=== PATIENT | female | born 1975 | race Caucasian/White ===

== ENCOUNTER → 2017-08-01 09:02 | Outpatient (POV) | payer MEDICAID, SELFPAY ==
[2017-08-01 10:08] VITALS: BP 106/65; PULSE 73; RESP 18; BMI 23.3
--- NOTE | 2017-08-01 10:34 | HMH.PAINSOAP ---
[facility] Pain Management SOAP Note Subjective:: This patient is a pleasant 41-year-old white female who we previously treated for low back pain with degenerative disc disease of lumbar spine multiple levels as well as lumbar facet arthropathy multiple levels. She previously had lumbar medial branch blocks/facet joint injections of L3-L4, L4-5 and L5-S1 bilaterally. She got good pain relief for several months. She was having insurance issues where they would not approve further injections last year. She returns today with increasing low back pain. I do believe she would benefit from repeat medial branch blocks/facet joint injections at L3-L4, L4-5 and L5-S1 bilaterally. We will seek approval for these injections. Objective:: Alert and oriented ?3 no acute distress. Patient does have a normal gait. Increased pain with extension. Tenderness over the facet joints at L3-L4, L4-5 and L5-S1 bilaterally. Motor strength of the lower extremities is 5/5. There is no gross sensory deficit. Assessment:: Degenerative disc disease of lumbar spine with lumbar spondylosis and facet arthropathy and lumbar radiculopathy symptoms. Plan:: We will seek approval for repeat bilateral facet joint injection/medial branch blocks of L3-L4, L4-5 and L5-S1. This patient received these blocks in the past and did very well for several months. She is also on [place] 10 mg 3 times a day from Dr. Vernon. This patient failed a pill count with us so we will no longer write her any oral narcotics. She can be continued on her medication by Dr. Vernon at his discretion.
== END ==
PROVIDERS: Family Provider Emergency Medicine; PCP Emergency Medicine; Visit Provider Anesthesiology
DX: M51.16 Intervertebral disc disorders with radiculopathy, lumbar region (principal); M47.26 Other spondylosis with radiculopathy, lumbar region
CPT/HCPCS: 99212

== ENCOUNTER → 2017-08-08 16:02 | Outpatient (REF) | payer MEDICAID, SELFPAY ==
[2017-08-08 19:44] LABS: Amphetamine/Metha Screen,Urine Negative ng/mL (<1000); Barbiturates Screen,Urine Negative ng/mL (<200); Benzodiazepines Screen,Urine Negative ng/mL (200); Cannabinoid Screen,Urine Negative ng/mL (<50); Cocaine Screen,Urine Negative ng/g (<300); Methadone Screen,Urine Negative ng/mL (<300); Opiate Screen,Urine Negative ng/mL (<300); Phencyclidine Screen,Urine Negative ng/mL (<25)
== END ==
LOC: LAB 16:02
PROVIDERS: Visit Provider Emergency Medicine
DX: Z79.891 Long term (current) use of opiate analgesic (principal)
CPT/HCPCS: 80305

== ENCOUNTER → 2017-09-06 15:01 | Outpatient (REF) | payer MEDICAID, SELFPAY ==
[2017-09-06 20:03] LABS: Amphetamine/Metha Screen,Urine Negative ng/mL (<1000); Barbiturates Screen,Urine Negative ng/mL (<200); Benzodiazepines Screen,Urine Negative ng/mL (200); Cannabinoid Screen,Urine Negative ng/mL (<50); Cocaine Screen,Urine Negative ng/g (<300); Methadone Screen,Urine Negative ng/mL (<300); Opiate Screen,Urine Positive ng/mL (<300); Phencyclidine Screen,Urine Negative ng/mL (<25)
== END ==
LOC: LAB 15:01
PROVIDERS: Visit Provider Emergency Medicine
DX: Z79.899 Other long term (current) drug therapy (principal)
CPT/HCPCS: 80305

== ENCOUNTER → 2017-09-28 08:52 | Outpatient (CLI) | payer MEDICAID, SELFPAY ==
[2017-09-28 09:23] LABS: Basophils % 0.4 % (0.1-2.0); Eosinophils # 0.3 K/mm3 (0.0-0.4); Eosinophils % 3.5 % (0.1-12.0); Hematocrit 39.5 % (37.0-47.0); Hemoglobin 13.3 g/dL (12.2-16.2); Lymphocytes # 2.7 K/mm3 (0.7-4.5); Lymphocytes % 35.1 K/mm3 (10-50); Mean Corpuscular HGB Conc 33.7 g/dL (31.8-35.4); Mean Corpuscular Hemoglobin 30.5 pg (27.0-31.2); Mean Corpuscular Volume 90.4 fl (81-99); Mean Platelet Volume 7.3 fl (7.4-10.4); Monocytes # 0.3 K/mm3 (0.1-1.0); Monocytes % 4.4 % (1.7-9.3); Neutrophils # 4.3 K/mm3 (1.8-7.8); Neutrophils % 56.5 % (37.0-80.0); Platelet Count 303 K/mm3 (142-424); Red Blood Count 4.37 M/mm3 (4.20-5.40); Red Cell Distribution Width 12.2 % (11.5-17.5); White Blood Count 7.7 K/mm3 (4.8-10.8)
[2017-09-28 09:50] LABS: Alanine Aminotransferase 25 U/L (12-78); Albumin Level 3.6 gm/dL (3.4-5.0); Albumin/Globulin Ratio 1.1 (1.1-1.8); Alkaline Phosphatase 66 U/L (46-116); Anion Gap 9.7 mEq/L (5-15); Aspartate Amino Transferase 15 U/L (15-37); Bilirubin,Total 0.5 mg/dL (0.2-1.0); Blood Urea Nitrogen 11 mg/dL (7-18); Calcium 8.6 mg/dL (8.5-10.1); Carbon Dioxide 29 mmol/L (21.0-32.0); Chloride 107 mmol/L (98-107); Chol/HDL Ratio 5.1 (1-3.5); Cholesterol 239 mg/dL (140-200); Creatinine,Serum 0.66 mg/dL (0.55-1.02); Estimated Glomerular Filt Rate 98 ml/min (>60); GFR (African American) 119 ML/MIN (>60); Globulin 3.3 gm/dl (1.3-3.2); Glucose 95 mg/dL (74-106); HDL Cholesterol 47 mg/dL (29-89); LDL Cholesterol 153 mg/dL (0-130); Potassium 3.7 mmoL/L (3.5-5.1); Sodium 142 mmol/L (136-145); Thyroid Stimulating Hormone 1.35 uIU/ml (0.358-3.740); Total Protein,Serum 6.9 gm/dL (6.4-8.2); Triglycerides 196 mg/dL (30-200); VLDL Cholesterol 39 mg/dL (0-40)
[2017-09-29 11:40] LABS: Vitamin D 25 Hydroxy 10.1 ng/mL (30.0-100.0)
== END ==
PROVIDERS: Visit Provider Emergency Medicine
DX: R53.83 Other fatigue (principal); Z79.899 Other long term (current) drug therapy
CPT/HCPCS: 36415; 80053; 80061; 82652; 84439; 84443; 85025

== ENCOUNTER → 2017-10-04 16:04 | Outpatient (REF) | payer MEDICAID, SELFPAY ==
[2017-10-04 20:16] LABS: Amphetamine/Metha Screen,Urine Negative ng/mL (<1000); Barbiturates Screen,Urine Negative ng/mL (<200); Benzodiazepines Screen,Urine Negative ng/mL (200); Cannabinoid Screen,Urine Negative ng/mL (<50); Cocaine Screen,Urine Negative ng/g (<300); Methadone Screen,Urine Negative ng/mL (<300); Opiate Screen,Urine Positive ng/mL (<300); Phencyclidine Screen,Urine Negative ng/mL (<25)
== END ==
LOC: LAB 16:04
PROVIDERS: Visit Provider Emergency Medicine
DX: Z79.899 Other long term (current) drug therapy (principal)
CPT/HCPCS: 80305

== ENCOUNTER → 2017-11-03 14:38 | Outpatient (REF) | payer MEDICAID, SELFPAY ==
[2017-11-03 19:27] LABS: Amphetamine/Metha Screen,Urine Negative ng/mL (<1000); Barbiturates Screen,Urine Negative ng/mL (<200); Benzodiazepines Screen,Urine Negative ng/mL (200); Cannabinoid Screen,Urine Negative ng/mL (<50); Cocaine Screen,Urine Negative ng/g (<300); Methadone Screen,Urine Negative ng/mL (<300); Opiate Screen,Urine Positive ng/mL (<300); Phencyclidine Screen,Urine Negative ng/mL (<25)
== END ==
LOC: LAB 14:38
PROVIDERS: Visit Provider Emergency Medicine
DX: Z79.899 Other long term (current) drug therapy (principal)
CPT/HCPCS: 80305

== ENCOUNTER → 2017-11-24 13:56 | Outpatient (CLI) | payer MEDICAID, SELFPAY ==
[2017-11-24 14:38] LABS: Amphetamine/Metha Screen,Urine Negative ng/mL (<1000); Barbiturates Screen,Urine Negative ng/mL (<200); Benzodiazepines Screen,Urine Negative ng/mL (200); Cannabinoid Screen,Urine Negative ng/mL (<50); Cocaine Screen,Urine Negative ng/g (<300); Methadone Screen,Urine Negative ng/mL (<300); Opiate Screen,Urine Negative ng/mL (<300); Phencyclidine Screen,Urine Negative ng/mL (<25)
== END ==
PROVIDERS: Visit Provider Emergency Medicine
DX: Z79.899 Other long term (current) drug therapy (principal)
CPT/HCPCS: 80305

== ENCOUNTER → 2017-12-01 15:04 | Outpatient (REF) | payer MEDICAID, SELFPAY ==
[2017-12-01 19:31] LABS: Amphetamine/Metha Screen,Urine Negative ng/mL (<1000); Barbiturates Screen,Urine Negative ng/mL (<200); Benzodiazepines Screen,Urine Negative ng/mL (200); Cannabinoid Screen,Urine Negative ng/mL (<50); Cocaine Screen,Urine Negative ng/g (<300); Methadone Screen,Urine Negative ng/mL (<300); Opiate Screen,Urine Positive ng/mL (<300); Phencyclidine Screen,Urine Negative ng/mL (<25)
== END ==
LOC: LAB 15:04
PROVIDERS: Visit Provider Emergency Medicine
DX: Z79.899 Other long term (current) drug therapy (principal)
CPT/HCPCS: 80305

== ENCOUNTER → 2017-12-29 15:53 | Outpatient (CLI) | payer MEDICAID, SELFPAY ==
[2017-12-29 17:43] LABS: Amphetamine/Metha Screen,Urine Negative ng/mL (<1000); Barbiturates Screen,Urine Negative ng/mL (<200); Benzodiazepines Screen,Urine Negative ng/mL (200); Cannabinoid Screen,Urine Negative ng/mL (<50); Cocaine Screen,Urine Negative ng/g (<300); Methadone Screen,Urine Negative ng/mL (<300); Opiate Screen,Urine Positive ng/mL (<300); Phencyclidine Screen,Urine Negative ng/mL (<25)
== END ==
PROVIDERS: Visit Provider Emergency Medicine
DX: Z79.899 Other long term (current) drug therapy (principal)
CPT/HCPCS: 80305

== ENCOUNTER → 2018-01-29 14:21 | Outpatient (REF) | payer MEDICAID, SELFPAY ==
[2018-01-29 19:25] LABS: Amphetamine/Metha Screen,Urine Negative ng/mL (<1000); Barbiturates Screen,Urine Negative ng/mL (<200); Benzodiazepines Screen,Urine Negative ng/mL (<200); Cannabinoid Screen,Urine Negative ng/mL (<50); Cocaine Screen,Urine Negative ng/mL (<300); Methadone Screen,Urine Negative ng/mL (<300); Opiate Screen,Urine Positive ng/mL (<300); Phencyclidine Screen,Urine Negative ng/mL (<25)
== END ==
LOC: LAB 14:21
PROVIDERS: Visit Provider Emergency Medicine
DX: Z79.899 Other long term (current) drug therapy (principal)
CPT/HCPCS: 80305

== ENCOUNTER → 2018-02-23 13:47 | Outpatient (REF) | payer MEDICAID, SELFPAY ==
[2018-02-23 19:01] LABS: Amphetamine/Metha Screen,Urine Negative ng/mL (<1000); Barbiturates Screen,Urine Negative ng/mL (<200); Benzodiazepines Screen,Urine Negative ng/mL (<200); Cannabinoid Screen,Urine Negative ng/mL (<50); Cocaine Screen,Urine Negative ng/mL (<300); Methadone Screen,Urine Negative ng/mL (<300); Opiate Screen,Urine Positive ng/mL (<300); Phencyclidine Screen,Urine Negative ng/mL (<25)
== END ==
LOC: LAB 13:47
PROVIDERS: Visit Provider Emergency Medicine
DX: Z79.899 Other long term (current) drug therapy (principal)
CPT/HCPCS: 80305

== ENCOUNTER → 2018-03-30 14:47 | Outpatient (CLI) | payer MEDICAID, SELFPAY ==
[2018-03-30 18:04] LABS: Amphetamine/Metha Screen,Urine Negative ng/mL (<1000); Barbiturates Screen,Urine Negative ng/mL (<200); Benzodiazepines Screen,Urine Negative ng/mL (<200); Cannabinoid Screen,Urine Negative ng/mL (<50); Cocaine Screen,Urine Negative ng/mL (<300); Methadone Screen,Urine Negative ng/mL (<300); Opiate Screen,Urine Positive ng/mL (<300); Phencyclidine Screen,Urine Negative ng/mL (<25)
== END ==
PROVIDERS: Visit Provider Nurse Practitioner Family
DX: Z79.899 Other long term (current) drug therapy (principal)
CPT/HCPCS: 80305

== ENCOUNTER → 2018-04-23 15:11 | Outpatient (REF) | payer MEDICAID, SELFPAY ==
[2018-04-23 19:22] LABS: Amphetamine/Metha Screen,Urine Negative ng/mL (<1000); Barbiturates Screen,Urine Negative ng/mL (<200); Benzodiazepines Screen,Urine Negative ng/mL (<200); Cannabinoid Screen,Urine Negative ng/mL (<50); Cocaine Screen,Urine Negative ng/mL (<300); Methadone Screen,Urine Negative ng/mL (<300); Opiate Screen,Urine Positive ng/mL (<300); Phencyclidine Screen,Urine Negative ng/mL (<25)
== END ==
LOC: LAB 15:11
PROVIDERS: Visit Provider Emergency Medicine
DX: Z79.899 Other long term (current) drug therapy (principal)
CPT/HCPCS: 80305

== ENCOUNTER → 2018-05-29 15:41 | Outpatient (CLI) | payer MEDICAID, SELFPAY ==
[2018-05-30 17:03] LABS: Amphetamine/Metha Screen,Urine Negative ng/mL (<1000); Barbiturates Screen,Urine Negative ng/mL (<200); Benzodiazepines Screen,Urine Negative ng/mL (<200); Cannabinoid Screen,Urine Negative ng/mL (<50); Cocaine Screen,Urine Negative ng/mL (<300); Methadone Screen,Urine Negative ng/mL (<300); Opiate Screen,Urine Positive ng/mL (<300); Phencyclidine Screen,Urine Negative ng/mL (<25)
== END ==
PROVIDERS: PCP Emergency Medicine; Visit Provider Emergency Medicine
DX: Z79.899 Other long term (current) drug therapy (principal)
CPT/HCPCS: 80305

== ENCOUNTER → 2018-06-27 19:30 | Outpatient (CLI) | payer MEDICAID, SELFPAY ==
[2018-06-27 21:55] LABS: Amphetamine/Metha Screen,Urine Negative ng/mL (<1000); Barbiturates Screen,Urine Negative ng/mL (<200); Benzodiazepines Screen,Urine Negative ng/mL (<200); Cannabinoid Screen,Urine Negative ng/mL (<50); Cocaine Screen,Urine Negative ng/mL (<300); Methadone Screen,Urine Negative ng/mL (<300); Opiate Screen,Urine Positive ng/mL (<300); Phencyclidine Screen,Urine Negative ng/mL (<25)
== END ==
PROVIDERS: Visit Provider Physician Assistant
DX: Z79.899 Other long term (current) drug therapy (principal)
CPT/HCPCS: 80305

== ENCOUNTER → 2018-07-10 09:11 | Outpatient (POV) | payer MEDICAID, SELFPAY ==
[2018-07-10 09:52] VITALS: BP 100/62; PULSE 79; RESP 18; O2SAT 99; BMI 24.3
--- NOTE | 2018-07-10 10:52 | HMH.PAINSOAP ---
[facility] Pain Management SOAP Note Subjective:: Is a pleasant 42-year-old who presents today for follow-up. Patient is having low back pain which is axial in nature. Patient has had several sets of medial branch blocks with good relief. She is also had an RFA that lasted her quite some time she rates her pain today an 8 out of 10. Patient is interested in repeating the RFA which she got 80% relief from for 6 months. She is tried and failed physical therapy. Patient is on anti-inflammatories. ROS General: no recent weight change, no fever, no sleep disturbances Respiratory: no cough, no shortness of air, no recurring pulmonary infections Cardiovascular/Peripheral Vascular: No chest pain, No palpitations, no edema, no shortness of breath. Gastrointestinal: no incontinence, normal bowel movements reported Genitourinary: no incontinence Musculoskeletal: back pain Psychiatric: normal mood/ affect Neurological: [denies weakness in extremities], [denies balance issues] Objective:: Physical Exam General: Alert and oriented x3, no acute distress, pleasant and cooperative, [on room air] Lungs: Resps E/U, Symmetrical chest expansion, Eyes: PERRL Musculoskeletal: Flexion and extension of lumbar spine somewhat guarded secondary to pain, deep tendon reflexes normal, strength in upper and lower extremities [5/5], slightly antalgic gait noted, positive kemps test bilaterally lumbar spine Neurological: speech clear, 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 Plan:: we will schedule a repeat rfa for the patient given the efficacy of it in the past. patient is not on any anticoagulation therapy. Patient is continuing a home stretching program. This note was dictated using voice recognition software and may contain errors or omissions
--- NOTE | 2018-07-10 10:56 | P.CONS_ITS ---
[facility] Pain Management SOAP Note Subjective:: Is a pleasant 42-year-old who presents today for follow-up. Patient is having low back pain which is axial in nature. Patient has had several sets of medial branch blocks with good relief. She is also had an RFA that lasted her quite some time she rates her pain today an 8 out of 10. Patient is interested in repeating the RFA which she got 80% relief from for 6 months. She is tried and failed physical therapy. Patient is on anti-inflammatories. ROS General: no recent weight change, no fever, no sleep disturbances Respiratory: no cough, no shortness of air, no recurring pulmonary infections Cardiovascular/Peripheral Vascular: No chest pain, No palpitations, no edema, no shortness of breath. Gastrointestinal: no incontinence, normal bowel movements reported Genitourinary: no incontinence Musculoskeletal: back pain Psychiatric: normal mood/ affect Neurological: [denies weakness in extremities], [denies balance issues] Objective:: Physical Exam General: Alert and oriented x3, no acute distress, pleasant and cooperative, [on room air] Lungs: Resps E/U, Symmetrical chest expansion, Eyes: PERRL Musculoskeletal: Flexion and extension of lumbar spine somewhat guarded secondary to pain, deep tendon reflexes normal, strength in upper and lower extremities [5/5], slightly antalgic gait noted, positive kemps test bilaterally lumbar spine Neurological: speech clear, 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 Plan:: we will schedule a repeat rfa for the patient given the efficacy of it in the past. patient is not on any anticoagulation therapy. Patient is continuing a home stretching program. This note was dictated using voice recognition software and may contain errors or omissions
== END ==
PROVIDERS: PCP Emergency Medicine; Visit Provider Clinical Nurse Specialist Family Health
DX: M47.896 Other spondylosis, lumbar region (principal); M54.06 Panniculitis affecting regions of neck and back, lumbar region; M51.36 Other intervertebral disc degeneration, lumbar region
CPT/HCPCS: 99213

== ENCOUNTER → 2018-07-17 15:28 | Outpatient (CLI) | payer MEDICAID, SELFPAY ==
--- NOTE | 2018-07-17 15:29 | MR_ITS ---
MR lumbar spine wo con, MR 3-d myelogram/MRCP Ordering Physician: TAMIR Esparza Patient Age: 42 years: Female. HISTORY: ITS.REASON: lumbar disc disease with radiculopathy weakness Low back pain which radiates down left leg and groin. Left also leg pain on right. For many years. Left leg symptoms 3 months. No trauma. TECHNIQUE: Sagittal STIR, T1, T2, axial T1 and T2. On 1.5T Siemens wide bore MRI. 3-D MR myelogram image set obtained & performed on MRI workstation. Additional sagittal thin section T2 weighted dataset obtained from this latter acquisition as well (---76 CPT) COMPARISON :Previous MRI lumbar 05/04/2017 & FINDINGS . The patient has a mild scoliosis. Mild dextrocurvature at the thoracolumbar junction with slight levocurvature at the lowermost lumbar spine. This is actually seen better on a previous studies than today. . Lumbar vertebral bodies are intact on. This spaces are fairly well-maintained throughout. L5/S1. Disc intact. Mild/moderate facet hypertrophy, arthropathy. Neural foramen widely patent L 4/5. Disc intact. Moderate facet hypertrophy with mildly flavum hypertrophy.. Neural foramen on Monday patent. Only perhaps scant disc bulge towards left foramen. Stable L3/4. Mild asymmetric disc bulge to the right.-Slightly indents, and effaces the anterior aspect of thecal sac right paracentral seen on axial image 14.. Also minor encroachment upon entry of the right foramen. Mild right foraminal encroachment Mild facet hypertrophy and arthropathy bilaterally. L2/3 disc intact as question scant bulge to the right on the axial view but this is not evident on sagittal image set. L1/2. Disc intact neural foramen widely patent. T12/L1 disc intact... 12 disc intact. Conus ends appropriately at L1. Generous volume thecal sac no stenosis. 3-D MRI myelogram image set shows generous caliber thecal sac with no prominent findings. Only very subtle slight indentation upon the L3/4 level of thecal sac to the right due to the noted mild asymmetric disc bulge at this level. This is a only changes are seen from 2017 IMPRESSION: Only minimal observations as summarized below.. No prominent findings L3/4. Asymmetric disc bulge the right which does mildly efface the right aspect of the thecal sac, and yield mild encroachment upon entry right foramen. This is only evident change since MRI L-spine L4/5. Scant disc bulge at inferior left foramen.Very minimal.Unchanged since 2016. Mild/moderate facet hypertrophy L4/5 L5/S1 also noted
== END ==
PROVIDERS: PCP Emergency Medicine; Visit Provider Physician Assistant
DX: M51.16 Intervertebral disc disorders with radiculopathy, lumbar region (principal)
CPT/HCPCS: 72148; 76376

== ENCOUNTER → 2018-07-25 18:05 | Outpatient (CLI) | payer MEDICAID, SELFPAY ==
[2018-07-25 21:51] LABS: Amphetamine/Metha Screen,Urine Negative ng/mL (<1000); Barbiturates Screen,Urine Negative ng/mL (<200); Benzodiazepines Screen,Urine Negative ng/mL (<200); Cannabinoid Screen,Urine Negative ng/mL (<50); Cocaine Screen,Urine Negative ng/mL (<300); Methadone Screen,Urine Negative ng/mL (<300); Opiate Screen,Urine Positive ng/mL (<300); Phencyclidine Screen,Urine Negative ng/mL (<25)
== END ==
PROVIDERS: Visit Provider Emergency Medicine
DX: Z79.899 Other long term (current) drug therapy (principal)
CPT/HCPCS: 80305

== ENCOUNTER → 2018-09-24 14:14 | Outpatient (CLI) | payer MEDICAID, SELFPAY ==
[2018-09-24 15:18] LABS: Amphetamine/Metha Screen,Urine Negative ng/mL (<1000); Barbiturates Screen,Urine Negative ng/mL (<200); Benzodiazepines Screen,Urine Negative ng/mL (<200); Cannabinoid Screen,Urine Negative ng/mL (<50); Cocaine Screen,Urine Negative ng/mL (<300); Methadone Screen,Urine Negative ng/mL (<300); Opiate Screen,Urine Positive ng/mL (<300); Phencyclidine Screen,Urine Negative ng/mL (<25)
== END ==
PROVIDERS: Visit Provider Emergency Medicine
DX: Z79.899 Other long term (current) drug therapy (principal)
CPT/HCPCS: 80305

== ENCOUNTER → 2018-11-26 14:07 | Outpatient (CLI) | payer MEDICAID, SELFPAY ==
[2018-11-26 16:05] LABS: Amphetamine/Metha Screen,Urine Negative ng/mL (<1000); Barbiturates Screen,Urine Negative ng/mL (<200); Benzodiazepines Screen,Urine Negative ng/mL (<200); Cannabinoid Screen,Urine Negative ng/mL (<50); Cocaine Screen,Urine Negative ng/mL (<300); Methadone Screen,Urine Negative ng/mL (<300); Opiate Screen,Urine Positive ng/mL (<300); Phencyclidine Screen,Urine Negative ng/mL (<25)
== END ==
PROVIDERS: Visit Provider Emergency Medicine
DX: Z79.899 Other long term (current) drug therapy (principal)
CPT/HCPCS: 80305

== ENCOUNTER → 2019-01-25 14:30 | Outpatient (CLI) | payer MEDICAID, SELFPAY ==
[2019-01-25 16:37] LABS: Amphetamine/Metha Screen,Urine Negative ng/mL (<1000); Barbiturates Screen,Urine Negative ng/mL (<200); Benzodiazepines Screen,Urine Negative ng/mL (<200); Cannabinoid Screen,Urine Negative ng/mL (<50); Cocaine Screen,Urine Negative ng/mL (<300); Methadone Screen,Urine Negative ng/mL (<300); Opiate Screen,Urine Positive ng/mL (<300); Phencyclidine Screen,Urine Negative ng/mL (<25)
== END ==
PROVIDERS: Visit Provider Emergency Medicine
DX: Z79.899 Other long term (current) drug therapy (principal)
CPT/HCPCS: 80305

== ENCOUNTER → 2019-03-25 14:03 | Outpatient (CLI) | payer MEDICAID, SELFPAY ==
[2019-03-25 15:07] LABS: Amphetamine/Metha Screen,Urine Negative ng/mL (<1000); Barbiturates Screen,Urine Negative ng/mL (<200); Benzodiazepines Screen,Urine Negative ng/mL (<200); Cannabinoid Screen,Urine Negative ng/mL (<50); Cocaine Screen,Urine Negative ng/mL (<300); Methadone Screen,Urine Negative ng/mL (<300); Opiate Screen,Urine Positive ng/mL (<300); Phencyclidine Screen,Urine Negative ng/mL (<25)
== END ==
PROVIDERS: Visit Provider Emergency Medicine
DX: Z79.891 Long term (current) use of opiate analgesic (principal)
CPT/HCPCS: 80305

== ENCOUNTER → 2019-05-17 17:17 | Outpatient (CLI) | payer MEDICAID, SELFPAY ==
[2019-05-17 18:12] LABS: Amphetamine/Metha Screen,Urine Negative ng/mL (<1000); Barbiturates Screen,Urine Negative ng/mL (<200); Benzodiazepines Screen,Urine Negative ng/mL (<200); Cannabinoid Screen,Urine Negative ng/mL (<50); Cocaine Screen,Urine Negative ng/mL (<300); Methadone Screen,Urine Negative ng/mL (<300); Opiate Screen,Urine Positive ng/mL (<300); Phencyclidine Screen,Urine Negative ng/mL (<25)
== END ==
PROVIDERS: Visit Provider Emergency Medicine
DX: Z79.899 Other long term (current) drug therapy (principal)
CPT/HCPCS: 80305

== ENCOUNTER → 2019-06-25 09:43 | Outpatient (CLI) | payer MEDICAID, SELFPAY ==
--- NOTE | 2019-06-25 09:47 | XR_ITS ---
PROCEDURE: XR CHEST 2V CLINICAL HISTORY: productive cough Current smoker, shortness of air COMPARISON: CXR CHEST(2 VIEWS-NOT PORTABLE) from 10/07/2012 CXR CHEST(2 VIEWS-NOT PORTABLE) from 06/29/2015 CXR CHEST(2 VIEWS-NOT PORTABLE) from 08/18/2016 FINDINGS: The cardiomediastinal silhouette and pulmonary vascularity are within normal limits. No lobar consolidation or collapse. On the lateral view there is a 4.7 mm nodular opacity overlying the anterior and inferior aspect of the heart linear density is present in the right apex may be due to an area of fibrosis or atelectasis which has developed in the interval Nonspecific. IMPRESSION: Right upper lobe atelectatic or fibrotic change Nonspecific 5 mm nodular opacity overlying the anterior inferior aspect of the heart. Consider follow-up to confirm stability. Dictated by: Scott Conti MD 06/25/2019 16:09 Electronically signed by Scott Conti MD in [place] 06/25/2019 16:09
== END ==
PROVIDERS: PCP Nurse Practitioner Family; Visit Provider Nurse Practitioner Family
DX: R05 Cough (principal)
CPT/HCPCS: 71046

== ENCOUNTER → 2019-07-19 13:19 | Outpatient (CLI) | payer MEDICAID, SELFPAY ==
[2019-07-19 16:09] LABS: Amphetamine/Metha Screen,Urine Negative ng/mL (<1000); Barbiturates Screen,Urine Negative ng/mL (<200); Benzodiazepines Screen,Urine Negative ng/mL (<200); Cannabinoid Screen,Urine Negative ng/mL (<50); Cocaine Screen,Urine Negative ng/mL (<300); Methadone Screen,Urine Negative ng/mL (<300); Opiate Screen,Urine Positive ng/mL (<300); Phencyclidine Screen,Urine Negative ng/mL (<25)
[2019-07-28 17:13] LABS: Codeine Negative (Cutoff=100); Hydrocodone Positive (.); Hydromorphone Positive (.)
[2019-07-28 18:48] LABS: Hydrocodone Confirm 2848 ng/mL (Cutoff=100); Hydromorphone Confirm 194 ng/mL (Cutoff=100); Morphine Comment: (.); Opiates Comment: ng/mL (.)
== END ==
PROVIDERS: Visit Provider Nurse Practitioner Family
DX: Z79.899 Other long term (current) drug therapy (principal)
CPT/HCPCS: 80305; 80361; G0480

== ENCOUNTER → 2019-07-25 10:32 | Outpatient (POV) | payer MEDICAID, SELFPAY ==
--- NOTE | 2019-07-25 10:38 | XR_ITS ---
PROCEDURE: XR CHEST 2V CLINICAL HISTORY: abnormal cxr, nodule COMPARISON: CXR CHEST(2 VIEWS-NOT PORTABLE) from 06/29/2015 CXR CHEST(2 VIEWS-NOT PORTABLE) from 08/18/2016 XR CHEST 2V from 06/25/2019 FINDINGS: The cardiomediastinal silhouette and pulmonary vascularity are within normal limits. The lungs are clear without infiltrates, suspicious nodules, or pleural effusions. No acute bony abnormalities. IMPRESSION: No acute findings. Dictated by: Sriram Cornell 07/25/2019 10:51 Electronically signed by Sriram Cornell in [place] 07/25/2019 10:51
[2019-07-25 11:17] VITALS: BP 140/86; PULSE 90; RESP 18; O2SAT 98; BMI 24.0
--- NOTE | 2019-07-25 11:32 | HMH.PAINSOAP ---
[facility] Pain Management SOAP Note Subjective:: Patient is a pleasant 43-year-old white female who presents today for follow-up. Patient underwent a radiofrequency ablation to the facet joint/medial branches of L3-L4 L4-L5 L5-S1 on the right side. Patient says that she underwent the procedure in September 2018. She says that she was afraid to return due to the pain that she felt from the previous injection. She is here today with complaints of low back pain that is worse with turning and twisting and with bending forward. She does say she got 90% relief following the procedures in the past. Patient states her pain has returned on bilateral sides, but is worse on the right side. Like to discuss possible RFA to the right side him. She is continuing with anti-inflammatories and a home stretching program. She rates her pain a 6 out of 10 today. Review of Systems General: No recent weight changes, no fever, no sleep disturbances Respiratory: No cough, no shortness of air, no recurring pulmonary infections Cardiovascular/peripheral vascular: No chest pain, no palpitations, no edema, no shortness of breath Gastrointestinal: No new onset incontinence, normal bowel movements reported Genitourinary: No new onset incontinence Musculoskeletal: Low back pain Psychiatric: Normal mood/affect Neurological: [Denies weakness in extremities], [denies balance issues] Objective:: Physical exam General: Alert and oriented x3, no acute distress, pleasant and cooperative, [on room air] Lungs: Respirations even and unlabored, symmetrical chest expansion Eyes: PERRL Musculoskeletal: Flexion and extension of lumbar spine somewhat guarded secondary to pain, deep tendon reflexes normal, strength in upper and lower extremities [5/5], [abnormal gait noted] Neurological: Speech clear, 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 Her pain has progressively returned. Her pain is worse on the right side. We will schedule her for an RFA on the right side to L3-L4 L4-L5 L5-S1. She is not on any anticoagulation therapy. She will continue with anti-inflammatories and a home stretching program. We will see her back in the clinic following her F8 to reassess her symptoms. She has been instructed to contact the clinic if she has any concerns before her next appointment. Dr. Eddy has reviewed this note and agrees with this plan of care. This note was dictated using voice recognition software and make contain errors or omissions. [facility] History I have reviewed the patient's past medical history: Yes Medical History: Reports:: Anxiety, Depression, Hyperlipidemia, Migraine, Osteoporosis, Urinary Tract Infection Denies:: Cancer, Diabetes Mellitus Type 1, Diabetes Mellitus Type 2, Seizures *Have you ever received a pneumonia vaccine?: Yes *Have you received a flu vaccine this season?: Yes Other Medical History: Reports: Arthritis, Hormone Therapy, Osteoporosis Laterality Cases: Right: Arthroscopy Shoulder Other Surgeries: Yes: Hysterectomy-Total, Tubal Ligation Amputation: No Fractures: No - *Social History Smoking Status: Current every day smoker Tobacco Type: cigarettes # Packs/Day (cigarettes): 1 Alcohol Intake: never Substance Use Type: denies use *Occupational Status:: other Housing: house Household Members: family *Travel in the last 8 weeks: None - Psychiatric History Pschychiatric History:: Reports:: Anxiety, Depression Family Hx:: Heart Attack, Hypertension, Coronary Artery Disease
== END ==
PROVIDERS: PCP Emergency Medicine; Referring Provider Nurse Practitioner Family; Visit Provider Clinical Nurse Specialist Family Health
DX: R93.89 Abnormal findings on diagnostic imaging of other specified body structures (principal); R05 Cough
CPT/HCPCS: 71046; 99212

== ENCOUNTER → 2019-08-05 08:01 | Outpatient (CLI) | payer MEDICAID, SELFPAY ==
--- NOTE | 2019-08-05 | CA_ITS ---
APPROVED REPORT Exam: Exercise Treadmill Technologist: Magalie Dahl Ht: 5 ft 3 in Wt: 132 lbs BSA: 1.62 m2 HR: 80 bpm BP: 108/74 mmHg Indications: Chest pain Medical History Medications: Omeprazole,,,,, ZYRTEC,,,,, OxYCODONE,,,,, Estradol,,,,, Stress Test Details Test: Pan HR Resting HR: 92 bpm Max Heart Rate (APMHR): 176 bpm Max HR Achieved: 170 bpm Target HR (85% APMHR): 149 bpm % of APMHR: 96 Recovery HR: 94 bpm BP Resting BP: 108.0/74.0 mmHg Max BP: 150.0/78.0 mmHg Recovery BP: 126.0/64.0 mmHg ECG Clinical Reason for Termination: Chest pain, Dyspnea Exercise duration: 06:53 min Highest Stage Achieved: Exercise capacity: 10.1 METs Stress ECG Conclusion Abnormal stress test. Patient exercised on a Pan Protocol for 6 minutes and 53 seconds to a peak heart rate of 170 beats per minute(target heart rate 150 beats per minute) without ST segment changes or arrhythmias. She stopped due to shortness of air and relayed substernal chest burning sensation at peak stress/early recovery. Peak blood pressure 164/78 mmHg and total METS of 10.1 acheived. Test Summary REST . . . . . . . Sitting REST . . . . . . . Standing REST 13:29 0.0 0.0 92 . 108/ 74 . . Stage 1 01:00 10.0 1.7 124 . . . . Stage 1 02:00 10.0 1.7 130 . . . . Stage 1 03:00 10.0 1.7 133 . 115/ 70 . . Stage 2 01:00 12.0 2.5 144 . . . . Stage 2 02:00 12.0 2.5 152 . . . . Stage 2 03:00 12.0 2.5 158 . 130/ 86 . . Stage 3 00:53 14.0 3.4 169 . . . Stop exercise at 06:53 RECOVERY 01:00 0.0 0.0 145 . . . . RECOVERY 02:00 0.0 0.0 117 . 150/ 78 . . RECOVERY 03:00 0.0 0.0 117 . 150/ 78 . . RECOVERY 04:00 0.0 0.0 109 . 150/ 78 . . RECOVERY 05:00 0.0 0.0 107 . 150/ 78 . . RECOVERY 05:29 0.0 0.0 104 . 150/ 78 . . Electronically signed by : Mono Elkins, 08/05/2019 19:41:32
--- NOTE | 2019-08-05 08:01 | CT_ITS ---
PROCEDURE: CT CHEST WO CON CLINICAL INDICATION: chest pain, tobacco use Follow-up lung nodule, solitary pulmonary nodule COMPARISON: ABDPELW/O CT ABD PELVIS W/O CONTRAST from 05/22/2017 XR CHEST 2V from 06/25/2019 XR CHEST 2V from 07/25/2019 TECHNIQUE: Axial images obtained with sagittal and coronal reformats. All CT scans at the facility use one or more dose reduction, viz: automated exposure control, ma/kV adjustment per patient size (including targeted exams where dose is matched to indication, i.e. head), or iterative reconstruction technique. FINDINGS: No mediastinal or hilar mass. There are few scattered small mediastinal lymph nodes. There is slight increased density within the anterior mediastinum and may be related to residual thymic tissue. Heart size is normal.. There is a noncalcified 3 mm nodule within the lingula which may account for the radiographic abnormality noted on 06/25/2019. This is unchanged compared to 05/22/[address] No suspicious pulmonary nodules are evident. No acute bony anomalies. No central obstructing lesions. There is a small sclerotic focus involving the T9 vertebral body and may be due to small bone island. IMPRESSION: No acute finding. Stable 3 mm nodule within the lingula. No suspicious pulmonary nodules apparent Dictated by: Scott Conti MD 08/06/2019 10:21 Electronically signed by Scott Conti MD in [place] 08/06/2019 10:21
== END ==
PROVIDERS: PCP Emergency Medicine; Visit Provider Urology
DX: E78.5 Hyperlipidemia, unspecified; R07.89 Other chest pain; R00.2 Palpitations; R53.83 Other fatigue; R93.89 Abnormal findings on diagnostic imaging of other specified body structures; Z72.0 Tobacco use
CPT/HCPCS: 71250; 93017; G0399

== ENCOUNTER → 2019-09-04 18:10 | Outpatient (CLI) | payer MEDICAID, SELFPAY ==
[2019-09-04 20:40] LABS: Amphetamine/Metha Screen,Urine Negative ng/mL (<1000); Barbiturates Screen,Urine Negative ng/mL (<200); Benzodiazepines Screen,Urine Negative ng/mL (<200); Cannabinoid Screen,Urine Negative ng/mL (<50); Cocaine Screen,Urine Negative ng/mL (<300); Methadone Screen,Urine Negative ng/mL (<300); Opiate Screen,Urine Positive ng/mL (<300); Phencyclidine Screen,Urine Negative ng/mL (<25)
== END ==
PROVIDERS: Visit Provider Emergency Medicine
DX: Z79.899 Other long term (current) drug therapy (principal)
CPT/HCPCS: 80305

== ENCOUNTER → 2020-01-23 15:26 | Outpatient (CLI) | payer MEDICAID, SELFPAY ==
--- NOTE | 2020-01-23 15:28 | MR_ITS ---
PROCEDURE: MR LUMBAR SPINE WO CON CLINICAL INDICATION: back pain COMPARISON: TOOL CLERK/O MRI-L-SPINE W/O from 05/04/2017 SPLUMBWO MR lumbar spine wo con from 07/17/2018 TECHNIQUE: Standard multiplanar multiecho sequences are performed without contrast. 3-D MIP and myelographic images are also rendered and reviewed FINDINGS: There is uniform fat marrow signal hyperintensity. There is mid lumbar scoliosis concave to the left. There is good alignment of the bony structures. Spinal cord and conus medullaris is unremarkable. At the T11-T12 disc space there is no significant spinal stenosis. At the T12-L1 disc space there is no significant spinal stenosis. At the L1-2 disc space there is no significant spinal stenosis. At the L2-3 disc space there is no significant spinal stenosis At the L3-4 disc space there is a broad-based disc protrusion producing minimal central canal stenosis.. At the L4-5 disc space there is mild facet arthropathy without significant spinal stenosis. At the L5-S1 disc space there is mild facet arthropathy without significant spinal stenosis The paralumbar structures are unremarkable. IMPRESSION: Minimal L3-4 spinal stenosis Dictated by: Solo Navarro 01/23/2020 16:43 Electronically signed by Solo Navarro in [facility] 01/23/2020 16:43
--- NOTE | 2020-01-23 15:28 | MM_ITS ---
PROCEDURE: MM DIG SCREENING MAMM BI W/CAD Digital Breast Tomosynthesis Included CLINICAL INDICATION: screening There is a history of breast cancer patient's 2 maternal aunts. The patient is currently on estrogen. COMPARISON: This is a baseline screening exam. TECHNIQUE: Standard CC and MLO images and 3D Tomosynthesis was obtained. R2 CAD reviewed. FINDINGS: Scattered fibroglandular densities are seen in the central portions of both breast on a background of fatty breast parenchyma. There is a mole marker left breast. There is no suspicious lesion in either breast and no suspicious microcalcifications. There are multiple benign-appearing nodes in both axilla. IMPRESSION: Fibrofatty parenchyma with no suspicious lesions seen BI-RAD Category: 2 Benign Finding(s) FOLLOW-UP: 1YR 1 Year Follow-up (A letter has been sent to the patient regarding results of the study.) Dictated by: Dr. Martín Gasca MD 01/25/2020 10:[address] Martín Gasca MD in [place] 01/25/2020 10:22
== END ==
PROVIDERS: PCP Emergency Medicine; Visit Provider Emergency Medicine
DX: Z12.31 Encounter for screening mammogram for malignant neoplasm of breast (principal); M54.9 Dorsalgia, unspecified
CPT/HCPCS: 72148; 76376; 77063; 77067

== ENCOUNTER 2020-04-05 11:12 | Emergency (ER) | payer MEDICAID, SELFPAY ==
[2020-04-05 11:14] VITALS: BP 114/80; PULSE 99; RESP 99; TEMP 36.9; O2SAT 97; BMI 26.5
[2020-04-05 11:23] VITALS: BMI 26.5
--- NOTE | 2020-04-05 11:23 | HMH.EDGENADL ---
ED Disposition Clinical Impression: Sinusitis Acute sinusitis Qualifiers: Sinusitis location: unspecified location Recurrence: not specified as recurrent Qualified Code(s): J01.90 - Acute sinusitis, unspecified Disposition: Home, Self-Care Condition on Discharge: Good Instructions: Sinusitis Additional Instructions: You were seen on an emergency basis. It is very important that you follow up with your primary care provider and/or specialist as we discussed within 2 days. All labs and imaging were obtained and interpreted here to rule out life threatening emergencies, but your final results should be reviewed by your primary doctor at your follow up appointment. Please return to the emergency department if any of your symptoms worsen, or if they do not improve as we discussed. Prescriptions: Amoxicillin/Potassium Clav [Augmentin 875-125 Tablet] 1 tab PO Q12H 10 Days #20 tab Transmission Status: Pending to [facility] Referrals: Missael Vernon MD [Primary Care Provider] - - Critical Care Critical Care Time: No Attestation: On , the high probability of a clinically significant, sudden or life threatening deterioration of the following system(s) required my full and direct attention, intervention and personal management. The time I documented below is in addition to time spent performing reported procedures but includes the following listed in this critical care notation. Medical Decision Making - Medical Records Medical records reviewed: Yes: I reviewed the patient's medical records. - Jarred Inquiry Pt receiving controlled substance: No Vital Signs: 04/05/20 11:14 Temperature 98.5 F Temperature Source Oral Pulse Rate [Left Radial] 99 H Respiratory Rate 99 H Blood Pressure [Right Arm] 114/80 Blood Pressure Mean [Right Arm] 91 Blood Pressure Source [Right Arm] Automatic Cuff Blood Pressure Position [Right Arm] Sitting 02 Sat by Pulse Oximetry 97 Oxygen Delivery Method Room Air Medical Decision Narrative: 4-year-old presenting with sinus congestion. Nontoxic, afebrile, hemodynamically stable. No meningismus. She was tachycardic when I walked in the room without any explanation for this so I got an EKG which is normal sinus rhythm at a rate of 89. She seems to have a normal heart rate until I walk in the room and then she becomes tachycardic but I was whitecoat syndrome because I can see that her monitoring engineer from my desk reading at a normal rate. Her EKG is otherwise nonactionable. She appears well. She has no cardiac symptoms. I do not feel that further intervention for this is required. Clinically she has a sinusitis that requires antibiotic treatment and I will prescribe her Augmentin for 2 weeks. She will also get 10 mg of oral Decadron here. Follow-up with PCP. General Adult HPI - General Stated complaint: johnston sore throat ear pain Time Seen by Provider: 04/05/20 11:23 - History of Present Illness HPI narrative: This is a 44-year-old female with a history of multiple sinus infections presenting with a two-week history of sinus pressure and pressure behind the eyes that feels similar to prior infections. She has been taking Claritin and Flonase without relief. She also took Tylenol and Motrin this morning. No fever, chills, nausea, vomiting, cough, shortness of breath, headache, double vision, blurry vision, chest pain, palpitations. - Related Data Home Medications Medication Instructions Recorded Confirmed estradiol 2 mg tablet 2 mg PO DAILY 03/31/20 03/31/20 Previous Rx's Medication Instructions Recorded aspirin 81 mg chewable tablet 81 mg PO DAILY #90 tab 08/25/18 cetirizine 10 mg capsule 10 mg PO DAILY #90 cap 11/12/19 fluticasone propionate 50 See Rx Instructions .ROUTE 11/12/19 mcg/actuation nasal .COMPLEX #16 unspecified spray,suspension omeprazole 20 mg capsule,delayed See Rx Instructions .ROUTE 03/23/20 release .COMPLEX #90 unspecified gabape
--- NOTE | 2020-04-05 11:25 | ECG_ITS ---
APPROVED REPORT Exam: Resting ECG HR:89 bpm ECG Measurements Heart Rate 89 AXES SC 178 P 64 QRSd 66 QRS 36 QT 348 T 53 QTc 423 <Conclusion> Normal sinus rhythm Possible Left atrial enlargement Low voltage QRS Borderline ECG Electronically signed by : Rhys Cheung, 04/07/2020 12:35:34
[2020-04-05 11:59] VITALS: BP 128/89; PULSE 97; RESP 16; TEMP 36.9; O2SAT 97
== END 2020-04-05 12:00 | disposition home or self-care (01) ==
PROVIDERS: Emergency Provider Physician Assistant; PCP Emergency Medicine
DX: J01.90 Acute sinusitis, unspecified (principal); I10 Essential (primary) hypertension; G43.709 Chronic migraine without aura, not intractable, without status migrainosus; F41.8 Other specified anxiety disorders; K21.9 Gastro-esophageal reflux disease without esophagitis; E78.5 Hyperlipidemia, unspecified; F17.210 Nicotine dependence, cigarettes, uncomplicated; Z90.710 Acquired absence of both cervix and uterus; Z91.040 Latex allergy status; Z88.1 Allergy status to other antibiotic agents; Z88.5 Allergy status to narcotic agent
CPT/HCPCS: 93005; 99282

== ENCOUNTER 2020-04-22 09:41 | Emergency (ER) | payer MEDICAID, SELFPAY ==
[2020-04-22 09:42] VITALS: BP 128/91; PULSE 76; RESP 16; TEMP 36.8; O2SAT 98; BMI 26.9
--- NOTE | 2020-04-22 10:19 | HMH.EDUTC ---
[facility] [facility] [place] Clinical Impression: Sinusitis Qualifiers: Sinusitis location: unspecified location Chronicity: unspecified Qualified Code(s): J32.9 - Chronic sinusitis, unspecified Disposition: Home, Self-Care Condition on Discharge: Good Instructions: Sinusitis, Sinus Headache, DI for Sinusitis, Azithromycin, Methylprednisolone Additional Instructions: *Monitor Temp, Over the counter Motrin or Tylenol as directed/as needed Tylenol every 4 hours and Motrin every 6 hours (as long as your family doctor has told you that you can take it) for fever or pain. and straight to ER if unable to lower temp less than 101.0 after medication given *Warm salt water gargles may help to soothe the throat *Throat Lozenges *Warm fluids like tea with honey may help to soothe the throat *Sleep elevated *Humidifier/Vaporizer *Flonase 2 sprays in each nostril daily but be aware that it may take 2-3 days before you notice improvement Follow up IMMEDIATELY for new or worsening symptoms or no Noticeable improvement over the next 48-72 hours. 911 for difficulty breathing or swallowing Prescriptions: Fluticasone Propionate [Flonase 50mcg nasal spray 16gm] 1 - 2 spr NS DAILY #1 bottle Transmission Status: Pending to [facility] methylPREDNISolone [Medrol 4mg tab] 4 mg PO DIRECTED #21 tab Transmission Status: Pending to [facility] Azithromycin [Z-Sharath 250mg Tab*] 250 mg PO UD DOSE PK #6 tab Transmission Status: Pending to [facility] Referrals: Missael Vernon MD [Primary Care Provider] - As needed Time of Disposition: 10:31 Medical Decision Making - Jarred Inquiry Pt receiving controlled substance: No Jarred was queried for this patient: No Vital Signs: 04/22/20 09:42 Temperature 98.2 F Temperature Source Oral Pulse Rate [Right] 76 Respiratory Rate 16 Blood Pressure [Right Arm] 128/91 H Blood Pressure Mean [Right Arm] 103 Blood Pressure Source [Right Arm] Automatic Cuff Blood Pressure Position [Right Arm] Sitting 02 Sat by Pulse Oximetry 98 Oxygen Delivery Method Room Air Medical Decision Narrative: Patient states that she has taken azithromycin and medrol dose pack before without reaction or complication [facility] [place] [facility] [place] - General Stated complaint: sore throat Time Seen by Provider: 04/22/20 10:19 Mode of Arrival: Ambulatory Source of Information: Patient Limitations: No Limitations Description of Symptoms (Recalled from Triage Doc. by RN): Pt c/o sore throat for the past month. Advises she has been seen a couple of times for the problem and just finished augmentin HEENT Symptoms (Recalled from RN notes): Yes (sore throat) Resp Symptoms (Recalled from RN notes): No Skin Symptoms (Recalled from RN notes): No MS Symptoms (Recalled from RN notes): No Functional Status (Recalled from RN notes): na - History of Present Illness Provider Complaint: Patient states that she has been having sinus pain and pressure along with sore throat on and off for over a month States that she was recently seen and treated with Augmentin and finished it over a week ago and not got any better States that she is still blowing yellowish colored mucous from her nose and drainage is worse when she lays down - Related Data Home Medications Medication Instructions Recorded Confirmed estradiol 2 mg tablet 2 mg PO DAILY 03/31/20 03/31/20 Previous Rx's Medication Instructions Recorded aspirin 81 mg chewable tablet 81 mg PO DAILY #90 tab 08/25/18 cetirizine 10 mg capsule 10 mg PO DAILY #90 cap 11/12/19 fluticasone propionate 50 See Rx Instructions .ROUTE 11/12/19 mcg/actuation nasal .COMPLEX #16 unspecified spray,suspension omeprazole 20 mg capsule,delayed See Rx Instructions .ROUTE 03/23/20 release .COMPLEX #90 unspecified gabapentin 300 mg capsule 300 mg PO BID #30 cap 03/31/20 hydrocodone 10 mg-acetaminophen 1 tab PO QID #120 tab 03/31/20 325 mg tablet Amoxicillin/Potassium Clav 1 tab PO Q12H 10 Days #20 t
[2020-04-22 10:25] LABS: UTC Strep Screen (Rapid) Negative (Negative)
[2020-04-22 10:48] VITALS: BP 130/87; PULSE 70; RESP 16; TEMP 36.6; O2SAT 98
== END 2020-04-22 10:49 | disposition home or self-care (01) ==
PROVIDERS: Emergency Provider Nurse Practitioner; PCP Emergency Medicine
DX: J32.9 Chronic sinusitis, unspecified (principal); F41.8 Other specified anxiety disorders; K21.9 Gastro-esophageal reflux disease without esophagitis; E78.5 Hyperlipidemia, unspecified; I10 Essential (primary) hypertension; G43.709 Chronic migraine without aura, not intractable, without status migrainosus; M81.0 Age-related osteoporosis without current pathological fracture; F17.210 Nicotine dependence, cigarettes, uncomplicated; Z90.710 Acquired absence of both cervix and uterus; Z79.899 Other long term (current) drug therapy; Z88.5 Allergy status to narcotic agent; Z88.8 Allergy status to other drugs, medicaments and biological substances
CPT/HCPCS: 87880; 99201

== ENCOUNTER → 2020-07-21 17:47 | Outpatient (CLI) | payer MEDICAID, SELFPAY ==
[2020-07-21 18:18] LABS: Basophils # 0.1 K/mm3 (0-0.2); Basophils % 0.8 % (0.1-2.0); Eosinophils # 0.2 K/mm3 (0.0-0.4); Eosinophils % 2.7 % (0.1-12.0); Hematocrit 37.9 % (37.0-47.0); Hemoglobin 12.4 g/dL (12.2-16.2); Lymphocytes # 2.9 K/mm3 (0.7-4.5); Lymphocytes % 40.1 % (10-50); Mean Corpuscular HGB Conc 32.8 g/dL (31.8-35.4); Mean Corpuscular Hemoglobin 30.7 pg (27.0-31.2); Mean Corpuscular Volume 93.9 fl (81-99); Mean Platelet Volume 8.4 fl (7.4-10.4); Monocytes # 0.3 K/mm3 (0.1-1.0); Monocytes % 4.5 % (1.7-9.3); Neutrophils # 3.7 K/mm3 (1.8-7.8); Neutrophils % 51.9 % (37.0-80.0); Platelet Count 411 K/mm3 (142-424); Red Blood Count 4.04 M/mm3 (4.20-5.40); Red Cell Distribution Width 13.2 % (11.5-17.5); White Blood Count 7.1 K/mm3 (4.8-10.8)
[2020-07-21 18:38] LABS: Alanine Aminotransferase 21 U/L (12-78); Albumin Level 4.1 g/dl (3.5-5.0); Albumin/Globulin Ratio 1.5 (1.1-1.8); Alkaline Phosphatase 99 U/L (38-126); Anion Gap 9.6 mEq/L (5-15); Aspartate Amino Transferase 37 U/L (14-36); Bilirubin,Total 0.3 mg/dl (0.2-1.3); Blood Urea Nitrogen 9 mg/dl (7-17); Calcium 9.3 mg/dl (8.4-10.2); Carbon Dioxide 28 mmol/L (22.0-30.0); Chloride 102 mmol/L (98-107); Chol/HDL Ratio 6.6 (1-3.5); Cholesterol 262 mg/dl (140-200); Estimated Glomerular Filt Rate 108 ml/min (>60); GFR (African American) 131 ML/MIN (>60); Globulin 2.8 g/dL (1.3-3.2); Glucose 114 mg/dl (74-100); HDL Cholesterol 40 mg/dl (40-60); Potassium 3.6 mmoL/L (3.5-5.1); Sodium 136 mmol/L (136-145); Total Protein,Serum 6.9 g/dl (6.3-8.2)
[2020-07-21 18:49] LABS: Direct LDL Cholesterol 141.89 mg/dL (100-129)
[2020-07-21 18:55] LABS: T4 (Thyroxine) 7.9 ug/dl (5.53-11.0)
[2020-07-21 19:00] LABS: 25-OH Vitamin D, Total < 12.8 ng/mL (30-100)
[2020-07-21 19:01] LABS: Triglycerides 660 mg/dl (30-150)
== END ==
PROVIDERS: Visit Provider Emergency Medicine
DX: E78.5 Hyperlipidemia, unspecified (principal); E55.9 Vitamin D deficiency, unspecified; E66.3 Overweight; R53.83 Other fatigue
CPT/HCPCS: 80053; 80061; 82306; 84436; 84443; 85025

== ENCOUNTER → 2020-08-05 14:35 | Outpatient (CLI) | payer MEDICAID, SELFPAY ==
--- NOTE | 2020-08-05 14:35 | CT_ITS ---
PROCEDURE: CT SOFT TISSUE NECK W CON CLINICAL HISTORY: pain, smoker smoker, sore throat x 5 months soft palette pain 75ml iso 370 no prior COMPARISON: No exams were available for comparison TECHNIQUE: Oral Contrast: None IV Contrast: 75 mL Isovue 370 Axial images obtained with sagittal and coronal reformats. All CT scans at the facility use one or more dose reduction, viz: automated exposure control, ma/kV adjustment per patient size (including targeted exams where dose is matched to indication, i.e. head), or iterative reconstruction technique. FINDINGS: The nasopharynx, oropharynx and hypopharynx have an unremarkable appearance. The epiglottis is unremarkable. There laryngeal region has an unremarkable appearance. The thyroid gland and salivary glands are unremarkable. There are small air-fluid levels within the maxillary sinuses. Scattered small nodes are present in the neck. No dominant adenopathy. Lung apices are clear. There are degenerative changes in the cervical spine at C4-C5 C5-C6 and C6-C7. IMPRESSION: Small air-fluid levels within the maxillary sinuses suggesting underlying inflammatory changes otherwise negative CT of the neck. Dictated by: Scott Conti MD 08/06/2020 11:37 Scott Conti MD in [place] 08/06/2020 11:37
== END ==
PROVIDERS: PCP Emergency Medicine; Visit Provider Emergency Medicine
DX: R07.0 Pain in throat (principal); F17.200 Nicotine dependence, unspecified, uncomplicated
CPT/HCPCS: 70491; Q9967

== ENCOUNTER → 2020-09-28 17:49 | Outpatient (CLI) | payer MEDICAID, SELFPAY ==
[2020-09-28 20:16] LABS: Phencyclidine Screen,Urine Negative ng/ml (<25)
[2020-09-28 20:22] LABS: Amphetamine/Metha Screen,Urine Negative ng/ml (<1000)
[2020-09-28 20:23] LABS: Barbiturates Screen,Urine Negative ng/ml (<200); Benzodiazepines Screen,Urine Negative ng/ml (<200)
[2020-09-28 20:24] LABS: Cannabinoid Screen,Urine Negative ng/ml (<50)
[2020-09-28 20:26] LABS: Cocaine Screen,Urine Negative ng/ml (<300)
[2020-09-28 20:27] LABS: Methadone Screen,Urine Negative ng/ml (<300)
[2020-09-28 20:28] LABS: Opiate Screen,Urine Positive ng/ml (<300)
== END ==
PROVIDERS: Visit Provider Emergency Medicine
DX: M47.816 Spondylosis without myelopathy or radiculopathy, lumbar region (principal)
CPT/HCPCS: 80305

== ENCOUNTER 2020-10-01 11:53 | Emergency (ER) | payer MEDICAID, SELFPAY ==
[2020-10-01 12:12] VITALS: BP 116/75; PULSE 86; RESP 16; TEMP 36.4; O2SAT 99; BMI 25.7
[2020-10-01 12:32] VITALS: BP 118/71; PULSE 87; RESP 16; TEMP 36.6
--- NOTE | 2020-10-01 12:40 | HMH.EDUTC ---
[facility] [place] Clinical Impression: Viral syndrome, Exposure to COVID-19 virus Disposition: Home, Self-Care Condition on Discharge: Good Instructions: DI for COVID-19 (Suspected or Confirmed ), Preventing the Spread of Coronavirus Discharge Instructions Additional Instructions: Drink plenty of fluids. Take tylenol for pain or fever. Return if you begin to have difficulty breathing. Follow up with your regular doctor. GO TO THE ER FOR ANY WORSENING SYMPTOMS Prescriptions: Ondansetron [Zofran 4mg ODT] 4 mg PO Q8HP PRN #12 tab.rapdis PRN Reason: Nausea Transmission Status: Received by [facility] Benzonatate [Tessalon Perle 100mg Cap] 100 mg PO TIDP PRN #30 cap PRN Reason: Cough Transmission Status: Received by [facility] Azithromycin [Z-Sharath 250mg Tab*] 250 mg PO UD DOSE PK #6 tab Transmission Status: Received by [facility] Referrals: Missael Vernon MD [Primary Care Provider] - Forms: Work/School Release Time of Disposition: 12:43 Medical Decision Making - Medical Records Medical records reviewed: No: I reviewed the patient's medical records. - Jarred Inquiry Pt receiving controlled substance: No Vital Signs: 10/01/20 12:12 10/01/20 12:32 Temperature 97.6 F 98 F Temperature Source Oral Pulse Rate 87 Pulse Rate [Right] 86 Respiratory Rate 16 16 Blood Pressure 118/71 Blood Pressure [Right Arm] 116/75 Blood Pressure Mean [Right Arm] 88 Blood Pressure Source [Right Arm] Automatic Cuff Blood Pressure Position [Right Arm] Sitting 02 Sat by Pulse Oximetry 99 Orders (Tests/Meds): ORDERS Category Date Time Status Covid-19 Nasal PCR ([facility]) Routine Lab 10/01/20 12:19 Received [facility] [place] - General Stated complaint: sore throat, neck hurts, headache, coughin Time Seen by Provider: 10/01/20 12:20 Mode of Arrival: Ambulatory Source of Information: Patient Limitations: No Limitations Description of Symptoms (Recalled from Triage Doc. by RN): DIRECT EXPOSURE TO COVID POSITIVE DAUGHTER. PT PRESENTS WITH WEAKNESS, L EAR PAIN, DIARHEA, SORE THROAT, NECK PAIN, LIVE, PRODUCTIVE COUGH WITH WEEKS SPUTUM. HEENT Symptoms (Recalled from RN notes): Yes (LIVE, SORE THROAT, L EAR PAIN) Resp Symptoms (Recalled from RN notes): Yes (WEEKS PRODUCTIVE COUGH) Skin Symptoms (Recalled from RN notes): No MS Symptoms (Recalled from RN notes): Yes (BODY ACHES) Functional Status (Recalled from RN notes): NA - History of Present Illness Provider Complaint: She states that she has had sore throat, sinus congestion, body aches and cough since yesterday. Her daughter was diagnosed with covid-19 yesterday. - Related Data Previous Rx's Medication Instructions Recorded Fluticasone Propionate [Flonase 1 - 2 spr NS DAILY #1 bottle 04/22/20 50mcg nasal spray 16gm] aspirin 81 mg tablet,delayed See Rx Instructions .ROUTE 05/11/20 release .COMPLEX #90 tab atorvastatin 10 mg tablet 10 mg PO QHS #90 tab 07/22/20 cholecalciferol (vitamin D3) 25 1,000 unit PO DAILY #90 cap 07/22/20 mcg (1,000 unit) capsule ergocalciferol (vitamin D2) 1,250 50,000 unit PO QWEEK 90 Days #12 07/22/20 mcg (50,000 unit) capsule cap estradiol 2 mg tablet See Rx Instructions .ROUTE 08/12/20 .COMPLEX #90 tab cetirizine 10 mg tablet See Rx Instructions .ROUTE 08/19/20 .COMPLEX #30 tab omeprazole 20 mg capsule,delayed See Rx Instructions .ROUTE 08/19/20 release .COMPLEX #30 cap malathion 0.5 % lotion 1 applic TOPICAL WEEKLY 0 Days #59 08/24/20 ml fluticasone propionate 50 See Rx Instructions .ROUTE 09/16/20 mcg/actuation nasal .COMPLEX #16 unspecified spray,suspension gabapentin 300 mg capsule 300 mg PO TID #90 cap 09/28/20 methylprednisolone 4 mg tablets in See Rx Instructions PO PER PKG DIR 09/28/20 a dose pack #21 tab oxycodone-acetaminophen 10 mg-325 1 tab PO QID PRN #120 tab 09/28/20 mg tablet Azithromycin [Z-Sharath 250mg Tab*] 250 mg PO UD DOSE PK #6 tab 10/01/20 Benzonatate [Tessalon Perle
== END 2020-10-01 12:47 | disposition home or self-care (01) ==
PROVIDERS: Emergency Provider Nurse Practitioner Family; PCP Emergency Medicine
DX: Z20.822 Contact with and (suspected) exposure to COVID-19 (principal); B34.9 Viral infection, unspecified; I10 Essential (primary) hypertension; K21.9 Gastro-esophageal reflux disease without esophagitis; E78.5 Hyperlipidemia, unspecified; F41.8 Other specified anxiety disorders; F17.210 Nicotine dependence, cigarettes, uncomplicated; Z91.040 Latex allergy status; Z88.5 Allergy status to narcotic agent; Z79.899 Other long term (current) drug therapy
CPT/HCPCS: 99202; G0463; U0003

== ENCOUNTER → 2020-11-27 16:44 | Outpatient (CLI) | payer MEDICAID, SELFPAY ==
[2020-11-27 17:40] LABS: Barbiturates Screen,Urine Negative ng/ml (<200); Benzodiazepines Screen,Urine Negative ng/ml (<200)
[2020-11-27 17:41] LABS: Amphetamine/Metha Screen,Urine Negative ng/ml (<1000)
[2020-11-27 17:42] LABS: Cannabinoid Screen,Urine Negative ng/ml (<50); Cocaine Screen,Urine Negative ng/ml (<300)
[2020-11-27 17:43] LABS: Methadone Screen,Urine Negative ng/ml (<300)
[2020-11-27 17:46] LABS: Phencyclidine Screen,Urine Negative ng/ml (<25)
[2020-11-27 17:47] LABS: Opiate Screen,Urine Positive ng/ml (<300)
== END ==
PROVIDERS: Visit Provider Emergency Medicine
DX: Z79.899 Other long term (current) drug therapy (principal)
CPT/HCPCS: 80305

== ENCOUNTER → 2021-01-25 17:23 | Outpatient (CLI) | payer MEDICAID, SELFPAY ==
[2021-01-25 19:28] LABS: Amphetamine/Metha Screen,Urine Negative ng/ml (<1000)
[2021-01-25 19:29] LABS: Barbiturates Screen,Urine Negative ng/ml (<200)
[2021-01-25 19:30] LABS: Benzodiazepines Screen,Urine Negative ng/ml (<200); Cannabinoid Screen,Urine Negative ng/ml (<50)
[2021-01-25 19:31] LABS: Cocaine Screen,Urine Negative ng/ml (<300)
[2021-01-25 19:32] LABS: Methadone Screen,Urine Negative ng/ml (<300)
[2021-01-25 19:33] LABS: Opiate Screen,Urine Positive ng/ml (<300); Phencyclidine Screen,Urine Negative ng/ml (<25)
== END ==
PROVIDERS: Visit Provider Emergency Medicine
DX: Z79.899 Other long term (current) drug therapy (principal)
CPT/HCPCS: 80305

== ENCOUNTER → 2021-03-29 18:23 | Outpatient (CLI) | payer MEDICAID, SELFPAY ==
[2021-03-29 19:26] LABS: Amphetamine/Metha Screen,Urine Negative ng/ml (<1000)
[2021-03-29 19:27] LABS: Barbiturates Screen,Urine Negative ng/ml (<200)
[2021-03-29 19:29] LABS: Benzodiazepines Screen,Urine Negative ng/ml (<200)
[2021-03-29 19:30] LABS: Cannabinoid Screen,Urine Negative ng/ml (<50); Cocaine Screen,Urine Negative ng/ml (<300)
[2021-03-29 19:31] LABS: Methadone Screen,Urine Negative ng/ml (<300); Opiate Screen,Urine Positive ng/ml (<300)
[2021-03-29 19:32] LABS: Phencyclidine Screen,Urine Negative ng/ml (<25)
== END ==
PROVIDERS: Visit Provider Emergency Medicine
DX: M47.816 Spondylosis without myelopathy or radiculopathy, lumbar region (principal)
CPT/HCPCS: 80305

== ENCOUNTER → 2021-05-28 11:01 | Outpatient (CLI) | payer MEDICAID, SELFPAY ==
--- NOTE | 2021-05-28 11:10 | XR_ITS ---
PROCEDURE: XR ELBOW RT MIN 3V CLINICAL INDICATION: right elbow pain COMPARISON: No exams were available for comparison FINDINGS: No fracture or dislocation. No lytic or blastic change. There is normal mineralization. The joint spaces are well-preserved. No significant degenerative/arthritic changes. No erosive changes evident. Other findings:None. IMPRESSION: No acute findings. Dictated by: Dr. Martín Gasca MD 05/28/2021 11:44 Dr. Martín Gasca MD in [place] 05/28/2021 11:44
== END ==
PROVIDERS: PCP Emergency Medicine; Visit Provider Orthopaedic Surgery
DX: M25.521 Pain in right elbow (principal)
CPT/HCPCS: 73080

== ENCOUNTER → 2021-05-28 19:27 | Outpatient (CLI) | payer MEDICAID, SELFPAY ==
[2021-05-28 19:55] LABS: Amphetamine/Metha Screen,Urine Negative ng/ml (<1000)
[2021-05-28 19:56] LABS: Barbiturates Screen,Urine Negative ng/ml (<200)
[2021-05-28 19:57] LABS: Benzodiazepines Screen,Urine Negative ng/ml (<200); Cannabinoid Screen,Urine Negative ng/ml (<50)
[2021-05-28 19:58] LABS: Cocaine Screen,Urine Negative ng/ml (<300)
[2021-05-28 19:59] LABS: Methadone Screen,Urine Negative ng/ml (<300); Opiate Screen,Urine Positive ng/ml (<300)
[2021-05-28 20:00] LABS: Phencyclidine Screen,Urine Negative ng/ml (<25)
== END ==
PROVIDERS: Visit Provider Emergency Medicine
DX: Z79.899 Other long term (current) drug therapy (principal)
CPT/HCPCS: 80305

== ENCOUNTER 2021-06-11 14:44 | Outpatient (RCR) | payer MEDICAID, SELFPAY ==
--- NOTE | 2021-06-11 16:09 | HMH.OTOPEV ---
OT Inpatient Evaluation Rehab OT Outpatient Eval Start: 06/11/21 15:34 Freq: Status: Active Protocol: Document 06/11/21 15:34 MEGHANMAYURI (Rec: 06/11/21 16:09 ANDREA [id number]) Electronically Signed By Kasie Cade OT 06/11/21 15:34 Outpatient Therapy Subjective History Subjective History 45 year old female referred to skilled OP OT services for right elbow pain for >6 months . 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 Patient is scheduled to have a Nerve Conduction Test on Aug 02. AROM of R UE elbow is WFL . 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 Strength Symptom Type Ache,Burning Symptoms Relieved By Ice Symptoms Aggravated By Physical Activity Prior Functional Limitations None Current Functional Limitations Reaching,Lifting,Recreation Activity Symptom Description Constant and Continuous Level of pain today (0-10) 0 Pain scale - at its best (0-10) 0 Pain scale - at its worst (0-10) 7 Shoulder/Elbow Eval Shoulder Objective Measurements Elbow Objective Measurements Elbow Special Tests Resistive Tennis Elbow (Cozen's) Test Positive Right OT Outpatient Assessment Impairments Problems/Impairments Impaired Strength,Subjective C /O Pain Prognosis Rehab Potential Good Clinical Impression Consistent with Diagnosis Yes Short Term Goals Number of Weeks 2 Increase Strength Yes: Improve RUE technical trainer strength to 40# Decrease Subjective C/O Pain Yes: 5/10 pain at worst Patient to be Ind w/ HEP Yes: Strengthening Snf Goals Number of Weeks 4 Increase Strength Yes: Improve RUE technical trainer strength to 45# Decrease Subjective C/O Pain Yes: 4/10 pain at worst Patient to be Ind w/ HEP Yes: Advance strengthening Outpatient Therapy Plan of Care Treatment Plan May Include Therapeutic Exercise Including Home Yes Exercise Program Manual Therapy Techniques Yes Therapeutic Activities to Return to Yes Previous Functional/Work Level Thermal Modalities Yes Electrical Stimulation Yes Ultrasound/Phonophoresis Yes Iontophoresis Yes Eval/Re-Eval Yes Aquatic Therapy Yes Frequency Times per week 2x/wk Duration Number of Weeks
== END 2021-06-11 14:50 | disposition home or self-care (01) ==
LOC: OT 14:44
PROVIDERS: PCP Emergency Medicine; Visit Provider Orthopaedic Surgery
DX: M77.11 Lateral epicondylitis, right elbow (principal)
CPT/HCPCS: 97165

== ENCOUNTER → 2021-09-21 13:05 | Outpatient (CLI) | payer MEDICAID, SELFPAY ==
--- NOTE | 2021-09-21 13:06 | MR_ITS ---
FINAL REPORT CLINICAL HISTORY: right shoulder pain. no injury or trauma. hx shoulder surgery for bone spur in 2015. limited rom. FINDINGS: Multi planar MR imaging of the right shoulder was performed. There is magnetic susceptibility artifact adjacent to the greater tuberosity. There is marked thinning of the distal supraspinatus tendon. There is partial retraction measuring 7 mm consistent with a partial full-thickness tear. There is no abnormal fluid in the subacromial/subdeltoid bursa. The anterior and posterior glenoid ben appear intact. The biceps tendon appears intact. The acromioclavicular joint appears intact. IMPRESSION: Postoperative changes of prior supraspinatus tendon tear with residual/recurrent partial full-thickness tear. Reviewed, Interpreted and Dictated by Hakeem Garrett MD Transcribed by Ruth Whitfield Authenticated by Hakeem Garrett MD on 09/21/2021 03:26:28 PM [facility]
[2021-09-21 17:35] LABS: Amphetamine/Metha Screen,Urine Negative ng/ml (<1000)
[2021-09-21 17:36] LABS: Barbiturates Screen,Urine Negative ng/ml (<200)
[2021-09-21 17:37] LABS: Benzodiazepines Screen,Urine Negative ng/ml (<200); Cannabinoid Screen,Urine Negative ng/ml (<50)
[2021-09-21 17:38] LABS: Cocaine Screen,Urine Negative ng/ml (<300); Methadone Screen,Urine Negative ng/ml (<300)
[2021-09-21 17:39] LABS: Opiate Screen,Urine Positive ng/ml (<300)
[2021-09-21 17:40] LABS: Phencyclidine Screen,Urine Negative ng/ml (<25)
== END ==
PROVIDERS: PCP Emergency Medicine; Visit Provider Nurse Practitioner Family
DX: M25.511 Pain in right shoulder (principal); Z79.899 Other long term (current) drug therapy
CPT/HCPCS: 73221; 80305

== ENCOUNTER → 2021-09-21 16:00 | Outpatient (CLI) | payer MEDICAID, SELFPAY | PROVIDERS: Visit Provider Emergency Medicine | DX: Z79.899 Other long term (current) drug therapy (principal) ==

== ENCOUNTER → 2021-10-09 10:51 | Outpatient (CLI) | payer MEDICAID, SELFPAY ==
--- NOTE | 2021-10-09 11:11 | XR_ITS ---
PROCEDURE INFORMATION: Exam: XR Chest Exam date and time: 10/09/2021 11:11 AM Age: 45 years old Clinical indication: Shortness of breath; Additional info: Sob- surgery screening TECHNIQUE: Imaging protocol: XR of the chest. Views: 2 views. COMPARISON: CT CHEST WO CON 08/05/2019 8:16 AM FINDINGS: Lungs: Unremarkable. No consolidation. Pleural spaces: No evidence of pneumothorax. No evidence of pleural effusion. Heart/Mediastinum: Heart normal size. Bones/joints: Unremarkable. IMPRESSION: No evidence of acute cardiopulmonary disease.
[2021-10-09 11:34] LABS: Basophils # 0.3 K/mm3 (0-0.2); Basophils % 2.5 % (0.1-2.0); Eosinophils # 0.1 K/mm3 (0.0-0.4); Eosinophils % 0.9 % (0.1-12.0); Hematocrit 44.1 % (37.0-47.0); Hemoglobin 14.4 g/dL (12.2-16.2); Lymphocytes # 3.3 K/mm3 (0.7-4.5); Lymphocytes % 26.6 % (10-50); Mean Corpuscular HGB Conc 32.6 g/dL (31.8-35.4); Mean Corpuscular Hemoglobin 30.1 pg (27.0-31.2); Mean Corpuscular Volume 92.4 fl (81-99); Mean Platelet Volume 7.6 fl (7.4-10.4); Monocytes # 0.5 K/mm3 (0.1-1.0); Monocytes % 3.8 % (1.7-9.3); Neutrophils # 8.3 K/mm3 (1.8-7.8); Neutrophils % 66.3 % (37.0-80.0); Platelet Count 318 K/mm3 (142-424); Red Blood Count 4.77 M/mm3 (4.20-5.40); Red Cell Distribution Width 13.4 % (11.5-17.5); White Blood Count 12.5 K/mm3 (4.8-10.8)
[2021-10-09 12:43] LABS: Chloride 103 mmol/L (98-107)
[2021-10-09 12:44] LABS: Potassium 3.6 mmoL/L (3.5-5.1); Sodium 137 mmol/L (136-145)
[2021-10-09 12:47] LABS: Anion Gap 10.6 mEq/L (5-15); Blood Urea Nitrogen 11 mg/dl (7-17); Carbon Dioxide 27 mmol/L (22.0-30.0); Estimated Glomerular Filt Rate 90 ml/min (>60); GFR (African American) 109 ML/MIN (>60); Glucose 85 mg/dl (74-100)
== END ==
PROVIDERS: PCP Emergency Medicine; Visit Provider Orthopaedic Surgery
DX: Z01.812 Encounter for preprocedural laboratory examination (principal); Z11.52 Encounter for screening for COVID-19
CPT/HCPCS: 36415; 71046; 80048; 85025; C9803; U0003; U0005

== ENCOUNTER 2021-10-12 08:08 | Day surgery (SDC) | payer MEDICAID, SELFPAY ==
[2021-10-07 13:07] VITALS: BMI 24.1
[2021-10-12] VITALS (10 sets, daily range): BP systolic 93–157; BP diastolic 53–96; PULSE 73–107; RESP 14–20; TEMP 36.4–36.9; O2SAT 95–99
--- NOTE | 2021-10-12 09:04 | HMH.ANESCL ---
[facility] Anesthesia Checklist - Patient Identification Patient Identification: Arm Band, Guardian, Verbal (Name & ) - Structural Data Admitted From: Home Planned Operative Procedure/s: BMT Consent for Planned Operative Procedure(s) Verified: Yes Verified Documents: Surgical Consent - NPO Status Verified Time NPO: 17:00 - Chart Verification Results Verified: CBC, BMP - Additional verifications Anesthesia Reactions: No Hx Blood Transfusions: No - Airway Assessment C-Spine Mobility Assessed: Yes TMJ Mobility Assessed: Yes Dentition: Good Dentition - Neurological Assessment Level of Consciousness: Awake, Alert, Appropriate - Anesthesia Plan Anesthesia Risk discussed: Yes ASA Class: III Anesthesia Type: General [facility] History I have reviewed the patient's past medical history: Yes Medical History: Reports:: Anxiety, Depression, Gastroesophageal Reflux Disease(GERD), Hyperlipidemia, Hypertension, Migraine, Osteoporosis, Urinary Tract Infection Denies:: Cancer, Diabetes Mellitus Type 1, Diabetes Mellitus Type 2, Internal Pacemaker, MRSA, Seizures *Have you ever received a pneumonia vaccine?: No *Have you received a flu vaccine this season?: Yes Other Medical History: Reports: Arthritis, Hormone Therapy, Osteoporosis, Other Anesthesia experience/problems:: none Laterality Cases: Right: Arthroscopy Shoulder Other Surgeries: Yes: Hysterectomy-Total, Tubal Ligation. No: Pacemaker Amputation: No Fractures: No - *Social History Last grade of school completed: GED Smoking Status: Current every day smoker Tobacco Type: cigarettes # Packs/Day (cigarettes): 1 Alcohol Intake: never Alcohol Intake Frequency:: other Substance Use Type: denies use *Occupational Status:: employed Housing: house Household Members: spouse *Travel in the last 8 weeks: None - Psychiatric History Pschychiatric History:: Reports:: Anxiety, Depression Family Hx:: Cancer, Heart Attack
--- NOTE | 2021-10-12 12:11 | HMH.OPNOTE ---
Date of procedure: 10/12/21 Pre-op Diagnosis:: Right shoulder rotator cuff tear Post-op Diagnosis:: Right shoulder rotator cuff tear Procedure performed:: Right shoulder arthroscopy with rotator cuff repair Surgeon:: Andrés Dickson MD STUDIO OPERATIONS MANAGER:: Isaac Ta Anesthesia: GETA Estimated blood loss (mL): 5 Clinical Note:: Akilah is a very pleasant 45-year-old female who has been dealing with right shoulder pain over the past few months. MRI revealed a thinned out supraspinatus tendon with possible small full-thickness tear, she failed conservative treatment measures. We discussed all the risks, benefits and alternatives to right shoulder arthroscopy for rotator cuff repair and she agreed to proceed. Operative findings:: Right shoulder small full-thickness tear supraspinatus tendon Operative note:: The patient was seen in the preoperative holding area. She was seen by anesthesia. The right shoulder was marked to confirm the correct operative site. Anesthesia performed a right interscalene block for perioperative pain control. She received Ancef 2 g prophylactic antibiotics within 1 hour of incision time. She was brought back to the operating room. General anesthesia was induced without difficulty. She was placed in the beachchair position. All of her bony prominences were well-padded. Timeout was performed to confirm right shoulder arthroscopy on patient Akilah Alston. I made a posterior lateral viewing portal with an 11 blade scalpel and arthroscope was introduced into the shoulder joint. I made an anterior superior portal localizing this with a spinal needle. This incision was made with an 11 blade and dilated with a trocar. I placed a 5.5 mm orange cannula over a switching stick. Diagnostic arthroscopy commenced. There was no significant chondromalacia of the glenohumeral joint. Biceps tendon was intact with no significant fraying or inflammation. She was seen to have a small full-thickness tear anterior leading edge of the supraspinatus. This was debrided with a 4.0 mm shaver on the articular side. Subscapularis tendon was intact. Superior labrum had some mild degenerative changes otherwise no significant labral tear. The arthroscope was redirected to the subacromial space. A lateral portal was established. 7.0 mm purple cannula was placed in the lateral portal. Bursectomy was performed with a combination of the shaver and electrocautery wand. Edges of the acromion were well-defined. No significant subacromial spur was present. The bursal side of the rotator cuff tear was debrided with a shaver. The greater tuberosity was debrided for rotator cuff repair. Through an accessory lateral portal a 4.5 mm Mitek suture anchor triple loaded was placed on the greater tuberosity in the central aspect of the crescent-shaped tear. We then used a express sew suture passer to pass all 6 suture limbs through the rotator cuff tear going anterior to posterior. As these were passed they were brought out the anterior portal for suture management. Once all 6 suture limbs had been passed we then tied 3 horizontal mattress locking knots backed up with 3 half hitches going posterior to anterior. This brought down the rotator cuff tear to the greater tuberosity well. Suture limbs were then cut. Final pictures were taken of the rotator cuff repair from the posterior, lateral and intra-articular aspects which revealed an intact repair. At this time arthroscopy instruments were removed from the joint. Portals were closed with 4 Monocryl subcu stitches. We applied a sterile dressing with Steri-Strips, 4 x 4's, ABD and micropore tape. Anesthesia was reversed without difficulty and she was transferred to the recovery room in stable condition. All sponge and needle counts were correct x2. Postoperative plan: -She will be placed into an abduction pillow sling and a Polar Care unit. -Pain medicine was not prescribed as she already has oxycodone
--- NOTE | 2021-10-12 12:17 | P.PN_ITS ---
[facility] Anesthesia Record Part I Intake, IV Amount: 1,000 Estimated blood loss (mL): 5 Urine output (mL): 0 Blood Pressure: 132/73 SaO2: 96 Pulse Rate: 107 Respiratory Rate: 20 Temperature: 97.5 F Patient is:: Awake Stable to PACU at:: 12:14
--- NOTE | 2021-10-12 12:47 | SUR.PHASEI ---
1143- detailed report called to raulito fofana in post op at this time. 1145- pt left in postop in stable condition with raulito fofana
[2021-10-13 08:28] VITALS: BP 136/81; PULSE 78; TEMP 36.9
--- NOTE | 2021-10-13 08:28 | HMH.ANESII ---
[facility] Anesthesia Record Part II Discharge Time: 12:44 Destination: Surgical Day Care (OP Surgery) PACU nurse assessment reviewed?: Yes Patient Condition:: Good Anesthesia Complications:: None Swallowing reflex intact?: Yes Cyanosis?: No Blood Pressure: 136/81 Pulse Rate: 78 Temperature: 98.4 F Mental Status: Alert & Oriented Pain level:: 0 Nausea and/or vomitting:: None Intake, IV Amount: 0
== END 2021-10-12 13:25 | disposition home or self-care (01) ==
LOC: OR 08:09
PROVIDERS: PCP Emergency Medicine; Visit Provider Orthopaedic Surgery
PROC: (CPT 29827; principal; 2021-10-12 10:30)
DX: M75.121 Complete rotator cuff tear or rupture of right shoulder, not specified as traumatic (principal); I10 Essential (primary) hypertension; E78.5 Hyperlipidemia, unspecified; G43.909 Migraine, unspecified, not intractable, without status migrainosus; F17.210 Nicotine dependence, cigarettes, uncomplicated
CPT/HCPCS: 29827; 96374; C1713; J2405

== ENCOUNTER → 2021-10-15 09:10 | Outpatient (CLI) | payer MEDICAID, SELFPAY ==
--- NOTE | 2021-10-15 09:18 | XR_ITS ---
FINAL REPORT CLINICAL HISTORY: post-op sx 10/12/21 FINDINGS: RIGHT SHOULDER Three views demonstrate no acute fracture or dislocation. The joint spaces appear normal. The visualized bony structures are well aligned. No soft tissue abnormality is seen. IMPRESSION: No acute process. Reviewed, Interpreted and Dictated by Mat Rojas III, MD Transcribed by Ruth Whitfield Authenticated by Mat Rojas III, MD on 10/15/2021 10:21:18 AM [facility]
== END ==
PROVIDERS: PCP Emergency Medicine; Visit Provider Orthopaedic Surgery
DX: G89.29 Other chronic pain (principal); M25.511 Pain in right shoulder; M75.101 Unspecified rotator cuff tear or rupture of right shoulder, not specified as traumatic
CPT/HCPCS: 73030

== ENCOUNTER → 2021-10-25 16:00 | Outpatient (CLI) | payer MEDICAID, SELFPAY ==
[2021-10-25 14:55] LABS: Basophils # 0.1 K/mm3 (0-0.2); Basophils % 2.1 % (0.1-2.0); Eosinophils # 0.2 K/mm3 (0.0-0.4); Hematocrit 41.5 % (37.0-47.0); Hemoglobin 13.6 g/dL (12.2-16.2); Lymphocytes # 2.2 K/mm3 (0.7-4.5); Lymphocytes % 38.7 % (10-50); Mean Corpuscular HGB Conc 32.9 g/dL (31.8-35.4); Mean Corpuscular Hemoglobin 30.4 pg (27.0-31.2); Mean Corpuscular Volume 92.6 fl (81-99); Mean Platelet Volume 9.2 fl (7.4-10.4); Monocytes # 0.3 K/mm3 (0.1-1.0); Monocytes % 5.6 % (1.7-9.3); Neutrophils # 2.8 K/mm3 (1.8-7.8); Neutrophils % 49.6 % (37.0-80.0); Platelet Count 289 K/mm3 (142-424); Red Blood Count 4.48 M/mm3 (4.20-5.40); Red Cell Distribution Width 13.3 % (11.5-17.5); White Blood Count 5.7 K/mm3 (4.8-10.8)
[2021-10-25 16:06] LABS: Alanine Aminotransferase 20 U/L (12-78); Albumin/Globulin Ratio 1.6 (1.1-1.8); Alkaline Phosphatase 112 U/L (38-126); Anion Gap 8.9 mEq/L (5-15); Aspartate Amino Transferase 28 U/L (14-36); Bilirubin,Total 0.4 mg/dl (0.2-1.3); Blood Urea Nitrogen 13 mg/dl (7-17); Calcium 9.1 mg/dl (8.4-10.2); Carbon Dioxide 28 mmol/L (22.0-30.0); Chloride 107 mmol/L (98-107); Chol/HDL Ratio 7.3 (1-3.5); Cholesterol 284 mg/dl (140-200); Estimated Glomerular Filt Rate 90 ml/min (>60); GFR (African American) 109 ML/MIN (>60); Globulin 2.5 g/dL (1.3-3.2); Glucose 90 mg/dl (74-100); HDL Cholesterol 39 mg/dl (40-60); Potassium 3.9 mmoL/L (3.5-5.1); Sodium 140 mmol/L (136-145); Total Protein,Serum 6.5 g/dl (6.3-8.2)
[2021-10-25 16:07] LABS: Triglycerides 410 mg/dl (30-150)
[2021-10-25 16:18] LABS: Direct LDL Cholesterol 163.34 mg/dL (100-129)
[2021-10-25 16:22] LABS: Free T4 (Free Thyroxine) 1.11 ng/dl (0.78-2.19)
[2021-10-25 16:35] LABS: 25-OH Vitamin D, Total < 12.8 ng/mL (30-100)
== END ==
PROVIDERS: Visit Provider Emergency Medicine
DX: E03.9 Hypothyroidism, unspecified (principal); R53.83 Other fatigue; K59.00 Constipation, unspecified; E55.9 Vitamin D deficiency, unspecified
CPT/HCPCS: 80053; 80061; 82306; 84439; 84443; 85025

== ENCOUNTER 2021-11-02 14:00 | Outpatient (RCR) | payer MEDICAID, SELFPAY ==
--- NOTE | 2021-10-22 14:00 | HMH.OTOPEV ---
OT Inpatient Evaluation Rehab OT Outpatient Eval Start: 10/22/21 13:43 Freq: Status: Active Protocol: Document 10/22/21 13:43 ANDREA (Rec: 10/22/21 14:00 ANDREA [id number]) Electronically Signed By Kasie Cade OT 10/22/21 13:43 Outpatient Therapy Subjective History Subjective History 45 year old female referred to skilled OP OT services for s/ p R UE RCR on 10/12/21. Patient had complete tear of R rotator cuff with exhibiting limitations of AROM of shoulder flex/ext/ir/er/abd, strengthening/hand lens polisher strengthening in order to complete everyday tasks. Chief Complaint Pain,Weakness,Decreased Bonsai Tender Strength Symptom Type Sharp Symptoms Relieved By OTC Meds Symptoms Aggravated By Physical Activity Prior Functional Limitations None Current Functional Limitations Reaching,Lifting,Recreation Activity Symptom Description Intermittent Level of pain today (0-10) 0 Pain scale - at its best (0-10) 0 Pain scale - at its worst (0-10) 5 Shoulder/Elbow Eval Shoulder Objective Measurements Shoulder ROM Right Shoulder Abduction Active Range of 70 Motion (degrees) Shoulder Flexion Active Range of Motion 90 (degrees) Query Text: Shoulder External Rotation Active Range 22 of Motion (degrees) Shoulder Internal Rotation Active Range 35 of Motion (degrees) pain with active ROM shoulder exam right standard Shoulder MMT Shoulder Abduction Strength Grade 2+ Poor+ Shoulder Extension Strength Grade 2+ Poor+ Shoulder Flexion Strength Grade 2+ Poor+ Shoulder Horizontal Adduction Strength 2+ Poor+ Grade Infraspinatus/Teres Minor Strength Grade 2+ Poor+ Shoulder External Rotation Strength 2+ Poor+ Grade Shoulder Internal Rotation Strength 2+ Poor+ Grade Elbow Objective Measurements Wrist/Hand Eval Bonsai Tender/Pinch Strength Right Bonsai Tender Strength Measurement (lbs) 55 Left Bonsai Tender Strength Measurement (lbs) 55 OT Outpatient Assessment Impairments Problems/Impairments Impaired Range of Motion, Impaired Strength,Impaired Endurance,Subjective C/O Pain Prognosis Rehab Potential Good Clinical Impression Consistent with Diagnosis Yes Short Term Goals Number of Weeks 2 Increase Range of Motion
== END 2021-11-02 15:00 | disposition home or self-care (01) ==
LOC: OT 14:00
PROVIDERS: PCP Emergency Medicine; Visit Provider Orthopaedic Surgery
DX: M25.511 Pain in right shoulder (principal); M75.121 Complete rotator cuff tear or rupture of right shoulder, not specified as traumatic
CPT/HCPCS: 97010; 97014; 97110; 97140; 97165; G0283

== ENCOUNTER → 2021-11-15 09:25 | Outpatient (CLI) | payer MEDICAID, SELFPAY ==
[2021-11-15 20:37] LABS: Amphetamine/Metha Screen,Urine Negative ng/ml (<1000); Barbiturates Screen,Urine Negative ng/ml (<200)
[2021-11-15 20:38] LABS: Benzodiazepines Screen,Urine Negative ng/ml (<200); Cannabinoid Screen,Urine Negative ng/ml (<50)
[2021-11-15 20:39] LABS: Cocaine Screen,Urine Negative ng/ml (<300)
[2021-11-15 20:40] LABS: Methadone Screen,Urine Negative ng/ml (<300); Opiate Screen,Urine Positive ng/ml (<300)
[2021-11-15 20:41] LABS: Phencyclidine Screen,Urine Negative ng/ml (<25)
== END ==
PROVIDERS: Visit Provider Emergency Medicine
DX: M47.816 Spondylosis without myelopathy or radiculopathy, lumbar region (principal)
CPT/HCPCS: 80305

== ENCOUNTER → 2022-01-13 06:59 | Outpatient (CLI) | payer MEDICAID, SELFPAY ==
[2022-01-12 17:36] LABS: Benzodiazepines Screen,Urine Negative ng/ml (<200)
[2022-01-12 17:37] LABS: Amphetamine/Metha Screen,Urine Positive ng/ml (<1000); Barbiturates Screen,Urine Negative ng/ml (<200)
[2022-01-12 17:40] LABS: Cannabinoid Screen,Urine Negative ng/ml (<50); Methadone Screen,Urine Negative ng/ml (<300)
[2022-01-12 17:41] LABS: Cocaine Screen,Urine Negative ng/ml (<300)
[2022-01-12 17:42] LABS: Opiate Screen,Urine Positive ng/ml (<300); Phencyclidine Screen,Urine Negative ng/ml (<25)
== END ==
PROVIDERS: PCP Emergency Medicine; Visit Provider Emergency Medicine
DX: Z79.899 Other long term (current) drug therapy (principal)
CPT/HCPCS: 80305

== ENCOUNTER → 2022-03-15 13:07 | Outpatient (POV) | payer MEDICAID, SELFPAY ==
[2022-03-15 13:13] VITALS: BP 124/70; PULSE 88; RESP 20; O2SAT 96; BMI 25.9
--- NOTE | 2022-03-15 15:27 | HMH.PMCON ---
Assessment and Plan (1) Lumbar stenosis Status: Acute Category: Medical Code(s): M48.061 - Spinal stenosis, lumbar region without neurogenic claudication (2) Low back pain Status: Acute Category: Medical Code(s): M54.50 - Low back pain, unspecified (3) Facet arthropathy, lumbar Status: Acute Category: Medical Code(s): M47.816 - Spondylosis without myelopathy or radiculopathy, lumbar region (4) Bilateral sacroiliitis Status: Acute Category: Medical Code(s): M46.1 - Sacroiliitis, not elsewhere classified - Assessment and plan all Dx Assessment and Plan for all problems:: Patient has had significant pain along her low back that radiates into bilateral legs and into her groin but stops before her knees. Patient previously had medial branch block's and lumbar RFA's with minimal improvement of her symptoms. Patient had extreme point tenderness at bilateral SI's and a positive bilateral Orlando's, Neyda's, Gaenslen's, compression and distraction test during today's exam. I did discuss with the patient regarding SI injections. Risk and benefits were discussed with the patient. She would like to proceed forward with this injection. We will schedule the patient for bilateral diagnostic SI injections at today's visit. Patient has been instructed to contact the clinic with any concerns before the next appointment. Dr. Eddy has reviewed this note and agrees with this plan of care. This note was dictated using voice recognition software and make contain errors or omissions. HPI - Data of Consult Patient: new to practice Consult date: 03/15/22 Requesting Physician: Kathrin Aguilar APRN Primary Care Provider: Missael Vernon MD - Consult Narrative Reason for consult: Low back pain, bilateral leg pain, groin pain History of present illness: Ms. Alston is a 46 year old female who presents today as a new patient. She is a referral from Dr. Missael Vernon. Patient rates her pain today a 7 out of 10. She states this pain is all in her low back that radiates to bilateral legs including her groin but stops before her knee. Patient describes this as a aching, throbbing sensation that is worse with increased activity. She states she is unable to do activities of daily living such as mowing her yard. She also states that since having this pain she has not been able to ride her motorcycle. She has tried [id number] medications with minimal relief of symptoms. Patient states she has not tried any topical creams. She is a previous patient of ours about 3 years ago. Patient states she has had injective therapy in the past however after her first injection it seemed like they helped less and less. At that time she started having a substance abuse problem with Percocets. Patient states she is currently clean and stopped taking Percocet since December. She is currently on Suboxone therapy by Dr. Mary Lazaro. She is also prescribed Lyrica 75 mg twice daily by Dr. Vernon. Patient denies any side effects from these medications. She states these medications do help manage her pain. Her Jarred is [id number]. Its been reviewed and appropriate. Injection history: Lumbar RFA 07/2018 Lumbar RFA 09/2018 Lumbar RFA 07/2019 CC: Kathrin Aguilar APRN [facility] History I have reviewed the patient's past medical history: Yes Medical History: Reports:: Anxiety, Depression, Gastroesophageal Reflux Disease(GERD), Hyperlipidemia, Hypertension, Migraine, Osteoporosis, Urinary Tract Infection Denies:: Cancer, Diabetes Mellitus Type 1, Diabetes Mellitus Type 2, Internal Pacemaker, MRSA, Seizures *Have you ever received a pneumonia vaccine?: No *Have you received a flu vaccine this season?: No Other Medical History: Reports: Arthritis, Hormone Therapy, Osteoporosis, Other Laterality Cases: Right: Arthroscopy Shoulder Other Surgeries: Yes: Hysterectomy-Total, Tubal Ligation. No: Pacemaker Amputation: No Fractures: No - *Social History Smok
== END ==
PROVIDERS: PCP Emergency Medicine; Visit Provider Nurse Practitioner Family
DX: M47.816 Spondylosis without myelopathy or radiculopathy, lumbar region (principal); M48.061 Spinal stenosis, lumbar region without neurogenic claudication; M46.1 Sacroiliitis, not elsewhere classified
CPT/HCPCS: 99202; G0463

== ENCOUNTER → 2022-03-15 14:12 | Outpatient (CLI) | payer MEDICAID, SELFPAY ==
--- NOTE | 2022-03-15 14:20 | XR_ITS ---
FINAL REPORT CLINICAL HISTORY: ALKALINE PHOSPHATASE RAISED COMPARISON: October 09, 2021 FINDINGS: Two views of the chest were obtained. The heart size and pulmonary vascularity are within normal limits. The mediastinum is normal. No acute pulmonary abnormality is identified. There is no pneumothorax. The bony thorax is intact. IMPRESSION: No active cardiopulmonary disease. Reviewed, Interpreted and Dictated by Mat Rojas III, MD Transcribed by Cecilia Darby Authenticated and [facility]
== END ==
PROVIDERS: PCP Emergency Medicine; Visit Provider Nurse Practitioner Family
DX: R74.8 Abnormal levels of other serum enzymes (principal)
CPT/HCPCS: 71046

== ENCOUNTER 2022-03-25 19:15 | Inpatient (IN) | payer MEDICAID, SELFPAY ==
[2022-03-25] VITALS (7 sets, daily range): BP systolic 92–121; BP diastolic 51–87; PULSE 61–110; RESP 22; TEMP 36.7–37.2; O2SAT 92–96; BMI 25.6; BMI 26.2
--- NOTE | 2022-03-25 19:10 | XR_ITS ---
PROCEDURE INFORMATION: Exam: XR Chest Exam date and time: 03/25/2022 7:20 PM Age: 46 years old Clinical indication: Cough and shortness of breath; Additional info: SOA TECHNIQUE: Imaging protocol: Radiologic exam of the chest. Views: 2 views. COMPARISON: CR XR CHEST 2V 03/15/2022 2:23 PM FINDINGS: Lungs: Low lung volumes. Mild central vascular congestion, probably accentuated by low lung volumes. Moderate bilateral perihilar and basilar interstitial and alveolar opacities suggesting pulmonary edema or pneumonia. Pleural spaces: No pleural effusion. No pneumothorax. Heart/Mediastinum: Heart size normal. No tracheal/mediastinal shift. Bones/joints: No acute osseous abnormalities are identified. IMPRESSION: 1. Moderate bilateral perihilar and basilar predominantly alveolar opacities concerning for pneumonia or edema. 2. Low lung volumes.
--- NOTE | 2022-03-25 19:23 | ECG_ITS ---
APPROVED REPORT Exam: Resting ECG HR:109 bpm ECG Measurements Heart Rate 109 AXES OK 148 P 71 QRSd 95 QRS 68 QT 317 T 78 QTc 381 Conclusion SINUS TACHYCARDIA ABNORMAL RHYTHM ECG UNCONFIRMED REPORT Electronically signed by : Jose Castrejon MD 03/26/2022 07:58:33
[2022-03-25 19:27] LABS: ABG Base Excess -1.4 mmol/L (-2.4-2.3); ABG HCO3 23.1 mmhg (22.0-26.0); ABG Oxygen Saturation 95 % (90-100); ABG PCO2 36.7 mmhg (35.0-45.0); ABG PH 7.42 mmol/L (7.35-7.45); ABG PO2 69.6 mmhg (80-100); ABG TCO2 24.2 mmhg (23-27)
[2022-03-25 19:28] LABS: Allen's Test Acceptable; Oxygen 2LPM %; Source Right Radial
[2022-03-25 19:33] LABS: Basophils # 0.1 K/mm3 (0-0.2); Basophils % 0.7 % (0.1-2.0); Eosinophils # 0.2 K/mm3 (0.0-0.4); Eosinophils % 1.5 % (0.1-12.0); Hematocrit 42.1 % (37.0-47.0); Hemoglobin 13.2 g/dL (12.2-16.2); Lymphocytes # 1.4 K/mm3 (0.7-4.5); Mean Corpuscular HGB Conc 31.3 g/dL (31.8-35.4); Mean Corpuscular Volume 89.4 fl (81-99); Mean Platelet Volume 9.1 fl (7.4-10.4); Monocytes # 0.2 K/mm3 (0.1-1.0); Monocytes % 2.5 % (1.7-9.3); Neutrophils # 7.9 K/mm3 (1.8-7.8); Neutrophils % 81.3 % (37.0-80.0); Platelet Count 301 K/mm3 (142-424); Red Blood Count 4.71 M/mm3 (4.20-5.40); Red Cell Distribution Width 14.2 % (11.5-17.5); White Blood Count 9.7 K/mm3 (4.8-10.8)
[2022-03-25 19:39] LABS: Alanine Aminotransferase 35 U/L (12-78); Albumin Level 3.8 g/dl (3.5-5.0); Albumin/Globulin Ratio 1.2 (1.1-1.8); Alkaline Phosphatase 175 U/L (38-126); Anion Gap 8.6 mEq/L (5-15); Aspartate Amino Transferase 54 U/L (14-36); Bilirubin,Total 0.7 mg/dl (0.2-1.3); Blood Urea Nitrogen 8 mg/dl (7-17); Calcium 8.6 mg/dl (8.4-10.2); Carbon Dioxide 29 mmol/L (22.0-30.0); Chloride 102 mmol/L (98-107); Creatinine Clearance Estimated 100 mL/min (50-200); Estimated Glomerular Filt Rate 90 ml/min (>60); GFR (African American) 109 ML/MIN (>60); Globulin 3.1 g/dL (1.3-3.2); Glucose 97 mg/dl (74-100); Potassium 3.6 mmoL/L (3.5-5.1); Sodium 136 mmol/L (136-145); Total Protein,Serum 6.9 g/dl (6.3-8.2)
[2022-03-25 19:44] LABS: C-Reactive Protein 239.5 mg/L (0-4)
[2022-03-25 20:06] LABS: Erythrocyte Sedimentation Rate 40 mm/hr (0-20); Troponin I < 0.01 ng/ml (0.00-0.034)
--- NOTE | 2022-03-25 20:16 | PC.NURSE ---
Pt ambulatory to bathroom and back to bed. Warm blanket and mouth swabs provided.
[2022-03-25 20:19] LABS: Microscopic, Urine URINE MICROSCOPIC (MICROSCOPIC)
[2022-03-25 20:21] LABS: Coronavirus 19, PCR Not Detected (NotDetected); Influenza A, PCR Not Detected (NotDetected); Influenza B, PCR Not Detected (NotDetected)
--- NOTE | 2022-03-25 20:32 | PC.NURSE ---
at speaking with pt and family
[2022-03-25 20:40] LABS: Appearance,Urine CLEAR (Clear); Bilirubin,Urine Negative (Negative); Blood, Urine Negative (Negative); Color,Urine YELLOW (Yellow); Glucose,Urine (UA) Negative (Negative); Ketones,Urine Negative (Negative); Leukocyte Esterase,Urine Negative (Negative); Nitrate,Urine Negative (Negative); Protein,Urine TRACE (Negative); Specific Gravity, Urine 1.015 (1.005-1.030)
--- NOTE | 2022-03-25 20:45 | HMH.EDSOB ---
Discharge Plan Disposition Chief Complaint: Shortness of Breath/Dyspnea Prescriptions Prescriptions: No Action pregabalin 75 mg capsule 75 mg PO BID Qty: 60 2RF docusate sodium 100 mg capsule 200 mg PO HS PRN (Reason: Constipation) escitalopram oxalate [Lexapro] 10 mg tablet 10 mg PO HS buprenorphine-naloxone 8-2 mg tablet, sublingual 2 tab SL DAILY phentermine [Adipex-P] 37.5 mg tablet 37.5 mg PO DAILY Qty: 30 0RF Rx Instructions: must administer 30 minutes before or 1-2 hours after breakfast atorvastatin 10 MG tablet 10 mg PO QHS lidocaine 0.05 MG/MG adhesive patch,medicated 1 patch TP DAILY Rx Instructions: leave on most painful area for up to 12 hrs omeprazole 20 MG capsule,delayed release(DR/EC) See Rx Instructions .Route .COMPLEX Rx Instructions: TAKE 1 CAPSULE BY MOUTH ONCE DAILY FOR ACID REFLUX ergocalciferol (vitamin D2) 1,250 MCG capsule 50,000 unit PO QWEEK cholecalciferol (vitamin D3) 1,000 UNIT capsule 1,000 unit PO DAILY quetiapine 50 MG tablet 50 mg PO HS diclofenac sodium 1 % gel 2 gm TP QID Rx Instructions: apply to single elbow, wrist or hand; for hand includes palm/fingers/back of hand cetirizine 10 MG tablet See Rx Instructions .Route .COMPLEX Rx Instructions: TAKE 1 TABLET BY MOUTH ONCE DAILY FOR ALLERGIES Referrals Referrals: Provider,Referral, MD [Primary Care Provider] - Enter time for follow up Discharge ED Provider: Missael Vernon Resp/SOB HPI General Chief Complaint: Shortness of Breath/Dyspnea Stated Complaint: SOA Time Seen by Provider: 03/25/22 20:46 Mode of Arrival: EMS Source of Information: Patient, Spouse and Medical Record Limitations: No Limitations Description of Symptoms (Recalled from ER Triage Doc. by RN): pt states SOA, cough, and blisters in mouth that started today. pt was seen yesterday and started on abx History of Present Illness sob and cough over the last few days with dysphonia Complaint: shortness of breath Onset (ago): day(s) Severity: moderate Associated symptoms: denies other symptoms Treatment prior to arrival: none Related Data Home oxygen amount: none Home Medications Medication Instructions Recorded Confirmed cetirizine 10 mg tablet See Rx Instructions .Route 10/07/21 03/18/22 .COMPLEX ALLERGIES buprenorphine 8 mg-naloxone 2 mg 2 tab sublingual DAILY ADDICTION 02/16/22 03/18/22 sublingual tablet RECOVERY docusate sodium 100 mg capsule 200 mg PO HS PRN Constipation 02/16/22 03/18/22 escitalopram oxalate 10 mg tablet 10 mg PO HS MOOD 02/16/22 03/18/22 (Lexapro) atorvastatin 10 mg tablet 10 mg PO QHS Cholesterol 03/15/22 03/18/22 cholecalciferol (vitamin D3) 25 1,000 unit PO DAILY SUPPPLEMENT 03/15/22 03/18/22 mcg (1,000 unit) capsule diclofenac sodium 1 % topical gel 2 gm topical QID Pain 03/15/22 03/18/22 ergocalciferol (vitamin D2) 1,250 50,000 unit PO QWEEK Supplement 03/15/22 03/18/22 mcg (50,000 unit) capsule lidocaine 5 % topical patch 1 patch topical DAILY Pain 03/15/22 03/18/22 omeprazole 20 mg capsule,delayed See Rx Instructions .Route 03/15/22 03/18/22 release .COMPLEX GERD quetiapine 50 mg tablet 50 mg PO HS . 03/15/22 03/18/22 Previous Rx's Medication Instructions Recorded pregabalin 75 mg capsule 75 mg PO BID . #60 caps 01/12/22 phentermine 37.5 mg tablet 37.5 mg PO DAILY #30 tabs 03/18/22 (Adipex-P) Allergies Allergy/AdvReac Type Severity Reaction Status Date / Time amoxicillin Allergy Mild Yeast Verified 03/18/22 13:42 Infection codeine [CODEINE] Allergy Unknown I-HIVES Verified 03/18/22 13:42 latex [LATEX] Allergy Unknown ITCHING Verified 03/18/22 13:42 ranitidine [RANITIDINE] Allergy Unknown ANXIETY Verified 03/18/22 13:42 tramadol [TRAMADOL] Allergy Unknown NA-NAUSEA/V Verified 03/18/22 13:42 OMITING [facility] Medical History (Updated 03/15/22 @ 15:44 by Barrington Grayson
--- NOTE | 2022-03-25 21:17 | PC.NURSE ---
hide house supervisor notified of pt admission and need for bed assignment
--- NOTE | 2022-03-25 21:18 | HMH.EDSOB ---
Discharge Plan Disposition Chief Complaint: Shortness of Breath/Dyspnea Prescriptions Prescriptions: No Action pregabalin 75 mg capsule 75 mg PO BID Qty: 60 2RF docusate sodium 100 mg capsule 200 mg PO HS PRN (Reason: Constipation) escitalopram oxalate [Lexapro] 10 mg tablet 10 mg PO HS buprenorphine-naloxone 8-2 mg tablet, sublingual 2 tab SL DAILY phentermine [Adipex-P] 37.5 mg tablet 37.5 mg PO DAILY Qty: 30 0RF Rx Instructions: must administer 30 minutes before or 1-2 hours after breakfast atorvastatin 10 MG tablet 10 mg PO QHS lidocaine 0.05 MG/MG adhesive patch,medicated 1 patch TP DAILY Rx Instructions: leave on most painful area for up to 12 hrs omeprazole 20 MG capsule,delayed release(DR/EC) See Rx Instructions .Route .COMPLEX Rx Instructions: TAKE 1 CAPSULE BY MOUTH ONCE DAILY FOR ACID REFLUX ergocalciferol (vitamin D2) 1,250 MCG capsule 50,000 unit PO QWEEK cholecalciferol (vitamin D3) 1,000 UNIT capsule 1,000 unit PO DAILY quetiapine 50 MG tablet 50 mg PO HS diclofenac sodium 1 % gel 2 gm TP QID Rx Instructions: apply to single elbow, wrist or hand; for hand includes palm/fingers/back of hand cetirizine 10 MG tablet See Rx Instructions .Route .COMPLEX Rx Instructions: TAKE 1 TABLET BY MOUTH ONCE DAILY FOR ALLERGIES Discharge ED Provider: Missael Vernon Resp/SOB HPI General Chief Complaint: Shortness of Breath/Dyspnea Stated Complaint: SOA Time Seen by Provider: 03/25/22 20:46 Mode of Arrival: EMS Limitations: No Limitations Description of Symptoms (Recalled from ER Triage Doc. by RN): pt states SOA, cough, and blisters in mouth that started today. pt was seen yesterday and started on abx History of Present Illness progressive cough and sob with fever and dysphonia over the last few days - positive tob use - has failed outpt meds Complaint: shortness of breath, cough and pain with inspiration Onset (ago): day(s) Severity: moderate Associated symptoms: fever, cough and wheezing Related Data Home oxygen amount: none Home Medications Medication Instructions Recorded Confirmed cetirizine 10 mg tablet See Rx Instructions .Route 10/07/21 03/18/22 .COMPLEX ALLERGIES buprenorphine 8 mg-naloxone 2 mg 2 tab sublingual DAILY ADDICTION 02/16/22 03/18/22 sublingual tablet RECOVERY docusate sodium 100 mg capsule 200 mg PO HS PRN Constipation 02/16/22 03/18/22 escitalopram oxalate 10 mg tablet 10 mg PO HS MOOD 02/16/22 03/18/22 (Lexapro) atorvastatin 10 mg tablet 10 mg PO QHS Cholesterol 03/15/22 03/18/22 cholecalciferol (vitamin D3) 25 1,000 unit PO DAILY SUPPPLEMENT 03/15/22 03/18/22 mcg (1,000 unit) capsule diclofenac sodium 1 % topical gel 2 gm topical QID Pain 03/15/22 03/18/22 ergocalciferol (vitamin D2) 1,250 50,000 unit PO QWEEK Supplement 03/15/22 03/18/22 mcg (50,000 unit) capsule lidocaine 5 % topical patch 1 patch topical DAILY Pain 03/15/22 03/18/22 omeprazole 20 mg capsule,delayed See Rx Instructions .Route 03/15/22 03/18/22 release .COMPLEX GERD quetiapine 50 mg tablet 50 mg PO HS . 03/15/22 03/18/22 Previous Rx's Medication Instructions Recorded pregabalin 75 mg capsule 75 mg PO BID . #60 caps 01/12/22 phentermine 37.5 mg tablet 37.5 mg PO DAILY #30 tabs 03/18/22 (Adipex-P) Allergies Allergy/AdvReac Type Severity Reaction Status Date / Time amoxicillin Allergy Mild Yeast Verified 03/18/22 13:42 Infection codeine [CODEINE] Allergy Unknown I-HIVES Verified 03/18/22 13:42 latex [LATEX] Allergy Unknown ITCHING Verified 03/18/22 13:42 ranitidine [RANITIDINE] Allergy Unknown ANXIETY Verified 03/18/22 13:42 tramadol [TRAMADOL] Allergy Unknown NA-NAUSEA/V Verified 03/18/22 13:42 OMITING PFSH PFSH Medical History (Updated 03/15/22 @ 15:44 by Kathrin Aguilar APRN) Chest pain Daytime somnolence Fatigue Hyperlipidemia Lumbar disc herniation wi
[2022-03-25 21:45] LABS: Adenovirus,PCR Not Detected (NotDetected); Bordetella Pertussis Not Detected (NotDetected); Chlamydophila Pneumoniae, PCR Not Detected (NotDetected); Coronavirus 19, PCR Not Detected (NotDetected); Coronavirus 229E Not Detected (NotDetected); Coronavirus NL63 Not Detected (NotDetected); Coronavirus OC43 Not Detected (NotDetected); Coronovirus HKU1,PCR Not Detected (NotDetected); Human Metapneumovirus Not Detected (NotDetected); Influenza A, PCR Not Detected (NotDetected); Influenza AH1, 2009 Not Detected (NotDetected); Influenza AH1, PCR Not Detected (NotDetected); Influenza AH3,PCR Not Detected (NotDetected); Influenza B, PCR Not Detected (NotDetected); Mycoplasma Pneumoniae, PCR Not Detected (NotDetected); Parainfluenza 1, PCR Not Detected (NotDetected); Parainfluenza 2, PCR Not Detected (NotDetected); Parainfluenza 3, PCR Not Detected (NotDetected); Parainfluenza 4, PCR Not Detected (NotDetected); Respiratory Syncytial Virus Not Detected (NotDetected)
--- NOTE | 2022-03-25 21:58 | PC.NURSE ---
Pt given drink per request. No other needs at this time.
[2022-03-25 23:23] LABS: Troponin I < 0.01 ng/ml (0.00-0.034)
--- NOTE | 2022-03-25 23:24 | PC.NURSE ---
Pt complains of nausea. RN notified.
--- NOTE | 2022-03-25 23:43 | PC.NURSE ---
PT ARRIVED VIA WHEELCHAIR RO FLOOR AT THIS TIME
[2022-03-26] VITALS (10 sets, daily range): BP systolic 89–117; BP diastolic 55–74; PULSE 73–103; RESP 16–18; TEMP 36.4–36.8; O2SAT 85–99
[2022-03-26 04:13] LABS: Rhinovirus/Enterovirus Detected (NotDetected)
--- NOTE | 2022-03-26 05:13 | PC.NURSE ---
pt admitted this shift, no changes from previous assessment, lung sounds diminished, 02 sats are 82-85% on room air, 90-91% on 2L of 02 pnc, pt with productive 'barking cough, no edema, skin pwd, no other issues noted at this time, pt rested well after dose of seroquel as prescribed.
[2022-03-26 07:23] LABS: Basophils % 0.4 % (0.1-2.0); Eosinophils % 0.5 % (0.1-12.0); Hematocrit 40.9 % (37.0-47.0); Hemoglobin 12.5 g/dL (12.2-16.2); Lymphocytes % 11.7 % (10-50); Mean Corpuscular HGB Conc 30.7 g/dL (31.8-35.4); Mean Corpuscular Hemoglobin 27.5 pg (27.0-31.2); Mean Corpuscular Volume 89.6 fl (81-99); Mean Platelet Volume 8.9 fl (7.4-10.4); Monocytes # 0.1 K/mm3 (0.1-1.0); Monocytes % 1.4 % (1.7-9.3); Neutrophils # 7.1 K/mm3 (1.8-7.8); Platelet Count 281 K/mm3 (142-424); Red Blood Count 4.56 M/mm3 (4.20-5.40); Red Cell Distribution Width 14.3 % (11.5-17.5); White Blood Count 8.3 K/mm3 (4.8-10.8)
[2022-03-26 07:26] LABS: MANUAL DIFFERENTIAL MANUAL DIFFERENTIAL (MANUAL DIFF)
[2022-03-26 07:29] LABS: Anion Gap 7.1 mEq/L (5-15); Blood Urea Nitrogen 6 mg/dl (7-17); Calcium 8.5 mg/dl (8.4-10.2); Carbon Dioxide 27 mmol/L (22.0-30.0); Chloride 112 mmol/L (98-107); Creatinine Clearance Estimated 142 mL/min (50-200); Estimated Glomerular Filt Rate 132 ml/min (>60); GFR (African American) 160 ML/MIN (>60); Glucose 145 mg/dl (74-100); Potassium 4.1 mmoL/L (3.5-5.1); Sodium 142 mmol/L (136-145)
--- NOTE | 2022-03-26 09:32 | EXP.HP ---
History of Present Illness *Admission Date: 03/25/22 *Reason for visit:: sob *History of present illness: this patient presented to the ed with progressive sob over the last few days -pt states SOA, cough, and blisters in mouth that started today. pt was seen yesterday and started on abx but decame more sob progressive cough and sob with fever and dysphonia over the last few days - positive tob use - has failed outpt meds Complaint: shortness of breath, cough and pain with inspiration Onset (ago): day(s) Severity: moderate Associated symptoms: fever, cough and wheezing - pt was found to have low 02 sat and extensive bilat caap and was admitted for eval and treatment - 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 caffeine: No Review of Systems Review of Systems Review of systems:: pertinent systems reviewed and negative unless documented below Constitutional Constitutional: Denies headache(s) ENT Ears, Nose, Mouth, and Throat: Denies headache(s) *Neurologic Neurologic: Denies headache(s) Meds Home Medications and Allergies Home Medications Medication Instructions Recorded Confirmed Type cetirizine 10 mg tablet 10 mg PO DAILY ALLERGIES 10/07/21 03/25/22 History buprenorphine 8 mg-naloxone 2 mg 1.5 tab sublingual DAILY ADDICTION 02/16/22 03/26/22 History sublingual tablet RECOVERY docusate sodium 100 mg capsule 200 mg PO HSP PRN Constipation 02/16/22 03/26/22 History atorvastatin 10 mg tablet 10 mg PO HS Cholesterol 03/15/22 03/26/22 History cholecalciferol (vitamin D3) 25 1,000 unit PO DAILY SUPPPLEMENT 03/15/22 03/25/22 History mcg (1,000 unit) capsule diclofenac sodium 1 % topical gel 2 gm topical QID Pain 03/15/22 03/25/22 History ergocalciferol (vitamin D2) 1,250 50,000 unit PO QWEEK Supplement 03/15/22 03/25/22 History mcg (50,000 unit) capsule lidocaine 5 % topical patch 1 patch topical DAILY Pain 03/15/22 03/25/22 History omeprazole 20 mg capsule,delayed 20 mg PO DAILY GERD 03/15/22 03/26/22 History release quetiapine 50 mg tablet 50 mg PO HS SLEEP 03/15/22 03/25/22 History phentermine 37.5 mg tablet 37.5 mg PO DAILY Weight loss 03/25/22 03/25/22 History (Adipex-P) albuterol sulfate 90 mcg/actuation 2 puff inhalation Q4HP PRN 03/26/22 03/26/22 History aerosol inhaler (ProAir HFA) Shortness Of Breath escitalopram oxalate 20 mg tablet 20 mg PO DAILY MOOD 03/26/22 03/26/22 History pregabalin 75 mg capsule 75 mg PO BID NEUROPATHY 03/26/22 03/26/22 History New Prescriptions to Start Prescriptions: Allergies Allergy/AdvReac Type Severity Reaction Status Date / Time amoxicillin Allergy Mild Yeast Verified 03/18/22 13:42 Infection codeine [CODEINE] Allergy Unknown I-HIVES Verified 03/18/22 13:42 latex [LATEX] Allergy Unknown ITCHING Verified 03/18/22 13:42 ranitidine [RANITIDINE] Allergy Unknown ANXIETY Verified 03/18/22 13:42 tramadol [TRAMADOL] Allergy Unknown NA-NAUSEA/V Verified 03/18/22 13:42 OMITING Exam Data for Last 24 hours Vital signs and Labs for Last 24 Hours: Temp Pulse Resp BP Pulse Ox 97.8 F 85 17 91/55 L 91 L 03/26/22 04:00 03/26/22 04:00 03/26/22 04:00 03/26/22 04:00 03/26/22 04:00 Laboratory Results - last 24 hr 03/25/22 19:05: SARS-CoV-2 (PCR) Not detected, Influenza A Untype (PCR) Not detected, Influenza Type B (PCR) Not detected 03/25/22 19:05: Chlamy pneumoniae
[2022-03-26 09:44] LABS: Lymphocytes % 15 % (10-50); Monocytes % 2 % (2-9); Neutrophils % 82 % (42-76); Platelet Estimate Normal; Total Cells Counted 100
[2022-03-26 09:45] LABS: RBC Morphology Normal
--- NOTE | 2022-03-26 12:58 | P.CONPHA_ITS ---
Pharmacy Intervention Comments: MEDICATION RECONCILIATION COMPLETE USING EXTERNAL PHARMACY FILL HISTORY, LIST FROM MOST RECENT MD OFFICE VISIT AND CALL TO [facility] TO VERIFY SUBOXONE DOSE.
--- NOTE | 2022-03-26 12:58 | HMH.PHAINT1 ---
Pharmacy Intervention Comments: MEDICATION RECONCILIATION COMPLETE USING EXTERNAL PHARMACY FILL HISTORY, LIST FROM MOST RECENT MD OFFICE VISIT AND CALL TO [facility] TO VERIFY SUBOXONE DOSE.
--- NOTE | 2022-03-26 12:59 | EXP.PHA.VTE ---
[facility] Pharmacy VTE Monitoring Patient Demographics Admission date: 03/25/22 Report Date: 03/26/22 Time: 13:00 Patient Allergies amoxicillin Allergy (Mild, Verified 03/18/22 13:42) Yeast Infection codeine [CODEINE] Allergy (Unknown, Verified 03/18/22 13:42) I-HIVES latex [LATEX] Allergy (Unknown, Verified 03/18/22 13:42) ITCHING ranitidine [RANITIDINE] Allergy (Unknown, Verified 03/18/22 13:42) ANXIETY tramadol [TRAMADOL] Allergy (Unknown, Verified 03/18/22 13:42) NA-NAUSEA/VOMITING Height: 1.57 m Weight: 64.58 kg Current Active Problems (Updated 03/25/22 @ 23:49 by Estephanie Weber RN) SIRS due to infectious process without acute organ dysfunction (Acute) Community acquired pneumonia (Acute) VTE Risk Labs: VTE Related Lab Results Hgb 12.5 g/dL (12.2-16.2) 03/26/22 06:48 Hct 40.9 % (37.0-47.0) 03/26/22 06:48 Plt Count 281 K/mm3 (142-424) 03/26/22 06:48 BUN 6 mg/dl (7-17) L 03/26/22 06:48 Creatinine 0.50 mg/dl (0.52-1.04) L D 03/26/22 06:48 Estimated Creat Clear 142 mL/min (50-200) 03/26/22 06:48 Was VTE Risk Assessment Performed: Yes VTE Score: 3 VTE Risk Level: Low Risk Clinical Trial Participant: No Prophylaxis VTE Prophylaxis Ordered?: Yes Types of VTE Prophylaxis: TEDS Knee High Location of Applied Device: Bilateral Lower Extremeties
--- NOTE | 2022-03-26 17:58 | PC.NURSE ---
Pt refused suboxone this am after getting ordered because she states she normally takes .5 tab in the am and 1 tab @ hs. Noted. Pt has had to wear 2 L NC of 02 r/t sats of 85% on RA. CB in reach. No additional changes since prior assessment. Sputum cx sent to lab. Have encouraged use of incentive spirometer and educated as well.
--- NOTE | 2022-03-26 18:42 | PC.NURSE ---
notified nurse of low oxygen level and she instructed me to put pt back on 2 liters nasal canula. oxygen level began to rise back into the 90's after doing so. damian jarvis
[2022-03-27] VITALS (11 sets, daily range): BP systolic 93–147; BP diastolic 50–84; PULSE 69–89; RESP 16–19; TEMP 36.6–36.9; O2SAT 88–100; BMI 26.2
--- NOTE | 2022-03-27 04:00 | PC.NURSE ---
no changes from previous assessment, lung sounds diminished with noted crackles in LLL, 02 sats 97% on 02 at 2L; productive cough; skin pwd, no edema, VSS, pt is alert and oriented x4; skin pwd, no other issues noted at this time, pt rested well through the night after suboxone given.
[2022-03-27 09:15] LABS: Alanine Aminotransferase 25 U/L (12-78); Albumin Level 2.8 g/dl (3.5-5.0); Alkaline Phosphatase 115 U/L (38-126); Anion Gap 6.3 mEq/L (5-15); Aspartate Amino Transferase 34 U/L (14-36); Blood Urea Nitrogen 8 mg/dl (7-17); Calcium 8.3 mg/dl (8.4-10.2); Carbon Dioxide 26 mmol/L (22.0-30.0); Chloride 113 mmol/L (98-107); Creatinine Clearance Estimated 101 mL/min (50-200); Estimated Glomerular Filt Rate 90 ml/min (>60); GFR (African American) 109 ML/MIN (>60); Globulin 2.7 g/dL (1.3-3.2); Glucose 135 mg/dl (74-100); Potassium 3.3 mmoL/L (3.5-5.1); Sodium 142 mmol/L (136-145); Total Protein,Serum 5.5 g/dl (6.3-8.2)
--- NOTE | 2022-03-27 09:15 | XR_ITS ---
PROCEDURE INFORMATION: Exam: XR Chest Exam date and time: 03/27/2022 9:23 AM Age: 46 years old Clinical indication: Shortness of breath; Additional info: Cap TECHNIQUE: Imaging protocol: Radiologic exam of the chest. Views: 1 view. COMPARISON: CR XR CHEST 2V 03/25/2022 7:20 PM FINDINGS: Lungs: Improving bilateral airspace opacities. Pleural spaces: Unremarkable. No pleural effusion. No pneumothorax. Heart/Mediastinum: Unremarkable. No cardiomegaly. Bones/joints: Unremarkable. IMPRESSION: Improving bilateral airspace opacities.
[2022-03-27 09:18] LABS: Bilirubin,Total < 0.1 mg/dl (0.2-1.3)
--- NOTE | 2022-03-27 09:19 | PC.NURSE ---
Pt voiced no requests at this time
[2022-03-27 09:23] LABS: Basophils % 0.4 % (0.1-2.0); Eosinophils # 0.1 K/mm3 (0.0-0.4); Eosinophils % 1.2 % (0.1-12.0); Hematocrit 36.2 % (37.0-47.0); Hemoglobin 11.1 g/dL (12.2-16.2); Lymphocytes # 2.3 K/mm3 (0.7-4.5); Lymphocytes % 33.5 % (10-50); Mean Corpuscular HGB Conc 30.6 g/dL (31.8-35.4); Mean Corpuscular Hemoglobin 27.8 pg (27.0-31.2); Mean Corpuscular Volume 90.7 fl (81-99); Mean Platelet Volume 8.7 fl (7.4-10.4); Monocytes # 0.2 K/mm3 (0.1-1.0); Monocytes % 3.2 % (1.7-9.3); Neutrophils # 4.2 K/mm3 (1.8-7.8); Neutrophils % 61.6 % (37.0-80.0); Platelet Count 319 K/mm3 (142-424); Red Blood Count 3.98 M/mm3 (4.20-5.40); Red Cell Distribution Width 14.5 % (11.5-17.5); White Blood Count 6.8 K/mm3 (4.8-10.8)
--- NOTE | 2022-03-27 11:10 | EXP.ACUTE.PN ---
Subjective *Date: 03/28/22 *Time: 12:34 Interval history: doing better as far as feels better but still sob Medical Exam Vital signs and Labs for Last 24 Hours: Temp Pulse Resp BP Pulse Ox 97.8 F 86 16 100/50 L 97 03/27/22 07:56 03/27/22 07:56 03/27/22 07:56 03/27/22 07:56 03/27/22 07:56 Laboratory Results - last 24 hr 03/27/22 08:25: WBC 6.8, RBC 3.98 L, Hgb 11.1 L, Hct 36.2 L, MCV 90.7, MCH 27.8, MCHC 30.6 L, RDW 14.5, Plt Count 319, MPV 8.7, Neut % (Auto) 61.6, Lymph % (Auto) 33.5, Wilbarger % (Auto) 3.2, Eos % (Auto) 1.2, Baso % (Auto) 0.4, Neut # (Auto) 4.2, Lymph # (Auto) 2.3, Wilbarger # (Auto) 0.2, Eos # (Auto) 0.1, Baso # (Auto) 0.0 03/27/22 08:25: Sodium 142, Potassium 3.3 L, Chloride 113 H, Carbon Dioxide 26, Anion Gap 6.3, BUN 8 D, Creatinine 0.70 D, Estimated Creat Clear 101, Estimated GFR 90, Est GFR ( Amer) 109 D, Glucose 135 H, Calcium 8.3 L, Total Bilirubin < 0.1 L, AST 34 D, ALT 25 D, Alkaline Phosphatase 115, Total Protein 5.5 L, Albumin 2.8 L, Globulin 2.7, Albumin/Globulin Ratio 1.0 L I & O for Labs for Last 24 Hours: Intake & Output 03/24/22 03/25/22 03/26/22 03/27/22 11:59 11:59 11:59 11:59 Intake Total 2951 / 2951 2348 / 2348 Output Total 0 / 0 300 / 300 Balance 2951 / 2951 2047 / 2047 Weight 142 lb 6 oz 142 lb 6 oz Microbiology Reports for the Last 24 Hours: Microbiology 03/26/22 11:45 Sputum - Expectorated Sputum Gram Stain - Final Head: atraumatic Eyes: as per HPI ENT: normal oropharynx Neck: full ROM Respiratory: decreased breath sounds Cardiac: Reg Rate and Rhythm GI: soft Extremities: joint swelling Skin: cyanosis Neuro: Cranial Nerve 2-12 Intact Assessment and Plan Assessment and plan all Dx Plan of Treatment: #Viral pneumonia: #Community-acquired pneumonia: 46-year-old female, presenting with worsening respiratory distress cough and productive phlegm and subjective fevers, failed outpatient management eventually admitted for further care. Patient recently seen in the clinic for exertional dyspnea, she had a family's alpha-1 antitrypsin deficiency. Levels within normal limits in this patient. Awaiting PFT and further testing Flu panel positive for enterorhinovirus. Afebrile since admission. Labs personally reviewed No evidence of leukocytosis. CRP on admission significantly elevated to 239. Chest x-ray from admission from 03/27/2022 personally reviewed, bilateral lower lobe infiltrates left greater than right, improving. Vascular congestion and diffuse interstetial opacities also noted. Patient has been receiving ceftriaxone along with azithromycin since admission. Sputum culture few gram-positive and gram-negative diplococci. On examination of the patient does not appear to be in any respiratory distress. Mild expiratory wheezing noted. On room air saturating 94% and above. Patient has been receiving DuoNebs every 6 hours on a scheduled basis on this hospital admission. Plan: Wean antibiotics to antibiotics levofloxacin to complete a total of 5-day course. Initiate albuterol every 6 hours as needed upon discharge Follow the patient in the clinic as previously scheduled #Thank you for involving pulmonary in this patient care. We will continue to follow The patient's infection will respond to the chosen ABx?: Yes Is the patient receiving the right drug, dose, and route?: Yes Could a more targeted ABx be ordered?: No
--- NOTE | 2022-03-27 18:52 | PC.NURSE ---
Pt on RA at this time. Meds given per sep. and no acute changes since previous assessment. Pt has voided at least 600 cc u/o since lasix was given. Pt has ambulated in farmer this shift and did refused lucy hose. Pt does have a pulmonary consult for tomorrow.
[2022-03-28] VITALS: BP 103/62; PULSE 77; RESP 18; TEMP 36.8; O2SAT 93
[2022-03-28 04:00] VITALS: BP 126/78; PULSE 89; RESP 18; TEMP 36.8; O2SAT 93
[2022-03-28 04:39] VITALS: BMI 26.1
--- NOTE | 2022-03-28 05:27 | PC.NURSE ---
no change from previous assessment, pt rested well through the night, pt did not have oxygen in use all night with sats 93%, no complaints of pain, lung sounds diminished with course crackles heart on LLL and CARRIE, VSS, no other issues noted at this time. no s/s of respiratory distress this shift.
[2022-03-28 06:26] VITALS: PULSE 75; PULSE 78; O2SAT 92
[2022-03-28 08:00] VITALS: BP 120/70; PULSE 88; RESP 20; TEMP 36.9; O2SAT 92
--- NOTE | 2022-03-28 09:25 | EXP.PULM.CON ---
History of Present Illness History of present illness: Mr. Alston is a 46-year-old female current smoker greater than [id number] smoking history presented to the hospital with worsening respiratory's along with cough subjective fevers and productive phlegm. No sick contacts. Cough and shortness both with exertion. Relieved with taking rest. 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 caffeine: No Review of Systems Constitutional Constitutional: Reports fatigue, Reports fever(s) and Denies headache(s) Eyes Eyes: Denies eye discharge, Denies dry eyes, Denies irritation and Denies itchy eyes ENT Ears, Nose, Mouth, and Throat: Denies headache(s), Denies lip swelling and Denies throat swelling *Cardiovascular Cardiovascular: Reports dyspnea and Reports dyspnea on exertion *Respiratory Respiratory: Reports chest congestion, Reports cough, Reports dyspnea, Reports dyspnea on exertion, Reports excessive phlegm production and Reports wheezing *Gastrointestinal Gastrointestinal: Denies abdominal pain, Denies belching and Denies cramping *Musculoskeletal Musculoskeletal: Reports back pain, Reports myalgias and Reports other (No small joint swelling or Pain) *Neurologic Neurologic: Denies headache(s) Psychiatric Psychiatric: Denies homicidal ideation and Denies suicidal ideation Endocrine Endocrine: Reports fatigue and Denies heat intolerance Hematologic/Lymphatic Hematologic/Lymphatic: Denies easy bleeding and Denies lymphadenopathy Allergic/Immunologic Allergic/Immunologic: Denies itchy eyes, Denies lip swelling, Denies throat swelling and Reports wheezing Pulmonology Exam Inpatient Head: normocephalic and atraumatic ENT: normal exam, normal oropharynx and mucous membranes moist Neck: normal inspection and full ROM Respiratory: accessory muscle use, respiratory distress, wheezes, diminished air movement and able to speak in complete sentences Cardiac: S1/S2, Tachycardia and radial pulses present GI: soft, distention, tenderness, guarding or rebound Rectal (female): deferred (female): deferred Skin: intact, cyanosis or jaundice Neuro: alert, awake and oriented x 3 Extremities: normal inspection, clubbing or cyanosis Psychiatric: normal affect and cooperative Meds Home Medications and Allergies Home Medications Medication Instructions Recorded Confirmed Type cetirizine 10 mg tablet 10 mg PO DAILY ALLERGIES 10/07/21 03/25/22 History buprenorphine 8 mg-naloxone 2 mg 1.5 tab sublingual DAILY ADDICTION 02/16/22 03/26/22 History sublingual tablet RECOVERY docusate sodium 100 mg capsule 200 mg PO HSP PRN Constipation 02/16/22 03/26/22 History atorvastatin 10 mg tablet 10 mg PO HS Cholesterol 03/15/22 03/26/22 History cholecalciferol (vitamin D3) 25 1,000 unit PO DAILY SUPPPLEMENT 03/15/22 03/25/22 History mcg (1,000 unit) capsule diclofenac sodium 1 % topical gel 2 gm topical QID Pain 03/15/22 03/25/22 History ergocalciferol (vitamin D2) 1,250 50,000 unit PO QWEEK Supplement 03/15/22 03/25/22 History mcg (50,000 unit) capsule lidocaine 5 % topical patch 1 patch topical DAILY Pain 03/15/22 03/25/22 History omeprazole 20 mg capsule,delayed 20 mg PO DAILY GERD 03/15/22 03/26/22 History release quetiapine 50 mg tablet 50 mg PO HS SLEEP 03/15/22 03/25/22 History phentermine 37.5 mg tablet 37.5 mg PO DAILY Weight loss 03/25/22 03/25/22 History (Adip
[2022-03-28 12:00] VITALS: BP 114/68; PULSE 75; RESP 18; TEMP 36.8; O2SAT 95
--- NOTE | 2022-03-28 14:40 | EXP.DC.SUM ---
General Admission date:: 03/25/22 Discharge date: 03/28/22 HPI HPI HPI: this patient presented to the ed with progressive sob over the last few days -pt states SOA, cough, and blisters in mouth that started today. pt was seen yesterday and started on abx but decame more sob progressive cough and sob with fever and dysphonia over the last few days - positive tob use - has failed outpt meds Complaint: shortness of breath, cough and pain with inspiration Onset (ago): day(s) Severity: moderate Associated symptoms: fever, cough and wheezing - pt was found to have low 02 sat and extensive bilat caap and was admitted for eval and treatment - Hospital Course Hospital Course Hospital Course: pt has slowly improved with ivf/abx and resp treatment - pt mayur act and diet and stable vital signs - pt was seen by pul -46-year-old female, presenting with worsening respiratory distress cough and productive phlegm and subjective fevers, failed outpatient management eventually admitted for further care. Patient recently seen in the clinic for exertional dyspnea, she had a family's alpha-1 antitrypsin deficiency.? Levels within normal limits in this patient.? Awaiting PFT and further testing Flu panel positive for enterorhinovirus. Afebrile since admission.? Labs personally reviewed No evidence of leukocytosis.? CRP on admission significantly elevated to 239. Chest x-ray from admission from 03/27/2022 personally reviewed, bilateral lower lobe infiltrates left greater than right, improving.? Vascular congestion and diffuse interstetial opacities also noted. Patient has been receiving ceftriaxone along with azithromycin since admission. Sputum culture few gram-positive and gram-negative diplococci. On? examination of the patient does not appear to be in any respiratory distress.? Mild expiratory wheezing noted.? On room air saturating 94% and above.? Patient has been receiving DuoNebs every 6 hours on a scheduled basis on this hospital admission. Plan: Wean antibiotics to antibiotics levofloxacin to complete a total of 5-day course. Initiate albuterol every 6 hours as needed upon discharge Follow the patient in the clinic as previously scheduled Exam Data for Last 24 hours Vital signs and Labs for Last 24 Hours: Temp Pulse Resp BP Pulse Ox FiO2 98.2 F 75 18 114/68 95 28 03/28/22 12:00 03/28/22 12:00 03/28/22 12:00 03/28/22 12:00 03/28/22 12:00 03/27/22 18:45 I & O for Last 24 hours: Intake & Output 03/26/22 03/27/22 03/28/22 03/29/22 11:59 11:59 11:59 11:59 Intake Total 2951 / 2951 2348 / 2348 770 / 770 Output Total 0 / 0 300 / 300 1000 / 1000 Balance 2951 / 2951 2048 / 2048 -230 / -230 Weight 142 lb 6 oz 142 lb 6 oz 142 lb 1.407 oz Microbiology Reports for the Last 24 Hours: Microbiology 03/26/22 11:45 Sputum - Expectorated Sputum Gram Stain - Final 03/26/22 11:45 Sputum - Expectorated Sputum Sputum Culture - Preliminary 03/25/22 19:15 Blood Blood Culture - Preliminary NO GROWTH AFTER 48 HOURS 03/25/22 19:15 Blood Blood Culture - Preliminary NO GROWTH AFTER 48 HOURS Constitutional Constitutional: no acute distress Comments: [id number] *Routine HEENT Exam Head: Present normocephalic Eye: Present EOMI and PERRL ENT: Present mucous membranes dry *Routine Neck Exam Neck: Absent JVD *Routine Respiratory Exam Respiratory: Present rhonchi *Routine Cardiovascular Exam Cardiovascular: Present RRR; Absent murmur *Routine Abdominal Exam Abdominal: Present soft *Routine Rectal Exam Patient deferred: visual exam and digital exam *Routine Exam Patient deferred: external exam, groin exam and perineal exam *Routine Extremities Exam Extremities: Absent calf tenderness *Routine Skin Exam Skin: Present intact *Routine Neurological Exam Neurological: Present alert and CN II-XII intact Routine Psychiatric Exam Psychiatric: Present cooperative
[2022-03-28 15:24] VITALS: BMI 10.5
--- NOTE | 2022-03-28 16:04 | P.CONPHA_ITS ---
Pharmacy Intervention Comments: DISCHARGE MEDICATION COUNSELING PROVIDED. DISCUSSED NEW RX SENT TO PHARMACY FOR SEROQUEL, NEW DUONEBS (FOR BREATHING/SHORTNESS OF BREATH, USE ONE NEB EVERY 6 HOURS NEEDED, MAY CAUSE TREMOR/RESTLESSNESS), LEVAQUIN (ANTIBIOTIC, TAKE DAILY, WITH FOOD, SEPARATE FROM VITAMINS BY AT LEAST 2 HOURS, NAUSEA/VO MITING/DIARRHEA POSSIBLE, RARE RISK OF TENDON RUPTURE) AND PREDNISONE (STEROID, TAKE TWICE DAILY, WITH FOOD, EARLIER IN THE DAY I.E. BREAKFAST/DINNER, MAY CAUSE UPSET STOMACH, INSOMNIA) PATIENT VERBALIZED NO QUESTIONS AT THIS TIME.
--- NOTE | 2022-03-29 14:44 | CARE MANAGER ---
Contacted patient related to hospital discharge. She received all her new prescriptions along with Nebs. She is aware of follow up appt and denies any questions or concerns. HAILE Maurer
== END 2022-03-28 16:10 | disposition home or self-care (01) | DRG 195 ==
LOC: ER 20:51 → 2ND 23:45
PROVIDERS: Emergency Medicine; Admitting Provider Emergency Medicine; Emergency Provider Emergency Medicine; Visit Provider Emergency Medicine
DX: J12.9 Viral pneumonia, unspecified (principal); E78.5 Hyperlipidemia, unspecified; F17.210 Nicotine dependence, cigarettes, uncomplicated
CPT/HCPCS: 36415; 71045; 71046; 80048; 80053; 81001; 82803; 83605; 84484; 85007; 85025; 85651; 86140; 87040; 87070; 87205; 87581; 87632; 87798; 93005; 94640; C9803; J0456; J0574; J0696; J2405; U0003; U0005

== ENCOUNTER → 2022-10-17 11:50 | Outpatient (POV) | payer MEDICAID, SELFPAY ==
[2022-10-17 12:02] VITALS: BP 112/76; PULSE 96; RESP 18; O2SAT 96; BMI 25.1
--- NOTE | 2022-10-17 12:02 | EXP.PAIN.SOA ---
[facility] Pain Management SOAP Note Subjective:: Patient is a pleasant 46-year-old female who presents today for follow-up. We are currently treating the patient for low back pain, degenerative disc disease of lumbar spine with lumbar radiculopathy symptoms, lumbar facet arthropathy, sacroiliitis. Today she rates her pain a 7 out of 10. Patient denies any new trauma or injury. Patient denies any change location or type of pain she experiences. Patient states she has pain on both sides of her low back with radiating symptoms into her hips and groins that do run down into her upper thighs. Patient describes this as an aching, throbbing sensation that is worse with increased activity. Patient cannot tolerate prolonged sitting, standing, walking due to the pain. Patient does state this interferes with her ability to perform activities of daily living such as cooking and cleaning. Patient has had this going on for more than 3 months. At our last visit we did schedule her for bilateral SI injections however she states that she had to reschedule this visit due to being admitted in the hospital for 1 week for pneumonia. Patient's states that following this she has had her [id number] in August and then a nephew shortly thereafter from a car accident. Patient is interested in rescheduling her previous injections. Patient is currently managed with Suboxone therapy from an outside provider. Patient denies any side effects from this medication. Patient is also prescribed Lyrica 75 mg twice a day from Dr. Vernon's office. Her Jarred is [id number]. Its been reviewed and appropriate. Review of Systems: General: No recent weight changes, no fever, no sleep disturbances Respiratory: No cough, no shortness of air, no recurring pulmonary infections Cardiovascular/peripheral vascular: No chest pain, no palpitations, no edema, no shortness of breath Gastrointestinal: No new onset incontinence, normal bowel movements reported Genitourinary: No new onset incontinence Musculoskeletal: Low back pain, bilateral hip pain, groin pain, leg pain Psychiatric: [Normal mood/affect] Neurological: [Denies weakness in extremities], [denies balance issues] Objective:: Physical Exam: General: Alert and oriented x3, no acute distress, pleasant and cooperative Lungs: Respirations even and unlabored, symmetrical chest expansion Eyes: PERRL Musculoskeletal: Flexion and extension of lumbar [spine] somewhat guarded secondary to pain, [antalgic gait noted] extreme point tenderness along bilateral SIs and positive bilateral Orlando's, Neyda's, Gaenslen's, compression and distraction exam Neurological: Speech clear, no gross sensory deficit Assessment:: Degenerative disc disease of lumbar spine with lumbar radiculopathy symptoms, lumbar facet arthropathy, sacroiliitis Plan:: Patient is experiencing significant pain in her low back with radiating symptoms into her bilateral hips and groins and upper thighs. Patient did have limited range of motion of her lumbar spine along with extreme point tenderness at her bilateral SI's and positive bilateral Orlando's, Neyda's, Gaenslen's, compression and distraction exam. This has been going on for longer than 3 months with no improvement with conservative therapy such as [id number] medications, heat and ice, topicals, at home exercising and stretching for longer than 6 weeks. I have recommended that she may benefit from bilateral SI injections. Risk and benefits were discussed with the patient and she would like to proceed forward with this plan of care. We will schedule her for bilateral SI injections. Patient has been instructed to contact the clinic with any concerns before the next appointment. Dr. Eddy has reviewed this note and agrees with this plan of care. This note was dictated using voice recognition software and make contain errors or omissions. [facility] Disclaimer: The information contained in this section may have been updat
== END ==
PROVIDERS: PCP Emergency Medicine; Visit Provider Nurse Practitioner Family
DX: M51.16 Intervertebral disc disorders with radiculopathy, lumbar region (principal); M47.26 Other spondylosis with radiculopathy, lumbar region; M46.1 Sacroiliitis, not elsewhere classified
CPT/HCPCS: 99212; G0463

== ENCOUNTER 2022-10-25 13:19 | Day surgery (SDC) | payer MEDICAID, SELFPAY ==
[2022-10-25 13:38] VITALS: BP 105/71; PULSE 90; RESP 18; TEMP 36.6; O2SAT 98; BMI 25.9
[2022-10-25 14:04] VITALS: BP 129/77; PULSE 80; RESP 18
[2022-10-25 14:08] VITALS: BP 108/67; PULSE 94; RESP 18; O2SAT 98
[2022-10-25 14:09] VITALS: BP 129/77; PULSE 80; RESP 18; O2SAT 98
--- NOTE | 2022-10-25 14:28 | P.PCN_ITS ---
Procedure Date: 10/25/22 Time: 14:00 Anesthesiologist:: Nguyễn Wooten CRNA Complications:: None Pre-procedure Diagnosis:: Bilateral sacroiliitis. Post-procedure Diagnosis:: Same. Indications for Procedure:: Patient is a very pleasant 46-year-old female that comes our clinic today for bilateral sacroiliac joint injections. She has extreme point tenderness over the area of the bilateral sacroiliac joint. Patient states she has difficulty ambulating for moderate distance. She has difficulty transitioning from sitting to standing. She rates her pain 7/10. Procedure Details:: Procedure: Bilateral sacroiliac joint injections under fluoroscopy Informed consent was obtained and the risks and benefits of the procedure were explained to the patient.~ The patient was taken to the procedure room and noninvasive monitors were placed including a noninvasive blood pressure cuff and pulse oximeter.~ The patient was placed prone on the procedure table. Both hips were cleansed using Betadine as a cleansing solution. C-arm fluoroscopy was used to view the right sacroiliac joint.~ The skin and subcutaneous tissues were anesthetized using lidocaine 1.5% and a 25-gauge needle.~ After this, a 22-gauge spinal needle was inserted under fluoroscopic guidance into the inferior aspect of the right sacroiliac joint.~ Omnipaque dye was injected and good spread was seen throughout the joint.~ After this, approximately 5 mL of bupivacaine, 0.25% and Depo-Medrol, 40 mg was incrementally injected into the right sacroiliac joint. We then moved to the left sacroiliac joint.~ The skin and subcutaneous tissues were anesthetized using lidocaine 1.5% and a 25-gauge needle.~ After this, a 22- gauge spinal needle was inserted under fluoroscopic guidance into the inferior aspect of the left sacroiliac joint.~ Omnipaque dye was injected and good spread was seen throughout the joint. After this, approximately 5 mL of bupivacaine, 0.25% and Depo-Medrol, 40 mg was incrementally injected into the left sacroiliac joint.~ The patient tolerated the procedure well with no complications. The patient was observed in the Pain Clinic and then was discharged home neurologically intact. Plan and Disposition:: Patient was discharged without incident.
== END 2022-10-25 14:08 | disposition home or self-care (01) ==
LOC: SC.PAINP 13:19
PROVIDERS: PCP Emergency Medicine; Visit Provider Nurse Anesthetist, Certified Registered
DX: M46.1 Sacroiliitis, not elsewhere classified (principal)
CPT/HCPCS: 27096; G0260; J1040

== ENCOUNTER 2022-10-27 12:54 | Day surgery (SDC) | payer MEDICAID, SELFPAY ==
[2022-10-24 10:00] VITALS: BMI 26.5
[2022-10-27 13:07] VITALS: BP 98/69; PULSE 89; RESP 18; TEMP 36.2; O2SAT 97
[2022-10-27 14:31] VITALS: O2SAT 97
--- NOTE | 2022-10-27 14:45 | HMH.SCOPE ---
Procedure: Date: 10/27/22 Patient Date of :: 1975 Procedure Performed:: EGd & biopsies Indications:: Chronic GERD Performing Provider:: Sonya Saucedo MD Referring Provider:: Missael Vernon MD Sedation:: Propofol Procedure:: The gastroscope was gently passed through the incisoral orifice into the oral cavity and under direct visualization the esophagus was intubated. The endoscope was passed down the esophagus, through the stomach, and into the duodenum. Color, texture, mucosa, and anatomy of the esophagus, stomach, and duodenum were carefully examined with the scope. Findings:: Oropharynx: normal Esophagus: normal EG Junction: intact at 40 cm Cardia: normal Fundus: normal Body: normal, moderate amount of residual food noted, random biopsies obtained for evaluation of h.pylori infection Antrum: normal Duodenal bulb: normal Duodenum (second and third portion): normal Impression: Overall normal EGD Mild gastroparesis which will worsen GERD symptoms Specimens:: Gastric Recommendations:: Life style modifications with smaller meal portions and not eating late at night. Complications:: None Estimated blood obtained (mL): 0
[2022-10-27 14:48] VITALS: BP 102/61; PULSE 76; RESP 18; TEMP 36.4; O2SAT 95
[2022-10-27 14:58] VITALS: BP 111/67; PULSE 80; RESP 18; O2SAT 93
--- NOTE | 2022-10-27 15:06 | EXP.ANES.CKL ---
[facility] Disclaimer: The information contained in this section may have been updated after the patient was seen, as this information can be updated by other users. 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 Snoring Stress incontinence Tobacco use Vitamin D deficiency Surgical History History of hysterectomy History of tubal ligation Hx of cardiac cath Hx of shoulder surgery Family History Other Hx of [id number] deficiency Social History Smoking Status: Current every day smoker smoking status stop date: 03/31/22 second hand exposure: Yes alcohol intake: former substance use type: former substance user and opiates current occupational status: unemployed Travel in the last 8 weeks: None household members: other housing: house marital status: 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 caffeine: Yes special ina needs: No agree to transfusion: No do you feel safe at home: Yes victim of physical abuse: No victim of emotional abuse: No victim of sexual abuse: No would you like helpful sources: No [facility] Anesthesia Checklist Patient Identification Patient Identification: Arm Band and Family Structural Data Admitted From: Home Planned Operative Procedure/s: EGD Consent for Planned Operative Procedure(s) Verified: Yes Verified Documents: Surgical Consent and History and Physical NPO Status Verified Time NPO: 00:00 Additional verifications Patient : No Anesthesia Reactions: No Hx Blood Transfusions: No Blood Transfusion Reaction: No Cephalosporin Allergy: No Previous Colonoscopy: No Airway Assessment C-Spine Mobility Assessed: Yes TMJ Mobility Assessed: Yes Dentition: Partials Neurological Assessment Level of Consciousness: Awake, Alert, Appropriate and Follows Commands Hx Seizures: No Numbness or tingling in extremities: No Anesthesia Plan Anesthesia Risk discussed: Yes ASA Class: II Anesthesia Type: MAC
[2022-10-27 15:08] VITALS: BP 104/72; PULSE 86; RESP 18; O2SAT 97
[2022-10-27 15:17] VITALS: BP 93/69; PULSE 73; RESP 18; O2SAT 98
== END 2022-10-27 15:20 | disposition home or self-care (01) ==
PROVIDERS: PCP Emergency Medicine; Visit Provider Internal Medicine Gastroenterology
PROC: 0DJ08ZZ Inspection of Upper Intestinal Tract, Via Natural or Artificial Opening Endoscopic (ICD-10-PCS; CPT 43235; principal; 2022-10-27 14:00)
DX: K21.9 Gastro-esophageal reflux disease without esophagitis (principal); K31.84 Gastroparesis; Z72.0 Tobacco use; Z79.899 Other long term (current) drug therapy
CPT/HCPCS: 43239

== ENCOUNTER → 2022-11-09 09:26 | Outpatient (POV) | payer MEDICAID, SELFPAY ==
--- NOTE | 2022-11-09 09:35 | EXP.PAIN.SOA ---
[facility] Pain Management SOAP Note Subjective:: Patient is a pleasant 47-year-old female who presents today for follow-up from bilateral SI injections on 10/25/2022.? We are currently treating the patient for low back pain, degenerative disc disease of lumbar spine with lumbar radiculopathy symptoms, lumbar facet arthropathy, chronic sacroiliitis.? Today she rates her pain a 4 out of 10.? She states she has had at least 75% improvement following these injections. She states her pain is more tolerable and the right is much better however she still has continued pain along the left side. She does state this is an aching, throbbing sensation that is worse with prolonged standing, sitting, walking. It does interfere with her ability to perform activities of daily living such as cooking and cleaning. Patient denies any new trauma or injury.? Patient denies any change location or type of pain she experiences.? Patient does have a history of chronic sacroiliitis and has had multiple injections that did provide significant relief of 75% or more. She does also states she is interested in what options we can provide for her back pain and related degenerative disc disease. Patient is currently managed with diazepam 5 mg twice a day from Dr. Vernon's office and Suboxone therapy from an outside provider.? Patient denies any side effects from this medication.? Her Jarred is [id number].? Its been reviewed and appropriate. Review of Systems: General: No recent weight changes, no fever, no sleep disturbances Respiratory: No cough, no shortness of air, no recurring pulmonary infections Cardiovascular/peripheral vascular: No chest pain, no palpitations, no edema, no shortness of breath Gastrointestinal: No new onset incontinence, normal bowel movements reported Genitourinary: No new onset incontinence Musculoskeletal: Low back pain Psychiatric: [Normal mood/affect] Neurological: [Denies weakness in extremities], [denies balance issues] Objective:: Physical Exam: General: Alert and oriented x3, no acute distress, pleasant and cooperative Lungs: Respirations even and unlabored, symmetrical chest expansion Eyes: PERRL Musculoskeletal: Flexion and extension of lumbar [spine] somewhat guarded secondary to pain, [antalgic gait noted] Neurological: Speech clear, no gross sensory deficit Assessment:: Low back pain, degenerative disc disease of lumbar spine with lumbar radiculopathy symptoms, lumbar facet arthropathy, chronic sacroiliitis Plan:: Patient is experiencing continued pain along her low back at the left side with pain into her left hip and groin. Patient did have limited range of motion of her lumbar spine during today's visit along with extreme point tenderness at her left SI and positive left Orlando's, Neyda's, Gaenslen's, compression and distraction exam. She did have at least 75% improvement from her last SI injections with more prominent relief along the right side. I have discussed with the patient that she may benefit from a repeat left SI injection. She has been experiencing this pain for longer than 3 months with no improvement. Patient does have a longstanding history of chronic sacroiliitis. She has tried and failed conservative therapy such as [id number] medications, heat and ice, topicals, at home exercise and stretching for longer than 6 weeks. I have also discussed with the patient that she may benefit from a intrathecal pain pump trial in the future for her back pain. Risk and benefits were discussed regarding this and she would like to proceed forward. I will order a psychiatric evaluation at today's visit and if she is deemed an appropriate candidate in the future we will plan on doing the pain pump trial at a later date. Patient will be scheduled for a left SI injection. Patient has been instructed to contact the clinic with any concerns before the next appointment. Dr. Eddy has reviewed this note and agrees with this plan of care. This note was dictated us
[2022-11-09 09:37] VITALS: BP 129/70; PULSE 94; RESP 18; O2SAT 97; BMI 25.9
== END ==
PROVIDERS: PCP Emergency Medicine; Visit Provider Nurse Practitioner Family
DX: M51.16 Intervertebral disc disorders with radiculopathy, lumbar region (principal); M47.26 Other spondylosis with radiculopathy, lumbar region; M46.1 Sacroiliitis, not elsewhere classified
CPT/HCPCS: 99212; G0463

== ENCOUNTER → 2022-11-30 07:52 | Outpatient (CLI) | payer MEDICAID, SELFPAY ==
[2022-11-30 08:35] VITALS: PULSE 83; PULSE 87
[2022-12-01 11:13] LABS: Alpha-1-Antitrypsin 162 mg/dL (101-187)
== END ==
PROVIDERS: PCP Emergency Medicine; Visit Provider Internal Medicine Pulmonary Disease
DX: R06.09 Other forms of dyspnea (principal); J44.9 Chronic obstructive pulmonary disease, unspecified
CPT/HCPCS: 36415; 82103; 94060; 94618; 94640; 94727; 94729

== ENCOUNTER → 2022-12-14 11:26 | Outpatient (POV) | payer MEDICAID, SELFPAY ==
[2022-12-14 11:33] VITALS: BP 98/61; PULSE 74; RESP 20; O2SAT 94; BMI 24.7
--- NOTE | 2022-12-14 11:45 | EXP.PAIN.SOA ---
[facility] Pain Management SOAP Note Subjective:: Patient is a pleasant 47-year-old female who presents today for SI injection denial and follow-up. We are currently treating the patient for degenerative disc disease of lumbar spine with lumbar radiculopathy symptoms, lumbar facet arthropathy, chronic sacroiliitis. Today she rates her pain a 6 out of 10. Patient denies any new trauma or injury. Patient denies any change location or type of pain she experiences. She still states her pain is all in her low back with radiating symptoms into her hips. She does describe this as an aching sensation that is worse in the morning when she is waking up. She does state it interferes with her ability to perform activities of daily living such as cooking and cleaning. Patient has had previous injections that did provide significant relief of upwards of 75% improvement lasting with 1 injection over 6 months of relief. Patient has had chronic SI issues for years and has had multiple SI injections and even the RFA with significant relief. Patient is currently managed with diazepam 5 mg twice a day from Dr. Vernon's office and is on Suboxone therapy from an outside provider. Patient denies any side effects from these medications. Her Jarred is [id number]. Its been reviewed and appropriate. Review of Systems: General: No recent weight changes, no fever, no sleep disturbances Respiratory: No cough, no shortness of air, no recurring pulmonary infections Cardiovascular/peripheral vascular: No chest pain, no palpitations, no edema, no shortness of breath Gastrointestinal: No new onset incontinence, normal bowel movements reported Genitourinary: No new onset incontinence Musculoskeletal: Low back pain Psychiatric: [Normal mood/affect] Neurological: [Denies weakness in extremities], [denies balance issues] Objective:: Physical Exam: General: Alert and oriented x3, no acute distress, pleasant and cooperative Lungs: Respirations even and unlabored, symmetrical chest expansion Eyes: PERRL Musculoskeletal: Flexion and extension of lumbar [spine] somewhat guarded secondary to pain, [antalgic gait noted] extreme point tenderness noted at bilateral SIs with bilateral positive Orlando's, Neyda's, Gaenslen's, compression and distraction exam Neurological: Speech clear, no gross sensory deficit Assessment:: Degenerative disc disease of lumbar spine with lumbar radiculopathy symptoms, lumbar facet arthropathy, chronic sacroiliitis Plan:: Patient continues to experience significant pain in her low back with limited range of motion. I will order the patient physical therapy at today's visit for evaluation and treatment of her low back pain. I will also prescribe her tizanidine 4 mg at night and provide a 2-week supply of this medication. We will plan on resubmitting for bilateral SI injections in the future once she has completed physical therapy. Patient will return to clinic in 1 month for reevaluation of symptoms possible medication refill if indicated and follow-up. Patient has been instructed to contact the clinic with any concerns before the next appointment. Dr. Eddy has reviewed this note and agrees with this plan of care. This note was dictated using voice recognition software and make contain errors or omissions. [facility] Disclaimer: The information contained in this section may have been updated after the patient was seen, as this information can be updated by other users. 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 Snoring Stress incontinence Tobacco use Vitamin D deficiency Surgical History History of hysterectomy History of tubal ligation Hx of cardiac cath Hx of shoulder surgery Family History (Reviewed 10/27/22 @ 13:15 b
== END | disposition home or self-care (01) ==
PROVIDERS: PCP Emergency Medicine; Visit Provider Nurse Practitioner Family
DX: M51.16 Intervertebral disc disorders with radiculopathy, lumbar region (principal); M47.26 Other spondylosis with radiculopathy, lumbar region; M46.1 Sacroiliitis, not elsewhere classified; J34.89 Other specified disorders of nose and nasal sinuses
CPT/HCPCS: 87070; 87077; 87186; 99212; G0463

== ENCOUNTER → 2023-01-09 23:10 | Outpatient (CLI) | payer MEDICAID, SELFPAY ==
[2023-01-09 19:41] LABS: Basophils # 0.1 K/mm3 (0-0.2); Basophils % 0.7 % (0.1-2.0); Eosinophils # 0.3 K/mm3 (0.0-0.4); Eosinophils % 3.6 % (0.1-12.0); Hematocrit 43.7 % (37.0-47.0); Hemoglobin 13.8 g/dL (12.2-16.2); Lymphocytes # 2.8 K/mm3 (0.7-4.5); Lymphocytes % 38.2 % (10-50); Mean Corpuscular HGB Conc 31.6 g/dL (31.8-35.4); Mean Corpuscular Hemoglobin 28.3 pg (27.0-31.2); Mean Corpuscular Volume 89.5 fl (81-99); Monocytes # 0.4 K/mm3 (0.1-1.0); Monocytes % 5.5 % (1.7-9.3); Neutrophils # 3.8 K/mm3 (1.8-7.8); Neutrophils % 52.1 % (37.0-80.0); Platelet Count 302 K/mm3 (142-424); Red Blood Count 4.88 M/mm3 (4.20-5.40); Red Cell Distribution Width 14.2 % (11.5-17.5); White Blood Count 7.2 K/mm3 (4.8-10.8)
[2023-01-09 19:53] LABS: Alanine Aminotransferase 32 U/L (12-78); Albumin Level 3.7 g/dl (3.5-5.0); Albumin/Globulin Ratio 1.5 (1.1-1.8); Alkaline Phosphatase 96 U/L (38-126); Anion Gap 11.9 mEq/L (5-15); Aspartate Amino Transferase 39 U/L (14-36); Bilirubin,Total 0.3 mg/dl (0.2-1.3); Blood Urea Nitrogen 6 mg/dl (7-17); Calcium 8.8 mg/dl (8.4-10.2); Carbon Dioxide 30 mmol/L (22.0-30.0); Chloride 104 mmol/L (98-107); Chol/HDL Ratio 5.4 (1-3.5); Cholesterol 152 mg/dl (140-200); Estimated Glomerular Filt Rate 107 ml/min (>60); GFR (African American) 129 ML/MIN (>60); Globulin 2.4 g/dL (1.3-3.2); Glucose 91 mg/dl (74-100); HDL Cholesterol 28 mg/dl (40-60); Potassium 3.9 mmoL/L (3.5-5.1); Sodium 142 mmol/L (136-145); Total Protein,Serum 6.1 g/dl (6.3-8.2); Triglycerides 179 mg/dl (30-150); VLDL Cholesterol 36 mg/dL (0-40)
[2023-01-09 20:04] LABS: Direct LDL Cholesterol 95.56 mg/dL (100-129)
[2023-01-09 20:13] LABS: Free T4 (Free Thyroxine) 1.06 ng/dl (0.78-2.19)
[2023-01-09 20:27] LABS: Thyroid Stimulating Hormone 1.93 uIU/mL (0.465-4.68)
== END ==
PROVIDERS: PCP Emergency Medicine; Visit Provider Emergency Medicine
DX: E55.9 Vitamin D deficiency, unspecified (principal); E66.3 Overweight; Z79.899 Other long term (current) drug therapy
CPT/HCPCS: 80053; 80061; 82306; 84439; 84443; 85025

== ENCOUNTER → 2023-06-15 12:56 | Outpatient (CLI) | payer MEDICAID, SELFPAY ==
--- NOTE | 2023-06-15 12:56 | CT_ITS ---
FINAL REPORT TECHNIQUE: Axial images were obtained through the chest without contrast. CLINICAL HISTORY: SOB/Nodule F/U COMPARISON: No prior available for comparison FINDINGS: There is no significant mediastinal mass or adenopathy. The heart size is normal. There is no pericardial or pleural effusion. There is a 3 mm nodule in the lingula best seen on image 134 of series 3 which by report is stable. Limited images of the upper abdomen are unremarkable. IMPRESSION: Stable 3 mm nodule in the lingula. Reviewed, Interpreted and Dictated by Hakeem Garrett MD Transcribed by Sarah Nuñez Authenticated and [facility]
== END ==
PROVIDERS: PCP Emergency Medicine; Visit Provider Internal Medicine Pulmonary Disease
DX: R91.8 Other nonspecific abnormal finding of lung field (principal)
CPT/HCPCS: 71250

== ENCOUNTER → 2023-07-03 23:37 | Outpatient (CLI) | payer MEDICAID, SELFPAY ==
[2023-07-03 19:35] LABS: Amphetamine/Metha Screen,Urine Negative ng/ml (<1000); Barbiturates Screen,Urine Negative ng/ml (<200)
[2023-07-03 19:37] LABS: Cannabinoid Screen,Urine Negative ng/ml (<50)
[2023-07-03 19:38] LABS: Methadone Screen,Urine Negative ng/ml (<300)
[2023-07-03 19:39] LABS: Opiate Screen,Urine Negative ng/ml (<300)
[2023-07-03 19:41] LABS: Phencyclidine Screen,Urine Negative ng/ml (<25)
[2023-07-03 20:35] LABS: Benzodiazepines Screen,Urine Positive ng/ml (<200)
[2023-07-03 20:36] LABS: Cocaine Screen,Urine Negative ng/ml (<300)
== END ==
PROVIDERS: PCP Physician Assistant; Visit Provider Physician Assistant
DX: Z79.899 Other long term (current) drug therapy (principal)
CPT/HCPCS: 80305

== ENCOUNTER → 2023-07-12 11:33 | Outpatient (POV) | payer MEDICAID, SELFPAY ==
[2023-07-12 11:40] VITALS: BP 112/56; PULSE 96; RESP 18; O2SAT 97; BMI 24.5
--- NOTE | 2023-07-12 11:53 | EXP.PAIN.SOA ---
[facility] Pain Management SOAP Note Subjective:: Patient is a pleasant 47-year-old female who presents today for follow-up. We are currently treating the patient for degenerative disc disease of lumbar spine with lumbar radiculopathy symptoms, lumbar facet arthropathy, sacroiliitis. Today she rates her pain a 6 out of 10. Patient denies any new trauma or injury. She states she continues to experience significant pain in her low back that does radiate down her bilateral lower extremities. She does state the right side is worse than the left. She states this is an aching, throbbing sensation with numbness and tingling. Patient states it does affect her ability to perform activities of daily living such as cooking or cleaning or even simple ambulation. Patient states that the pain is debilitating and that she struggles to even get up out of bed due to the worsening symptoms. Patient has tried and failed conservative treatment such as oral medication, heat and ice, topicals, physical therapy in the past and at home exercise and stretching for longer than 6 weeks. Patient was sent for a psychological evaluation back in December and was deemed an appropriate patient for a spinal cord stimulator trial. Patient states she is still interested in proceeding forward with this option. Patient is currently managed with diazepam 5 mg 3 times a day from her PCP and Suboxone therapy. She denies any side effects from these medications. Her Jarred has been reviewed and is appropriate. Review of Systems: General: No recent weight changes, no fever, no sleep disturbances Respiratory: No cough, no shortness of air, no recurring pulmonary infections Cardiovascular/peripheral vascular: No chest pain, no palpitations, no edema, no shortness of breath Gastrointestinal: No new onset incontinence, normal bowel movements reported Genitourinary: No new onset incontinence Musculoskeletal: Low back pain, bilateral leg pain Psychiatric: [Normal mood/affect] Neurological: [Denies weakness in extremities], [denies balance issues] Objective:: Physical Exam: General: Alert and oriented x3, no acute distress, pleasant and cooperative Lungs: Respirations even and unlabored, symmetrical chest expansion Eyes: PERRL Musculoskeletal: Flexion and extension of lumbar [spine] somewhat guarded secondary to pain, [antalgic gait noted] Neurological: Speech clear, no gross sensory deficit Assessment:: Degenerative disc disease of lumbar spine with lumbar radiculopathy symptoms, lumbar facet arthropathy, sacroiliitis Plan:: Patient continues to experience significant pain in her low back and legs with limited range of motion. I have discussed with the patient that she may benefit from a lumbar epidural steroid injection. Risk and benefits were discussed with the patient and she would like to proceed forward with this plan of care. Patient does have lumbar spinal stenosis at the L3-L4 level. I will also send the patient for referral to [facility] for evaluation of her chronic low back pain for possible surgical intervention. Patient will be scheduled for an LESI L3-L4. All epidurals are done under fluoroscopic guidance to confirm placement. Patient has been counseled to contact our office with any questions or concerns before their next appointment date. This note has been dictated using voice recognition software and may contain errors or omissions. Dr. Eddy has read this note and agrees with this plan of care. [facility] Disclaimer: The information contained in this section may have been updated after the patient was seen, as this information can be updated by other users. Medical History (Updated 07/03/23 @ 16:35 by TAMIR Mcdowell) Asthma Chest pain Daytime somnolence Exposure to COVID-19 virus Fatigue Hyperlipidemia Lumbar disc herniation with radiculopathy Lumbar strain Multiple lung nodules on CT Palpitations Perforated nasal septum Restless sleeper Sinusitis Smoking great
== END ==
PROVIDERS: PCP Physician Assistant; Visit Provider Nurse Practitioner Family
DX: M51.16 Intervertebral disc disorders with radiculopathy, lumbar region (principal); M47.26 Other spondylosis with radiculopathy, lumbar region; M46.1 Sacroiliitis, not elsewhere classified
CPT/HCPCS: 99212; G0463

== ENCOUNTER → 2023-07-25 23:12 | Outpatient (CLI) | payer MEDICAID, SELFPAY ==
[2023-07-25 22:40] LABS: Amphetamine/Metha Screen,Urine Positive ng/ml (<1000); Barbiturates Screen,Urine Negative ng/ml (<200); Benzodiazepines Screen,Urine Positive ng/ml (<200); Cannabinoid Screen,Urine Negative ng/ml (<50); Cocaine Screen,Urine Negative ng/ml (<300); Methadone Screen,Urine Negative ng/ml (<300); Opiate Screen,Urine Negative ng/ml (<300); Phencyclidine Screen,Urine Negative ng/ml (<25)
== END ==
PROVIDERS: PCP Physician Assistant; Visit Provider Nurse Practitioner Acute Care
DX: Z79.899 Other long term (current) drug therapy (principal)
CPT/HCPCS: 80305

== ENCOUNTER → 2023-08-09 13:51 | Outpatient (POV) | payer MEDICAID, SELFPAY ==
--- NOTE | 2023-08-09 14:15 | A.OFFVIS_ITS ---
[facility] Pain Management SOAP Note Subjective:: Patient is a pleasant 47-year-old female who presents today for insurance denial of a LESI L3-L4. We are currently treating the patient for degenerative disc disease of lumbar spine with lumbar radiculopathy symptoms, lumbar facet arthropathy, sacroiliitis. Today she rates her pain an 8 out of 10. Patient denies any new trauma or injury. She does state that she continues to have worsening pain in her low back and legs as well as some in her neck. Patient has not had any updated imaging within the last couple of years. Patient does state from our last visit she did hear from [facility] office however has not been seen yet. She states that they were wanting updated imaging. Patient has previously tried oral medication, heat and ice, topicals, physical therapy and at home exercise and stretching for longer than 6 weeks. Patient has had a psychological evaluation back in December and was deemed an appropriate candidate for the spinal cord stimulator trial. Patient states she is still interested in this option. Patient is currently managed with diazepam 5 mg 3 times a day and Suboxone therapy from outside providers. Her Jarred has been reviewed and is appropriate. Review of Systems: General: No recent weight changes, no fever, no sleep disturbances Respiratory: No cough, no shortness of air, no recurring pulmonary infections Cardiovascular/peripheral vascular: No chest pain, no palpitations, no edema, no shortness of breath Gastrointestinal: No new onset incontinence, normal bowel movements reported Genitourinary: No new onset incontinence Musculoskeletal: Low back pain, leg pain, neck pain Psychiatric: [Normal mood/affect] Neurological: [Denies weakness in extremities], [denies balance issues] Objective:: Physical Exam: General: Alert and oriented x3, no acute distress, pleasant and cooperative Lungs: Respirations even and unlabored, symmetrical chest expansion Eyes: PERRL Musculoskeletal: Flexion and extension of lumbar [spine] somewhat guarded secondary to pain, [antalgic gait noted] Neurological: Speech clear, no gross sensory deficit Assessment:: Degenerative disc disease of lumbar spine with lumbar radiculopathy symptoms, lumbar facet arthropathy, sacroiliitis, chronic pain syndrome, neck pain Plan:: Patient continues to experience significant pain at multiple areas. I will order x-ray imaging of her cervical and lumbar spine with advanced imaging of an MRI without contrast of her lumbar spine to follow. I will also order the patient physical therapy for her low back and leg pain. Patient will return to clinic in 1 month for reevaluation of symptoms and plan of care. Patient has been instructed to contact the clinic with any concerns before the next appointment. Dr. Eddy has reviewed this note and agrees with this plan of care. This note was dictated using voice recognition software and make contain errors or omissions. [facility] Disclaimer: The information contained in this section may have been updated after the patient was seen, as this information can be updated by other users. Medical History Anxiety Asthma Chest pain Daytime somnolence Exposure to COVID-19 virus Fatigue Hyperlipidemia Lumbar disc herniation with radiculopathy Lumbar strain Multiple lung nodules on CT Palpitations Perforated nasal septum Restless sleeper Sinusitis Smoking greater than 30 pack years Snoring Stress incontinence Tobacco use Vitamin D deficiency Surgical History History of hysterectomy History of tubal ligation Hx of cardiac cath Hx of shoulder surgery right X2 Family History Other Hx of [id number] deficiency Social History Smoking Status: Current every day smoker smoking status stop date: 03/31/22 second hand exposure: Yes alcohol intake: former substance use type: former substance user and opiates current occupational status: unemployed Travel in the last 8 weeks: None household members: other housing: house marital status: 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
[2023-08-09 14:16] VITALS: BP 115/63; PULSE 85; RESP 18; O2SAT 95; BMI 23.9
== END ==
LOC: SC.PAIN 13:51
PROVIDERS: PCP Physician Assistant; Visit Provider Nurse Practitioner Family
DX: M51.16 Intervertebral disc disorders with radiculopathy, lumbar region (principal); M47.26 Other spondylosis with radiculopathy, lumbar region; M46.1 Sacroiliitis, not elsewhere classified; G89.4 Chronic pain syndrome; M54.2 Cervicalgia
CPT/HCPCS: 99212; G0463

== ENCOUNTER 2023-08-31 13:02 | Outpatient (CLI) | payer MEDICAID, SELFPAY ==
--- NOTE | 2023-08-31 13:08 | XR_ITS ---
FINAL REPORT CLINICAL HISTORY: . pain in neck and lower back FINDINGS: Cervical SPINE 6 views of the cervical spine were obtained. There is moderate spondylosis and degenerative disc disease from C4-C7. There is mild bony neuroforaminal narrowing bilaterally at C4-5 and C5-6. There is no fracture present. There is no malalignment. IMPRESSION: Degenerative changes without acute bony abnormality. LUMBAR SPINE 5 views of the lumbar spine were obtained. There is mild S-shaped scoliosis. Mild diffuse degenerative change and facet arthropathy is seen. There is no fracture or malalignment. IMPRESSION: Degenerative change without acute bony abnormality. Reviewed, Interpreted and Dictated by Andrea Evangelista MD Transcribed by Lizzie Holcomb Authenticated and [facility]
== END 2023-08-31 23:59 ==
LOC: RAD 13:02
PROVIDERS: PCP Physician Assistant; Visit Provider Nurse Practitioner Family
DX: M54.50 Low back pain, unspecified (principal); M54.2 Cervicalgia; M54.6 Pain in thoracic spine
CPT/HCPCS: 72083

== ENCOUNTER 2023-09-01 12:52 | Outpatient (CLI) | payer MEDICAID, SELFPAY ==
--- NOTE | 2023-09-01 12:55 | MR_ITS ---
FINAL REPORT TECHNIQUE: Multiplanar MR without contrast CLINICAL HISTORY: LBP COMPARISON: 01/23/2020 FINDINGS: Sagittal images show normal vertebral height. Alignment is normal. Marrow signal pattern is unremarkable. L1-2: Mild annular disc bulge. L2-3: Unremarkable L3-4: Mild annular disc bulge. L4-5: Minimal annular disc bulge and facet arthropathy. L5-S1: Minimal annular disc bulge and mild facet arthropathy. IMPRESSION: Mild multilevel degenerative disc disease. Reviewed, Interpreted and Dictated by Andrea Evangelista MD Transcribed by Ruth Whitfield Authenticated and [facility]
== END 2023-09-01 23:59 ==
LOC: RAD 12:53
PROVIDERS: PCP Physician Assistant; Visit Provider Nurse Practitioner Family
DX: M54.50 Low back pain, unspecified (principal)
CPT/HCPCS: 72148; 76376

== ENCOUNTER → 2023-09-13 10:50 | Outpatient (POV) | payer MEDICAID, SELFPAY ==
--- NOTE | 2023-09-13 11:17 | A.OFFVIS_ITS ---
[facility] Pain Management SOAP Note Subjective:: Patient is a pleasant 47-year-old female who presents today for imaging follow- up. We are currently treating the patient for degenerative disc disease of lumbar spine with lumbar radiculopathy symptoms, lumbar facet arthropathy, sacroiliitis. Today she rates her pain a 6 out of 10. Patient denies any new trauma or injury. She does states she continues to have low back pain that does radiate into her bilateral lower extremities. She states she has been going to physical therapy and has gone to 3 sessions that has made no difference in her symptoms. Patient denies any worsening pain. Patient in the past was deemed an appropriate candidate for spinal cord stimulator trial and she states she still is interested in this option. Patient is on Suboxone therapy from outside providers. Her Jarred has been reviewed and is appropriate. Injections: Bilateral SI injections 10/25/2022 Lumbar RFA 08/02/2019 Lumbar medial branch block right-sided L3-L4, L4-L5 and L5-S1 on 10/26/2018 Lumbar medial branch block right-sided L3-L4, L4-L5 and L5-S1 on 08/03/2018 Review of Systems: General: No recent weight changes, no fever, no sleep disturbances Respiratory: No cough, no shortness of air, no recurring pulmonary infections Cardiovascular/peripheral vascular: No chest pain, no palpitations, no edema, no shortness of breath Gastrointestinal: No new onset incontinence, normal bowel movements reported Genitourinary: No new onset incontinence Musculoskeletal: Low back pain, leg pain Psychiatric: [Normal mood/affect] Neurological: [Denies weakness in extremities], [denies balance issues] Objective:: Physical Exam: General: Alert and oriented x3, no acute distress, pleasant and cooperative Lungs: Respirations even and unlabored, symmetrical chest expansion Eyes: PERRL Musculoskeletal: Flexion and extension of lumbar [spine] somewhat guarded secondary to pain, [antalgic gait noted] Neurological: Speech clear, no gross sensory deficit FINDINGS: Sagittal images show normal vertebral height. Alignment is normal. Marrow signal pattern is unremarkable. L1-2: Mild annular disc bulge. L2-3: Unremarkable L3-4: Mild annular disc bulge. L4-5: Minimal annular disc bulge and facet arthropathy. L5-S1: Minimal annular disc bulge and mild facet arthropathy. IMPRESSION: Mild multilevel degenerative disc disease. Reviewed, Interpreted and Dictated by Andrea Evangelista MD Transcribed by Ruth Whitfield Authenticated and [facility] Assessment:: Degenerative disc disease of lumbar spine with lumbar radiculopathy symptoms, lumbar facet arthropathy, sacroiliitis Plan:: I have discussed the x-ray imaging and MRI findings of her lumbar spine with the patient today. I have discussed for the patient continue her physical therapy for the next month to see if she continues to have no change in her symptoms. I have discussed that I do believe she would still benefit from a lumbar epidural steroid injection however the last 1 was denied by insurance not having recent physical therapy. We will follow-up with this at the next visit. Patient will return to clinic in 1 month for reevaluation of symptoms and plan of care. Patient has been instructed to contact the clinic with any concerns before the next appointment. Dr. Eddy has reviewed this note and agrees with this plan of care. This note was dictated using voice recognition software and make contain errors or omissions. [facility] Disclaimer: The information contained in this section may have been updated after the patient was seen, as this information can be updated by other users. Medical History Anxiety Asthma Chest pain Daytime somnolence Exposure to COVID-19 virus Fatigue Hyperlipidemia Lumbar disc herniation with radiculopathy Lumbar strain Multiple lung nodules on CT Palpitations Perforated nasal septum Restless sleeper Sinusitis Smoking greater than 30 pack years Snoring Stress incontinence Tobacco use Vitamin D deficiency Surgical History History of hysterectomy History of tubal ligation Hx of cardiac cath Hx of shoulder surgery right X2 Family History Other Hx of [id number] deficiency Social History Smoking Status: Current every day smoker smoking status stop date: 03/31/22 second hand exposure: Yes alcohol intake: former substance use type: former substance user and opiates current occupational status: unemployed Travel in the last 8 weeks: None household members: other housing: house marital status: 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
[2023-09-13 12:11] VITALS: BP 105/71; PULSE 72; RESP 18; O2SAT 95; BMI 24.7
== END ==
LOC: SC.PAIN 10:50
PROVIDERS: PCP Physician Assistant; Visit Provider Nurse Practitioner Family
DX: M51.16 Intervertebral disc disorders with radiculopathy, lumbar region (principal); M47.26 Other spondylosis with radiculopathy, lumbar region; M46.1 Sacroiliitis, not elsewhere classified
CPT/HCPCS: 99212; G0463

== ENCOUNTER 2023-10-04 20:58 | Outpatient (CLI) | payer MEDICAID, SELFPAY ==
[2023-10-04 19:20] LABS: Barbiturates Screen,Urine Negative ng/ml (<200)
[2023-10-04 19:27] LABS: Benzodiazepines Screen,Urine Positive ng/ml (<200)
[2023-10-04 19:28] LABS: Cannabinoid Screen,Urine Negative ng/ml (<50)
[2023-10-04 19:29] LABS: Cocaine Screen,Urine Negative ng/ml (<300); Methadone Screen,Urine Negative ng/ml (<300)
[2023-10-04 19:30] LABS: Opiate Screen,Urine Negative ng/ml (<300)
[2023-10-04 19:31] LABS: Phencyclidine Screen,Urine Negative ng/ml (<25)
[2023-10-04 19:33] LABS: Amphetamine/Metha Screen,Urine Negative ng/ml (<1000)
== END 2023-10-04 23:59 ==
LOC: LAB.DROPOF 20:58
PROVIDERS: PCP Nurse Practitioner Acute Care; Visit Provider Nurse Practitioner Acute Care
DX: Z79.899 Other long term (current) drug therapy (principal)
CPT/HCPCS: 80307

== ENCOUNTER 2023-10-12 12:55 | Outpatient (POV) | payer MEDICAID, SELFPAY ==
[2023-10-12 14:04] VITALS: BP 125/75; PULSE 84; RESP 18; O2SAT 97; BMI 23.7
--- NOTE | 2023-10-12 15:08 | EXP.PAIN.SOA ---
[facility] Pain Management SOAP Note Subjective:: Sacroiliitis. Today she rates her pain a 5 out of 10. Patient denies any new trauma or injury. She does state that she is still experiencing pain in and around her low back and hips that does go towards her buttocks. Patient has been going to physical therapy and states this has helped build up strength in her legs however has not done anything for her overall low back and hip pain. Patient has had at least 9 visits with physical therapy. Patient has tried oral medication, heat and ice and topicals with minimal relief. Patient has previously had bilateral SI injections back in September that did provide 75 to 80% relief lasting several months. Patient is interested in repeating this injection. She states her pain today is an aching, throbbing sensation that is worse with increased activity or ambulation. She states frequently she cannot tolerate prolonged sitting or standing due to the pain. Patient does state the pain interferes with her ability perform activities of daily living such as cooking and cleaning. Patient was previously deemed an appropriate candidate for a spinal cord stimulator trial by psychological evaluation and states that she is still interested in this option in the future. Patient is on Suboxone therapy from outside providers. Her Jarred has been reviewed and is appropriate. Review of Systems: General: No recent weight changes, no fever, no sleep disturbances Respiratory: No cough, no shortness of air, no recurring pulmonary infections Cardiovascular/peripheral vascular: No chest pain, no palpitations, no edema, no shortness of breath Gastrointestinal: No new onset incontinence, normal bowel movements reported Genitourinary: No new onset incontinence Musculoskeletal: Low back pain, bilateral hip pain Psychiatric: [Normal mood/affect] Neurological: [Denies weakness in extremities], [denies balance issues] Objective:: physical Exam: General: Alert and oriented x3, no acute distress, pleasant and cooperative Lungs: Respirations even and unlabored, symmetrical chest expansion Eyes: PERRL Musculoskeletal: Flexion and extension of lumbar [spine] somewhat guarded secondary to pain, [antalgic gait noted] point tenderness along bilateral SIs with positive bilateral Orlando's, Neyda's, Gaenslen's, compression and distraction exam Neurological: Speech clear, no gross sensory deficit Assessment:: Degenerative disc disease of lumbar spine with lumbar radiculopathy symptoms, lumbar facet arthropathy, sacroiliitis Plan:: Patient is experiencing worsening pain in her low back and bilateral hips with limited range of motion and point tenderness along her bilateral SIs. Patient did also have a positive bilateral Orlando's, Neyda's, Gaenslen's, compression and distraction exam. I discussed with patient that she may benefit from bilateral SI injections. Risk and benefits were discussed with patient and she would like to proceed forward with this plan of care. I have also gone over the risk and benefits of the spinal cord stimulator as well as the SI stabilization procedures. We will follow-up with these at future visits. Patient has had significant improvement from previous bilateral SI injections that were done on October 25, 2022 that provided upwards of 75 to 80% relief lasting several months. We will schedule the patient for bilateral SI injections under fluoroscopy. Patient has tried and failed conservative therapy including oral medications, heat and ice, topicals, current physical therapy for longer than 9 visits with minimal relief. Patient has been instructed to contact the clinic with any concerns before the next appointment. Dr. Eddy has reviewed this note and agrees with this plan of care. This note was dictated using voice recognition software and make contain errors or omissions. [facility] Disclaimer: The information contained in this section may have been updated after the patient was seen, as this information can be updated by other users. Medical History Smoking greater than 30 pack years Multiple lung nodules on CT Asthma Perforated nasal septum Sinusitis Anxiety Exposure to COVID-19 virus Stress incontinence Snoring Restless sleeper Daytime somnolence Palpitations Fatigue Chest pain Tobacco use Lumbar disc herniation with radiculopathy Lumbar strain Vitamin D deficiency Hyperlipidemia Surgical History Hx of cardiac cath History of tubal ligation Hx of shoulder surgery right X2 History of hysterectomy Family History Other Hx of [id number] deficiency Social History Smoking Status: Current every day smoker smoking status stop date: 03/31/22 second hand exposure: Yes alcohol intake: former substance use type: former substance user and opiates current occupational status: unemployed Travel in the last 8 weeks: None household members: other housing: house marital status: 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
== END 2023-10-12 23:59 ==
LOC: SC.PAIN 12:55
PROVIDERS: PCP Family Medicine; Visit Provider Nurse Practitioner Family
DX: M51.16 Intervertebral disc disorders with radiculopathy, lumbar region (principal); M47.26 Other spondylosis with radiculopathy, lumbar region; M46.1 Sacroiliitis, not elsewhere classified
CPT/HCPCS: 99212; G0463

== ENCOUNTER 2023-10-12 14:00 | Outpatient (RCR) | payer MEDICAID, SELFPAY ==
--- NOTE | 2023-09-27 17:59 | HMH.RHREAS ---
Rehab Reassessment Rehab OP Re-assessment Start: 08/31/23 14:17 Freq: Status: Active Protocol: Document 09/27/23 17:47 JAMIE (Rec: 09/27/23 17:57 JAMIE [id number]) E-signed By Kaushal Larose, PT Oswestry Index Section 1 Pain Intensity The pain comes and goes and is severe Section 2 Personal Care ([place]ashing,[place]) increase the pain and I find it necessary to change my way of doing it Section 3 Lifting Pain prevents me from lifting weights off the floor Section 4 Walking I cannot walk more than 1/4 mile without increasing pain Section 5 Sitting Pain prevents me from sitting for more than 1/2 hour Section 6 Standing I cannot stand more than 10 minutes without increasing pain Section 7 Sleeping Because of my pain, my normal night's sleep is less than 4 hours Section 8 Social Life Pain has restricted my social life and I do not go out often Section 9 Traveling Pain restricts me to short necessary journeys under 30 minutes Section 10 Changing Degreee of Pain My pain is neither getting better or worse Score and Risk Level Oswestry Sc 33 Oswestry Risk Level Severe Disability Rehab Re-assessment Subjective Subjective Patient report no significant improvement since start of care. I don't have any pain today, just stiffness. Objective Objective Notes AROM: flx 72; ext 16; SBr 15; SBl 14 MMT: WNL except for L hip flexion 4/5 Pain: currently 4/10; at worst over past week 10/10; at best 0/10 Neuro: Patient reports radicular symptoms to B anterior thighs not past the knee SI special tests: negative for any malalignment Assessment Progress Assessment Slower Than Expected Assessment Notes Patient has been seen for 5 treatment visits to date. Progress is slower that expected secondary to lack of participation in PT visits. Suspect malingering and non- compliance with HEP. Patient would benefit from continuing with skilled PT interventions in order to address functional limitations with all bending, lifting and prolonged ambulatory activities. Patient goals met None Goals Not Met ALL Revised Goals NA Plan Plan Continue with current POC. Introduce mechanical traction. Frequency of Therapy 2x/week Duration of therapy 4 weeks Time and Billing Re-Eval Time 16 Re-Eval Billing Units 1 PHYSICIAN CERTIFICATION: I certify the specified therapy services for Akilah Echevarria Earlywine are required, authorized, and reviewed every 30 days.
== END 2023-10-12 15:15 | disposition home or self-care (01) ==
LOC: PT 14:00
PROVIDERS: PCP Physician Assistant; Visit Provider Nurse Practitioner Family
DX: M54.50 Low back pain, unspecified (principal)
CPT/HCPCS: 20561; 97010; 97012; 97014; 97110; 97163; 97164; 97530; G0283

== ENCOUNTER 2023-11-07 13:21 | Day surgery (SDC) | payer MEDICAID, SELFPAY ==
[2023-11-07 13:36] VITALS: BP 100/59; PULSE 50; RESP 16; TEMP 36.7; O2SAT 95; BMI 24.6
[2023-11-07 13:46] VITALS: BP 115/66; PULSE 65; RESP 18; O2SAT 97
[2023-11-07 13:47] VITALS: BP 115/66; PULSE 65; RESP 18; O2SAT 97
--- NOTE | 2023-11-07 13:51 | P.PCN_ITS ---
Procedure Date: 11/07/23 Time: 13:50 Anesthesiologist:: Nguyễn Wooten CRNA Complications:: None Pre-procedure Diagnosis:: Bilateral sacroiliitis Post-procedure Diagnosis:: Same. Indications for Procedure:: Patient is a very pleasant 47-year-old female comes our clinic today for bilateral sacroiliac joint injection. Patient reports low lumbar back pain off the midline bilaterally. Also, bilateral posterior hip pain. Upon examination she has extreme point tenderness over the bilateral sacroiliac joints. Patient reports having difficulty transitioning from sitting to standing. She rates her pain 7/10. Procedure Details:: Procedure: Bilateral sacroiliac joint injections under fluoroscopy Informed consent was obtained and the risks and benefits of the procedure were explained to the patient.~ The patient was taken to the procedure room and noninvasive monitors were placed including a noninvasive blood pressure cuff and pulse oximeter.~ The patient was placed prone on the procedure table. Both hips were cleansed using Betadine as a cleansing solution. C-arm fluoroscopy was used to view the right sacroiliac joint.~ The skin and subcutaneous tissues were anesthetized using lidocaine 1.5% and a 25-gauge needle.~ After this, a 22-gauge spinal needle was inserted under fluoroscopic guidance into the inferior aspect of the right sacroiliac joint.~ Omnipaque dye was injected and good spread was seen throughout the joint.~ After this, approximately 5 mL of bupivacaine, 0.25% and Depo-Medrol, 40 mg was incrementally injected into the right sacroiliac joint. We then moved to the left sacroiliac joint.~ The skin and subcutaneous tissues were anesthetized using lidocaine 1.5% and a 25-gauge needle.~ After this, a 22- gauge spinal needle was inserted under fluoroscopic guidance into the inferior aspect of the left sacroiliac joint.~ Omnipaque dye was injected and good spread was seen throughout the joint. After this, approximately 5 mL of bupivacaine, 0.25% and Depo-Medrol, 40 mg was incrementally injected into the left sacroiliac joint.~ The patient tolerated the procedure well with no complications. The patient was observed in the Pain Clinic and then was discharged home neurologically intact. Plan and Disposition:: Patient was discharged without incident.
[2023-11-07 13:52] VITALS: BP 106/59; PULSE 70; RESP 18; O2SAT 95
== END 2023-11-07 13:52 | disposition home or self-care (01) ==
PROVIDERS: PCP Family Medicine; Visit Provider Nurse Anesthetist, Certified Registered
DX: M46.1 Sacroiliitis, not elsewhere classified (principal)
CPT/HCPCS: 27096; G0260

== ENCOUNTER 2023-11-20 18:00 | Outpatient (CLI) | payer MEDICAID, SELFPAY ==
[2023-11-20 19:18] LABS: Erythrocyte Sedimentation Rate 16 mm/hr (0-20)
[2023-11-20 20:04] LABS: C-Reactive Protein 2.6 mg/L (0-4)
== END 2023-11-20 23:59 | disposition home or self-care (01) ==
LOC: LAB.DROPOF 11-21 10:09
PROVIDERS: PCP Family Medicine; Visit Provider Family Medicine
DX: E78.5 Hyperlipidemia, unspecified (principal)
CPT/HCPCS: 85651; 86140

== ENCOUNTER 2023-11-23 14:45 | Outpatient (POV) | payer MEDICAID, SELFPAY ==
[2023-11-23 14:45] VITALS: BP 115/73; PULSE 85; RESP 18; O2SAT 95; BMI 26.2
--- NOTE | 2023-11-23 15:38 | A.OFFVIS_ITS ---
[facility] Pain Management SOAP Note Subjective:: Patient is a pleasant 48-year-old female who presents today for follow-up of bilateral SI injections on 11/07/2023. Today she rates her pain a 6 out of 10. Patient states that she may have had more around 40% relief following these injections however it was very short-lived and only lasted a couple days. Patient does states she still continues to have chronic pain throughout her low back and legs. Patient has tried scib-nhh-[id number] medications such as Tylenol and ibuprofen along with heat and ice and topicals as well as did complete all of her physical therapy visits and finished this therapy and the beginning of October. Patient states that she does not get any additional improvement in her overall pain symptoms from this therapy however it may have helped some on the strength in her legs. Patient was previously sent for psychological evaluation for possible spinal cord stimulator trial. Patient states that she would like to proceed forward with this option. Patient was deemed an appropriate candidate. Patient is on Suboxone therapy from an outside provider. Her Jarred has been reviewed and is appropriate. Review of Systems: General: No recent weight changes, no fever, no sleep disturbances Respiratory: No cough, no shortness of air, no recurring pulmonary infections Cardiovascular/peripheral vascular: No chest pain, no palpitations, no edema, no shortness of breath Gastrointestinal: No new onset incontinence, normal bowel movements reported Genitourinary: No new onset incontinence Musculoskeletal: Low back pain, lateral leg pain Psychiatric: [Normal mood/affect] Neurological: [Denies weakness in extremities], [denies balance issues] Objective:: Physical Exam: General: Alert and oriented x3, no acute distress, pleasant and cooperative Lungs: Respirations even and unlabored, symmetrical chest expansion Eyes: PERRL Musculoskeletal: Flexion and extension of lumbar [spine] somewhat guarded secondary to pain, [antalgic gait noted] Neurological: Speech clear, no gross sensory deficit Assessment:: Degenerative disc disease of lumbar spine with lumbar radiculopathy symptoms, lumbar facet arthropathy, sacroiliitis Plan:: Patient is experiencing significant pain throughout her low back and her bilateral lower extremities. Patient did have limited range lumbar spine. I have reviewed however the risk and benefits of the spinal cord stimulator trial and she would like to proceed forward with this option. Patient has already had her psychological evaluation and was deemed an appropriate candidate. I have counseled the patient that we will submit to insurance for this trial and contact the patient once we have official approval. Patient has tried and failed conservative therapies including oral medication, heat and ice, topicals, recent physical therapy that just finished at the beginning of October and continued at home stretching exercise. Patient has been instructed to contact the clinic with any concerns before the next appointment. Dr. Eddy has reviewed this note and agrees with this plan of care. This note was dictated using voice recognition software and make contain errors or omissions. [facility] Disclaimer: The information contained in this section may have been updated after the patient was seen, as this information can be updated by other users. Medical History Smoking greater than 30 pack years Multiple lung nodules on CT Asthma Perforated nasal septum Sinusitis Anxiety Exposure to COVID-19 virus Stress incontinence Snoring Restless sleeper Daytime somnolence Palpitations Fatigue Chest pain Tobacco use Lumbar disc herniation with radiculopathy Lumbar strain Vitamin D deficiency Hyperlipidemia Surgical History Hx of cardiac cath History of tubal ligation Hx of shoulder surgery right X2 History of hysterectomy Family History Other Hx of [id number]-ikvsikhtpau deficiency Social History Smoking Status: Current every day smoker smoking status stop date: 03/31/22 second hand exposure: Yes alcohol intake: former substance use type: former substance user and opiates current occupational status: other Travel in the last 8 weeks: None household members: other housing: house marital status: 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
== END 2023-11-23 23:59 | disposition home or self-care (01) ==
LOC: SC.PAIN 14:45
PROVIDERS: PCP Family Medicine; Visit Provider Nurse Practitioner Family
DX: M51.16 Intervertebral disc disorders with radiculopathy, lumbar region (principal); M47.26 Other spondylosis with radiculopathy, lumbar region; M46.1 Sacroiliitis, not elsewhere classified
CPT/HCPCS: 99212; G0463

== ENCOUNTER 2024-01-26 09:42 | Day surgery (SDC) | payer MEDICAID, SELFPAY ==
[2024-01-26 10:02] VITALS: BMI 22.4
[2024-01-26 10:07] LABS: Basophils # 0.1 K/mm3 (0-0.2); Basophils % 1.7 % (0.1-2.0); Eosinophils # 0.3 K/mm3 (0.0-0.4); Eosinophils % 3.5 % (0.1-12.0); Hematocrit 45.6 % (37.0-47.0); Hemoglobin 15.1 g/dL (12.2-16.2); Lymphocytes # 2.7 K/mm3 (0.7-4.5); Lymphocytes % 36.6 % (10-50); Mean Corpuscular Hemoglobin 29.6 pg (27.0-31.2); Mean Corpuscular Volume 89.8 fl (81-99); Mean Platelet Volume 7.4 fl (7.4-10.4); Monocytes # 0.3 K/mm3 (0.1-1.0); Monocytes % 4.6 % (1.7-9.3); Neutrophils % 53.7 % (37.0-80.0); Platelet Count 243 K/mm3 (142-424); Red Blood Count 5.08 M/mm3 (4.20-5.40); Red Cell Distribution Width 13.4 % (11.5-17.5); White Blood Count 7.5 K/mm3 (4.8-10.8)
[2024-01-26] MEDS: LACTATED RINGERS 1000ML 1,000 ML 25 ML IV (10:11)
[2024-01-26 10:19] VITALS: BP 99/53; PULSE 72; RESP 18; TEMP 36.6; O2SAT 97
[2024-01-26 10:19] LABS: Chloride 102 mmol/L (98-107); Sodium 137 mmol/L (136-145)
[2024-01-26 10:20] LABS: Potassium 4.3 mmoL/L (3.5-5.1)
[2024-01-26 10:23] LABS: Anion Gap 8.3 mEq/L (5-15); Blood Urea Nitrogen 11 mg/dl (7-17); Calcium 9.2 mg/dl (8.4-10.2); Carbon Dioxide 31 mmol/L (22.0-30.0); Creatinine Clearance Estimated 100 mL/min (50-200); Estimated Glomerular Filt Rate 89 ml/min (>60); GFR (African American) 108 ML/MIN (>60); Glucose 104 mg/dl (74-100)
[2024-01-26] MEDS: VANCOMYCIN/WATER FOR INJ (PEG) 1.25 GM/250 ML PIGGYBACK IV (11:33)
[2024-01-26] MEDS: LIDOCAINE 1% W/EPI 1:100,000 20ML VIAL 20 ML ×2 (12:02→12:20)
[2024-01-26 12:30] VITALS: BP 140/71; PULSE 63; RESP 18; TEMP 36.6; O2SAT 99
[2024-01-26 12:40] VITALS: BP 143/73; PULSE 78; RESP 18; O2SAT 96
[2024-01-26 12:50] VITALS: BP 157/85; PULSE 78; RESP 18; O2SAT 96
[2024-01-26 13:19] VITALS: BP 102/63; PULSE 85; RESP 18; O2SAT 96
--- NOTE | 2024-01-26 13:34 | P.OP_ITS ---
Date of procedure: 01/26/24 Pre-op Diagnosis:: Degenerative disc disease of lumbar spine with lumbar radiculopathy symptoms Post-op Diagnosis:: Same Procedure performed:: Spinal cord similar trial with epidural lead placement x 2 Surgeon:: Adriano Eddy MD AGRICULTURAL TECHNICAL OFFICER:: Isaac Ta and Other Anesthesia: local Estimated blood loss (mL): 1 Clinical Note:: This patient is a pleasant 48-year-old white female who we are treating for low back pain with lumbar radicular symptoms. Most of her pain is in the low back and down her legs above the knee. She has failed all previous conservative treatments including injections, oral medications, physical therapy and she is not a candidate for surgery. She has had a successful psychological evaluation. She presents for spinal cord stimulator trial today. Operative findings:: None Operative note:: Informed consent was obtained risk and benefits of the procedure were explained to the patient. Patient was taken operating room placed prone on the procedure table. She was prepped and draped in sterile fashion. C-arm fluoroscopy was used to view the lumbar spine. The skin is supersize tissues were anesthetized using lidocaine. A 17-gauge epidural needle was inserted and advanced into the T12 1 interspace. After confirmation of needle placement in the epidural space a stimulating lead was inserted and advanced very easily to the T7-T8-T9 vertebral body. A second needle was inserted and advanced again into the T12-L1 interspace. Again after confirmation of needle placement in the epidural space a second stimulating lead was inserted and advanced very easily to the T7-T8-T9 vertebral body. Leads were checked in AP and lateral view. They are found to be in good position left and right of midline and they were posterior. We did test on the table with good stimulation in all areas of pain. The leads were secured in place. The patient was taken to the recovery room in stable condition. The patient was programmed by the [employer] representative with good stimulation in all areas of pain. The patient was put on a fast program. She did have what seemed to be a corneal abrasion on her left eye. We did put erythromycin ointment and patch her eye. She also did have some questionable allergic reaction to her antibiotics. We did give her Benadryl while in recovery. Patient was discharged home neurologic intact with good relief of pain symptoms. Plan and disposition: Will follow-up with this patient throughout the weekend and next week to assess efficacy of the trial. Will plan on lead pull next week. Condition: stable Disposition: PACU Complications:: None
--- NOTE | 2024-01-26 13:51 | SUR.OPER ---
Vitals during procedure 1150-112/74 98% 65 HR RR18 1200- 103/68 97% 67 HR RR 18 1210-135/85 99% 80 HR RR 18 1220- 124/76 99% 81 HR RR 18
== END 2024-01-26 13:19 | disposition home or self-care (01) ==
PROVIDERS: PCP Family Medicine; Visit Provider Anesthesiology
PROC: (CPT 62350; principal; 2024-01-26 11:30)
DX: M51.16 Intervertebral disc disorders with radiculopathy, lumbar region (principal)
CPT/HCPCS: 62350; 36415; 62323; 80048; 85025; 96374; J7120

== ENCOUNTER 2024-02-05 11:17 | Outpatient (POV) | payer MEDICAID, SELFPAY ==
[2024-02-05 12:04] VITALS: BP 118/65; PULSE 77; RESP 18; O2SAT 95; BMI 26.2
--- NOTE | 2024-02-05 12:23 | A.OFFVIS_ITS ---
[facility] Disclaimer: The information contained in this section may have been updated after the patient was seen, as this information can be updated by other users. Medical History (Updated 02/05/24 @ 12:26 by Kathrin Aguilar APRN) Dyspareunia in female Postmenopause atrophic vaginitis Urge incontinence of urine Menopausal vasomotor syndrome Smoking greater than 30 pack years Multiple lung nodules on CT Asthma Perforated nasal septum Sinusitis Anxiety Exposure to COVID-19 virus Stress incontinence Snoring Restless sleeper Daytime somnolence Palpitations Fatigue Chest pain Tobacco use Lumbar disc herniation with radiculopathy Lumbar strain Vitamin D deficiency Hyperlipidemia Surgical History Hx of cardiac cath History of tubal ligation Hx of shoulder surgery History of hysterectomy Family History Other Family history of cancer Family history of heart disease Hx of [id number] deficiency Social History Smoking Status: Current every day smoker smoking status stop date: 03/31/22 second hand exposure: Yes alcohol intake: never substance use type: former substance user and opiates current occupational status: unemployed Travel in the last 8 weeks: None household members: other housing: house marital status: 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 Today she rates her pain a 6 out of 10. Patient denies any new trauma or injuries. Patient does state that she did feel like she had at least 50% improvement while she was seated or laying down on the right side. She does however state that she feels like when she would be up moving that she still have the chronic pain. Patient states that she is unsure to what extent improvement she had during that timeframe. Patient does have chronic pain throughout her low back and legs. Patient has tried [id number] medications such as Tylenol and ibuprofen along with heat and ice and topicals and injection therapy with minimal to temporary relief. Patient is on Suboxone therapy from an outside provider. Her [facility] been reviewed and [facility] Review of Systems: General: No recent weight changes, no fever, no sleep disturbances Respiratory: No cough, no shortness of air, no recurring pulmonary infections Cardiovascular/peripheral vascular: No chest pain, no palpitations, no edema, no shortness of breath Gastrointestinal: No new onset incontinence, normal bowel movements reported Genitourinary: No new onset incontinence Musculoskeletal: Low back pain, lateral leg pain Psychiatric: [Normal mood/affect] Neurological: [Denies weakness in extremities], [denies balance issues] Pain at rest (0-10 scale): 6 Objective Objective:: Physical Exam: General: Alert and oriented x3, no acute distress, pleasant and cooperative Lungs: Respirations even and unlabored, symmetrical chest expansion Eyes: PERRL Musculoskeletal: Flexion and extension of lumbar [spine] somewhat guarded secondary to pain, [antalgic gait noted] Neurological: Speech clear, no gross sensory deficit Has patient had previous pain injection?: No Conservative treatment options previously tried: Home exercise plan Length of treatment: Longer than 6 weeks and Physical Therapy Length of treatment: Longer than 6 weeks Meds Home Medications and Allergies Home Medications Medication Instructions Recorded Confirmed Type buprenorphine 8 mg-naloxone 2 mg 1.5 tab sublingual DAILY ADDICTION 02/16/22 01/26/24 History sublingual tablet RECOVERY fluticasone propionate 50 See Rx Instructions .Route 04/12/23 01/26/24 Rx mcg/actuation nasal .COMPLEX #16 caps spray,suspension diclofenac sodium 1 % topical gel See Rx Instructions .Route 04/20/23 01/26/24 Rx .COMPLEX #100 grams lidocaine 5 % topical patch See Rx Instructions .Route 12/11/23 01/26/24 Rx (Lidoderm) .COMPLEX #30 ea atorvastatin 10 mg tablet See Rx Instructions .Route 01/08/24 01/26/24 Rx .COMPLEX #90 ea budesonide-formoterol HFA 160 1 puff inhalation QID PRN 01/08/24 01/26/24 Rx mcg-4.5 mcg/actuation aerosol shortness of breath or wheezing 90 inhaler (Symbicort) days #10.2 grams bupropion HCl 150 mg 24 hr tablet, 150 mg PO DAILY #90 tabs 01/08/24 01/26/24 Rx extended release (Wellbutrin XL) cetirizine 10 mg tablet See Rx Instructions .Route 01/08/24 01/26/24 Rx .COMPLEX #90 tabs omeprazole 40 mg capsule,delayed See Rx Instructions .Route 01/08/24 01/26/24 Rx release .COMPLEX #90 caps diazepam 5 mg tablet 5 mg PO TID PRN anxiety #90 tabs 01/10/24 01/26/24 Rx estradiol 0.01% (0.1 mg/gram) 1 appful vaginal .twice weekly 01/24/24 01/26/24 Rx vaginal cream (Estrace) #42.5 grams estradiol 2 mg tablet 2 mg PO DAILY HORMONE #30 tabs 01/24/24 01/26/24 Rx oxybutynin chloride 5 mg 5 mg PO DAILY #30 tabs 01/24/24 01/26/24 Rx tablet,extended release 24 hr escitalopram oxalate 20 mg tablet 20 mg PO DAILY MOOD 01/26/24 01/26/24 History ([employer]) New Prescriptions to Start Prescriptions: Allergies Allergy/AdvReac Type Severity Reaction Status Date / Time latex [LATEX] Allergy Unknown ITCHING Verified 01/26/24 10:15 ranitidine [RANITIDINE] Allergy Unknown ANXIETY Verified 01/26/24 10:15 Assessment and Plan *Assessment and plan (1) Lumbar stenosis: Status: Acute Qualifiers: Neurogenic claudication status: with neurogenic claudication Qualified Code(s): M48.062 - Spinal stenosis, lumbar region with neurogenic claudication Category: Medical Code(s): M48.061 - Spinal stenosis, lumbar region without neurogenic claudication (2) Low back pain: Status: Acute Qualifiers: Chronicity: chronic Back pain laterality: bilateral Sciatica presence: with sciatica Sciatica laterality: bilateral sciatica Qualified Code(s): M54.42 - Lumbago with sciatica, left side; M54.41 - Lumbago with sciatica, right side; G89.29 - Other chronic pain Category: Medical Code(s): M54.50 - Low back pain, unspecified (3) Facet arthropathy, lumbar: Status: Acute Category: Medical Code(s): M47.816 - Spondylosis without myelopathy or radiculopathy, lumbar region (4) Lumbar facet joint syndrome: Status: Acute Category: Medical Code(s): M47.816 - Spondylosis without myelopathy or radiculopathy, lumbar region (5) Lumbar disc herniation with radiculopathy: Status: Chronic Category: Medical Code(s): M51.16 - Intervertebral disc disorders with radiculopathy, lumbar region Plan Patient continues to experience significant pain throughout her low back and legs with limited range of motion. Patient did have 50% in her movement following her stimulator trial however states that when she would be up moving she did not feel that the improvement was as significant. I did business and financial counsel the patient that I would like to see her back in 2 weeks after she has had a period of washout from the stimulator trial. Patient is agreeable to this. I have also counseled the patient if at that timeframe she still feels like it was not significant enough that we can proceed forward with the intrathecal pain pump trial using bupivacaine. Patient is agreeable to this. Patient will return to clinic in 2 weeks for reevaluation of symptoms and plan of care. Patient has been instructed to contact the clinic with any concerns before the next appointment. Dr. Eddy has reviewed this note and agrees with this plan of care. This note was dictated using voice recognition software and make contain errors or omissions.
== END 2024-02-05 23:59 | disposition home or self-care (01) ==
LOC: SC.PAIN 11:18
PROVIDERS: PCP Family Medicine; Visit Provider Nurse Practitioner Family
DX: G89.29 Other chronic pain (principal); M48.062 Spinal stenosis, lumbar region with neurogenic claudication; M47.816 Spondylosis without myelopathy or radiculopathy, lumbar region
CPT/HCPCS: 99213; G0463

== ENCOUNTER 2024-05-23 14:05 | Outpatient (POV) | payer MEDICAID, SELFPAY ==
--- NOTE | 2024-05-23 14:35 | A.OFFVIS_ITS ---
[facility] Disclaimer: The information contained in this section may have been updated after the patient was seen, as this information can be updated by other users. Medical History Dyspareunia in female Postmenopause atrophic vaginitis Urge incontinence of urine Menopausal vasomotor syndrome Smoking greater than 30 pack years Multiple lung nodules on CT Asthma Perforated nasal septum Sinusitis Anxiety Exposure to COVID-19 virus Stress incontinence Snoring Restless sleeper Daytime somnolence Palpitations Fatigue Chest pain Tobacco use Lumbar disc herniation with radiculopathy Lumbar strain Vitamin D deficiency Hyperlipidemia Surgical History Hx of cardiac cath History of tubal ligation Hx of shoulder surgery right X2 History of hysterectomy Family History Other Family history of cancer Family history of heart disease Hx of [id number] deficiency Social History Smoking Status: Current every day smoker smoking status stop date: 03/31/22 second hand exposure: Yes alcohol intake: never substance use type: former substance user and opiates current occupational status: unemployed Travel in the last 8 weeks: None household members: other housing: house marital status: 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 She rates her pain a 7 out of 10. She denies any new trauma or injury. She does state that she is experiencing more pain in and around her low back and hips as well as upper legs. Patient does have numbness that is new or along the right side. Patient states she has still tried her lidocaine patches along with the Voltaren gel and nothing seems to be really helping anymore. Patient states the pain is constant and does interfere with her ability perform activities of daily living. Patient does state that from her last visit she did see her battery inspector and they did diagnose her with some urinary incontinence and she is now on oxybutynin however has not noticed significant relief just yet. Patient states that she does follow-up with them next year. Her Jarred has been reviewed and is appropriate. Review of Systems: General: No recent weight changes, no fever, no sleep disturbances Respiratory: No cough, no shortness of air, no recurring pulmonary infections Cardiovascular/peripheral vascular: No chest pain, no palpitations, no edema, no shortness of breath Gastrointestinal: No new onset incontinence, normal bowel movements reported Genitourinary: No new onset incontinence Musculoskeletal: Low back pain, bilateral hip pain, upper thigh pain Psychiatric: [Normal mood/affect] Neurological: [Denies weakness in extremities], [denies balance issues] Pain at rest (0-10 scale): 7 Objective Objective:: Physical Exam: General: Alert and oriented x3, no acute distress, pleasant and cooperative Lungs: Respirations even and unlabored, symmetrical chest expansion Eyes: PERRL Musculoskeletal: Flexion and extension of lumbar [spine] somewhat guarded se condary to pain, [antalgic gait noted] point tenderness along bilateral SIs with positive bilateral Orlando's, Neyda's, Gaenslen's, compression and distraction exam Neurological: Speech clear, no gross sensory deficit Has patient had previous pain injection?: No Conservative treatment options previously tried: Home exercise plan Length of treatment: Longer than 12 weeks Meds Home Medications and Allergies Home Medications ?Medication ?Instructions ?Recorded ?Confirmed ?Type fluticasone propionate 50 See Rx Instructions .Route 04/12/23 05/22/24 Rx mcg/actuation nasal .COMPLEX #16 caps spray,suspension diclofenac sodium 1 % topical gel See Rx Instructions .Route 04/20/23 05/22/24 Rx .COMPLEX #100 grams lidocaine 5 % topical patch See Rx Instructions .Route 12/11/23 05/22/24 Rx (Lidoderm) .COMPLEX #30 ea atorvastatin 10 mg tablet See Rx Instructions .Route 01/08/24 05/22/24 Rx .COMPLEX #90 ea budesonide-formoterol HFA 160 1 puff inhalation QID PRN 01/08/24 05/22/24 Rx mcg-4.5 mcg/actuation aerosol shortness of breath or wheezing 90 inhaler (Symbicort) days #10.2 grams cetirizine 10 mg tablet See Rx Instructions .Route 01/08/24 05/22/24 Rx .COMPLEX #90 tabs omeprazole 40 mg capsule,delayed See Rx Instructions .Route 01/08/24 05/22/24 Rx release .COMPLEX #90 caps estradiol 0.01% (0.1 mg/gram) 1 appful vaginal .twice weekly 01/24/24 05/22/24 Rx vaginal cream (Estrace) #42.5 grams estradiol 2 mg tablet 2 mg PO DAILY HORMONE #30 tabs 01/24/24 05/22/24 Rx oxybutynin chloride 5 mg 5 mg PO DAILY #30 tabs 01/24/24 05/22/24 Rx tablet,extended release 24 hr escitalopram oxalate 20 mg tablet 20 mg PO DAILY MOOD 01/26/24 05/22/24 History (Lexapro) buprenorphine 8 mg-naloxone 2 mg 2 tab sublingual DAILY ADDICTION 02/20/24 05/22/24 History sublingual tablet RECOVERY ketorolac 10 mg tablet 10 mg PO Q4-6H PRN 02/20/24 05/22/24 History bupropion HCl 150 mg 24 hr tablet, 300 mg (2 x 150 mg) PO DAILY #90 05/22/24 05/22/24 Rx extended release (Wellbutrin XL) tabs diazepam 5 mg tablet 5 mg PO TID PRN anxiety #90 tabs 05/22/24 05/22/24 Rx New Prescriptions to Start Prescriptions: Allergies Allergy/AdvReac Type Severity Reaction Status Date / Time latex [LATEX] Allergy Unknown ITCHING Verified 05/22/24 13:12 ranitidine [RANITIDINE] Allergy Unknown ANXIETY Verified 05/22/24 13:12 Assessment and Plan *Assessment and plan (1) Bilateral sacroiliitis: Status: Acute Category: Medical Code(s): M46.1 - Sacroiliitis, not elsewhere classified Plan Patient is experiencing worsening pain along her low back and bilateral hips with limited range of motion. Patient did have point tenderness along her bilateral SIs with positive bilateral Orlando's, Neyda's, Gaenslen's, compression and distraction exam. I did discuss with the patient that I do believe she would benefit from bilateral SI injections. Risk and benefits were discussed with the patient and she would like to proceed forward with this plan of care. I will also send in a 5-day dose of prednisone 20 mg twice daily. Patient denies any steroid use over the last 3 months or more. Patient has continued at home stretching exercise for longer than 12 weeks with no additional change. This pain has been going on for longer than 3 months however the right upper thigh symptoms have been the last several weeks. Patient will be scheduled for bilateral SI injections under fluoroscopy. Patient has been instructed to contact the clinic with any concerns before the next appointment. Dr. Eddy has reviewed this note and agrees with this plan of care. This note was dictated using voice recognition software and make contain errors or omissions. All injections are used with Lidocaine or Bupivacaine and Depo Medrol.
[2024-05-23 14:47] VITALS: BP 105/61; PULSE 66; RESP 16; O2SAT 100; BMI 26.5
== END 2024-05-23 23:59 | disposition home or self-care (01) ==
PROVIDERS: PCP Family Medicine; Visit Provider Nurse Practitioner Family
DX: M46.1 Sacroiliitis, not elsewhere classified (principal); F17.210 Nicotine dependence, cigarettes, uncomplicated; Z73.89 Other problems related to life management difficulty; Z79.899 Other long term (current) drug therapy
CPT/HCPCS: 99212; G0463

== ENCOUNTER 2024-07-04 15:26 | Emergency (ER) | payer MEDICAID, SELFPAY ==
[2024-07-04 15:28] VITALS: BP 122/80; PULSE 67; RESP 20; TEMP 36.7; O2SAT 99; BMI 26.2
--- NOTE | 2024-07-04 15:31 | ED_ITS ---
<Statement entered by Magy Kaur MD - 07/04/24 23:14> I was consulted by the [facility], and we discussed the complexity of the problems being addressed. I approved the treatment and management plan for this patient's care in the emergency department, thus performing a substantive portion of the medical decision making. Magy Kaur MD, BRENDA, FACEP Discharge Plan Disposition Patient Disposition: Home, Self-Care Condition: Good Prescriptions Prescriptions: New sulfamethoxazole-trimethoprim [Bactrim DS] 800-160 mg tablet 1 tab PO BID 5 Days Qty: 10 0RF phenazopyridine [Pyridium] 200 mg tablet 200 mg PO Q8H PRN (Reason: pain) Qty: 10 0RF ondansetron 4 mg tablet,disintegrating 4 mg PO QID PRN (Reason: nausea and vomiting) Qty: 10 0RF No Action buprenorphine-naloxone 8-2 mg tablet, sublingual 2 tab SL DAILY estradiol 2 mg tablet 2 mg PO DAILY Qty: 30 11RF oxybutynin chloride 5 mg tablet extended release 24hr 5 mg PO DAILY Qty: 30 11RF atorvastatin 10 mg tablet See Rx Instructions .ROUTE .COMPLEX Qty: 90 2RF Dose Instruction: TAKE 1 TABLET BY MOUTH AT BEDTIME NIGHTLY FOR CHOLESTEROL Rx Instructions: TAKE 1 TABLET BY MOUTH AT BEDTIME NIGHTLY FOR CHOLESTEROL cetirizine 10 mg tablet See Rx Instructions .ROUTE .COMPLEX Qty: 90 3RF Dose Instruction: TAKE 1 TABLET BY MOUTH ONCE DAILY FOR ALLERGIES Rx Instructions: TAKE 1 TABLET BY MOUTH ONCE DAILY FOR ALLERGIES omeprazole 40 mg capsule,delayed release(DR/EC) See Rx Instructions .ROUTE .COMPLEX Qty: 90 3RF Dose Instruction: TAKE 1 CAPSULE BY MOUTH ONCE DAILY Rx Instructions: TAKE 1 CAPSULE BY MOUTH ONCE DAILY ketorolac 10 mg tablet 10 mg PO Q4-6H PRN (Reason: Pain) bupropion HCl [Wellbutrin XL] 150 mg tablet extended release 24 hr 300 mg PO DAILY Qty: 90 3RF fluticasone propionate 50 mcg/actuation spray,suspension See Rx Instructions .ROUTE .COMPLEX Qty: 16 5RF Dose Instruction: --SHAKE WELL-- AND INHALE 1 SPRAY IN EACH NOSTRIL EVERY DAY NEEDED FOR ALLERGY SYMPTOMS Rx Instructions: --SHAKE WELL-- AND INHALE 1 SPRAY IN EACH NOSTRIL EVERY DAY NEEDED FOR ALLERGY SYMPTOMS diclofenac sodium 1 % gel See Rx Instructions .ROUTE .COMPLEX Qty: 100 1RF Dose Instruction: APPLY 2 GRAMS FOUR TIMES DAILY DIRECTED Rx Instructions: APPLY 2 GRAMS FOUR TIMES DAILY DIRECTED lidocaine [Lidoderm] 5 % adhesive patch,medicated See Rx Instructions .ROUTE .COMPLEX Qty: 30 2RF Dose Instruction: APPLY 1 PATCH TO PAINFUL AREA DAILY. LEAVE ON MOST PAINFUL AREA FOR UP TO 12 HOURS Rx Instructions: APPLY 1 PATCH TO PAINFUL AREA DAILY. LEAVE ON MOST PAINFUL AREA FOR UP TO 12 HOURS estradiol 0.01 % (0.1 mg/gram) cream See Rx Instructions .ROUTE .COMPLEX Qty: 42.5 1RF Dose Instruction: APPLY A BLUEBERRY SIZED AMOUNT VAGINALLY TWICE WEEKLY Rx Instructions: APPLY A BLUEBERRY SIZED AMOUNT VAGINALLY TWICE WEEKLY budesonide-formoterol [Symbicort] 160-4.5 mcg/actuation HFA aerosol inhaler 1 puff inhalation QID PRN (Reason: shortness of breath or wheezing) 90 Days Qty: 10.2 12RF diazepam 5 mg tablet 5 mg PO TID PRN (Reason: anxiety) Qty: 90 0RF escitalopram oxalate [Lexapro] 20 mg tablet 20 mg PO DAILY prednisone 20 mg tablet 20 mg PO BID Qty: 10 0RF Referrals Follow up/Referrals: Robin Garcia MD [Primary Care Provider] - See instructions Activity Restrictions/Add. Instructions Additional Instructions/Restrictions: Please get your antibiotic from the pharmacy and take it till is complete. If you have no improvement follow-up with your PCP or return to the ER for any worsening signs or symptoms as needed Clinical Impressions Clinical Impression: Urinary tract infectious disease Qualifiers: Urinary tract infection type: acute cystitis Hematuria presence: with hematuria Qualified Code(s): N30.01 - Acute cystitis with hematuria Instructions Patient Instructions: DI for Urinary Tract Infection (UTI), DI for Urinary Tract Infection in Children Print Language Print Language: Libyan Discharge ED Provider: Magy Kaur General Adult HPI General Chief complaint: Urogenital-Female Stated complaint: fever,vomiting,Poss UTI Time Seen by Provider: 07/04/24 15:29 History of Present Illness HPI narrative: Patient presents for dysuria. Patient gives a history of 5 days of difficulty with urination and postvoiding discomfort. She denies any fever chills hemoptysis hematochezia melena nausea vomit diarrhea. Related Data Home Medications ?Medication ?Instructions ?Recorded ?Confirmed escitalopram oxalate 20 mg tablet 20 mg PO DAILY MOOD 01/26/24 06/24/24 (Lexapro) buprenorphine 8 mg-naloxone 2 mg 2 tab sublingual DAILY ADDICTION 02/20/24 06/24/24 sublingual tablet RECOVERY ketorolac 10 mg tablet 10 mg PO Q4-6H PRN Pain 02/20/24 06/24/24 Previous Rx's ?Medication ?Instructions ?Recorded fluticasone propionate 50 See Rx Instructions .Route 04/12/23 mcg/actuation nasal .COMPLEX #16 caps spray,suspension diclofenac sodium 1 % topical gel See Rx Instructions .Route 04/20/23 .COMPLEX #100 grams lidocaine 5 % topical patch See Rx Instructions .Route 12/11/23 (Lidoderm) .COMPLEX #30 ea atorvastatin 10 mg tablet See Rx Instructions .Route 01/08/24 .COMPLEX #90 ea cetirizine 10 mg tablet See Rx Instructions .Route 01/08/24 .COMPLEX #90 tabs omeprazole 40 mg capsule,delayed See Rx Instructions .Route 01/08/24 release .COMPLEX #90 caps estradiol 2 mg tablet 2 mg PO DAILY HORMONE #30 tabs 01/24/24 oxybutynin chloride 5 mg 5 mg PO DAILY #30 tabs 01/24/24 tablet,extended release 24 hr bupropion HCl 150 mg 24 hr tablet, 300 mg (2 x 150 mg) PO DAILY #90 05/22/24 extended release (Wellbutrin XL) tabs prednisone 20 mg tablet 20 mg PO BID #10 tabs 05/23/24 estradiol 0.01% (0.1 mg/gram) See Rx Instructions .Route 05/24/24 vaginal cream .COMPLEX #42.5 grams budesonide-formoterol HFA 160 1 puff inhalation QID PRN 06/19/24 mcg-4.5 mcg/actuation aerosol shortness of breath or wheezing 90 inhaler (Symbicort) days #10.2 grams diazepam 5 mg tablet 5 mg PO TID PRN anxiety #90 tabs 06/20/24 ondansetron 4 mg disintegrating 4 mg PO QID PRN nausea and 07/04/24 tablet vomiting #10 tabs phenazopyridine 200 mg tablet 200 mg PO Q8H PRN pain 6 doses #10 07/04/24 (Pyridium) tabs sulfamethoxazole 800 1 tab PO BID 5 days #10 tabs 07/04/24 mg-trimethoprim 160 mg tablet (Bactrim DS) Allergies Allergy/AdvReac Type Severity Reaction Status Date / Time latex (LATEX) Allergy Unknown ITCHING Verified 05/22/24 13:12 ranitidine (RANITIDINE) Allergy Unknown ANXIETY Verified 05/22/24 13:12 [facility] Disclaimer: The information contained in this section may have been updated after the patient was seen, as this information can be updated by other users. Medical History Dyspareunia in female Postmenopause atrophic vaginitis Urge incontinence of urine Menopausal vasomotor syndrome Smoking greater than 30 pack years Multiple lung nodules on CT Asthma Perforated nasal septum Sinusitis Anxiety Exposure to COVID-19 virus Stress incontinence Snoring Restless sleeper Daytime somnolence Palpitations Fatigue Chest pain Tobacco use Lumbar disc herniation with radiculopathy Lumbar strain Vitamin D deficiency Hyperlipidemia Surgical History Hx of cardiac cath History of tubal ligation Hx of shoulder surgery right X2 History of hysterectomy Family History Other Family history of cancer Family history of heart disease Hx of [id number] deficiency Social History (Updated 06/24/24 @ 15:27 by Megan Bennett APRN) Smoking Status: Current every day smoker smoking status stop date: 03/31/22 second hand exposure: Yes alcohol intake: never substance use type: former substance user and opiates current occupational status: other Travel in the last 8 weeks: None household members: other housing: house marital status: current occupation: [employer] caffeine: Yes special ina needs: No agree to transfusion: No do you feel safe at home: Yes victim of physical abuse: No victim of emotional abuse: No victim of sexual abuse: No would you like helpful sources: No Other Medical History Have you received the Flu Vaccine for this season: No Have you received the Pneumonia Vaccine: No ROS Obtained: Yes Systems reviewed as appropriate & no additional complaints except as documented Physical Exam General General appearance: alert and in no apparent distress Respiratory Respiratory exam: Present normal lung sounds bilaterally Cardiovascular Cardiovascular exam: Present regular rate Neurological Exam Neurological exam: Present alert and oriented X3 Medical Decision Making Medical Records Medical records reviewed: Yes I reviewed the patient's medical records. Screening: Per USPSTF and CDC recommendations, given the prevalence of disease in our region, it is our hospital?s policy to screen for HIV and viral Hepatitis for all patients aged 18 and over and those with ongoing risk factors. Jarred Inquiry Pt receiving controlled substance: No Vital Signs: 07/04/24 15:28 07/04/24 16:00 07/04/24 16:30 Temperature 98.0 F Temperature Source Oral Pulse Rate 67 64 Pulse Rate [Right] 67 Respiratory Rate 20 Blood Pressure 106/61 L 90/49 L Blood Pressure [Right Arm] 122/80 Blood Pressure Mean [Right Arm] 94 Blood Pressure Source [Right Arm] Automatic Cuff 02 Sat by Pulse Oximetry 99 95 91 L Oxygen Delivery Method Room Air 07/04/24 17:00 07/04/24 17:31 07/04/24 17:41 Temperature 98.0 F Temperature Source Pulse Rate 62 59 L 64 Pulse Rate [Right] Respiratory Rate 20 Blood Pressure 97/50 L 84/53 L 97/50 L Blood Pressure [Right Arm] Blood Pressure Mean [Right Arm] Blood Pressure Source [Right Arm] 02 Sat by Pulse Oximetry 91 L 95 Oxygen Delivery Method Room Air Lab Data Lab results reviewed: Yes I reviewed the patient's lab results. Lab Results 07/04/24 15:32: Urine Color Yellow, Urine Appearance Clear, Urine pH 6.0, Ur Specific [place] >= 1.030, Urine Protein 2+ A, Urine Glucose (UA) Negative, Urine Ketones Negative, Urine Blood 3+ A, Urine Nitrate Positive A, Urine Bilirubin Negative, Urine Urobilinogen 2.0, Ur Leukocyte Esterase 1+ A, Urine RBC Tntc, Urine WBC 5-10, Ur Squamous Epith Cells 5-10, Urine Bacteria 1+ 07/04/24 15:50: WBC 6.7, RBC 5.43 H, Hgb 15.8, Hct 46.5, MCV 85.7, MCH 29.0, MCHC 33.9, RDW 14.0, Plt Count 261, MPV 8.1, Neut % (Auto) 42.3, Lymph % (Auto) 46.5, [place] % (Auto) 4.8, Eos % (Auto) 4.1, Baso % (Auto) 2.3 H, Neut # (Auto) 2.8, Lymph # (Auto) 3.1, [place] # (Auto) 0.3, Eos # (Auto) 0.3, Baso # (Auto) 0.2, Sodium 140, Potassium 3.5, Chloride 106, Carbon Dioxide 31 H, Anion Gap 6.5, BUN 9, Creatinine 0.80, Estimated Creat Clear 90, Estimated GFR 76, Est GFR ( Amer) 92, Glucose 109 H, Calcium 8.5, Total Bilirubin 0.5, AST 41 H, ALT 44, Alkaline Phosphatase 104, Total Protein 6.9, Albumin 3.9, Globulin 3.0, Albumin/Globulin Ratio 1.3 07/04/24 15:50 07/04/24 15:50 Orders (Tests/Meds): ED MEDICATIONS Discontinued Medications Generic Name Dose Route Start Last Admin Trade Name Freq PRN Reason Stop Dose Admin Acetaminophen 1,000 mg 07/04/24 15:41 07/04/24 16:10 Acetaminophen 1,000mg/100ml Vial IV 07/04/24 15:42 1,000 mg ONCE ONE Administration Sodium Chloride 1,000 mls @ 999 mls/hr 07/04/24 15:41 07/04/24 16:10 Sod Chlor 0.9% 1000ml Bag IV 07/04/24 16:41 999 mls/hr .Q1H1M ONE Administration Iopamidol 70 ml 07/04/24 16:37 07/04/24 16:38 Iopamidol-370 (76%);100ml Bottle IV 07/04/24 16:38 70 ml ONCE ONE Administration Ketorolac Tromethamine 15 mg 07/04/24 15:41 07/04/24 16:10 Ketorolac 30mg/Ml Vial IV 07/04/24 15:42 15 mg ONCE ONE Administration Ondansetron HCl 4 mg 07/04/24 15:41 07/04/24 16:10 Ondansetron 4mg/2ml Vial IV 07/04/24 15:42 4 mg ONCE ONE Administration Sodium Chloride 10 ml 07/04/24 16:37 07/04/24 16:38 Sodium Chloride 0.9% 10ml Syr (Rad Only) IV 07/04/24 16:38 10 ml ONCE ONE Administration ORDERS Category Date Time Status CT abdomen pelvis w con Stat Cat Scan 07/04/24 15:42 Completed CBC w/Auto Diff [Complete Blood Count Auto Diff] Stat Lab 07/04/24 15:50 Completed CMP [Comprehensive Metabolic Panel] Stat Lab 07/04/24 15:50 Completed HIV (1&2) Antibody Rapid Stat Lab 07/04/24 15:50 Received Hep C Ab with Reflex to RNA Stat Lab 07/04/24 15:50 Received UA [Urinalysis and Microscopic] Stat Lab 07/04/24 15:32 Completed Urine Culture Stat Micro 07/04/24 15:32 Received Medical Decision Narrative: In summary patient is a 48-year-old female who presents to the emergency department for evaluation of dysuria. Patient is hemodynamically stable upon arrival, febrile. Physical exam is remarkable for some suprapubic tenderness and right lower quadrant tenderness but no rebound or guarding or rigidity. Bowel sounds normal active.. Differential diagnosis includes UTI versus constipation versus kidney stone etc. Initial workup will be conducted with hematologic labs urinalysis CT scan abdomen pelvis. Initial interventions include Tylenol Toradol. Initial workup reviewed by me shows her hematologic labs are nonactionable urinalysis is positive for 2+ protein 3+ blood nitrite positive leukocyte Estrace positive with microscopic exam showing too numerous to count red blood cells 5-10 whites 510 epithelials 1+ bacteria and my informal interpretation of her CT scan abdomen pelvis shows bladder wall thickening consistent with cystitis.. Upon repeat evaluation patient reported significant improvement after initial intervention. Given this patient is appropriate for discharge with prescription for Bactrim Pyridium and Zofran. Patient given strict return precautions. Critical Care Critical Care Time Critical Care Time: No
--- NOTE | 2024-07-04 15:42 | CT_ITS ---
PROCEDURE INFORMATION: Exam: CT Abdomen And Pelvis With Contrast Exam date and time: 07/04/2024 4:37 PM Age: 48 years old Clinical indication: Nausea and vomiting; Abdominal pain; Additional info: Dysuria nausea vomiting flank pain TECHNIQUE: Imaging protocol: Computed tomography of the abdomen and pelvis with contrast. Radiation optimization: All CT scans at this facility use at least one of these dose optimization techniques: automated exposure control; mA and/or kV adjustment per patient size (includes targeted exams where dose is matched to clinical indication); or iterative reconstruction. Contrast material: ISOVUE; Contrast volume: 75 ml; Contrast route: IV; COMPARISON: MR LUMBAR SPINE WO CON 09/01/2023 1:03 PM FINDINGS: Liver: Normal. No mass. Gallbladder and biliary ducts: Normal. No calcified stones. No ductal dilation. Pancreas: Normal. No ductal dilation. Spleen: Normal. No splenomegaly. Adrenal glands: Normal. No mass. Kidneys and ureters: Normal. No hydronephrosis. Stomach and bowel: Unremarkable. No obstruction. No mucosal thickening. Appendix: The appendix is visualized and appears normal. Intraperitoneal space: Unremarkable. No free air. No significant fluid collection. Vasculature: Moderate atherosclerotic calcification in the distal aorta. No evidence of aneurysm or dissection. Lymph nodes: Unremarkable. No enlarged lymph nodes. Urinary bladder: There is significant diffuse bladder wall thickening and mucosal enhancement compatible with acute cystitis. No discrete mass lesion. Reproductive: Uterus is surgically absent. No adnexal abnormality. Bones/joints: Moderate dextroscoliosis of the thoracolumbar spine. Mild multilevel degenerative disc changes. No vertebral body compression. No acute fracture. Soft tissues: Unremarkable. IMPRESSION: Acute cystitis. Other incidental findings as noted.
[2024-07-04 15:47] LABS: Microscopic, Urine URINE MICROSCOPIC (MICROSCOPIC)
[2024-07-04 16:00] VITALS: BP 106/61; PULSE 67; O2SAT 95
[2024-07-04 16:03] LABS: Basophils # 0.2 K/mm3 (0-0.2); Basophils % 2.3 % (0.1-2.0); Eosinophils # 0.3 K/mm3 (0.0-0.4); Eosinophils % 4.1 % (0.1-12.0); Hematocrit 46.5 % (37.0-47.0); Hemoglobin 15.8 g/dL (12.2-16.2); Lymphocytes # 3.1 K/mm3 (0.7-4.5); Lymphocytes % 46.5 % (10-50); Mean Corpuscular HGB Conc 33.9 g/dL (31.8-35.4); Mean Corpuscular Volume 85.7 fl (81-99); Mean Platelet Volume 8.1 fl (7.4-10.4); Monocytes # 0.3 K/mm3 (0.1-1.0); Monocytes % 4.8 % (1.7-9.3); Neutrophils # 2.8 K/mm3 (1.8-7.8); Neutrophils % 42.3 % (37.0-80.0); Platelet Count 261 K/mm3 (142-424); Red Blood Count 5.43 M/mm3 (4.20-5.40); White Blood Count 6.7 K/mm3 (4.8-10.8)
[2024-07-04 16:07] LABS: Appearance,Urine CLEAR (Clear); Bilirubin,Urine Negative (Negative); Blood, Urine 3+ (Negative); Color,Urine YELLOW (Yellow); Glucose,Urine (UA) Negative (Negative); Ketones,Urine Negative (Negative); Leukocyte Esterase,Urine 1+ (Negative); Nitrate,Urine POSITIVE (Negative); Protein,Urine 2+ (Negative); Specific Gravity, Urine >= 1.030 (1.005-1.030)
[2024-07-04] MEDS: KETOROLAC 30MG/ML VIAL 15 MG IV (16:10)
[2024-07-04] MEDS: ACETAMINOPHEN 1,000MG/100ML VIAL 1000 MG IV (16:10)
[2024-07-04] MEDS: 0.9 % SODIUM CHLORIDE 1000ML 1,000 ML 999 ML IV (16:10)
[2024-07-04] MEDS: ONDANSETRON 4MG/2ML VIAL 4 MG IV (16:10)
[2024-07-04 16:16] LABS: Chloride 106 mmol/L (98-107)
[2024-07-04 16:17] LABS: Albumin Level 3.9 g/dl (3.5-5.0); Potassium 3.5 mmoL/L (3.5-5.1); Sodium 140 mmol/L (136-145)
[2024-07-04 16:19] LABS: Blood Urea Nitrogen 9 mg/dl (7-17); Creatinine Clearance Estimated 90 mL/min (50-200); Estimated Glomerular Filt Rate 76 ml/min (>60); GFR (African American) 92 ML/MIN (>60)
[2024-07-04 16:20] LABS: Alanine Aminotransferase 44 U/L (12-78); Albumin/Globulin Ratio 1.3 (1.1-1.8); Alkaline Phosphatase 104 U/L (38-126); Anion Gap 6.5 mEq/L (5-15); Aspartate Amino Transferase 41 U/L (14-36); Bilirubin,Total 0.5 mg/dl (0.2-1.3); Calcium 8.5 mg/dl (8.4-10.2); Carbon Dioxide 31 mmol/L (22.0-30.0); Glucose 109 mg/dl (74-100); Total Protein,Serum 6.9 g/dl (6.3-8.2)
[2024-07-04 16:30] VITALS: BP 90/49; PULSE 64; O2SAT 91
[2024-07-04 16:32] LABS: RBC,Urine TNTC #/hpf (0-3)
[2024-07-04 16:34] LABS: Bacteria,Urine 1+ /lpf
[2024-07-04] MEDS: SODIUM CHLORIDE 0.9% 10ML SYR (RAD ONLY) 10 ML IV (16:38)
[2024-07-04] MEDS: IOPAMIDOL-370 (76%);100ML BOTTLE 70 ML IV (16:38)
[2024-07-04 17:00] VITALS: BP 97/50; PULSE 62; O2SAT 91
[2024-07-04 17:31] VITALS: BP 84/53; PULSE 59; O2SAT 95
[2024-07-04 17:41] VITALS: BP 97/50; PULSE 64; RESP 20; TEMP 36.7; O2SAT 98
[2024-07-04 21:12] LABS: HIV (1&2) Antibody Rapid NONREACTIVE (NONREACTIVE)
[2024-07-05 05:11] LABS: HCV Ab Non Reactive (Non Reactive)
--- NOTE | 2024-07-06 11:21 | PC.NURSE ---
discussed with urine culture, pt dc with bactrim, ntd
== END 2024-07-04 17:42 | disposition home or self-care (01) ==
PROVIDERS: Physician Assistant; Emergency Provider Student in an Organized Health Care Education/Training Program; PCP Family Medicine
DX: N39.0 Urinary tract infection, site not specified (principal); R50.9 Fever, unspecified; R11.10 Vomiting, unspecified; R30.0 Dysuria
CPT/HCPCS: 74177; 80053; 81001; 85025; 86803; 87086; 87088; 87186; 87389; 96361; 96374; 96375; 99285; J0131; J1885; J2405; J7030; Q9967

== ENCOUNTER 2025-03-17 14:43 | Outpatient (POV) | payer MEDICAID, SELFPAY ==
[2025-03-17 15:00] VITALS: BP 106/47; PULSE 55; RESP 18; O2SAT 98
--- NOTE | 2025-03-17 15:27 | A.OFFVIS_ITS ---
[facility] Disclaimer: The information contained in this section may have been updated after the patient was seen, as this information can be updated by other users. Medical History Dyspareunia in female Postmenopause atrophic vaginitis Urge incontinence of urine Menopausal vasomotor syndrome Smoking greater than 30 pack years Multiple lung nodules on CT Asthma Perforated nasal septum Sinusitis Anxiety Exposure to COVID-19 virus Stress incontinence Snoring Restless sleeper Daytime somnolence Palpitations Fatigue Chest pain Tobacco use Lumbar disc herniation with radiculopathy Lumbar strain Vitamin D deficiency Hyperlipidemia Surgical History Hx of cardiac cath History of tubal ligation Hx of shoulder surgery right X2 History of hysterectomy Family History Other Family history of cancer Family history of heart disease Hx of wvbrw-[id number] deficiency Social History Smoking Status: Current every day smoker smoking status stop date: 03/31/22 second hand exposure: Yes alcohol intake: never substance use type: former substance user and opiates current occupational status: other Travel in the last 8 weeks?: None household members: other housing: house marital status: 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 She rates it currently a 2 out of 10 but does state that with increased activity it will go a 20 out of 10. Patient has not been to see our office since fall of last year and states it is still that same pain that she had previously. Patient is still interested in proceeding forward with the pump trial. Patient continues to have the chronic pain that is unrelieved with oral medication, heat and ice, topicals, at home stretching exercise for longer than 12 weeks. Patient is asking whether or not if I could do some oral steroids. Her Jarred has been reviewed and is appropriate. Patient is on Suboxone therapy from an outside provider. Review of Systems: General: No recent weight changes, no fever, no sleep disturbances Respiratory: No cough, no shortness of air, no recurring pulmonary infections Cardiovascular/peripheral vascular: No chest pain, no palpitations, no edema, no shortness of breath Gastrointestinal: No new onset incontinence, normal bowel movements reported Genitourinary: No new onset incontinence Musculoskeletal: Low back pain Psychiatric: [Normal mood/affect] Neurological: [Denies weakness in extremities], [denies balance issues] Pain at rest (0-10 scale): 5 Objective Objective:: Physical Exam: General: Alert and oriented x3, no acute distress, pleasant and cooperative Lungs: Respirations even and unlabored, symmetrical chest expansion Eyes: PERRL Musculoskeletal: Flexion and extension of lumbar [spine] somewhat guarded secondary to pain, [antalgic gait noted] Neurological: Speech clear, no gross sensory deficit Has patient had previous pain injection?: No Conservative treatment options previously tried: Home exercise plan Length of treatment: Longer than 12 weeks Meds Home Medications and Allergies Home Medications ?Medication ?Instructions ?Recorded ?Confirmed ?Type fluticasone propionate 50 See Rx Instructions .Route 0 04/12/23 01/07/25 Rx mcg/actuation nasal .COMPLEX #16 caps spray,suspension diclofenac sodium 1 % topical gel See Rx Instructions .Route 04/20/23 01/07/25 Rx .COMPLEX #100 grams lidocaine 5 % topical patch See Rx Instructions .Route 12/11/23 01/07/25 Rx (Lidoderm) .COMPLEX #30 ea atorvastatin 10 mg tablet See Rx Instructions .Route 0 01/08/24 01/07/25 Rx .COMPLEX #90 ea cetirizine 10 mg tablet See Rx Instructions .Route 0 01/08/24 01/07/25 Rx .COMPLEX #90 tabs omeprazole 40 mg capsule,delayed See Rx Instructions . Route 01/08/24 01/07/25 Rx release .COMPLEX #90 caps buprenorphine 8 mg-naloxone 2 mg 2 tab sublingual HECTOR Y ADDICTION 02/20/24 01/07/25 History sublingual tablet RECOVERY ketorolac 10 mg tablet 10 mg PO Q4-6H PRN Pain 01/2901/07/25 History prednisone 20 mg tablet 20 mg PO BID #10 tabs 01/07/25 Rx estradiol 0.01% (0.1 mg/gram) See Rx Instructions .Rou te 05/24/24 01/07/25 Rx vaginal cream .COMPLEX #42.5 grams budesonide-formoterol HFA 160 1 puff inhalation QID AR N 06/19/24 01/07/25 Rx mcg-4.5 mcg/actuation aerosol shortness of breath or w heezing 90 inhaler (Symbicort) days #10.2 grams ondansetron 4 mg disintegrating 4 mg PO QID PRN nausea and 07/04/24 01/07/25 Rx tablet vomiting #10 tabs phenazopyridine 200 mg tablet 200 mg PO Q8H PRN pain 6 doses #10 07/04/24 01/07/25 Rx (Pyridium) tabs sulfamethoxazole 800 1 tab PO BID 5 days #10 tabs 07/04/24 01/07/25 Rx mg-trimethoprim 160 mg tablet (Bactrim DS) bupropion HCl 150 mg 24 hr tablet, 150 mg PO DAILY #30 tabs 12/16/24 01/07/25 Rx extended release escitalopram oxalate 20 mg tablet 20 mg PO DAILY MOOD #90 tabs 12/16/24 01/07/25 Rx (Lexapro) estradiol 2 mg tablet See Rx Instructions .Route 0 02/06/25 Rx .COMPLEX #90 tabs oxybutynin chloride 5 mg See Rx Instructions .Route 0 02/06/25 Rx tablet,extended release 24 hr .COMPLEX #90 tabs diazepam 5 mg tablet 5 mg PO TID PRN anxiety #90 tabs 03/11/25 Rx New Prescriptions to Start Prescriptions: Allergies Allergy/AdvReac Type Severity Reaction Status Date / Time latex (LATEX) Allergy Unknown ITCHING Verified 01/07/25 13:58 ranitidine (RANITIDINE) Allergy Unknown ANXIETY Verified 01/07/25 13:58 Assessment and Plan *Assessment and plan (1) Lumbar stenosis: Status: Acute Qualifiers: Neurogenic claudication status: with neurogenic claudication Qualified Code(s): M48.062 - Spinal stenosis, lumbar region with neurogenic claudication Category: Medical Code(s): M48.061 - Spinal stenosis, lumbar region without neurogenic claudication (2) Low back pain: Status: Acute Qualifiers: Chronicity: chronic Back pain laterality: bilateral Sciatica presence: with sciatica Sciatica laterality: bilateral sciatica Qualified Code(s): M54.42 - Lumbago with sciatica, left side; M54.41 - Lumbago with sciatica, right side; G89.29 - Other chronic pain Category: Medical Code(s): M54.50 - Low back pain, unspecified Plan I did discuss with the patient due to it being sometime since she has had updated imaging and with her worsening pain symptoms that I would recommend x- ray imaging and to proceed forward with an MRI without contrast of her lumbar spine. Patient agrees with this plan of care. Patient has tried and failed conservative therapy including oral medications, heat and ice, topicals, at home stretching exercise for longer than 12 weeks. Patient will also be sent for psychological evaluation and if she is deemed an appropriate candidate we will proceed forward with the pump trial at a later date. Patient was counseled that we would be doing a nonopioid pain pump medication such as bupivacaine. Patient acknowledges understanding agrees with plan of care. Patient will return to clinic in 1 month for review advanced imaging finding. Patient agrees with this plan of care. I will send in a 5-day dose of the prednisone. Patient denies any recent oral steroids in the last 3 months. Patient has been instructed to contact the clinic with any concerns before the next appointment. Dr. Eddy has reviewed this note and agrees with this plan of care. This note was dictated using voice recognition software and make contain errors or omissions. All injections are used with Lidocaine, Bupivacaine and dexamethasone. Occasionally urine drug screen is needed to verify patient's compliance with our office pain contract. This is ordered based off specific treatments related to chronic pain with the potential to abuse certain medications.
--- NOTE | 2025-03-17 15:29 | XR_ITS ---
FINAL REPORT CLINICAL HISTORY: Low back pain COMPARISON: None FINDINGS: 3 views of the lumbar spine were obtained. There is no evidence of fracture. There is no malalignment. There is lumbar scoliosis convex to the right measuring about 30 degrees. Mild anterior osteophyte formation is noted L1-2 through L4-5. There is moderate facet sclerosis in the lower lumbar spine. IMPRESSION: Degenerative/chronic changes without acute bony abnormality. Reviewed, Interpreted and Dictated by Hakeem Garrett MD Transcribed by Sarah Nuñez Authenticated and [facility]
== END 2025-03-17 23:59 | disposition home or self-care (01) ==
PROVIDERS: PCP Nurse Practitioner Family; Visit Provider Nurse Practitioner Family
DX: M48.062 Spinal stenosis, lumbar region with neurogenic claudication (principal); G89.29 Other chronic pain; M54.41 Lumbago with sciatica, right side; M54.42 Lumbago with sciatica, left side
CPT/HCPCS: 72100; 99212; G0463

== ENCOUNTER 2025-04-11 12:29 | Emergency (ER) | payer MEDICAID, SELFPAY ==
[2025-04-11] VITALS (7 sets, daily range): BP systolic 98–128; BP diastolic 55–81; PULSE 51–67; RESP 20; TEMP 36.7–36.8; O2SAT 90–100; BMI 25.2
--- NOTE | 2025-04-11 12:39 | CT_ITS ---
FINAL REPORT TECHNIQUE: Thin section axial images are obtained through the abdomen and pelvis after intravenous contrast. Reconstruction images were obtained from the axial data. This study was performed with techniques to keep radiation doses as low as reasonably achievable, (ALARA). Individualized dose reduction techniques using automated exposure control or adjustment of mA and/or kV according to the patient's size were employed. CLINICAL HISTORY: llq abd pain / pain w BM COMPARISON: 07/04/2024 FINDINGS: LUNG BASES: Lung bases are clear. Heart size is normal. LIVER: Fatty infiltration. No focal lesion. GALLBLADDER / BILIARY SYSTEM: Gallbladder is present. No gallstones. No biliary dilatation. SPLEEN / ADRENALS / PANCREAS: Without acute abnormality. COMMON BILE DUCT: The common bile duct is dilated and was dilated on the prior exam. No common duct stones were identified. KIDNEYS / URETERS / BLADDER: No hydronephrosis, renal mass, or renal stone. Unremarkable urinary bladder. GI TRACT: No small bowel obstruction or dilatation. Normal appendix. There is a large amount of retained stool in the colon. There is abnormal attenuation adjacent to the distal descending colon with central fat attenuation consistent with epiploic appendagitis. PELVIC ORGANS: The uterus is absent. LYMPH NODES / RETROPERITONEUM / MESENTERY: There is no lymphadenopathy in the abdomen or pelvis. No abdominal aortic aneurysm. ABDOMINAL WALL: The abdominal wall is intact. FREE FLUID: There is a small amount of free fluid in the pelvis that may be physiologic. BONES: No acute osseous abnormality. IMPRESSION: Epiploic appendagitis in the left lower quadrant adjacent to the descending colon. Comment ductal dilatation similar to prior exam. No stone visualized. Reviewed, Interpreted and Dictated by Antoinette Faustin MD Transcribed by Tala Parish Authenticated and [facility]
--- NOTE | 2025-04-11 12:41 | ED_ITS ---
<Statement entered by Obi Teixeira MD - 04/11/25 15:41> I was consulted by the C[facility], and we discussed the complexity of the problems being addressed. I approve the treatment and management plan for this patient's care in the emergency department, thus performing a substantive portion of the medical decision making. Obi Teixeira MD Discharge Plan Disposition Patient Disposition: Left Against Medical Advice Prescriptions Prescriptions: No Action buprenorphine-naloxone 8-2 mg tablet, sublingual 2 tab SL DAILY atorvastatin 10 mg tablet See Rx Instructions .ROUTE .COMPLEX Qty: 90 2RF Dose Instruction: TAKE 1 TABLET BY MOUTH AT BEDTIME NIGHTLY FOR CHOLESTEROL Rx Instructions: TAKE 1 TABLET BY MOUTH AT BEDTIME NIGHTLY FOR CHOLESTEROL cetirizine 10 mg tablet See Rx Instructions .ROUTE .COMPLEX Qty: 90 3RF Dose Instruction: TAKE 1 TABLET BY MOUTH ONCE DAILY FOR ALLERGIES Rx Instructions: TAKE 1 TABLET BY MOUTH ONCE DAILY FOR ALLERGIES omeprazole 40 mg capsule,delayed release(DR/EC) See Rx Instructions .ROUTE .COMPLEX Qty: 90 3RF Dose Instruction: TAKE 1 CAPSULE BY MOUTH ONCE DAILY Rx Instructions: TAKE 1 CAPSULE BY MOUTH ONCE DAILY ketorolac 10 mg tablet 10 mg PO Q4-6H PRN (Reason: Pain) fluticasone propionate 50 mcg/actuation spray,suspension See Rx Instructions .ROUTE .COMPLEX Qty: 16 5RF Dose Instruction: --SHAKE WELL-- AND INHALE 1 SPRAY IN EACH NOSTRIL EVERY DAY NEEDED FOR ALLERGY SYMPTOMS Rx Instructions: --SHAKE WELL-- AND INHALE 1 SPRAY IN EACH NOSTRIL EVERY DAY NEEDED FOR ALLERGY SYMPTOMS diclofenac sodium 1 % gel See Rx Instructions .ROUTE .COMPLEX Qty: 100 1RF Dose Instruction: APPLY 2 GRAMS FOUR TIMES DAILY DIRECTED Rx Instructions: APPLY 2 GRAMS FOUR TIMES DAILY DIRECTED lidocaine [Lidoderm] 5 % adhesive patch,medicated See Rx Instructions .ROUTE .COMPLEX Qty: 30 2RF Dose Instruction: APPLY 1 PATCH TO PAINFUL AREA DAILY. LEAVE ON MOST PAINFUL AREA FOR UP TO 12 HOURS Rx Instructions: APPLY 1 PATCH TO PAINFUL AREA DAILY. LEAVE ON MOST PAINFUL AREA FOR UP TO 12 HOURS estradiol 0.01 % (0.1 mg/gram) cream See Rx Instructions .ROUTE .COMPLEX Qty: 42.5 1RF Dose Instruction: APPLY A BLUEBERRY SIZED AMOUNT VAGINALLY TWICE WEEKLY Rx Instructions: APPLY A BLUEBERRY SIZED AMOUNT VAGINALLY TWICE WEEKLY budesonide-formoterol [Symbicort] 160-4.5 mcg/actuation HFA aerosol inhaler 1 puff inhalation QID PRN (Reason: shortness of breath or wheezing) 90 Days Qty: 10.2 12RF estradiol 2 mg tablet See Rx Instructions .ROUTE .COMPLEX Qty: 90 0RF Dose Instruction: TAKE ONE TABLET BY MOUTH EVERY DAY Rx Instructions: TAKE ONE TABLET BY MOUTH EVERY DAY oxybutynin chloride 5 mg tablet extended release 24hr See Rx Instructions .ROUTE .COMPLEX Qty: 90 0RF Dose Instruction: TAKE ONE TABLET BY MOUTH EVERY DAY Rx Instructions: TAKE ONE TABLET BY MOUTH EVERY DAY escitalopram oxalate [Lexapro] 20 mg tablet 20 mg PO DAILY Qty: 90 0RF diazepam 5 mg tablet 5 mg PO TID PRN (Reason: anxiety) Qty: 90 0RF bupropion HCl 150 mg tablet extended release 24 hr 150 mg PO DAILY Qty: 30 2RF ondansetron 4 mg tablet,disintegrating 4 mg PO QID PRN (Reason: nausea and vomiting) Qty: 10 0RF prednisone 20 mg tablet 20 mg PO BID Qty: 10 0RF Referrals Follow up/Referrals: Radha Orozco APRN [Primary Care Provider, Medical] - See instructions Clinical Impressions Clinical Impression: Abdominal pain Instructions Patient Instructions: DI for Acute Abdominal Pain Print Language Print Language: Danish Discharge ED Provider: Obi Teixeira Adult HPI General Chief complaint: Abdominal Pain Stated complaint: Pain in L lower abd Time Seen by Provider: 04/11/25 12:35 Mode of Arrival: Ambulatory Source of Information: Patient Description of Symptoms (Recalled from ER Triage Doc. by RN): patient presents from her primary care provides office to ED for a CT scan of her colon . Patient stated that she has 6/10 in her left lower abdomen. linda has a history of a near ruptured colon back in 2006 and has experienced constipation lately. History of Present Illness HPI narrative: patient is a 49-year-old female PMHx KENAN, major depressive disorder, tobacco use, chronic low back pain, opioid abuse (Suboxone), GERD, hyperlipidemia who presents to the ED for left lower quadrant abdominal pain that started yesterday. Patient states she was sent here by her PCP this morning. Patient states her left lower quadrant pain has been present since yesterday, persistent, describes it as a stabbing pain. Related Data Home Medications ?Medication ?Instructions ?Recorded ?Confirmed buprenorphine 8 mg-naloxone 2 mg 2 tab sublingual HECTOR Y ADDICTION 02/20/24 04/09/25 sublingual tablet RECOVERY ketorolac 10 mg tablet 10 mg PO Q4-6H PRN Pain 01/2904/09/25 Previous Rx's ?Medication ?Instructions ?Recorded fluticasone propionate 50 See Rx Instructions .Route 0 04/12/23 mcg/actuation nasal .COMPLEX #16 caps spray,suspension diclofenac sodium 1 % topical gel See Rx Instructions .Route 04/20/23 .COMPLEX #100 grams lidocaine 5 % topical patch See Rx Instructions .Route 12/11/23 (Lidoderm) .COMPLEX #30 ea atorvastatin 10 mg tablet See Rx Instructions .Route 0 01/08/24 .COMPLEX #90 ea cetirizine 10 mg tablet See Rx Instructions .Route 0 01/08/24 .COMPLEX #90 tabs omeprazole 40 mg capsule,delayed See Rx Instructions . Route 01/08/24 release .COMPLEX #90 caps estradiol 0.01% (0.1 mg/gram) See Rx Instructions .Rou te 05/24/24 vaginal cream .COMPLEX #42.5 grams budesonide-formoterol HFA 160 1 puff inhalation QID VT N 06/19/24 mcg-4.5 mcg/actuation aerosol shortness of breath or w heezing 90 inhaler (Symbicort) days #10.2 grams ondansetron 4 mg disintegrating 4 mg PO QID PRN nausea and 07/04/24 tablet vomiting #10 tabs estradiol 2 mg tablet See Rx Instructions .Route 0 02/06/25 .COMPLEX #90 tabs oxybutynin chloride 5 mg See Rx Instructions .Route 0 02/06/25 tablet,extended release 24 hr .COMPLEX #90 tabs prednisone 20 mg tablet 20 mg PO BID #10 tabs bupropion HCl 150 mg 24 hr tablet, 150 mg PO DAILY #30 tabs 04/10/25 extended release diazepam 5 mg tablet 5 mg PO TID PRN anxiety #90 tabs 04/10/25 escitalopram oxalate 20 mg tablet 20 mg PO DAILY MOOD #90 tabs 04/10/25 (Lexapro) Allergies Allergy/AdvReac Type Severity Reaction Status Date / Time Beef Containing Products Allergy Unknown Unknown Verified 04/09/25 13:23 allergy reaction latex (LATEX) Allergy Unknown ITCHING Verified 04/09/25 13:21 ranitidine (RANITIDINE) Allergy Unknown ANXIETY Verified 04/09/25 13:21 [facility] Disclaimer: The information contained in this section may have been updated after the patient was seen, as this information can be updated by other users. Medical History Dyspareunia in female Postmenopause atrophic vaginitis Urge incontinence of urine Menopausal vasomotor syndrome Smoking greater than 30 pack years Multiple lung nodules on CT Asthma Perforated nasal septum Sinusitis Anxiety Exposure to COVID-19 virus Stress incontinence Snoring Restless sleeper Daytime somnolence Palpitations Fatigue Chest pain Tobacco use Lumbar disc herniation with radiculopathy Lumbar strain Vitamin D deficiency Hyperlipidemia Surgical History Hx of cardiac cath History of tubal ligation Hx of shoulder surgery right X2 History of hysterectomy Family History Other Family history of cancer Family history of heart disease Hx of [id number] deficiency Social History Smoking Status: Current every day smoker smoking status stop date: 03/31/22 second hand exposure: Yes alcohol intake: former substance use type: former substance user and opiates current occupational status: unemployed Travel in the last 8 weeks?: None household members: other housing: house marital status: current occupation: [employer] caffeine: Yes special ina needs: No agree to transfusion: No do you feel safe at home: Yes victim of physical abuse: No victim of emotional abuse: No victim of sexual abuse: No would you like helpful sources: No Have you lived/traveled outside [place] in past 30 days?: No Contact w/someone who lives/traveled outside [place] past 30 days?: No Exposure to someone with infectious disease in past 14 days?: No Do you have a fever (greater than 100.4 F or 38 C)?: No Have you tested positive for COVID-19?: No Exposed to someone with COVID-19 in past 14 days?: No Do you have a sore throat?: No Do you have a cough?: No Do you have any weakness?: No Do you have any diarrhea?: No Are you experiencing any unusual bleeding?: No Do you have any muscle aches/pain?: No Do you have any abdominal pain?: No Are you experiencing loss of taste or smell?: No Other Medical History Have you received the Flu Vaccine for this season: Yes Have you received the Pneumonia Vaccine: No ROS Obtained: Yes Systems reviewed as appropriate & no additional complaints except as documented Physical Exam General General appearance: alert Head Head exam: atraumatic Eye Eye exam: Present PERRL Neck Neck exam: Present full ROM Respiratory Respiratory exam: Present normal lung sounds bilaterally Cardiovascular Cardiovascular exam: Present regular rate Abdominal Exam Abdominal exam: Present soft and tenderness (mild LLQ ) Neurological Exam Neurological exam: Present alert and oriented X3 Medical Decision Making Medical Records Screening: Per USPSTF and CDC recommendations, given the prevalence of disease in our region, it is our hospital?s policy to screen for HIV and viral Hepatitis for all patients aged 18 and over and those with ongoing risk factors. Jarred Inquiry Pt receiving controlled substance: No Vital Signs: 04/11/25 12:33 04/11/25 12:37 04/11/25 12:46 Temperature 98.2 F Temperature Source Temporal Artery Scan Pulse Rate 67 51 L Pulse Rate [Right Radial] 64 Respiratory Rate 20 Blood Pressure 123/81 116/61 Blood Pressure [Right Arm] 123/81 Blood Pressure Mean [Right Arm] 95 Blood Pressure Source Blood Pressure Source [Right Arm] Automatic Cuff Blood Pressure Position Blood Pressure Position [Right Arm] Sitting 02 Sat by Pulse Oximetry 97 100 96 Oxygen Delivery Method Room Air 04/11/25 13:05 04/11/25 13:16 04/11/25 13:47 Temperature Temperature Source Pulse Rate 52 L 60 62 Pulse Rate [Right Radial] Respiratory Rate Blood Pressure 117/55 L 128/58 L 102/71 L Blood Pressure [Right Arm] Blood Pressure Mean [Right Arm] Blood Pressure Source Blood Pressure Source [Right Arm] Blood Pressure Position Blood Pressure Position [Right Arm] 02 Sat by Pulse Oximetry 98 98 90 L Oxygen Delivery Method 04/11/25 14:20 Temperature 98.1 F Temperature Source Oral Pulse Rate 64 Pulse Rate [Right Radial] Respiratory Rate 20 Blood Pressure 98/78 L Blood Pressure [Right Arm] Blood Pressure Mean [Right Arm] Blood Pressure Source Automatic Cuff Blood Pressure Source [Right Arm] Blood Pressure Position Supine Blood Pressure Position [Right Arm] 02 Sat by Pulse Oximetry Oxygen Delivery Method Room Air Lab Data Lab Results 04/11/25 12:57: WBC 7.9, RBC 4.94, Hgb 14.5, Hct 43.1, MCV 87.2, MCH 29.4, MCHC 33.6, RDW 13.2, Plt Count 266, MPV 9.3, Neut % (Auto) 56.8, Lymph % (Auto) 33.6, Alexander % (Auto) 5.9, Eos % (Auto) 2.3, Baso % (Auto) 0.9, Neut # (Auto) 4.5, Lymph # (Auto) 2.6, Alexander # (Auto) 0.5, Eos # (Auto) 0.2, Baso # (Auto) 0.1, Sodium 138, Potassium 4.0, Chloride 104, Carbon Dioxide 28, Anion Gap 10.0, BUN 7, Creatinine 0.70, Estimated Creat Clear 95, Estimated GFR 89, Est GFR ( Amer) 107, Glucose 76, Lactate 0.8, Calcium 8.8, Total Bilirubin 0.4, AST 35, ALT 23, Alkaline Phosphatase 97, Total Protein 6.5, Albumin 3.8, Globulin 2.7, Albumin/Globulin Ratio 1.4, Lipase 104 04/11/25 13:13: Urine Color Yellow, Urine Appearance Clear, Urine pH 6.5, Ur Specific Montgomery 1.010, Urine Protein Negative, Urine Glucose (UA) Negative, Urine Ketones Negative, Urine Blood Negative, Urine Nitrate Negative, Urine Bilirubin Negative, Urine Urobilinogen 1.0, Ur Leukocyte Esterase Negative, Urine RBC None, Urine WBC None, Ur Squamous Epith Cells 3-5, Urine Bacteria None 04/11/25 12:57 04/11/25 12:57 Orders (Tests/Meds): ED MEDICATIONS Discontinued Medications Generic Name Dose Route Start Last Admin Trade Name Palmer PRN Reason Stop Dose Admin Iopamidol 75 ml 04/11/25 13:38 04/11/25 13:39 Iopamidol-370 (76%);100ml Bottle IV 04/11/25 13:39 75 ml ONCE ONE Administration Morphine Sulfate 4 mg 04/11/25 12:39 04/11/25 13:17 Morphine 4mg/Ml Syringe IV 04/11/25 12:40 4 mg ONCE ONE Administration Ondansetron HCl 4 mg 04/11/25 12:39 04/11/25 13:17 Ondansetron 4mg/2ml Vial IV 04/11/25 12:40 4 mg ONCE ONE Administration Sodium Chloride 10 ml 04/11/25 13:38 04/11/25 13:38 Sodium Chloride 0.9% 10ml Syr (Rad Only) IV 04/11/25 13:39 10 ml ONCE ONE Administration ORDERS Category Date Time Status CT abdomen pelvis w con Stat Cat Scan 04/11/25 12:39 Completed CBC w/Auto Diff [Complete Blood Count Auto Diff] Stat Lab 04/11/25 12:57 Completed CMP [Comprehensive Metabolic Panel] Stat Lab 04/11/25 12:57 Completed Lactic Acid Stat Lab 04/11/25 12:57 Completed Lipase Stat Lab 04/11/25 12:57 Completed Urinalysis and Microscopic Stat Lab 04/11/25 13:13 Completed Medical Decision Narrative: In summary, patient is a 49-year-old female PMHx KENAN, major depressive disorder, tobacco use, chronic low back pain, opioid abuse (Suboxone), GERD, hyperlipidemia who presents to the ED for left lower quadrant abdominal pain that started yesterday. Patient states she was sent here by her PCP this morning. Patient states her left lower quadrant pain has been present since yesterday, persistent, describes it as a stabbing pain. Has not had any medication for symptomatic relief prior to arrival. Patient denies fever, chills, headache, visual disturbance, chest pain, shortness of breath, dysuria. Differential diagnosis include ischemia, dissection, diverticulitis, infectious process, constipation, bowel obstruction, among others. Upon initial evaluation patient is alert, oriented and cooperative. She has mild left lower quadrant abdominal tenderness, no CVA tenderness. Discussed with patient we will proceed with labs and CT scan. She is agreeable to plan of care at this time. While waiting for her CT reads, patient is requesting to leave AMA. She is alert and oriented. I spoke to patient, she states she does not want to wait on the CT reads. Patient states I did not expect all of this, I only came here for CT scan I explained to patient that unfortunately CT reads can take quite some time to result, she and states she would still like to leave AGAINST MEDICAL ADVICE. I discussed with patient the risk of leaving AMA including but not limited to . Patient states I am smart enough to come back . Critical Care Critical Care Time Critical Care Time: No
[2025-04-11 13:09] LABS: Hematocrit 43.1 % (37.0-47.0); Hemoglobin 14.5 g/dL (12.2-16.2); Immature Granulocytes % 0.5 %; Mean Corpuscular HGB Conc 33.6 g/dL (31.8-35.4); Mean Corpuscular Hemoglobin 29.4 pg (27.0-31.2); Mean Corpuscular Volume 87.2 fl (81-99); Nucleated Red Blood Cells % 0 %; Platelet Count 266 K/mm3 (142-424); Red Blood Count 4.94 M/mm3 (4.20-5.40); Red Cell Distribution Width-SD 41.7 fL; White Blood Count 7.9 K/mm3 (4.8-10.8)
[2025-04-11 13:16] LABS: Chloride 104 mmol/L (98-107); Potassium 4.0 mmoL/L (3.5-5.1); Sodium 138 mmol/L (136-145)
[2025-04-11 13:17] LABS: Microscopic, Urine URINE MICROSCOPIC (MICROSCOPIC)
[2025-04-11] MEDS: ONDANSETRON 4MG/2ML VIAL 4 MG IV (13:17)
[2025-04-11] MEDS: MORPHINE 4MG/ML SYRINGE 4 MG IV (13:17)
[2025-04-11 13:18] LABS: Blood Urea Nitrogen 7 mg/dl (7-17); Creatinine Clearance Estimated 95 mL/min (50-200); Creatinine,Serum 0.70 mg/dl (0.52-1.04); Estimated Glomerular Filt Rate 89 ml/min (>60); GFR (African American) 107 ML/MIN (>60)
[2025-04-11 13:19] LABS: Alanine Aminotransferase 23 U/L (12-78); Alkaline Phosphatase 97 U/L (38-126); Aspartate Amino Transferase 35 U/L (14-36); Bilirubin,Total 0.4 mg/dl (0.2-1.3); Calcium 8.8 mg/dl (8.4-10.2); Glucose 76 mg/dl (74-100); Lipase 104 U/L (23-300); Total Protein,Serum 6.5 g/dl (6.3-8.2)
[2025-04-11 13:21] LABS: Bilirubin,Urine Negative (Negative); Color,Urine YELLOW (Yellow); Glucose,Urine (UA) Negative (Negative); Ketones,Urine Negative (Negative); Leukocyte Esterase,Urine Negative (Negative); PH,Urine 6.5 (5.0-8.5); Protein,Urine Negative (Negative); Specific Gravity, Urine 1.010 (1.005-1.030); Urobilinogen,Urine 1.0 EU/dl (0.2)
[2025-04-11] MEDS: SODIUM CHLORIDE 0.9% 10ML SYR (RAD ONLY) 10 ML IV (13:38)
[2025-04-11] MEDS: IOPAMIDOL-370 (76%);100ML BOTTLE 75 ML IV (13:39)
[2025-04-11 13:43] LABS: Anion Gap 10.0 mEq/L (5-15); Carbon Dioxide 28 mmol/L (22.0-30.0)
[2025-04-11 13:44] LABS: Albumin Level 3.8 g/dl (3.5-5.0); Albumin/Globulin Ratio 1.4 (1.1-1.8); Globulin 2.7 g/dL (1.3-3.2)
== END 2025-04-11 14:23 | disposition left against medical advice (07) ==
PROVIDERS: Nurse Practitioner; Emergency Provider Student in an Organized Health Care Education/Training Program; PCP Nurse Practitioner Family
DX: R10.9 Unspecified abdominal pain (principal); E78.5 Hyperlipidemia, unspecified; F41.1 Generalized anxiety disorder
CPT/HCPCS: 74177; 80053; 81001; 83605; 83690; 85025; 96374; 96375; 99285; J2270; J2405; Q9967

== ENCOUNTER 2025-04-22 11:12 | Outpatient (RCR) | payer MEDICAID, SELFPAY ==
--- NOTE | 2025-04-22 11:48 | HMH.PTOPEV ---
PT Evaluation Rehab PT Outpatient Evaluation Start: 04/22/25 11:13 Freq: Status: Active Protocol: Document 04/22/25 11:14 RAD (Rec: 04/22/25 11:48 RAD [id number]) E-signed By Baudilio Cobb, PT Outpatient Therapy Subjective History Subjective History Pt is a 49 yof who is referred to [facility] outpatient PT with complaints of Low back pain that has been ongoing for approximately 12 years. Pt reports that her pain has progressively worsened. 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 Pt reports that she will occasionally have some intermittent numbness and tingling into the R side of her R leg. Pt reports that her pain is eased by lying on her side. Pt reports that she is constantly in pain and nothing completely relieves her pain. Pt reports that she trialed a stimulator in her spine, which did not help her pain. Occupation: [employer] PMH: Dyspareunia in female Postmenopause atrophic vaginitis Urge incontinence of urine Menopausal vasomotor syndrome Smoking greater than 30 pack years Multiple lung nodules on CT Asthma Perforated nasal septum Sinusitis Anxiety Exposure to COVID-19 virus Stress incontinence Snoring Restless sleeper Daytime somnolence Palpitations Fatigue Chest pain Tobacco use Lumbar disc herniation with radiculopathy Lumbar strain Vitamin D deficiency Hyperlipidemia New diagnosis of No cancer in past 12 months? Chief Complaint Pain,Stiff Symptom Type Ache,Sharp Symptoms Relieved By Heat Symptoms Aggravated Prone,Standing,Bending/Stooping,Physical Activity, By Twisting,Walking,Lifting Prior Functional None Limitations Current Functional Lifting,Housework,Standing,Sitting,Squatting,Walking, Limitations Stairs Symptom Description Constant but Variable,Activity Dependent Level of pain today 4 (0-10) Pain scale - at its 4 best (0-10) Pain scale - at its 10 worst (0-10) Lumbopelvic Eval Posture Thoracic Spine Increased Kyphosis Posture Standing Position Lumbar Spine Posture Flexed Standing Position Palapation tenderness bilateral lumbar spinal Yes: TTP 4/4 to L1-L3 centrally tenderness paraspinal Yes: TTP 3/4 to L1-L4 b/l tenderness Accessory Movement L2 bilateral L3 bilateral L4 bilateral Range of Motion Lumbar Spine Active 40 Flexion Range of Motion (degrees) Lumbar Spine Active 5 Extension Range of Motion (degrees) Left Lumbar Spine 15 Lateral Flexion Active Range of Motion (degrees) Right Lumbar Spine 15 Lateral Flexion Active Range of Motion (degrees) Lumbar Spine ROM Soft Tissue Tightness,Pain Limitations Manual Muscle Test Bilateral Knee Extension 4+ Good+ Strength Grade Knee Flexion 4+ Good+ Strength Grade Hip Flexion Strength 4+ Good+ Grade Hip Abduction 3+ Fair+ Strength Grade DTR Rt Patellar 2+ Lt Patellar 2+ Rt Gastroc/Soleus 2+ Lt Gastroc/Soleus 2+ Altered Sensation Bilateral Comment Intact to LT globally and symmetrically Special Tests Lumbar Spine Screen Positive Forward Bending Test Negative Left,Negative Right - Standing Hip Sitting Root Negative Left,Negative Right Test Hip Scouring ( Negative Left,Negative Right Quadrant) Test Sciatic Nerve Negative Left,Negative Right Tension Test Crossed Straight Leg Negative Left,Negative Right Raise Test Oswestry Index Section 1 Pain Intensity The pain comes and goes and is moderate Section 2 Personal Care ( increase the pain and I find it necessary to change my Washing,Dresing) way of doing it Section 3 Lifting lifting heavy weights off the floor, but I can manage if they are Section 4 Walking I cannot walk more than 1/4 mile without increasing pain Section 5 Sitting Pain prevents me from sitting for more than 1/2 hour Section 6 Standing I cannot stand more than 10 minutes without increasing pain Section 7 Sleeping Because of my pain, my normal night's sleep is less than 6 hours sleep Section 8 Social Life My social life is normal but increases the degree of pain Section 9 Traveling Pain restricts me to short necessary journeys under 30 minutes Section 10 Changing Degreee of My pain is gradually getting worse Pain Score and Risk Level Oswestry Score 30 Oswestry Risk Level Severe Disability Outpatient Therapy Assessment Impairments Problems/ Palpation Tenderness,Impaired Range of Motion,Impaired Impairmments Strength,Impaired Endurance,Impaired Walking,Impaired Standing,Impaired Sitting,Impaired Lifting,Impaired Household Care,Impaired Squatting,Impaired Bending, Impaired Work Activities,Subjective C/O Pain,Impaired Self Care/Self Management Prognosis Rehab Potential Fair Comment w HEP Compliance Clinical Impression Consistent with Yes Diagnosis Consistent with Low back pain with mob. deficits PT Patient Goals PT Patient Goals PT Short Term 3 weeks: Patient Goals 1. Patient will report a 48 hour average pain of 5/10 on the numeric pain rating scale to demonstrate improvement in quality of life and increased functional capacity. 2. Patient will improve hip abductor strength upon manual muscle testing to 4/5 facilitate increased spinal stabilization and improved functional capabilities. 3. Patient will demonstrate a reduction in trigger point sensitivity to Grade 2 with manual palpation to improve comfort during activity and soft tissue mobility. 4. Patient will improve lumbar ROM by 10 degrees in all planes to demonstrate improved movement patterns with functional mobility and ADLs. 5. Patient will be able to stand for 15 minutes at one time to demonstrate independence with machine heddle cleaner, such as washing her dishes. 6. Pt will demonstrate HEP compliance by completing prescribed HEP 4-5x/week. 7. Pt will improve GIAN score to 27 to demonstrated improved functional mobility, overall improvement and improved quality of life. 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 Patient will report a 48 hour average pain of 2-3/10 on the numeric pain rating scale to demonstrate improvement in quality of life and increased functional capacity. 2. Patient will improve hip abductor strength upon manual muscle testing to 4+/5 facilitate increased spinal stabilization and improved functional capabilities. 3. Patient will demonstrate a reduction in trigger point sensitivity to Grade 0-1 with manual palpation to improve comfort during activity and soft tissue mobility. 4. Patient will improve lumbar ROM by 15-20 degrees in all planes to demonstrate improved movement patterns with functional mobility and ADLs. 5. Patient will be able to stand/walk for 1 hour at one time to demonstrate improved community ambulation for activities, such as grocery shopping and other activities. 6. Pt will be able to lift a 10# weight from floor with proper lifting mechanics and less than 2/10 pain to demonstrate the ability to lift items, such as grocery bags, milk jugs, laundry basket, etc. 7. Pt will improve GIAN score to 24 to demonstrated improved functional mobility, overall improvement and improved quality of life. Outpatient Therapy Plan of Care Treatment Plan May Include Therapeutic Exercise Yes Including Home Exercise Program Manual Therapy Yes Techniques Neuromuscular Re- Yes education Therapeutic Yes Activities to Return to Previous Functional/Work Level Gait Training Yes ADL/Self Care Yes Education Mechanical Traction Yes Dry Needling Yes Thermal Modalities Yes Electrical Yes Stimulation Ultrasound/ Yes Phonophoresis Iontophoresis Yes Massage Yes Manual Lymphatic Yes Drainage Eval/Re-Eval Yes Frequency Times per week 2 Duration Number of Weeks 6 Addendums This patient is a No candidate for social or vocational rehab ? Patient/Guardian Yes verbally acknowledges understanding of treatment program and consents to further treatment? Patient/Guardian Yes verbally acknowledges understanding of diagnosis, prognosis and goals for treatment? Eval Complexity PT Charges 40860 - Moderate Complexity Shoulder/Elbow Eval Shoulder Objective Measurements Elbow Objective Measurements PHYSICIAN CERTIFICATION: I certify the specified therapy services for Akilah Alston are required, authorized, and reviewed every 30 days.
== END 2025-04-22 23:59 | disposition home or self-care (01) ==
LOC: PT 11:12
PROVIDERS: Visit Provider Nurse Practitioner Family
DX: M47.816 Spondylosis without myelopathy or radiculopathy, lumbar region (principal); M51.16 Intervertebral disc disorders with radiculopathy, lumbar region
CPT/HCPCS: 97162

== ENCOUNTER 2025-05-09 12:40 | Outpatient (CLI) | payer MEDICAID, SELFPAY | END 2025-05-09 23:59 | disposition home or self-care (01) | LOC: LAB 12:40 | PROVIDERS: PCP Nurse Practitioner Family; Visit Provider Allergy & Immunology | DX: J31.0 Chronic rhinitis (principal); K21.9 Gastro-esophageal reflux disease without esophagitis; Z91.018 Allergy to other foods | CPT/HCPCS: 36415; 82785; 86003; 86008 ==

== ENCOUNTER 2025-05-21 17:00 | Outpatient (RCR) | payer MEDICAID, SELFPAY | END 2025-05-21 23:59 | disposition home or self-care (01) | LOC: PT 17:00 | PROVIDERS: Visit Provider Nurse Practitioner Family | DX: M54.50 Low back pain, unspecified (principal); M79.604 Pain in right leg | CPT/HCPCS: 97014; 97110; 97530; G0283 ==

== ENCOUNTER 2025-05-28 12:00 | Outpatient (CLI) | payer MEDICAID, SELFPAY | END 2025-05-28 23:59 | disposition home or self-care (01) | LOC: LAB.DROPOF 05-29 14:16 | PROVIDERS: PCP Student in an Organized Health Care Education/Training Program; Visit Provider Student in an Organized Health Care Education/Training Program | DX: J34.89 Other specified disorders of nose and nasal sinuses (principal) | CPT/HCPCS: 87070; 87077 ==

== ENCOUNTER 2025-06-07 16:07 | Emergency (ER) | payer MEDICAID, SELFPAY ==
[2025-06-07 16:09] VITALS: BP 116/70; PULSE 76; RESP 22; TEMP 37.1; O2SAT 98; BMI 25.6
--- NOTE | 2025-06-07 16:13 | ECG_ITS ---
APPROVED REPORT Exam: Resting ECG HR:69 bpm ECG Measurements Heart Rate 69 AXES SC 178 P 35 QRSd 89 QRS 49 QT 379 T 48 QTc 398 Conclusion SINUS RHYTHM NORMAL ECG UNCONFIRMED REPORT Electronically signed by : Jus Kaur, 06/07/2025 23:12:32
--- NOTE | 2025-06-07 16:25 | XR_ITS ---
PROCEDURE INFORMATION: Exam: XR Chest Exam date and time: 06/07/2025 4:56 PM Age: 49 years old Clinical indication: Shortness of breath; Additional info: SOA TECHNIQUE: Imaging protocol: Radiologic exam of the chest. Views: 2 views. COMPARISON: CT CHEST WO CON 06/15/2023 1:00 PM FINDINGS: Lungs: Haziness in the right lung could reflect pneumonia Pleural spaces: Unremarkable. No pleural effusion. No pneumothorax. Heart/Mediastinum: Unremarkable. No cardiomegaly. Bones/joints: Unremarkable. IMPRESSION: Haziness in the right lung could indicate pneumonia
[2025-06-07 16:34] LABS: Coronavirus 19, PCR Not Detected (NotDetected); Influenza A, PCR Not Detected (NotDetected); Influenza B, PCR Not Detected (NotDetected)
[2025-06-07 16:36] LABS: Hematocrit 40.8 % (37.0-47.0); Hemoglobin 13.7 g/dL (12.2-16.2); Immature Granulocytes % 1.6 %; Mean Corpuscular HGB Conc 33.6 g/dL (31.8-35.4); Mean Corpuscular Hemoglobin 29.5 pg (27.0-31.2); Mean Corpuscular Volume 87.7 fl (81-99); Nucleated Red Blood Cells % 0 %; Platelet Count 269 K/mm3 (142-424); Red Blood Count 4.65 M/mm3 (4.20-5.40); Red Cell Distribution Width-SD 43.7 fL; White Blood Count 7.4 K/mm3 (4.8-10.8)
[2025-06-07 16:37] LABS: Albumin Level 5.0 g/dl (3.5-5.0); Chloride 101 mmol/L (98-107); Sodium 139 mmol/L (136-145)
[2025-06-07 16:38] LABS: Potassium 4.3 mmoL/L (3.5-5.1)
[2025-06-07 16:40] LABS: Alanine Aminotransferase 20 U/L (12-78); Anion Gap 12.3 mEq/L (5-15); Aspartate Amino Transferase 33 U/L (14-36); Blood Urea Nitrogen 9 mg/dl (7-17); Carbon Dioxide 30 mmol/L (22.0-30.0); Creatinine Clearance Estimated 96 mL/min (50-200); Creatinine,Serum 0.70 mg/dl (0.52-1.04); Estimated Glomerular Filt Rate 89 ml/min (>60); GFR (African American) 107 ML/MIN (>60)
[2025-06-07 16:41] LABS: Albumin/Globulin Ratio 1.8 (1.1-1.8); Alkaline Phosphatase 82 U/L (38-126); Bilirubin,Total 0.9 mg/dl (0.2-1.3); Calcium 9.0 mg/dl (8.4-10.2); Globulin 2.8 g/dL (1.3-3.2); Glucose 79 mg/dl (74-100); Total Protein,Serum 7.8 g/dl (6.3-8.2)
--- NOTE | 2025-06-07 16:46 | ED_ITS ---
<Statement entered by Magy Kaur MD - 06/07/25 22:55> I was consulted by the COCO, and we discussed the complexity of the problems being addressed. I approved the treatment and management plan for this patient's care in the emergency department, thus performing a substantive portion of the medical decision making. Magy Kaur MD, BRENDA, FACEP Discharge Plan Disposition Patient Disposition: Home, Self-Care Prescriptions Prescriptions: New azithromycin [Zithromax Z-Sharath] 250 mg tablet See Rx Instructions .ROUTE .COMPLEX Qty: 6 0RF Rx Instructions: For 500 mg dose pack: take 500 mg once daily for 3 days doxycycline monohydrate 100 mg capsule 100 mg PO BID 7 Days Qty: 14 0RF No Action buprenorphine-naloxone 8-2 mg tablet, sublingual 2 tab SL DAILY ketorolac 10 mg tablet 10 mg PO Q8H Qty: 15 0RF Rx Instructions: maximum total duration of 5 days from all oral, intranasal, or parenteral formulations fluticasone propionate [Flonase Allergy Relief] 50 mcg/actuation spray,suspension 2 spray intranasal BID Qty: 16 3RF Rx Instructions: administer into each nostril mupirocin [Centany] 2 % ointment 1 applic topical BID Qty: 22 1RF Rx Instructions: Apply twice daily to septal perforation amoxicillin-pot clavulanate 875-125 mg tablet 1 tab PO BID 7 Days Qty: 14 0RF atorvastatin 10 mg tablet See Rx Instructions .ROUTE .COMPLEX Qty: 90 2RF Dose Instruction: TAKE 1 TABLET BY MOUTH AT BEDTIME NIGHTLY FOR CHOLESTEROL Rx Instructions: TAKE 1 TABLET BY MOUTH AT BEDTIME NIGHTLY FOR CHOLESTEROL cetirizine 10 mg tablet See Rx Instructions .ROUTE .COMPLEX Qty: 90 3RF Dose Instruction: TAKE 1 TABLET BY MOUTH ONCE DAILY FOR ALLERGIES Rx Instructions: TAKE 1 TABLET BY MOUTH ONCE DAILY FOR ALLERGIES omeprazole 40 mg capsule,delayed release(DR/EC) See Rx Instructions .ROUTE .COMPLEX Qty: 90 3RF Dose Instruction: TAKE 1 CAPSULE BY MOUTH ONCE DAILY Rx Instructions: TAKE 1 CAPSULE BY MOUTH ONCE DAILY ketorolac 10 mg tablet 10 mg PO Q4-6H PRN (Reason: Pain) diclofenac sodium 1 % gel See Rx Instructions .ROUTE .COMPLEX Qty: 100 1RF Dose Instruction: APPLY 2 GRAMS FOUR TIMES DAILY DIRECTED Rx Instructions: APPLY 2 GRAMS FOUR TIMES DAILY DIRECTED estradiol 0.01 % (0.1 mg/gram) cream See Rx Instructions .ROUTE .COMPLEX Qty: 42.5 1RF Dose Instruction: APPLY A BLUEBERRY SIZED AMOUNT VAGINALLY TWICE WEEKLY Rx Instructions: APPLY A BLUEBERRY SIZED AMOUNT VAGINALLY TWICE WEEKLY budesonide-formoterol [Symbicort] 160-4.5 mcg/actuation HFA aerosol inhaler 1 puff inhalation QID PRN (Reason: shortness of breath or wheezing) 90 Days Qty: 10.2 12RF escitalopram oxalate [Lexapro] 20 mg tablet 20 mg PO DAILY Qty: 90 0RF bupropion HCl 150 mg tablet extended release 24 hr 150 mg PO DAILY Qty: 30 2RF diazepam 5 mg tablet 5 mg PO TID PRN (Reason: anxiety) Qty: 90 0RF oxybutynin chloride 5 mg tablet extended release 24hr 5 mg PO DAILY Qty: 30 0RF estradiol 2 mg tablet 2 mg .ROUTE .COMPLEX Qty: 30 0RF Rx Instructions: 2 mg; lidocaine [Lidoderm] 5 % adhesive patch,medicated See Rx Instructions .ROUTE .COMPLEX Qty: 30 2RF Dose Instruction: APPLY 1 PATCH TO PAINFUL AREA DAILY. LEAVE ON MOST PAINFUL AREA FOR UP TO 12 HOURS Rx Instructions: APPLY 1 PATCH TO PAINFUL AREA DAILY. LEAVE ON MOST PAINFUL AREA FOR UP TO 12 HOURS Referrals Follow up/Referrals: Radha Orozco APRN [Primary Care Provider, Medical] - See instructions Activity Restrictions/Add. Instructions Additional Instructions/Restrictions: Today you were evaluated in the emergency department and diagnosed with pneumonia. Please take your antibiotics as directed. Please follow-up with your PCP Monday. Please increase your fluid intake, rest. Return to the ED for any worsening of your condition peer Clinical Impressions Clinical Impression: Pneumonia Instructions Patient Instructions: DI for Pneumonia in Adults Print Language Print Language: Azeri Discharge ED Provider: Magy Kaur General Adult HPI General Chief complaint: PAIN Stated complaint: Rib Pain Time Seen by Provider: 06/07/25 16:37 Mode of Arrival: Ambulatory Source of Information: Patient Description of Symptoms (Recalled from ER Triage Doc. by RN): pt reports r sided rib pain since . has gradually gotten worse. states she may have hit it on the washer. accompaniesd by mild SOA. states she felt feverish History of Present Illness HPI narrative: patient is a 49-year-old female PMHx UTI, opioid use, anxiety, tobacco use, GERD, hyperlipidemia, who presents to the ED with complaint of right rib pain that started 2 days ago. Patient states she has not had any other symptoms other than the right rib pain. Related Data Home Medications ?Medication ?Instructions ?Recorded ?Confirmed buprenorphine 8 mg-naloxone 2 mg 2 tab sublingual HECTOR Y ADDICTION 02/20/24 05/28/25 sublingual tablet RECOVERY ketorolac 10 mg tablet 10 mg PO Q4-6H PRN Pain 01/2905/28/25 Previous Rx's ?Medication ?Instructions ?Recorded diclofenac sodium 1 % topical gel See Rx Instructions .Route 04/20/23 .COMPLEX #100 grams atorvastatin 10 mg tablet See Rx Instructions .Route 0 01/08/24 .COMPLEX #90 ea cetirizine 10 mg tablet See Rx Instructions .Route 0 01/08/24 .COMPLEX #90 tabs omeprazole 40 mg capsule,delayed See Rx Instructions . Route 01/08/24 release .COMPLEX #90 caps estradiol 0.01% (0.1 mg/gram) See Rx Instructions .Rou te 05/24/24 vaginal cream .COMPLEX #42.5 grams budesonide-formoterol HFA 160 1 puff inhalation QID IA N 06/19/24 mcg-4.5 mcg/actuation aerosol shortness of breath or w heezing 90 inhaler (Symbicort) days #10.2 grams bupropion HCl 150 mg 24 hr tablet, 150 mg PO DAILY #30 tabs 04/10/25 extended release escitalopram oxalate 20 mg tablet 20 mg PO DAILY MOOD #90 tabs 04/10/25 (Lexapro) diazepam 5 mg tablet 5 mg PO TID PRN anxiety #90 tabs 05/12/25 estradiol 2 mg tablet 2 mg .Route .COMPLEX #30 tab s 05/12/25 lidocaine 5 % topical patch See Rx Instructions .Route 05/12/25 (Lidoderm) .COMPLEX #30 ea oxybutynin chloride 5 mg 5 mg PO DAILY #30 tabs 05/12 tablet,extended release 24 hr fluticasone propionate 50 2 spray intranasal BID #16 g richard 05/28/25 mcg/actuation nasal spray,suspension (Flonase Allergy Relief) mupirocin 2 % topical ointment 1 applic topical BID se ptal 05/28/25 (Centany) perforation #22 grams ketorolac 10 mg tablet 10 mg PO Q8H #15 tabs amoxicillin 875 mg-potassium 1 tab PO BID 7 days #14 t abs 06/04/25 clavulanate 125 mg tablet azithromycin 250 mg tablet See Rx Instructions PO .COM PLEX #6 06/07/25 (Zithromax Z-Sharath) tabs doxycycline monohydrate 100 mg 100 mg PO BID 7 days #1 4 caps 06/07/25 capsule Allergies Allergy/AdvReac Type Severity Reaction Status Date / Time Beef Containing Products Allergy Unknown Unknown Verified 05/29/25 15:13 allergy reaction latex (LATEX) Allergy Unknown ITCHING Verified 05/29/25 15:13 ranitidine (RANITIDINE) Allergy Unknown ANXIETY Verified 05/29/25 15:13 [facility] Disclaimer: The information contained in this section may have been updated after the patient was seen, as this information can be updated by other users. Medical History Dyspareunia in female Postmenopause atrophic vaginitis Urge incontinence of urine Menopausal vasomotor syndrome Smoking greater than 30 pack years Multiple lung nodules on CT Asthma Perforated nasal septum Sinusitis Anxiety Exposure to COVID-19 virus Stress incontinence Snoring Restless sleeper Daytime somnolence Palpitations Fatigue Chest pain Tobacco use Lumbar disc herniation with radiculopathy Lumbar strain Vitamin D deficiency Hyperlipidemia Surgical History Hx of cardiac cath History of tubal ligation Hx of shoulder surgery right X2 History of hysterectomy Family History Other Family history of cancer Family history of heart disease Hx of [id number] deficiency Social History Smoking Status: Current every day smoker tobacco type: cigarettes packs per day: 1 pack-years: 33 smoking status stop date: 03/31/22 second hand exposure: Yes alcohol intake: former substance use type: former substance user and opiates current occupational status: unemployed Travel in the last 8 weeks?: None household members: other housing: house marital status: 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[employer] caffeine: Yes special ina needs: No agree to transfusion: No do you feel safe at home: Yes victim of physical abuse: No victim of emotional abuse: No victim of sexual abuse: No would you like helpful sources: No Have you lived/traveled outside [place] in past 30 days?: No Contact w/someone who lives/traveled outside US past 30 days?: No Exposure to someone with infectious disease in past 14 days?: No Do you have a fever (greater than 100.4 F or 38 C)?: No Have you tested positive for COVID-19?: No Exposed to someone with COVID-19 in past 14 days?: No Do you have a sore throat?: No Do you have a cough?: No Do you have any weakness?: No Do you have any diarrhea?: No Are you experiencing any unusual bleeding?: No Do you have any muscle aches/pain?: No Do you have any abdominal pain?: No Are you experiencing loss of taste or smell?: No Other Medical History Have you received the Flu Vaccine for this season: Yes Have you received the Pneumonia Vaccine: No ROS Obtained: Yes Systems reviewed as appropriate & no additional complaints except as documented Physical Exam General General appearance: alert Head Head exam: atraumatic Eye Eye exam: Present PERRL Respiratory Respiratory exam: Present normal lung sounds bilaterally Cardiovascular Cardiovascular exam: Present regular rate and other (Right rib tenderness) Neurological Exam Neurological exam: Present alert and oriented X3 Medical Decision Making Medical Records Screening: Per USPSTF and CDC recommendations, given the prevalence of disease in our region, it is our hospital?s policy to screen for HIV and viral Hepatitis for all patients aged 18 and over and those with ongoing risk factors. Jarred Inquiry Pt receiving controlled substance: No Vital Signs: 06/07/25 16:09 06/07/25 18:46 Temperature 98.8 F 98.4 F Temperature Source Oral Pulse Rate 90 Pulse Rate [Right] 76 Respiratory Rate 22 20 Blood Pressure 121/73 Blood Pressure [Right Arm] 116/70 Blood Pressure Mean [Right Arm] 85 02 Sat by Pulse Oximetry 98 Oxygen Delivery Method Room Air Lab Data Lab Results 06/07/25 16:15: WBC 7.4, RBC 4.65, Hgb 13.7, Hct 40.8, MCV 87.7, MCH 29.5, MCHC 33.6, RDW 13.5, Plt Count 269, MPV 9.3, Neut % (Auto) 66.4, Lymph % (Auto) 23.7, [place] % (Auto) 4.6, Eos % (Auto) 2.8, Baso % (Auto) 0.9, Neut # (Auto) 4.9, Lymph # (Auto) 1.8, [place] # (Auto) 0.3, Eos # (Auto) 0.2, Baso # (Auto) 0.1, Sodium 139, Potassium 4.3, Chloride 101, Carbon Dioxide 30, Anion Gap 12.3, BUN 9, Creatinine 0.70, Estimated Creat Clear 96, Estimated GFR 89, Est GFR ( Amer) 107, Glucose 79, Calcium 9.0, Total Bilirubin 0.9, AST 33, ALT 20, Alkaline Phosphatase 82, Troponin I < 0.01, Total Protein 7.8, Albumin 5.0, Globulin 2.8, Albumin/Globulin Ratio 1.8 06/07/25 16:27: SARS-CoV-2 (PCR) Not detected, Influenza A Untype (PCR) Not detected, Influenza Type B (PCR) Not detected 06/07/25 16:15 06/07/25 16:15 Orders (Tests/Meds): ED MEDICATIONS Discontinued Medications Generic Name Dose Route Start Last Admin Trade Name Palmer PRN Reason Stop Dose Admin Acetaminophen 1,000 mg 06/07/25 16:46 06/07/25 17:14 Acetaminophen 500mg Tab PO 06/07/25 16:47 Not Given ONCE ONE Ketorolac Tromethamine 15 mg 06/07/25 17:14 06/07/25 17:17 Ketorolac 15mg/Ml Vial IV 06/07/25 17:15 15 mg ONCE ONE Administration ORDERS Category Date Time Status XR chest 2V Stat Exams 06/07/25 16:25 Completed Complete Blood Count Auto Diff Stat Lab 06/07/25 16:15 Completed Comprehensive Metabolic Panel Stat Lab 06/07/25 16:15 Completed Rapid PCR Covid and Flu A/B Stat Lab 06/07/25 16:27 Completed Troponin I Q3H Lab 06/07/25 19:30 Stop Req Troponin I Q3H Lab 06/07/25 22:30 Stop Req Troponin I Stat Lab 06/07/25 16:15 Completed Medical Decision Narrative: In summary, patient is a 49-year-old female PMHx UTI, opioid use, anxiety, tobacco use, GERD, hyperlipidemia, who presents to the ED with complaint of right rib pain that started 2 days ago. Patient states she has not had any other symptoms other than the right rib pain. Hurts when she takes a deep breath and moves. Denies fever, chills, back pain, abdominal pain, nausea, vomiting. Differential diagnosis included ACS, pneumonia, pneumothorax, infectious process, among others. Discussed with patient that we will proceed with workup and symptomatically managed with Toradol. CBC unremarkable for any leukocytosis, stable H&H. CMP overall unremarkable. Troponin < 0.01. Final read of the x-ray is haziness in the right lung could indicate pneumonia. Shared decision making used, had an interactive discussion with the patient about the possibility of pneumonia. Patient states she does feel like she has pneumonia, will manage with CAP outpatient treatment. Advised her to follow-up with her PCP Monday. We discussed return precautions to the ED and patient verbalized understanding. Critical Care Critical Care Time Critical Care Time: No
--- OUTSIDE RECORDS SUMMARY | 2025-06-07 16:47 | XMS_ITS ---
Author Organization [facility] Address [address] [place] [id number] Phone Care Team Providers Care Warehouse Assistant Name Role Phone Jeff ESTES, Patricio Ferris Unavailable [phone] Plan of Treatment No Plan of Treatment Recorded Assessments Includes: Assessments for all patient encounters No Assessments Recorded Medical Equipment - Implanted Devices Includes: Current and historical Devices No Medical Equipment Recorded Medications Administered Includes: Administered Medications in patient's chart No Administered Medications Recorded Results Includes: Results from 06/07/2024 through 06/07/2025 No Results Recorded For Specified Dates History of Present Illness History of Present Illness not supported for this document type No History of Present Illness Recorded Social History No Social History Recorded - Smoking Status Unknown Medical History Includes: Medical History in patient's chart No Medical History Recorded Family History Includes: Family History in patient's chart No Family History Recorded Review of Systems Review of Systems not supported for this document type No Review of Systems Recorded Mental Status No Mental Status Recorded Functional Status No Functional Status Recorded Physical Exam Physical Exam not supported for this document type No Physical Exam Recorded Insurance Includes: Active Insurance Policies Plan Name Member ID Group # Subscriber Relationship Effect anh Dates 1 - [facility] [id number] Akilahraheel Alston Self Clinical Notes Includes: Signed Clinical Notes starting from 07/14/2022 No Clinical Notes Recorded
--- OUTSIDE RECORDS SUMMARY | 2025-06-07 16:47 | XMS_ITS | Continuity of Care Document ---
[facility] Address [address] [place] [address] Care Team Providers Care Nitroglycerin Neutralizer Name Role Phone KATINA OROZCO Primary Care Provider Unavailabl e Assessment No assessment recorded. Plan of Treatment Reminders Order Date Submit Date Provider Last Modified By Organization Details Last Modified Time Details Appointments None recorded. Lab urinalysis, dipstick 2024 025 MARCOS [facility], [address] [place] [address], [id number], 11:08:10 Referral gastroenter ologist referral 2024 025 antwon Angulo MD, [address], [place], [address], 5 09:21:44 Procedures None recorded. Surgeries None recorded. Imaging None recorded. Medication Orders None recorded. Patient TargetsNo targets recorded. Patient InstructionsNo instructions recorded. Reason for Referral Business Support Specialist Referral for Screening for malignant neoplasm of colon Referring Physician: Katina Orozco, Family Medicine, Encounter Date: 04/11/2025 Results Created Date Observation Date Name Description Value Unit Range Abnormal Flag Note LastModifiedBy Organization Detail LastModifiedTime 04/11/20 25 04/11/2025 urina lysis , dipst ick Leukocytes Negati ve Not Available [address], [address], 04/11/2025 10:41:30 04/11/20 25 04/11/2025 urina lysis , dipst ick Nitrite negati ve Not Available [address], [address], 04/11/2025 10:41:30 04/11/20 25 04/11/2025 urina lysis , dipst ick Urobilinogen 1 Not Available [facility] [address], [address], 04/11/2025 10:41:30 04/11/20 25 04/11/2025 urina lysis , dipst ick Protein Negati ve Not Available [address], [address], 04/11/2025 10:41:30 04/11/20 25 04/11/2025 urina lysis , dipst ick pH 7.0 Not Available [address], [address], 04/11/2025 10:41:30 04/11/2004/11/2025 urina lysis , dipst ick Blood Negati ve Not Available [address], [address], 04/11/2025 10:41:30 04/11/20 25 04/11/2025 urina lysis , dipst ick Specific [place] 1.015 Not Available [address], [address], 04/11/2025 10:41:30 04/11/20 25 04/11/2025 urina lysis , dipst ick Ketone Negati ve Not Available [address], [address], 04/11/2025 10:41:30 04/11/20 25 04/11/2025 urina lysis , dipst ick Bilirubin Negati ve Not Available [address], [address], 04/11/2025 10:41:30 04/11/20 25 04/11/2025 urina lysis , dipst ick Glucose Negati ve Not Available [address], [address], 04/11/2025 10:41:30 04/11/20 25 04/11/2025 urina lysis , dipst ick Appearance Clear Not Available [address], [address], 04/11/2025 10:41:30 04/11/20 25 04/11/2025 urina lysis , dipst ick Color Yellow Not Available [address], [address], 04/11/2025 10:41:30 03/17/20 25 03/17/2025 XR, lumbo sacra l spine , 2 or 3 view No observ ation record ed. [facility] [address], [place], [address], 03/17/2025 16:55:47 04/11/2004/11/2025 CT, abdom en + pelvi s, w/ contr ast No observ ation record ed. [facility] [address], [place], [address], 04/16/2025 10:07:25 Result Notes None recorded. Problems Name Problem SNOMED Code Status Onset Date Resolution Date Notes Provider Name and Address Organization Details Recorded Time Hyperlipidemi a 91635606 Active 2019 Katina Orozco, [address], [place], [address] , [place] [facility] 08/16/202 2 13:05:27 Menopause Active 2019 Charu Watts null, [place] - [facility] 0 15:22:09 Fasciitis 20695248 Active 2019 Charu Watts null, [place] [facility] 0 15:22:19 Sciatica 09947853 Active 2019 Charu Watts null, [place] [facility] 0 15:22:40 History of substance abuse 899044943 Active 2021 pain pills for years Katina Orozco, [facility] [address], [place], [address] , [place] [facility] 2 13:05:25 Multiple nodules of lung 960554951 Active 2021 Ktaina Orozco APRN [address], [place], [address] , [place] [facility] 2 11:49:30 Depressive disorder 64294741 Active 2021 Katina Orozco APRN [address], [place], [address] , [place] [facility] 2 13:05:42 Problem Notes None recorded. Procedures Surgical History Date Name Laterality Status Provider Name and Address Organization Details Recorded Time 10/16/19 22 Orthopedic Surgery completed Gloria Gleason [place] - [facility] 02/11/2022 11:23:59 07/31/19 20 Cardiac Cath completed Gloria Gleason [place] [facility] 02/11/2022 11:23:59 12/31/19 15 Hysterectomy, Total laparoscopic completed Kathy Roque APRN [address], [place], [address], [place] [facility] 04/23/2020 13:05:52 12/31/19 15 excision of bilateral fallopian tubes and ovaries completed Kathy Roque APRN [address], [place], [address], [place] [facility] 04/23/2020 13:04:58 07/31/19 15 Hysterectomy completed Gloria Gleason [place] [facility] 02/11/2022 11:23:59 04/30/20 08 ligation of bilateral fallopian tubes completed Kathy Roque APRN [address], [place], [address], [place] [facility] 04/17/2020 15:15:55 07/31/19 08 Tubal Ligation completed Gloria Stears [place] - [facility] 02/11/2022 11:23:59 05/03/20 07 removal of intrauterine device completed Kathy Roque, COURT [facility], [place], [address], [place] [facility] 04/17/2020 15:14:40 11/24/19 07 insertion of intrauterine contraceptive device completed Kathy Jude, [facility], [place], [address], [place] [facility] 04/17/2020 15:14:18 07/31/19 05 IUD Insertion completed Gloria Leonards [place] [facility] 02/11/2022 11:23:59 01/28/19 96 cryosurgery of lesion of cervix completed Kathy Jude, COURT [facility], [place], [address], [place] [facility] 04/17/2020 15:15:23 07/31/18 96 Cyrosurgery of Cervix completed Gloria Stears [place] [facility] 02/11/2022 11:23:59 procedure on shoulder completed Charu Watts [place] [facility] 04/17/2020 15:29:26 Imaging Results None recorded. Procedure Notes None recorded. Medical Equipment None Reported. Allergies Allergen ID Allergen Name Allergen Category Reaction Reaction Severity Criticality Documentation Date Start Date Code Code System Note Provider Name and Address Organization Details Recorded Time 123549 codeine medicatio n Not available Not available Not available 04/17/2020 2670 RxNorm Gloria Stears null, [place] - [facility] 2 11:24:18 35204 codeine phosphate medicatio n Not available Not available Not available 05/06/20162008 2672 RxNorm Not Available [facility] 6 08:49:04 93492 Zantac medicatio n Not available Not available Not available 05/06/20162008 75264 3 RxNorm Not Available [facility] 6 08:49:04 48077 latex environme nt,medica tion Not available Not available Not available 05/06/20162008 81827 91 RxNorm Not Available [facility] 6 08:49:05 Medications Name Sig Start Date Stop Date Status Note LastModified by Organization Details LastModified Time cyclobenz aprine 10 mg tablet take 1 tablet (10 mg) by oral route 4 times per day prn 10/03 completed Cycloben zaprine Oral Tablet 10 mg;Recor ded Status: Recorded on: 09/03/19 11 8:11AM;U ser: [email or web address] ;Est. Completi on: 10/04/19 11;Indic ation: Muscle Spasm - (13.7288 50);Prin lucy: 09/03/19 11 Not Available Not Available Not Available amoxicill in 500 mg capsule TAKE ONE (1) CAPSULE BY MOUTH TWICE DAILY FOR 10 DAYS 01/06 completed Not Available Not Available Not Available budesonid e 32 mcg/actua tion nasal spray Take by nasal route for 30 days. 09/12 completed Not Available Not Available Not Available Lice Killing 0.33 %-4 % shampoo 04/17 completed Not Available Not Available Not Available Levsin 0.125 mg tablet take 1 tablet (0.125 mg) by oral route every 4 hours as needed 07/02 completed Levsin Oral Tablet 0.125 mg;Recor ded Status: Recorded on: 02/04/20 09 6:30PM;D iscontin ued Status: Disconti nued on: 07/02/20 09 4:17PM;U ser: [email or web address] ;Est. Completi on: 04/04/20 09 Not Available Not Available Not Available terconazo le 0.4 % vaginal cream Insert 1 applicat orful every day by vaginal route for 7 days. 02/11 completed Not Available Not Available Not Available prednison e 10 mg tablet 04/17 completed Not Available Not Available Not Available ipratropi um 0.5 mg-albute rol 3 mg (2.5 mg base)/3 mL nebulizat ion soln active Not Available Not Available Not Available clindamyc in HCl 300 mg capsule take 1 capsule (300 mg) by oral route 3 times per day 10/09 completed Clindamy jeovany HCl Oral Capsule 300 mg;Recor ded Status: Recorded on: 08/05/19 09 5:15PM;D iscontin ued Status: Disconti nued on: 10/10/19 09 4:51PM;U ser: guttmann Not Available Not Available Not Available citalopra m 40 mg tablet take 1 tablet by oral route QD 10/08 completed citalopr am Oral Tablet 40 mg;Recor ded Status: Recorded on: 04/12/20 11 3:26PM;U ser: angelito ;Est. Completi on: 10/09/19 12;Indic ation: Depressi on - ();Prin lucy: 04/12/20 Not Available Not Available Not Available cetirizin e 10 mg tablet TAKE ONE TABLET BY MOUTH EVERY DAY 2024 active Not Available Not Available Not Avai lable atorvasta tin 10 mg tablet TAKE ONE TABLET BY MOUTH EVERY DAY active Not Available Not Available No t Available Topamax 25 mg tablet 1 hs for migraine 11/24 completed Topamax Oral Tablet 25 mg;Recor ded Status: Recorded on: 10/10/19 09 5:35PM;D iscontin ued Status: Disconti nued on: 11/25/19 09 11:13AM; User: chapin MilesEst. Completi on: 12/09/19 09;Print ed: 10/10/19 Not Available Not Available Not Available azithromy jeovany 250 mg tablet TAKE 2 TABLETS BY MOUTH ON DAY 1, THEN TAKE 1 TABLET DAILY ON DAYS 2-5 04/11 completed Not Available Not Available Not Available ibuprofen 800 mg tablet TAKE ONE TABLET BY MOUTH THREE TIMES DAILY NEEDED --TAKE WITH FOOD-- active Not Available Not Available No t Available fluconazo le 150 mg tablet Take 1 tablet every 72 hours by oral route. 04/22 completed Not Available Not Available Not Available Vicodin 5 mg-500 mg tablet take 1 tablet by oral route every 6 hours as needed for pain 07/02 completed Vicodin Oral Tablet 5-500 mg;Recor ded Status: Recorded on: 12/17/19 09 6:36PM;D iscontin ued Status: Disconti nued on: 07/02/20 09 4:17PM;U ser: [email or web address] ;Indicat ion: Pain - (16.8690 00) Not Available Not Available Not Available valacyclo vir 1 gram tablet TAKE 1 TABLET BY MOUTH TWICE DAILY 12/19 completed Not Available Not Available Not Available albuterol sulfate ER 4 mg tablet,ex tended release 12hr mphase 1/2-1 po qid prn 06/03 completed Albutero l Sulfate Oral Tab, Multipha sic Release 12 hr 4 mg;Recor ded Status: Recorded on: 05/03/20 08 10:03PM; Disconti nued Status: Disconti nued on: 06/03/20 08 2:14PM;U ser: guttmann Not Available Not Available Not Available sucralfat e 1 gram tablet TAKE ONE TABLET THREE TIMES DAILY 12/19 completed Not Available Not Available Not Available prednison e 20 mg tablet TAKE ONE TABLET BY MOUTH TWICE DAILY --TAKE WITH FOOD-- 04/11 completed Not Available Not Available Not Available lindane 1 % shampoo apply 45 millilit ers of shampoo by topical route once 03/30 completed Lindane Topical Shampoo 1 %;Record ed Status: Recorded on: 01/08/20 10 10:35AM; Disconti nued Status: Disconti nued on: 03/30/20 10 5:47PM;U ser: angelito MilesEst. Completi on: 01/10/20 10;Indic ation: Pediculo sis Capitis - (1320 00);Prin lucy: 01/08/20 10 Not Available Not Available Not Available Seroquel 25 mg tablet take 1 tablet (25 mg) by oral route q 11/27 completed Seroquel Oral Tablet 25 mg;Recor ded Status: Recorded on: 05/31/20 10 11:49AM; User: angelito MilesEstArabella Hidalgo on: 11/28/19 11;Print ed: 05/31/20 10 Not Available Not Available Not Available Maxalt 10 mg tablet take 1 tablet (10 mg) by oral route x 1 dose, may repeat at 2 hour interval s; do not exceed 30 mg in 24 hours 07/02 completed Maxalt Oral Tablet 10 mg;Recor ded Status: Recorded on: 01/07/20 09 2:28PM;D iscontin ued Status: Disconti nued on: 07/02/20 09 4:17PM;U ser: [email or web address] ;Est. Completi on: 01/13/20 09;Indic ation: Migraine - (9622 ) Not Available Not Available Not Available Ultram 50 mg tablet take 1 tablet (50 mg) by oral route every 6 hours as needed 04/17 completed Ultram Oral Tablet 50 mg;Recor ded Status: Recorded on: 04/05/20 11 1:55PM;U ser: [email or web address];I ndicatio n: Pain - (8684 );Prin lucy: 04/05/20 11 Not Available Not Available Not Available phentermi ne 37.5 mg tablet TAKE ONE TABLET BY MOUTH EVERY DAY 30 minutes BEFORE OR ONE TO TWO hours AFTER breakfas t 09/12 completed Not Available Not Available Not Available hydrocodo ne 10 mg-acetam inophen 325 mg tablet 6-8 hours 02/11 completed Not Available Not Available Not Available omeprazol e 40 mg capsule,d elayed release TAKE ONE CAPSULE BY MOUTH EVERY DAY 2024 active Not Available Not Available Not Avai lable aspirin 81 mg tablet,de layed release 02/11 completed Not Available Not Available Not Available quetiapin e 100 mg tablet Take 1 tablet every day by oral route for 30 days. 12/19 completed Not Available Not Available Not Available amoxicill in 500 mg tablet Take 1 tablet twice a day by oral route for 10 days. 01/05 completed Not Available Not Available Not Available baclofen 20 mg tablet take 1 tablet (20 mg) by oral route 2 times per day prn 05/31 completed Baclofen Oral Tablet 20 mg;Recor ded Status: Recorded on: 05/04/20 10 5:11PM;D iscontin ued Status: Disconti nued on: 05/31/20 10 11:50AM; User: [email or web address] ;Est. Completi on: 09/01/19 11;Indic ation: Muscle Spastici ty of Spinal Origin - (13.7288 55) Not Available Not Available Not Available ketorolac 10 mg tablet 12/19 completed Not Available Not Available Not Available nadolol 20 mg tablet take 1/2 by oral route once daily 01/06 completed Nadolol Oral Tablet 20 mg;Recor ded Status: Recorded on: 11/25/19 09 11:32AM; Disconti nued Status: Disconti nued on: 01/07/20 09 2:28PM;U ser: [email or web address] Not Available Not Available Not Available oxycodone -acetamin ophen 5 mg-325 mg tablet 04/17 completed Not Available Not Available Not Available citalopra m 20 mg tablet take 1 tablet (20 mg) by oral route once daily for 30 days 05/31 completed Citalopr am Oral Tablet 20 mg;Recor ded Status: Recorded on: 03/30/20 10 6:26PM;D iscontin ued Status: Disconti nued on: 05/31/20 10 11:49AM; User: angelito ;Est. Completi on: 05/29/20 10;Indic ation: Depressi on - (.3110 00);Prin lucy: 03/30/20 10 Not Available Not Available Not Available Metrogel Vaginal 0.75 % (37.5 mg/5 gram) insert 1 applicat orful (37.5 mg) by vaginal route once daily at bedtime for 5 days 04/08 completed Metrogel Vaginal Gel 0.75 %;Record ed Status: Recorded on: 04/08/20 11 1:06PM;D iscontin ued Status: Disconti nued on: 04/08/20 11 1:15PM;U ser: [email or web address]; Est. Completi on: 04/13/20 11;Indic ation: Bacteria l Vaginosi s - (10.6169 00);Prin lucy: 04/08/20 11 Not Available Not Available Not Available Denavir 1 % topical cream apply to the affected area(s) by topical route every 2 hours during waking hours for 30 days 04/05 completed Denavir Topical Cream 1 %;Record ed Status: Recorded on: 04/20/20 10 6:20PM;D iscontin ued Status: Disconti nued on: 04/05/20 11 12:57PM; User: [email or web address] ;Est. Completi on: 07/19/20 10;Indic ation: Herpes Labialis - (0549 );Prin lucy: 04/20/20 10 Not Available Not Available Not Available Klonopin 0.5 mg tablet take 1 tablet (0.5 mg) by oral route 2 times per day for 30 days 10/09 completed Klonopin Oral Tablet 0.5 mg;Recor ded Status: Recorded on: 05/13/20 08 11:38AM; Disconti nued Status: Disconti nued on: 10/10/19 09 4:51PM;U ser: meeses;E st. Completi on: 06/12/20 08;Indic ation: Panic Disorder - () Not Available Not Available Not Available oxycodone -acetamin ophen 10 mg-325 mg tablet 02/11 completed Not Available Not Available Not Available Flagyl 500 mg tablet take 1 tablet (500 mg) by oral route every 12 hours for 7 days 04/27 completed Flagyl Oral Tablet 500 mg;Recor ded Status: Recorded on: 04/08/20 11 1:15PM;D iscontin ued Status: Disconti nued on: 04/27/20 11 4:23PM;U ser: youngk;E st. Completi on: 04/15/20 11;Indic ation: Bacteria l Vaginosi s - (10.6169 00);Prin lucy: 04/08/20 11 Not Available Not Available Not Available diazepam 2 mg tablet 12/19 completed Not Available Not Available Not Available baclofen 10 mg tablet TAKE (1/2) TABLET BY MOUTH AT BEDTIME 12/19 completed Not Available Not Available Not Available benzonata te 100 mg capsule TAKE ONE (1) CAPSULE TWICE A DAY BY ORAL ROUTE FOR 7 DAYS. 09/12 completed Not Available Not Available Not Available doxycycli ne monohydra te 100 mg capsule take 1 capsule (100 mg) by oral route 2 times per day for 7 days 04/27 completed doxycycl ine monohydr ate Oral Capsule 100 mg;Recor ded Status: Recorded on: 04/08/20 11 1:15PM;D iscontin ued Status: Disconti nued on: 04/27/20 11 4:23PM;U ser: judek;Bekah ortega Completi on: 04/15/20 11;Indic ation: Acute Gonococc al Cervicit is - ( 50);Prin lucy: 04/08/20 11 Not Available Not Available Not Available hydrocodo ne 7.5 mg-acetam inophen 325 mg tablet 04/17 completed Not Available Not Available Not Available cephalexi n 500 mg capsule Take 1 capsule twice a day by oral route for 7 days. 12/19 completed Not Available Not Available Not Available lidocaine 5 % topical patch APPLY ONE PATCH TO THE SKIN ONCE DAILY (MAY wear UP TO 12 hours) active Not Available Not Available No t Available nicotine 21 mg/24 hr daily transderm al patch 12/19 completed Not Available Not Available Not Available docusate sodium 100 mg capsule TAKE 2 CAPSULES BY MOUTH AT BEDTIME 12/19 completed Not Available Not Available Not Available oxybutyni n chloride ER 5 mg tablet,ex tended release 24 hr TAKE ONE TABLET BY MOUTH EVERY DAY active Not Available Not Available No t Available gabapenti n 300 mg capsule bid 02/11 completed Not Available Not Available Not Available omeprazol e 20 mg capsule,d elayed release TAKE 1 CAPSULE BY MOUTH EVERY DAY FOR ACID REFLUX 12/19 completed Not Available Not Available Not Available estradiol 2 mg tablet TAKE ONE TABLET BY MOUTH EVERY DAY active Not Available Not Available No t Available nadolol 40 mg tablet take 1 tablet (40 mg) by oral route once daily 07/02 completed Nadolol Oral Tablet 40 mg;Recor ded Status: Recorded on: 01/07/20 09 2:28PM;D iscontin ued Status: Disconti nued on: 07/02/20 09 4:17PM;U ser: [email or web address] ;Est. Completi on: 01/07/20 09 Not Available Not Available Not Available Provera 10 mg tablet take 1 tablet (10 mg) by oral route once daily for 10 days 02/17 completed Provera Oral Tablet 10 mg;Recor ded Status: Recorded on: 11/18/19 09 3:54PM;D iscontin ued Status: Disconti nued on: 02/18/20 09 3:59PM;U ser: meeses;E st. Completi on: 11/28/19 09;Indic ation: Secondar y Amenorrh ea - (10.0760 02);Prin lucy: 11/18/19 09 Not Available Not Available Not Available etodolac 400 mg tablet take 1 tablet (400 mg) by oral route every 8 hours as needed with food 11/24 completed Etodolac Oral Tablet 400 mg;Recor ded Status: Recorded on: 08/05/19 09 5:15PM;D iscontin ued Status: Disconti nued on: 11/25/19 09 11:38AM; User: [email or web address] ;Est. Completi on: 12/04/19 09;Indic ation: Pain - (16.6559 00) Not Available Not Available Not Available hydroxyzi ne HCl 25 mg tablet take 1-2 tablets by oral route QID PRN and prn sleep 05/29 completed Hydroxyz ine HCl Oral Tablet 25 mg;Recor ded Status: Recorded on: 03/30/20 10 6:26PM;U ser: guttmann ;Est. Completi on: 05/29/20 10;Indic ation: Anxiety - (05.3000 00);Prin lucy: 03/30/20 10 Not Available Not Available Not Available Entex LA 30 mg-600 mg tablet,ex tended release 12 hr 1 po bid 06/03 completed Entex LA Oral Tablet Sustaine d Release 12 hr 30-600 mg;Recor ded Status: Recorded on: 05/03/20 08 10:02PM; Disconti nued Status: Disconti nued on: 06/03/20 08 2:14PM;U ser: showerl Not Available Not Available Not Available mupirocin 2 % topical ointment 12/19 completed Not Available Not Available Not Available gabapenti n 100 mg capsule 04/17 completed Not Available Not Available Not Available Imitrex 100 mg tablet take 1 tablet (100 mg) by oral route once with fluids as early as possible after the onset of a migraine attack;m ay repeat after 2 hours if headache returns, not to exceed 200mg in 24hrs 10/08 completed Imitrex Oral Tablet 100 mg;Recor ded Status: Recorded on: 04/12/20 11 3:28PM;U ser: [email or web address] ;Est. Completi on: 10/09/19 12;Indic ation: Migraine - (3469 00);Prin lucy: 04/12/20 11 Not Available Not Available Not Available Pepcid 20 mg tablet 1 po bid 06/03 completed Pepcid Oral Tablet 20 mg;Recor ded Status: Recorded on: 05/03/20 08 10:04PM; Disconti nued Status: Disconti nued on: 06/03/20 08 2:14PM;U ser: [email or web address] Not Available Not Available Not Available polyethyl clayton glycol 3350 17 gram/dose oral powder DISSOLVE 17 GM (1 CAPFUL) IN 4-8 OZ OF LIQUID ONCE DAILY 12/19 completed Not Available Not Available Not Available levofloxa jeovany 500 mg tablet 09/12 completed Not Available Not Available Not Available lovastati n 20 mg tablet Take 1 tablet every day by oral route. 02/11 completed Not Available Not Available Not Available estradiol 0.01% (0.1 mg/gram) vaginal cream apply a blueberr y sized AMOUNT vaginall y twice WEEKLY active Not Available Not Available No t Available methylpre dnisolone 4 mg tablets in a dose pack TAKE DIRECTED FOR 6 DAYS 02/11 completed Not Available Not Available Not Available Vitamin D2 1,250 mcg (50,000 unit) capsule TAKE 1 CAPSULE BY MOUTH ONCE WEEKLY active Not Available Not Available No t Available brompheni ramine-ps eudoephed rine-DM 2 mg-30 mg-10 mg/5 mL oral syrup 04/17 completed Not Available Not Available Not Available piroxicam 20 mg capsule take 1 capsule (20 mg) by oral route once daily 07/02 completed Piroxica m Oral Capsule 20 mg;Recor ded Status: Recorded on: 11/25/19 09 11:38AM; Disconti nued Status: Disconti nued on: 07/02/20 09 4:17PM;U ser: guttmann Not Available Not Available Not Available fluticaso ne propionat e 50 mcg/actua tion nasal spray,[facility] [place] 1 spray every day by intranas al route. active Not Available Not Available No t Available doxycycli ne hyclate 100 mg tablet 12/19 completed Not Available Not Available Not Available Gynazole- 1 2 % vaginal cream,ext ended release insert 1 applicat orful by vaginal route x1 at bedtime 10/09 completed Gynazole -1 Vaginal Cream, Sustaine d Release 2 %;Record ed Status: Recorded on: 08/21/19 09 4:08PM;D iscontin ued Status: Disconti nued on: 10/10/19 09 4:51PM;U ser: meeses;E st. Completi on: 08/22/19 09;Indic ation: Vulvovag inal Candidia sis - ();Prin lucy: 08/21/19 09 Not Available Not Available Not Available naproxen 500 mg tablet 02/11 completed Not Available Not Available Not Available Vistaril 50 mg capsule DIRECTED 06/03 completed Vistaril Oral Capsule 50 mg;Recor ded Status: Recorded on: 05/03/20 08 10:04PM; Disconti nued Status: Disconti nued on: 06/03/20 08 2:14PM;U ser: [email or web address] Not Available Not Available Not Available diazepam 5 mg tablet TAKE ONE TABLET BY MOUTH THREE TIMES DAILY NEEDED FOR ANXIETY MAY CAUSE DROWSINE SS active Not Available Not Available No t Available amoxicill in 875 mg-potass ium clavulana te 125 mg tablet 02/11 completed Not Available Not Available Not Available Benadryl 25 mg capsule Take 1 capsule every day by oral route at bedtime. 12/19 completed Not Available Not Available Not Available cholecalc iferol (vitamin D3) 25 mcg (1,000 unit) capsule 12/19 completed Not Available Not Available Not Available Lortab 7.5 mg-500 mg tablet 1 po bid prn 06/03 completed Lortab Oral Tablet 7.5-500 mg;Recor ded Status: Recorded on: 05/03/20 08 10:04PM; Disconti nued Status: Disconti nued on: 06/03/20 08 2:14PM;U ser: guttmann Not Available Not Available Not Available Vitamin D 50,000 unit capsule Take 1 capsule every week by oral route. active Not Available Not Available No t Available Aristocor t 0.1 % topical cream as directed 06/03 completed Aristoco rt Topical Cream 0.1 %;Record ed Status: Recorded on: 05/03/20 08 10:04PM; Disconti nued Status: Disconti nued on: 06/03/20 08 2:14PM;U ser: noe Not Available Not Available Not Available azithromy jeovany 500 mg tablet 02/11 completed Not Available Not Available Not Available escitalop sarath 10 mg tablet TAKE ONE (1) TABLET EVERY DAY BY ORAL ROUTE. 03/22 completed Not Available Not Available Not Available escitalop sarath 20 mg tablet TAKE ONE TABLET BY MOUTH EVERY DAY FOR mood active Not Available Not Available No t Available buprenorp dinorah 8 mg-naloxo ne 2 mg sublingua l tablet DISSOLVE 2 TABLETS UNDER THE TONGUE ONCE DAILY active Not Available Not Available No t Available acyclovir 5 % topical cream APPLY TO AFFECTED AREA FIVE TIMES DAILY 12/19 completed Not Available Not Available Not Available Prilosec OTC 20 mg tablet,de layed release take 1 tablet by oral route daily for 30 days 10/08 completed Prilosec OTC Oral Tablet, Delayed Release (E.C.) 20 mg;Recor ded Status: Recorded on: 04/12/20 11 3:31PM;U ser: [email or web address] ;Est. Completi on: 10/09/19 12;Print ed: 04/12/20 11 Not Available Not Available Not Available bupropion HCl XL 300 mg 24 hr tablet, extended release 12/19 completed Not Available Not Available Not Available bupropion HCl XL 150 mg 24 hr tablet, extended release TAKE ONE TABLET BY MOUTH EVERY DAY active Not Available Not Available No t Available Ortho-Cyc jenny (28) 0.25 mg-35 mcg tablet take 1 tablet by oral route once daily 04/17 completed Ortho-Cy clen (28) Oral Tablet 0.25-35 mg-mcg;R ecorded Status: Recorded on: 04/05/20 11 1:55PM;U ser: [email or web address];I ndicatio n: Pregnanc y Contrace ption - ([id number].V259 [id number]);Prin lucy: 04/05/20 11 Not Available Not Available Not Available pregabali n 75 mg capsule 2 tablets daily 09/12 completed Not Available Not Available Not Available chlorhexi dine gluconate 0.12 % mouthwash 12/19 completed Not Available Not Available Not Available Klonopin 1 bid 04/05 completed klonopin 1mg;Scooby rded Status: Recorded on: 04/28/20 10 9:33AM;D iscontin ued Status: Disconti nued on: 04/05/20 11 12:57PM; User: [email or web address] Hidalgo on: 07/27/20 10;Indic ation: - (-5) Not Available Not Available Not Available aspirin 81 mg qd 02/11 completed Not Available Not Available Not Available Tylenol PM prn 04/05 completed Tylenol PM OTC;Scooby rded Status: Recorded on: 03/30/20 10 5:47PM;D iscontin ued Status: Disconti nued on: 04/05/20 11 12:57PM; User: Gutierrez walton n: - (-5) Not Available Not Available Not Available ProAir HFA 90 mcg/actua tion aerosol inhaler INHALE TWO (2) PUFFS EVERY FOUR (4) HOURS BY INHALATI ON ROUTE. active Not Available Not Available No t Available quetiapin e 50 mg tablet TAKE 1 TABLET BY MOUTH AT BEDTIME 09/12 completed Not Available Not Available Not Available cholecalc iferol (vitamin D3) 25 mcg (1,000 unit) tablet TAKE 1 CAPSULE BY MOUTH EVERY DAY active Not Available Not Available No t Available Symbicort 160 mcg-4.5 mcg/actua tion HFA aerosol inhaler INHALE 1 PUFF BY MOUTH FOUR TIMES DAILY active Not Available Not Available No t Available Pristiq 50 mg tablet,ex tended release take 1 tablet (50 mg) by oral route once daily 10/09 completed Pristiq Oral Tablet Sustaine d Release 24 hr 50 mg;Recor ded Status: Recorded on: 07/03/20 08 2:28PM;D iscontin ued Status: Disconti nued on: 10/10/19 09 4:51PM;U ser: [email or web address] Not Available Not Available Not Available diclofena c 1 % topical gel apply 2 grams topicall y TO THE affected area(s) FOUR TIMES DAILY active Not Available Not Available No t Available buprenorp dinorah 8 mg-naloxo ne 2 mg sublingua l film 12/19 completed Not Available Not Available Not Available omeprazol e 20 mg delayed release,d isintegra ting tablet Take 1 tablet every day by oral route. 03/22 completed Not Available Not Available Not Available Afluria Qd 2019-20 (36 mos up)(PF)60 mcg (15 mcg x4)/0.5 mL IM syringe 04/17 completed Not Available Not Available Not Available QuickVue At-Home COVID-19 Test kit active Not Available Not Available Not Available Vitals Date Recorded Body height Body mass index (BMI) Body weight Heart rate Body temperature Oxygen saturation Oxygen saturation in Arterial blood by Pulse oximetry Respiratory rate Pain severity - 0-10 verbal numeric rating [Score] - Reported Systolic And Diastolic Provider Name and Address Organization Details Last Updated DateTime 5 154.94 cm 26.1 kg/m2 19180.7 5 g 59 /min 97.6 [degF] 97 % 97 % 18 /min 8 104/58 mm[Hg] Madhuri Andrade [place] - [facility] 5 10:09:36 Social History Question Answer Notes LastModified by Organizat ion Details LastModified Time Tobacco Smoking Status Current Every Day Smoker Charu tomlinson [place] - [facility] 04/17/2020 15:26:46 Do You Have An Advance Directive? No Information not available 04/17/2020 Are You Blind Or Do You Have Difficulty Seeing? No Information not available 02/11/2022 Is Blood Transfusion Acceptable In An Emergency? Yes Information not available 04/17/2020 What Is Your Level Of Caffeine Consumption? Moderate [email or web address] Information not available 04/17/2020 How Much Tobacco Do You Chew? None [email or web address] Information not available 04/17/2020 Are You Deaf Or Do You Have Serious Difficulty Hearing? No [email or web address] Information not available 04/17/2020 What Type Of Diet Are You Following? REGULAR [email or web address] Information not available 04/17/2020 Which Illicit Or Recreational Drugs Have You Used? None [email or web address] Information not available 04/17/2020 What Is The Highest Grade Or Level Of School You Have Completed Or The Highest Degree You Have Received? [id number] Information not available 02/11/2022 How Many Days Of Moderate To Strenuous Exercise, Like A Brisk Walk, Did You Do In The Last 7 Days? 1 Information not available 02/11/2022 On Those Days That You Engage In Moderate To Strenuous Exercise, How Many Minutes, On Average, Do You Exercise? 1 Information not available 02/11/2022 Have There Been Any Changes To Your Family Or Social Situation? No Information no t available 02/11/2022 How Hard Is It For You To Pay For The Very Basics Like Food, Housing, Medical Care, And Heating? 1 Information not available 02/11/2022 Live Alone Or With Others? With Others Information not available 02/11/2022 Do You Have A Medical Power Of Safety Engineer Pressure Vessels? No Information not available 02/11/2022 What Was The Date Of Your Most Recent Tobacco Screening? 12/19/2024 Information not available 12/19/2024 How Many Children Do You Have? 4 Information not available 02/11/2022 Performs Monthly Self-breast Exam? No Information no t available 02/11/2022 Do You Use Protection During Sex? No Information not available 02/11/2022 Do You Use Protection Against STDs? No Information not available 02/11/2022 What Is Your Relationship Status? [email or web address] Information not available 04/17/2020 Do You Use Your Seat Belt Or Car Seat Routinely? Yes Information not available 02/11/2022 Seat Belts Used Routinely Yes Information not available 02/11/2022 Are You Sexually Active? Yes [email or web address] Information not available 04/17/2020 Do You Have Smoke And Carbon Monoxide Detectors In Your Home? Yes Information not available 02/11/2022 At What Age Did You Start Smoking Tobacco? 12 Information not available 02/11/2022 Are You Passively Exposed To Smoke? Yes Information no t available 02/11/2022 How Much Tobacco Do You Smoke? 0.5 PPD Information not available 02/11/2022 General Stress Level Low Information not available 02/11/2022 Do You Use Sunscreen Routinely? Yes [email or web address] Information not available 04/17/2020 Has Tobacco Cessation Counseling Been Provided? Yes Information not available 12/19/2024 On What Date Was Tobacco Cessation Counseling Provided? 12/19/2024 Information not available 12/19/2024 How Many Years Have You Smoked Tobacco? 34 Information not available 02/11/2022 Do You Have Difficulty Walking Or Climbing Stairs? No Information not available 02/11/2022 Sex: Female Functional Status Question Answer Note LastModified by Organizat ion Details LastModified Time Do you use any illicit or recreational drugs? No Information not available 02/11/2022 What is your level of alcohol consumption? None [email or web address] Information not available 04/17/2020 Do you or have you ever used smokeless tobacco? Never used smokeless tobacco [email or web address] Information not available 04/17/2020 Are you currently employed? No Information not available 02/11/2022 Do you have transportation difficulties? No Information not available 02/11/2022 Urinary incontinence assessment performed? Yes Information not available 02/11/2022 Are you able to walk independently without assistance or assistive devices? [email or web address] Information not available 02/11/2022 Do you have difficulty doing errands alone? No Information not available 02/11/2022 Are you able to care for yourself independently? Yes Information not available 02/11/2022 Do you have difficulty dressing, bathing, grooming, or toileting? No Information not available 02/11/2022 Do you or have you ever used e-cigarettes or vape? Never used electronic cigarettes [email or web address] Information not available 04/17/2020 What is your exercise level? None [email or web address] Information not available 04/17/2020 Mental Status Question Answer Note LastModified by Organizat ion Details LastModified Time Do you feel stressed (tense, restless, nervous, or anxious, or unable to sleep at night)? [id number] Information not available 02/11/2022 Do you have difficulty concentrating, remembering or making decisions? No Information no t available 02/11/2022 Family History Relationship Description Onset Age of this Age Resolved Age Notes LastModified by Organization Details LastModified Time Maternal Grandmother Arthritis [email or web address] Not available 15:16:48 Maternal Grandmother Hypertensive disorder [email or web address] Not available 2019 15:17:19 Maternal Grandmother Hypothyroidi sm [email or web address] Not available 2021 11:23:55 Maternal Grandmother Osteoporosis [email or web address] Not available 0 02/11/2022 11:23:55 Maternal Grandmother Dementia [email or web address] Not available 02/11 11:23:55 Paternal Grandfather Hypertensive disorder [email or web address] Not available 2021 11:23:55 Paternal Grandfather Myocardial infarction [email or web address] Not available 02/11 11:23:55 Paternal Grandfather Malignant melanoma [email or web address] Not available 2021 11:23:55 Paternal Grandfather Malignant neoplasm of colon [email or web address] Not available 2021 11:23:55 Paternal Grandfather Malignant neoplastic disease [email or web address] Not available 2021 11:23:55 Paternal Aunt Malignant neoplasm of breast [email or web address] Not available 04/17 15:26:21 Paternal Aunt Malignant neoplasm of uterus [email or web address] Not available 04/17 15:26:32 Paternal Aunt Hypercholest erolemia bstears Not available 2021 11:23:55 Mother Depressive disorder [email or web address] Not available 2021 11:23:55 Mother Substance abuse [email or web address] Not available 2021 11:23:55 Brother Substance abuse [email or web address] Not available 2021 11:23:55 Paternal Grandmother Obesity [email or web address] Not available 2021 11:23:55 Father Chronic obstructive pulmonary disease [email or web address] Not available 2021 11:23:55 Father Hypercholest erolemia bstears Not available 2021 11:23:55 Unspecified Relation Substance abuse [email or web address] Not available 2021 11:23:55 Unspecified Relation Obesity [email or web address] Not available 11:23:55 Paternal Uncle Substance abuse [email or web address] Not available 2021 11:23:55 Paternal Uncle Hypercholest erolemia bstears Not available 2021 11:23:55 Paternal Uncle Heart disease 32 42 [email or web address] Not available 2021 11:23:55 Medical History Condition Response Pancreatitis N Other N Atrial Fibrillation N congenital heart disease N Blood Diseases N Hyperthyroidism N Rheumatoid arthritis N Blood Transfusion N Erectile Dysfunction N amputation N Skin Lesions N Depression Y Pneumonia N Incontinence N Murmur N Edema N Alzheimer's Disease N Migraine Headaches N Tobacco Abuse N Anxiety Disorder Y Muscle, Joint, or Bone Problems Y Hemorrhoids N Obesity Y Vision or Eye Problems Y Restless Leg Syndrome N Arthritis Y Polyps N Infertility N Carpal Tunnel N Acid Reflux (GERD) Y Cancer N Varicosities N Stroke N Tendonitis N Crohn's Disease N Hypercholesterolemia Y Skin Cancer N Headaches N Fibromyalgia N Irritable Bowel Syndrome N Anal Fissure N Kidney Disease N Heart Problems N Hospitalizations Y Gallstones N Kidney or Bladder Problems N Goiter N Acne N Eating Disorder N Skaggs's Esophagus N Hypertriglyceridemia N Constipation N Embolism N Vitamin B12 Deficiency N Deviated Septum N AIDS/HIV N Myocardial Infarction N Asthma N Mitral Valve Disorders N Vertigo N Hepatitis N Thyroid Cancer N Neuropathy N History of DVT N Herniated Disc N Chicken Pox Y Von Willebrands Disease N Thrombophilias N Breast Cancer N Hernia N Plantar Fasciitis N Hypothyroidism N Lung Disease N Defects or Inherited Disease N Breast Problem N Ovarian Cyst N Anesthesia Complications N Testosterone Deficiency N Interstitial Cystitis N Congenital Anomalies N Hypoglycemia N Blood clot N Vitamin D Deficiency N Cellulitis N Endometriosis N Bladder or Kidney Problems N Fracture Y Colorectal Cancer N Schizophrenia N Panic Disorder N Concussion N Spina Bifida N Allergies/Hayfever Y Osteoarthritis N Parkinson's Disease N Disc Protrusion N STI N Esophagitis N Angina N Thyroid Problems N GI Problems N ADD/ADHD N Anemia N Multiple Sclerosis N Abnormal PAP Y Lumbago N Mental Illness N Psychiatric Illness N Ovarian Cancer N Diabetes N Degenerative Disc Disease Y Seizures/Epilepsy N Syncope N Hyperlipidemia N Insomnia Y Eczema N Abuse/Domestic Violence N Attention Deficient Disorder N Dementia N Ulcerative colitis N Cerebrovascular Disease N Depression N Guillain-[place] N Sleep Apnea N Aneurysm N Bronchitis N Heart Disease N Suicidal Ideation N Pre-Eclampsia N Hypertension N Osteoporosis Y Gynecological History Statement/Question Response Abnormal Pap Y Date of Last Mammogram Date of LMP 07/31/2014 Post Menopausal Bleeding N STIs/STDs Y HPV Vaccine N Current Control Method Hysterectom y Age at Menarche 12 Age at First Child 17 If Post Menopausal, Age at Menopause 37 Date of Last Colonoscopy Most Recent Bone Density Sexually Active? Y Date of Last Cervical Culture 04/17/2020 Menses Monthly N Date of Last Pap Smear Sexual Problems? N Hormone Replacement Therapy Y Obstetrics History GPAL:G 6 P 2 2 2 4 Type Value Full Term 2 Spontaneous 2 Premature 2 Living 4 Total 6 Immunizations Vaccine Type Date Status Note Provider Nam e and Address Organization Details Recorded Time Influenza, split virus, quadrivalent, PF 4 completed Not Available [facility] 04/11/2025 09:45:30 Influenza, split virus, quadrivalent, preservative 9 completed Madhuri Andrade null, [facility] 09/12/2022 10:20:11 Influenza, split virus, quadrivalent, preservative 7 [facility]/12[facility]2022 10:20:11 COVID-19 vaccine, vector-nr, [id number], PF, 0.5 mL 2 completed Madhuri Andrade null, [facility] 09/12/2022 10:20:11 COVID-19 vaccine, vector-nr, rS-Ad26, PF, 0.5 mL 1 completed Madhuri Andrade null, [facility] 09/12/2022 10:20:11 Influenza, split virus, trivalent, preservative 7 completed Madhrui Andrade null, [facility] 09/12/2022 10:20:11 Influenza, split virus, trivalent, preservative 1 completed Madhuri Andrade null, [place] - [facility] 09/12/2022 10:20:11 Influenza, split virus, trivalent, preservative 9 completed Madhuri Lupe null, [place] - [facility] 09/12/2022 10:20:11 Influenza, split virus, trivalent, preservative 4 completed Madhuri Lupe null, [place] - [facility] 09/12/2022 10:20:11 Influenza, split virus, trivalent, preservative 8 completed Madhuri Lupe null, [place] - [facility] 09/12/2022 10:20:11 Influenza, split virus, trivalent, preservative 7 completed Madhuri Lupe null, [place] - [facility] 09/12/2022 10:20:11 Influenza, split virus, trivalent, PF 8 completed Madhuri Lupe null, [facility] 09/12/2022 10:20:11 Hep B, adult 7 completed Madhuri Lupe null, [place] - [facility] 09/12/2022 10:20:11 Influenza, split virus, quadrivalent, PF 8 completed Madhuri Lupe null, [place] - [facility] 09/12/2022 10:20:11 Influenza, split virus, quadrivalent, PF 3 completed Madhuri Lupe null, [place] - [facility] 09/12/2022 10:20:11 Influenza, split virus, quadrivalent, PF 1 completed Madhuri Lupe null, [place] - [facility] 09/12/2022 10:20:11 Influenza, split virus, quadrivalent, PF 0 completed Madhuri Lupe null, [place] - [facility] 09/12/2022 10:20:11 Past Encounters Encounter ID Performer Location Encounter Start Date Encounter Closed Date Diagnosis/Indication Diagnosis SNOMED-CT Code Diagnosis ICD10 Code Diagnosis IMO Codes Diagnosis Note [id number] Katina Orozco APRN [address] [address] 04/11/2025 09:45:12 04/11/2025 10:36:27 Lower abdominal pain 60321724 R10.30 [id number] sent to ed for eval Screening for malignant neoplasm of colon 809056511 Z12.11 514030 Health Concerns Section Related Observation LastModified by Organization Detai ls LastModified Time None Recorded Concern Status LastModified by Organization Details LastModified Time None Recorded Payers Encounter Date Sequence Insurance Name Policy Number Policy Reyes Covered Member ID Reyes Member ID Guarantor Name 04/11/2025 1 [facility] (MEDICAID HMO) Akilah Alston [id number] Akilah Alecia Notes Date Note Type Note Provider Name and Address Organization Details Recorded Time 04/11/2025 text/html ROS as noted in the HPI 49 yr old female presents for left lower abdomen/pelvic pain that is similar to the pain she had in 2008 with severe colitis and ruptured colon, spent 4 days in hospital. Denies nausea and vomiting. Katina Orozco, [address] [facility], [place], [address], [facility] - [facility] 04/11/2025 10:42:30 OBGyn Episode No OBEpisode recorded.
--- OUTSIDE RECORDS SUMMARY | 2025-06-07 16:47 | XMS_ITS ---
Care Plan - [facility], [facility] Created on: June 07, 2025 Akilah Alston : 1975 Sex: Female Author Organization [facility] , [facility] Address [address] [place] [id number] Phone Care Team Providers Care Luggage Repairer Name Role Phone Jeff ESTES, Patricio Ferris Unavailable [phone]
--- OUTSIDE RECORDS SUMMARY | 2025-06-07 16:47 | XMS_ITS | Data Portability ---
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 Plan of Treatment Reminders Order Date Submit Date Provider Last Modified By Organization Details Last Modified Time Details Appointments None recorded. Lab urinalysis, dipstick 2024 025 [facility], [address] [place] [address], [id number], 5 11:08:10 HbA1c (hemoglobin A1c), blood 2024 025 [facility], [address] [place] [address], [address], 5 16:50:28 amylase + lipase, serum 2024 025 [facility], [address], [address], [place], [address], 5 06:08:39 food allergen panel, serum 2024 025 [facility], [address], [address], [place], [address], 5 06:08:40 borrelia burgdorferi IgG + IgM + total panel, IA, serum 2024 025 [facility], [address], [address], [place], [address], 5 06:08:40 galactose-a lpha-1,3-ga lactose panel, serum or plasma 2024 025 [facility], [address], [address], [place], [address], 5 06:08:39 CBC w/ auto diff 2024 025 [facility], [address], [address], [place], [address], 5 06:08:38 CMP, serum or plasma 2024 025 [facility], [address], [address], [place], [address], 5 06:08:38 rapid flu (A+B) 2024 025 [facility], [address] [place] [address], [phone], 5 12:16:29 rapid strep group A, throat 2024 025 [facility], [address] [place] [address], [address], 5 12:16:38 rapid SARS CoV + SARS CoV 2 Ag, QL IA, respiratory specimen 2024 025 [facility], [address] [place] [address], [id number], 5 12:16:46 borrelia burgdorferi IgG + IgM + total panel, IA, serum 2024 025 [facility], [address], [address], [place], [address], 5 09:07:11 galactose-a lpha-1,3-ga lactose panel, serum or plasma 2024 025 [facility], [address], [address], [place], [address], 5 09:07:11 CBC w/ auto diff 2024 025 [facility], [address], [address], [place], [address], 5 09:07:10 Referral gastroenter ologist referral 2024 025 [email or web address] Angulo MD, [address] [place] [address] [address], [place], [address], 5 09:21:44 Procedures None recorded. Surgeries None recorded. Imaging None recorded. Medication Orders prednisone 20 mg tablet 2024 025 [facility], [address] [place] [address] [address], [place], [place], [id number], 5 10:17:48 Zithromax Z-Sharath 250 mg tablet 2024 025 [facility], [address] [place] [address] [address], [place], [place], [id number], 5 10:02:40 cetirizine 10 mg tablet 2024 025 [facility], [address] [place] [address], [address], 5 12:14:10 amoxicillin 500 mg tablet [address], [address], 5 05:01:24 lidocaine 5 % topical patch [address], [place], [address], 5 12:14:01 diclofenac 1 % topical gel 2024 025 [facility], [address] [place] [address], [place], [address], 5 12:14:02 fluticasone propionate 50 mcg/actuati on nasal spray,suspe nsion 2022 023 [facility], [address] [place] [address], [place], [address], 3 10:49:16 Keflex 500 mg capsule 2022 023 [facility], [address] [place] [address], [place], [address], 5 11:44:38 Patient TargetsNo targets recorded. Patient InstructionsNo instructions recorded. Reason for Referral Diffusion Operator Referral for Screening for malignant neoplasm of colon Referring Physician: Katina Rodriguez, Family Medicine, Encounter Date: 04/11/2025 Results Created Date Observation Date Name Description Value Unit Range Abnormal Flag Note LastModifiedBy Organization Detail LastModifiedTime 12/20/1912/20/2024 CBC WITH DIFFE RENTI AL/PL ATELE T WBC 10.7 x10e3 /uL 3.4-10 .8 normal Not Available [facility] ([facility]) [address] [place], [address], 12/24/2024 09:07:10 12/20/19 25 12/20/2024 CBC WITH DIFFE RENTI AL/PL ATELE T RBC 5.30 x10e6 /uL 3.77-5 .28 above high normal Not Available [facility] ([facility]) [address] [place], [address], 12/24/2024 09:07:10 05/2212/20/2024 CBC WITH DIFFE RENTI AL/PL ATELE T hemoglobin 15.2 g/dL 11.1-1 5.9 normal Not Available [facility] ([facility]) [address] [facility], [place], [address], 12/24/2024 09:07:10 12/20/19 25 12/20/2024 CBC WITH DIFFE RENTI AL/PL ATELE T hematocrit 46.7 % 34.0-4 6.6 above high normal Not Available [facility] ([facility]) [address] [place], [address], 12/24/2024 09:07:10 12/20/1912/20/2024 CBC WITH DIFFE RENTI AL/PL ATELE T MCV 88 fL 79-97 normal Not Available [facility] ([facility]) [address] [place], [address], 12/24/2024 09:07:10 12/20/1912/20/2024 CBC WITH DIFFE RENTI AL/PL ATELE T MCH 28.7 pg 26.6-3 3.0 normal Not Available [facility] ([facility]) [address] [place], [address], 12/24/2024 09:07:10 12/20/1912/20/2024 CBC WITH DIFFE RENTI AL/PL ATELE T MCHC 32.5 g/dL 31.5-3 5.7 normal Not Available [facility] ([facility]) [address] [place], [address], 12/24/2024 09:07:10 12/20/1912/20/2024 CBC WITH DIFFE RENTI AL/PL ATELE T RDW 13.3 % 11.7-1 5.4 Not Available [facility] ([facility]) [address] [place], [address], 12/24/2024 09:07:10 12/20/1912/2012/20/2024 CBC WITH DIFFE RENTI AL/PL ATELE T platelets 280 x10e3 /uL 150-45 0 normal Not Available [facility] ([facility]) [address] [facility], [place], [address], 12/24/2024 09:07:10 12/20/19 25 12/20/2024 CBC WITH DIFFE RENTI AL/PL ATELE T neutrophils 63 % not estab. normal Not Available [facility] ([facility]) [address] [facility], [place], [address], 12/24/2024 09:07:10 12/20/19 25 12/20/2024 CBC WITH DIFFE RENTI AL/PL ATELE T lymphs 25 % not estab. normal Not Available [facility] ([facility]) [address] [facility], [place], [address], 12/24/2024 09:07:10 12/20/19 25 12/20/2024 CBC WITH DIFFE RENTI AL/PL ATELE T monocytes 5 % not estab. normal Not Available [facility] ([facility]) [address] [facility], [place], [address], 12/24/2024 09:07:10 12/20/19 25 12/20/2024 CBC WITH DIFFE RENTI AL/PL ATELE T eos 5 % not estab. normal Not Available [facility] ([facility]) [address] [facility], [place], [address], 12/24/2024 09:07:10 12/20/19 25 12/20/2024 CBC WITH DIFFE RENTI AL/PL ATELE T basos 1 % not estab. normal Not Available [facility] ([facility]) [address] [facility], [place], [address], 12/24/2024 09:07:10 12/20/19 25 12/20/2024 CBC WITH DIFFE RENTI AL/PL ATELE T immature cells CHILD PSYCHOLOGIST Not Available [facility] ([facility]) [address] [facility], [place], [address], 12/24/2024 09:07:10 12/20/1912/20/2024 CBC WITH DIFFE RENTI AL/PL ATELE T neutrophils (absolute) 6.9 x10e3 /uL 1.4-7. 0 normal Not Available [facility] ([facility]) [address] [place], [address], 12/24/2024 09:07:10 12/20/19 25 12/20/2024 CBC WITH DIFFE RENTI AL/PL ATELE T lymphs (absolute) 2.6 x10e3 /uL 0.7-3. 1 normal Not Available [facility] ([facility]) [address] [facility], [place], [address], 12/24/2024 09:07:10 12/20/19 25 12/20/2024 CBC WITH DIFFE RENTI AL/PL ATELE T monocytes(ab solute) 0.5 x10e3 /uL 0.1-0. 9 normal Not Available [facility] ([facility]) [address] [place], [address], 12/24/2024 09:07:10 12/20/19 25 12/20/2024 CBC WITH DIFFE RENTI AL/PL ATELE T eos (absolute) 0.5 x10e3 /uL 0.0-0. 4 above high normal Not Available [facility] ([facility]) [address] [place], [address], 12/24/2024 09:07:10 12/20/19 25 12/20/2024 CBC WITH DIFFE RENTI AL/PL ATELE T baso (absolute) 0.1 x10e3 /uL 0.0-0. 2 normal Not Available [facility] ([facility]) [address] [place], [address], 12/24/2024 09:07:10 0512/20/2024 CBC WITH DIFFE RENTI AL/PL ATELE T immature granulocytes 1 % not estab. Not Available [facility] ([facility]) [address] [facility], [place], [address], 12/24/2024 09:07:10 12/20/19 25 12/20/2024 CBC WITH DIFFE RENTI AL/PL ATELE T immature grans (abs) 0.1 x10e3 /uL 0.0-0. 1 Not Available [facility] ([facility]) [address] [facility], [place], [address], 12/24/2024 09:07:10 12/20/1912/20/2024 CBC WITH DIFFE RENTI AL/PL ATELE T NRBC CHILD PSYCHOLOGIST Not Available [facility] ([facility]) [address] [facility], [place], [address], 12/24/2024 09:07:10 12/20/1912/20/2024 CBC WITH DIFFE RENTI AL/PL ATELE T hematology comments: CHILD PSYCHOLOGIST Not Available [facility] ([facility]) [address] [facility], [place], [address], 12/24/2024 09:07:10 12/20/1912/20/2024 ALPHA -GAL IGE PANEL class description Commen t Level s of Speci fic IgE Class Descr iptio n of Class ----- ----- ----- ----- ----- -- ----- ----- ----- ----- ----- < 0.10 0 Negat anh 0.10 - 0.31 0/I Equiv ocal/ Low 0.32 - 0.55 I Low 0.56 - 1.40 II Moder ate 1.41 - 3.90 III High 3.91 - 19.00 IV Very High 19.01 - 100.0 0 V Very High >100. 00 Very High Not Available [facility] ([facility]) [address] [facility], [place], [address], 12/24/2024 09:07:11 12/20/1912/24/2024 ALPHA -GAL IGE PANEL immunoglobul in E, total 3 IU/mL 6-495 below low normal Not Available [facility] ([facility]) [address] [facility], [place], [address], 12/24/2024 09:07:11 12/20/1912/24/2024 ALPHA -GAL IGE PANEL W364-EoU pork <0.10 kU/L class 0 Not Available [facility] ([facility]) [address] [facility], [place], [address], 12/24/2024 09:07:11 12/20/1912/24/2024 ALPHA -GAL IGE PANEL B975-FnF beef <0.10 kU/L class 0 Not Available [facility] ([facility]) [address] [facility], [place], [address], 12/24/2024 09:07:11 12/20/1912/24/2024 ALPHA -GAL IGE PANEL Z873-YlO perdue <0.10 kU/L class 0 Not Available [facility] ([facility]) [address] [facility], [place], [address], 12/24/2024 09:07:11 12/20/1912/24/2024 ALPHA -GAL IGE PANEL O208-JbF alpha-gal 0.14 kU/L class 0/I abnormal Not Available [facility] ([facility]) [address] [place], [address], 12/24/2024 09:07:11 12/20/1912/20/2024 LYME DISEA SE SEROL OGY W/REF YULI lyme total antibody kirk Negati ve negati ve Lyme antib odies not detec lucy. Refle x testi ng is not indic ated. No labor atory evide nce of infec tion with B. burgd orfer i (Lyme disea se). Negat anh resul ts may occur in patie nts recen tly infec lucy (less than or equal to 14 days) with B. valdo baumann i. If recen t infec tion is suspe cted, repea t testi ng on a new sampl e colle cted in 7 to 14 days is recom see ibarra Not Available [facility] ([facility]) [address], [place], [address], 12/24/2024 09:07:11 12/20/19 25 12/19/2024 rapid SARS CoV + SARS CoV 2 Ag, QL IA, respi rator y speci men SARS CoV antigen Negati ve Not Available [address], [address], 12/19/2024 11:55:36 12/20/19 25 12/19/2024 rapid strep group A, throa t Strep positi ve Not Available [address], [address], 12/19/2024 11:55:24 12/20/19 25 12/19/2024 rapid strep group A, throa t Culture No Not Available [address], [address], 12/19/2024 11:55:24 12/20/19 25 12/19/2024 rapid flu (A+B) Flu negati ve Not Available [address], [address], 12/19/2024 11:55:14 12/20/19 25 12/19/2024 rapid flu (A+B) Type Both A & B Not Available [address], [address], 12/19/2024 11:55:14 01/07/20 25 01/07/2025 CBC WITH DIFFE RENTI AL/PL ATELE T WBC 6.4 x10e3 /uL 3.4-10 .8 normal Not Available [facility] ([facility]) [address] [place], [address], 01/10/2025 06:08:38 01/07/20 25 01/07/2025 CBC WITH DIFFE RENTI AL/PL ATELE T RBC 5.23 x10e6 /uL 3.77-5 .28 normal Not Available [facility] ([facility]) [address] [place], [address], 01/10/2025 06:08:38 01/07/2001/07/2025 CBC WITH DIFFE RENTI AL/PL ATELE T hemoglobin 14.9 g/dL 11.1-1 5.9 normal Not Available [facility] ([facility]) [address] [place], [address], 01/10/2025 06:08:38 01/07/20 25 01/07/2025 CBC WITH DIFFE RENTI AL/PL ATELE T hematocrit 46.2 % 34.0-4 6.6 normal Not Available [facility] ([facility]) [address] [place], [address], 01/10/2025 06:08:38 01/07/2001/07/2025 CBC WITH DIFFE RENTI AL/PL ATELE T MCV 88 fL 79-97 normal Not Available [facility] ([facility]) [address] [place], [address], 01/10/2025 06:08:38 01/07/20 25 01/07/2025 CBC WITH DIFFE RENTI AL/PL ATELE T MCH 28.5 pg 26.6-3 3.0 normal Not Available [facility] ([facility]) [address] [place], [address], 01/10/2025 06:08:38 06/09/01/07/2025 CBC WITH DIFFE RENTI AL/PL ATELE T MCHC 32.3 g/dL 31.5-3 5.7 normal Not Available [facility] ([facility]) [address] [place], [address], 01/10/2025 06:08:38 01/07/20 25 01/07/2025 CBC WITH DIFFE RENTI AL/PL ATELE T RDW 13.1 % 11.7-1 5.4 Not Available [facility] ([facility]) [address] [facility], [place], [address], 01/10/2025 06:08:38 01/07/2001/07/2025 CBC WITH DIFFE RENTI AL/PL ATELE T platelets 350 x10e3 /uL 150-45 0 normal Not Available [facility] ([facility]) [address] [place], [address], 01/10/2025 06:08:38 01/07/20 25 01/07/2025 CBC WITH DIFFE RENTI AL/PL ATELE T neutrophils 53 % not estab. normal Not Available [facility] ([facility]) [address] [place], [address], 01/10/2025 06:08:38 01/07/20 25 01/07/2025 CBC WITH DIFFE RENTI AL/PL ATELE T lymphs 34 % not estab. normal Not Available [facility] ([facility]) [address] [place], [address], 01/10/2025 06:08:38 01/07/20 25 01/07/2025 CBC WITH DIFFE RENTI AL/PL ATELE T monocytes 7 % not estab. normal Not Available [facility] ([facility]) [address] [place], [address], 01/10/2025 06:08:38 01/07/20 25 01/07/2025 CBC WITH DIFFE RENTI AL/PL ATELE T eos 3 % not estab. normal Not Available [facility] ([facility]) [address] [place], [address], 01/10/2025 06:08:38 01/07/20 25 01/07/2025 CBC WITH DIFFE RENTI AL/PL ATELE T basos 2 % not estab. normal Not Available [facility] ([facility]) [address] [facility], [place], [address], 01/10/2025 06:08:38 01/07/20 25 01/07/2025 CBC WITH DIFFE RENTI AL/PL ATELE T immature cells CHILD PSYCHOLOGIST Not Available [facility] ([facility]) [address] [place], [address], 01/10/2025 06:08:38 01/07/20 25 01/07/2025 CBC WITH DIFFE RENTI AL/PL ATELE T neutrophils (absolute) 3.4 x10e3 /uL 1.4-7. 0 normal Not Available [facility] ([facility]) [address] [place], [address], 01/10/2025 06:08:38 01/07/20 25 01/07/2025 CBC WITH DIFFE RENTI AL/PL ATELE T lymphs (absolute) 2.2 x10e3 /uL 0.7-3. 1 normal Not Available [facility] ([facility]) [address] [place], [address], 01/10/2025 06:08:38 01/07/20 25 01/07/2025 CBC WITH DIFFE RENTI AL/PL ATELE T monocytes(ab solute) 0.4 x10e3 /uL 0.1-0. 9 normal Not Available [facility] ([facility]) [address] [place], [address], 01/10/2025 06:08:38 01/07/20 25 01/07/2025 CBC WITH DIFFE RENTI AL/PL ATELE T eos (absolute) 0.2 x10e3 /uL 0.0-0. 4 normal Not Available [facility] ([facility]) [address] [place], [address], 01/10/2025 06:08:38 01/07/20 25 01/07/2025 CBC WITH DIFFE RENTI AL/PL ATELE T baso (absolute) 0.1 x10e3 /uL 0.0-0. 2 normal Not Available [facility] ([facility]) [address] [facility], [place], [address], 01/10/2025 06:08:38 01/07/20 25 01/07/2025 CBC WITH DIFFE RENTI AL/PL ATELE T immature granulocytes 1 % not estab. Not Available [facility] ([facility]) [address] [place], [address], 01/10/2025 06:08:38 01/07/20 25 01/07/2025 CBC WITH DIFFE RENTI AL/PL ATELE T immature grans (abs) 0.1 x10e3 /uL 0.0-0. 1 Not Available [facility] ([facility]) [address] [place], [address], 01/10/2025 06:08:38 01/07/20 25 01/07/2025 CBC WITH DIFFE RENTI AL/PL ATELE T NRBC CHILD PSYCHOLOGIST Not Available [facility] ([facility]) [address] [place], [address], 01/10/2025 06:08:38 01/07/20 25 01/07/2025 CBC WITH DIFFE RENTI AL/PL ATELE T hematology comments: CHILD PSYCHOLOGIST Not Available [facility] ([facility]) [address] [place], [address], 01/10/2025 06:08:38 01/07/20 25 01/07/2025 COMP. METAB OLIC PANEL (14) glucose 107 mg/dL 70-99 above high normal Not Available [facility] ([facility]) [address] [place], [address], 01/10/2025 06:08:38 01/07/20 25 01/07/2025 COMP. METAB OLIC PANEL (14) BUN 8 mg/dL 6-24 normal Not Available [facility] ([facility]) [address] [place], [address], 01/10/2025 06:08:38 01/07/20 25 01/07/2025 COMP. METAB OLIC PANEL (14) creatinine 0.73 mg/dL 0.57-1 .00 normal Not Available [facility] ([facility]) [address] [place], [address], 01/10/2025 06:08:38 01/07/20 25 01/07/2025 COMP. METAB OLIC PANEL (14) eGFR 100 mL/mi n/1.7 3 >59 normal Not Available [facility] ([facility]) [address] [place], [address], 01/10/2025 06:08:38 01/07/20 25 01/07/2025 COMP. METAB OLIC PANEL (14) BUN/creatini ne ratio 11 9-23 normal Not Available [facility] ([facility]) [address] [place], [address], 01/10/2025 06:08:38 01/07/20 25 01/07/2025 COMP. METAB OLIC PANEL (14) sodium 140 mmol/ L 134-14 4 normal Not Available [facility] ([facility]) [address] [place], [address], 01/10/2025 06:08:38 01/07/20 25 01/07/2025 COMP. METAB OLIC PANEL (14) potassium 4.1 mmol/ L 3.5-5. 2 normal Not Available [facility] ([facility]) [address] [place], [address], 01/10/2025 06:08:38 01/07/20 25 01/07/2025 COMP. METAB OLIC PANEL (14) chloride 102 mmol/ L 96-106 normal Not Available [facility] ([facility]) [address] [place], [address], 01/10/2025 06:08:38 01/07/20 25 01/07/2025 COMP. METAB OLIC PANEL (14) carbon dioxide, total 22 mmol/ L 20-29 normal Not Available [facility] ([facility]) [address] [place], [address], 01/10/2025 06:08:38 01/07/20 25 01/07/2025 COMP. METAB OLIC PANEL (14) calcium 9.3 mg/dL 8.7-10 .2 normal Not Available [facility] ([facility]) [address] [place], [address], 01/10/2025 06:08:38 01/07/20 25 01/07/2025 COMP. METAB OLIC PANEL (14) protein, total 6.7 g/dL 6.0-8. 5 normal Not Available [facility] ([facility]) [address] [place], [address], 01/10/2025 06:08:38 01/07/20 25 01/07/2025 COMP. METAB OLIC PANEL (14) albumin 4.2 g/dL 3.9-4. 9 normal Not Available [facility] ([facility]) [address] [place], [address], 01/10/2025 06:08:38 01/07/20 25 01/07/2025 COMP. METAB OLIC PANEL (14) globulin, total 2.5 g/dL 1.5-4. 5 Not Available [facility] ([facility]) [address] [place], [address], 01/10/2025 06:08:38 01/07/20 25 01/07/2025 COMP. METAB OLIC PANEL (14) bilirubin, total 0.3 mg/dL 0.0-1. 2 normal Not Available [facility] ([facility]) [address] [place], [address], 01/10/2025 06:08:38 01/07/20 25 01/07/2025 COMP. METAB OLIC PANEL (14) alkaline phosphatase 105 IU/L 44-121 normal Not Available [facility]) [address] [place], [address], 01/10/2025 06:08:38 01/07/20 25 01/07/2025 COMP. METAB OLIC PANEL (14) AST (SGOT) 20 IU/L 0-40 normal Not Available [facility] ([facility]) [address] [place], [address], 01/10/2025 06:08:38 01/07/20 25 01/07/2025 COMP. METAB OLIC PANEL (14) ALT (SGPT) 18 IU/L 0-32 normal Not Available [facility] ([facility]) [address] [place], [address], 01/10/2025 06:08:38 01/07/20 25 01/07/2025 ALPHA -GAL IGE PANEL class description Commen t Level s of Speci fic IgE Class Descr iptio n of Class ----- ----- ----- ----- ----- -- ----- ----- ----- ----- ----- < 0.10 0 Negat anh 0.10 - 0.31 0/I Equiv ocal/ Low 0.32 - 0.55 I Low 0.56 - 1.40 II Moder ate 1.41 - 3.90 III High 3.91 - 19.00 IV Very High 19.01 - 100.0 0 V Very High >100. 00 Very High Not Available [facility] ([facility]) [address] [place], [address], 01/10/2025 06:08:39 01/07/20 25 01/10/2025 ALPHA -GAL IGE PANEL immunoglobul in E, total 4 IU/mL 6-495 below low normal Not Available [facility] ([facility]) [address] [place], [address], 01/10/2025 06:08:39 01/07/20 25 01/10/2025 ALPHA -GAL IGE PANEL H028-FxA pork <0.10 kU/L class 0 Not Available [facility] ([facility]) [address] [place], [address], 01/10/2025 06:08:39 01/07/20 25 01/10/2025 ALPHA -GAL IGE PANEL T241-KyF beef <0.10 kU/L class 0 Not Available [facility] ([facility]) [address] [place], [address], 01/10/2025 06:08:39 01/07/20 25 01/10/2025 ALPHA -GAL IGE PANEL C630-BvG perdue <0.10 kU/L class 0 Not Available [facility] ([facility]) [address] [place], [address], 01/10/2025 06:08:39 01/07/20 25 01/10/2025 ALPHA -GAL IGE PANEL H962-BnH alpha-gal 0.22 kU/L class 0/I abnormal Not Available [facility] ([facility]) [address] [place], [address], 01/10/2025 06:08:39 01/07/20 25 01/07/2025 SU+L IPASE amylase 36 U/L 31-110 normal Not Available [facility] ([facility]) [address] [place], [address], 01/10/2025 06:08:39 01/07/20 25 01/07/2025 SU+L IPASE lipase 30 U/L 14-72 normal Not Available [facility] ([facility]) [address] [place], [address], 01/10/2025 06:08:39 01/07/20 25 01/07/2025 LYME DISEA SE SEROL OGY W/REF YULI lyme total antibody kirk Negati ve negati ve Lyme antib odies not detec lucy. Refle x testi ng is not indic ated. No labor atory evide nce of infec tion with B. burgd orfer i (Lyme disea se). Negat anh resul ts may occur in patie nts recen tly infec lucy (less than or equal to 14 days) with B. burgd orfer i. If recen t infec tion is suspe cted, repea t testi ng on a new sampl e colle cted in 7 to 14 days is recom see d. Not Available [facility] ([facility]) [address] [place], [address], 01/10/2025 06:08:40 01/07/20 25 01/10/2025 ALLER GENS( 21) FOOD K814-LmW egg white <0.10 kU/L class 0 Not Available [facility] ([facility]) [address] [place], [address], 01/10/2025 06:08:40 01/07/20 25 01/10/2025 ALLER GENS( 21) FOOD L195-PdV milk <0.10 kU/L class 0 Not Available [facility] ([facility]) [address] [place], [address], 01/10/2025 06:08:40 01/07/20 25 01/10/2025 ALLER GENS( 21) FOOD Q824-NnN codfish <0.10 kU/L class 0 Not Available [facility] ([facility]) [address] [facility] [place], [id number], 01/10/2025 06:08:40 01/07/20 25 01/10/2025 ALLER GENS( 21) FOOD [id number]-AgT wheat <0.10 kU/L class 0 Not Available [facility] ([facility]) [address] [place], [id number], 01/10/2025 06:08:40 01/07/20 25 01/10/2025 ALLER GENS( 20) FOOD P196-HdO rye <0.10 kU/L class 0 Not Available [facility] ([facility]) [address] [facility] [place], [id number], 01/10/2025 06:08:40 01/07/20 25 01/10/2025 ALLER GENS( 21) FOOD D573-CvV barley <0.10 kU/L class 0 Not Available [facility] ([facility]) [address] [facility] [place], [id number], 01/10/2025 06:08:40 01/07/20 25 01/10/2025 ALLER GENS( 21) FOOD N484-ErB oat <0.10 kU/L class 0 Not Available [facility] ([facility]) [address] [facility] [place], [id number], 01/10/2025 06:08:40 01/07/20 25 01/10/2025 ALLER GENS( 21) FOOD A070-MlP corn <0.10 kU/L class 0 Not Available [facility] ([place] [facility]) [address] [facility] [place], [id number], 01/10/2025 06:08:40 01/07/20 25 01/10/2025 ALLER GENS( 21) FOOD K633-MqO rice <0.10 kU/L class 0 Not Available [facility] ([place] [facility]) [address] [facility] [place], [id number], 01/10/2025 06:08:40 01/07/20 25 01/10/2025 ALLER GENS( 21) FOOD A882-NhZ peanut <0.10 kU/L class 0 Not Available [facility] ([facility]) [address] [place], [address], 01/10/2025 06:08:40 01/07/20 25 01/10/2025 ALLER GENS( 21) FOOD I391-NwI soybean <0.10 kU/L class 0 Not Available [facility] ([facility]) [address] [place], [address], 01/10/2025 06:08:40 01/07/20 25 01/10/2025 ALLER GENS( 21) FOOD R757-ZoW crab <0.10 kU/L class 0 Not Available [facility] ([facility]) [address] [place], [address], 01/10/2025 06:08:40 01/07/20 25 01/10/2025 ALLER GENS( 21) FOOD A127-NfV shrimp <0.10 kU/L class 0 Not Available [facility] ([facility]) [address] [place], [address], 01/10/2025 06:08:40 01/07/20 25 01/10/2025 ALLER GENS( 21) FOOD H262-UqG tomato <0.10 kU/L class 0 Not Available [facility] ([facility]) [address] [place], [address], 01/10/2025 06:08:40 01/07/20 25 01/10/2025 ALLER GENS( 21) FOOD G795-DwV orange <0.10 kU/L class 0 Not Available [facility] ([facility]) [address] [place], [address], 01/10/2025 06:08:40 01/07/20 25 01/10/2025 ALLER GENS( 21) FOOD X395-HqZ potato, white <0.10 kU/L class 0 Not Available [facility] ([facility]) [address] [place], [address], 01/10/2025 06:08:40 01/07/20 25 01/10/2025 ALLER GENS( 21) FOOD C584-RlW yeast <0.10 kU/L class 0 Not Available [facility] ([facility]) [address] [facility], [place], [address], 01/10/2025 06:08:40 01/07/20 25 01/10/2025 ALLER GENS( 21) FOOD D935-UsW garlic <0.10 kU/L class 0 Not Available [facility] ([facility]) [address] [facility], [place], [address], 01/10/2025 06:08:40 01/07/20 25 01/10/2025 ALLER GENS( 21) FOOD U135-XtL chicken <0.10 kU/L class 0 Not Available [facility] ([facility]) [address] [facility], [place], [address], 01/10/2025 06:08:40 01/11/20 25 01/10/2025 HbA1c (hemo globi n A1c), blood HbA1C 6.2 % Not Available [address], [address], 01/10/2025 08:45:37 01/11/20 25 01/10/2025 HbA1c (hemo globi n A1c), blood HbA1C 6.2 % Not Available [address], [address], 01/10/2025 16:38:06 04/11/20 25 04/11/2025 urina lysis , dipst ick Leukocytes Negati ve Not Available [address], [address], 04/11/2025 10:41:30 04/11/20 25 04/11/2025 urina lysis , dipst ick Nitrite negati ve Not Available [address], [address], 04/11/2025 10:41:30 04/11/20 25 04/11/2025 urina lysis , dipst ick Urobilinogen 1 Not Available [facility] [address], [address], 04/11/2025 10:41:30 04/11/2004/11/2025 urina lysis , dipst ick Protein Negati ve Not Available [address], [address], 04/11/2025 10:41:30 04/11/20 25 04/11/2025 urina lysis , dipst ick pH 7.0 Not Available [address], [address], 04/11/2025 10:41:30 04/11/20 25 04/11/2025 urina lysis , dipst ick Blood Negati ve Not Available [address], [address], 04/11/2025 10:41:30 04/11/2004/11/2025 urina lysis , dipst ick Specific Wolsey 1.015 Not Available [address], [address], 04/11/2025 10:41:30 04/11/20 25 04/11/2025 urina lysis , dipst ick Ketone Negati ve Not Available [address], [address], 04/11/2025 10:41:30 04/11/20 25 04/11/2025 urina lysis , dipst ick Bilirubin Negati ve Not Available [address], [address], 04/11/2025 10:41:30 04/11/20 25 04/11/2025 urina lysis , dipst ick Glucose Negati ve Not Available [address], [address], 04/11/2025 10:41:30 04/11/20 25 04/11/2025 urina lysis , dipst ick Appearance Clear Not Available [address], [address], 04/11/2025 10:41:30 04/11/20 25 04/11/2025 urina lysis , dipst ick Color Yellow Not Available [address], [address], 04/11/2025 10:41:30 03/17/20 25 03/17/2025 XR, lumbo sacra l spine , 2 or 3 view No observ ation record ed. [facility] [address], [place], [address], 03/17/2025 16:55:47 04/11/2004/11/2025 CT, abdom en + pelvi s, w/ contr ast No observ ation record ed. [facility] [address], [place], [address], 04/16/2025 10:07:25 Result Notes None recorded. Problems Name Problem SNOMED Code Status Onset Date Resolution Date Notes Provider Name and Address Organization Details Recorded Time Hyperlipidemi a 61340304 Active 2019 Katina Rodriguez, BUSINESS AFFAIRS MANAGER [address], [place], [address] , [place] - [facility] 2 13:05:27 Menopause Active 2019 Charu Watts null, [place] - [facility] 0 15:22:09 Fasciitis 42675841 Active 2019 Charu Watts null, [place] - [facility] 0 15:22:19 Sciatica 79750097 Active 2019 Charu Watts null, [place] [facility] 0 15:22:40 History of substance abuse 633864534 Active 2021 pain pills for years Katina Tierneyanthonyronald, BUSINESS AFFAIRS MANAGER [address], [place], [address] , [place] - [facility] 2 13:05:25 Multiple nodules of lung 056723551 Active 2021 Cynthiamaurice VIKI bellN [address], [place], [address] , [place] - [facility] 2 11:49:30 Depressive disorder 37058137 Active 2021 Katina Tierneyarabella, BUSINESS AFFAIRS MANAGER [address], [place], [address] , [place] - [facility] 2 13:05:42 Problem Notes None recorded. Procedures Surgical History Date Name Laterality Status Provider Name and Address Organization Details Recorded Time 10/16/19 22 Orthopedic Surgery completed Gloria Gleason [place] - [facility] 02/11/2022 11:23:59 07/31/19 20 Cardiac Cath completed Gloria Valles [place] - [facility] 02/11/2022 11:23:59 12/31/19 15 Hysterectomy, Total laparoscopic completed Kathy Roque APRN [address], [place], [address], [place] [facility] 04/23/2020 13:05:52 12/31/19 15 excision of bilateral fallopian tubes and ovaries completed Kathy Roque APRN [address], [place], [address], [place] [facility] 04/23/2020 13:04:58 07/31/19 15 Hysterectomy completed Gloria Gleason [place] [facility] 02/11/2022 11:23:59 04/30/20 08 ligation of bilateral fallopian tubes completed Kathy Roque, BUSINESS AFFAIRS MANAGER [address], [place], [address], [place] [facility] 04/17/2020 15:15:55 07/31/19 08 Tubal Ligation completed Gloria Valles [place] - [facility] 02/11/2022 11:23:59 05/03/20 07 removal of intrauterine device completed Kathy Rqoue APRN [address], [place], [address], [place] [facility] 04/17/2020 15:14:40 11/24/19 07 insertion of intrauterine contraceptive device completed Kathy Roque APRN [address], [place], [address], [place] [facility] 04/17/2020 15:14:18 07/31/19 05 IUD Insertion completed [place] Valles [place] [facility] 02/11/2022 11:23:59 01/28/19 96 cryosurgery of lesion of cervix completed Kathy Roque APRN [address], [place], [address], [place] [facility] 04/17/2020 15:15:23 07/31/18 96 Cyrosurgery of Cervix completed [place] Valles [place] [facility] 02/11/2022 11:23:59 procedure on [place] completed Charu [place] [facility] 04/17/2020 15:29:26 Imaging Results None recorded. Procedure Notes None recorded. Medical Equipment None Reported. Allergies Allergen ID Allergen Name Allergen Category Reaction Reaction Severity Criticality Documentation Date Start Date Code Code System Note Provider Name and Address Organization Details Recorded Time 644136 codeine medicatio n Not available Not available Not available 04/17/2020 2670 RxNorm Gloria Stears null, [place] - [facility] 2 11:24:18 77190 codeine phosphate medicatio n Not available Not available Not available 05/06/20162008 2672 RxNorm Not Available [facility] 6 08:49:04 11281 Zantac medicatio n Not available Not available Not available 05/06/20162008 07361 3 RxNorm Not Available [facility] 6 08:49:04 07226 latex environme nt,medica tion Not available Not available Not available 05/06/20162008 04125 91 RxNorm Not Available [facility] 6 08:49:05 Medications Name Sig Start Date [...] Status: Recorded on: 04/12/20 11 3:26PM;U ser: [email or web address] ;Est. Completi on: 10/09/19 12;Indic ation: Depressi [...] nued on: 11/25/19 09 11:13AM; User: [email or web address] ;Est. Completi on: 12/09/19 09;Print ed: 10/10/19 Not [...] Disconti nued on: 07/02/20 09 4:17PM;U ser: [email or web address] ;Indicat ion: Pain - (6600 00) Not Available Not Available Not Available [...] nued on: 03/30/20 10 5:47PM;U ser: [email or web address] ;Est. Completi on: 01/10/20 10;Indic ation: Pediculo sis Capitis - (1320 00);Prin lucy: 01/08/20 10 Not Available Not Available Not Available Seroquel 25 mg tablet take 1 tablet (25 mg) by oral route qhs 11/27 completed Seroquel Oral Tablet 25 mg;Recor ded Status: Recorded on: 05/31/20 10 11:49AM; User: angelito MilesEst. Completi on: 11/28/19 11;Print ed: 05/31/20 10 Not [...] Completi on: 01/13/20 09;Indic ation: Migraine - (565) Not Available Not Available Not Available Ultram 50 mg tablet take 1 tablet (50 mg) by oral route every 6 hours as needed 04/17 completed Ultram Oral Tablet 50 mg;Recor ded Status: Recorded on: 04/05/20 11 1:55PM;U ser: [email or web address];I ndicatio n: Pain - (3441 );Prin lucy: 04/05/20 11 Not Available Not [...] nued on: 05/31/20 10 11:49AM; User: angelito MilesEst. Completi on: 05/29/20 10;Indic ation: Depressi on [...] Disconti nued on: 04/08/20 11 1:15PM;U ser: [email or web address] alejandro Est. Completi on: 04/13/20 11;Indic ation: Bacteria [...] Disconti nued on: 04/05/20 11 12:57PM; User: angelito MliesEstArabella Completi on: 07/19/20 10;Indic ation: Herpes Labialis [...] on: 06/12/20 08;Indic ation: Panic Disorder - (3000 ) Not Available Not Available Not Available oxycodone [...] youngk;E st. Completi on: 04/15/20 11;Indic ation: Acute Gonococc al Cervicit is - ();Prin lucy: 04/08/20 11 Not Available Not Available [...] 09 4:17PM;U ser: [email or web address] ;Est. Completi on: 01/07/20 09 Not Available [...] 09;Indic ation: Secondar y Amenorrh ea - (10.6260 02);Prin lucy: 11/18/19 09 Not Available Not Available Not Available etodolac 400 mg tablet take 1 tablet (400 mg) by oral route every 8 hours as needed with food 11/24 completed Etodolac Oral Tablet 400 mg;Recor ded Status: Recorded on: 08/05/19 09 5:15PM;D iscontin ued Status: Disconti nued on: 11/25/19 09 11:38AM; User: [email or web address] ;Est. Completi on: 12/04/19 09;Indic ation: Pain - (16.3829 00) Not Available Not Available Not Available hydroxyzi ne HCl 25 mg tablet take 1-2 tablets by oral route QID PRN and prn sleep 05/29 completed Hydroxyz ine HCl Oral Tablet 25 mg;Recor ded Status: Recorded on: 03/30/20 10 6:26PM;U ser: [email or web address] ;Est. Completi on: 05/29/20 10;Indic ation: Anxiety [...] Status: Recorded on: 04/12/20 11 3:28PM;U ser: [email or web address] ;Est. Completi on: 10/09/19 12;Indic ation: Migraine - (3469 00);Prin lucy: 04/12/20 11 Not Available Not Available Not Available Pepcid 20 mg tablet 1 po bid 06/03 completed Pepcid Oral Tablet 20 mg;Recor ded Status: Recorded on: 05/03/20 08 10:04PM; Disconti nued Status: Disconti nued on: 06/03/20 08 2:14PM;U ser: [email or web address] Not Available Not Available Not Available polyethyl [...] e 50 mcg/actua tion nasal spray,[place] 1 spray every day by intranas al [...] Disconti nued on: 06/03/20 08 2:14PM;U ser: [email or web address] Not Available Not Available Not Available Vitamin [...] Available Not Available Not Available Afluria Qd 2018- (36 mos up)(PF)60 mcg (15 mcg x4)/0.5 mL IM syringe 04/17 completed Not Available Not Available Not Available [employer] At-Home COVID-19 Test kit active Not Available Not Available Not Available Vitals Date Recorded Body height Body mass index (BMI) Body weight Body temperature Heart rate Oxygen saturation Oxygen saturation in Arterial blood by Pulse oximetry Respiratory rate Pain severity - 0-10 verbal numeric rating [Score] - Reported Systolic And Diastolic Provider Name and Address Organization Details Last Updated DateTime 3 154.94 cm 26.8 kg/m2 23469.1 2 g 97.3 [degF] 93 /min 97 % 97 % 18 /min 0 120/78 mm[Hg] Madhuri Andrade [place] - [facility] 3 10:19:52 Date Recorded Body weight Body temperature Heart rate Oxygen saturation Oxygen saturation in Arterial blood by Pulse oximetry Respiratory rate Pain severity - 0-10 verbal numeric rating [Score] - Reported Systolic And Diastolic Provider Name and Address Organization Details Last Updated DateTime 5 80740.3 4 g 97.2 [degF] 87 /min 96 % 96 % 18 /min 0 98/60 mm[Hg] Madhuri Andrade [place] - [facility] 5 11:58:20 Date Recorded Body height Body mass index (BMI) Body weight Body temperature Heart rate Oxygen saturation Oxygen saturation in Arterial blood by Pulse oximetry Respiratory rate Systolic And Diastolic Provider Name and Address Organization Details Last Updated DateTime 5 154.94 cm 25.3 kg/m2 37969.3 8 g 97.8 [degF] 88 /min 97 % 97 % 18 /min 104/62 mm[Hg] Gloria Gleason [place] - [facility] 5 10:43:15 Date Recorded Body height Provider Name an d Address Organization Details Last Updated DateTime 01/10/2025 154.94 cm Madhuri Finneyler [place] - [facility] 0 01/10/2025 16:20:49 Date Recorded Body height Body mass index (BMI) Body weight Heart rate Body temperature Oxygen saturation Oxygen saturation in Arterial blood by Pulse oximetry Respiratory rate Pain severity - 0-10 verbal numeric rating [Score] - Reported Systolic And Diastolic Provider Name and Address Organization Details Last Updated DateTime 5 154.94 cm 26.1 kg/m2 30329.7 5 g 59 /min 97.6 [degF] 97 % 97 % 18 /min 8 104/58 mm[Hg] Madhuri Finneyler [place] - [facility] 5 10:09:36 Social History Question Answer Notes LastModified by Organizat ion Details LastModified Time Tobacco Smoking Status Current Every Day Smoker Charu tomlinson [place] - [facility] 04/17/2020 15:26:46 Do You Have An Advance Directive? No [email or web address] Information not available 04/17/2020 Are You Blind Or Do You Have Difficulty Seeing? No Information not available 02/11/2022 Is Blood Transfusion Acceptable In An Emergency? Yes [email or web address] Information not available 04/17/2020 What Is Your Level Of Caffeine Consumption? Moderate Information not available 04/17/2020 How Much Tobacco Do You Chew? None [email or web address] Information not available 04/17/2020 Are You Deaf Or Do You Have Serious Difficulty Hearing? No [email or web address] Information not available 04/17/2020 What Type Of Diet Are You Following? REGULAR [email or web address] Information not available 04/17/2020 Which Illicit Or Recreational Drugs Have You Used? None [email or web address] Information not available 04/17/2020 What Is The Highest Grade Or Level Of School You Have Completed Or The Highest Degree You Have Received? [id number] Information not available 02/11/2022 How Many Days [...] Do You Have A Medical Power Of Adjunct Political Science Instructor? No Information not available 02/11/2022 What Was [...] available 02/11/2022 What Is Your Relationship Status? [email or web address] Information not available 04/17/2020 Do You Use Your Seat Belt Or Car Seat Routinely? Yes Information not available 02/11/2022 Seat Belts Used Routinely Yes Information not available 02/11/2022 Are You Sexually Active? Yes [email or web address] Information not available 04/17/2020 Do You Have [...] 02/11/2022 Do You Use Sunscreen Routinely? Yes [email or web address] Information not available 04/17/2020 Has Tobacco Cessation [...] is your level of alcohol consumption? None [email or web address] Information not available 04/17/2020 Do you or have you ever used smokeless tobacco? Never used smokeless tobacco [email or web address] Information not available 04/17/2020 Are you currently [...] e-cigarettes or vape? Never used electronic cigarettes [email or web address] Information not available 04/17/2020 What is your exercise level? None [email or web address] Information not available 04/17/2020 Mental Status Question Answer Note LastModified by Organizat ion Details LastModified Time Do you feel stressed (tense, restless, nervous, or anxious, or unable to sleep at night)? [id number] Information not available 02/11/2022 Do you have difficulty concentrating, remembering or making decisions? No Information no t available 02/11/2022 Family History Relationship Description Onset Age of this Age Resolved Age Notes LastModified by Organization Details LastModified Time Maternal Grandmother Arthritis [email or web address] Not available 15:16:48 Maternal Grandmother Hypertensive disorder [email or web address] Not available 2019 15:17:19 Maternal Grandmother Hypothyroidi [...] 11:23:55 Paternal Aunt Malignant neoplasm of breast [email or web address] Not available 04/17 15:26:21 Paternal Aunt Malignant neoplasm of uterus Not available 04/17 15:26:32 Paternal Aunt Hypercholest [...] disease N Blood Diseases N Hyperthyroidism N Blood Transfusion N Rheumatoid arthritis N Erectile Dysfunction N amputation N Skin Lesions N Depression Y Pneumonia N Incontinence N Murmur N Edema N Alzheimer's Disease N Migraine Headaches N Tobacco Abuse N Anxiety Disorder Y Hemorrhoids N Muscle, Joint, or Bone Problems Y Obesity Y Vision or Eye Problems Y Arthritis Y Restless Leg Syndrome N Polyps N Infertility N Carpal Tunnel N [...] Problems N Fracture Y Colorectal Cancer N Panic Disorder N Schizophrenia N Concussion N Spina Bifida N Allergies/Hayfever Y Osteoarthritis N Parkinson's Disease N Disc Protrusion N STI N Esophagitis N Angina N Thyroid Problems N GI Problems N ADD/ADHD N Anemia N Multiple Sclerosis N Abnormal PAP Y Lumbago N Mental Illness N Psychiatric Illness N Diabetes N Ovarian Cancer N Degenerative Disc Disease Y Seizures/Epilepsy N Hyperlipidemia N Syncope N Insomnia Y Eczema N Abuse/Domestic Violence N Attention Deficient Disorder N Dementia N Ulcerative colitis N Cerebrovascular Disease N Depression N Guillain-Dupree N Sleep Apnea N Aneurysm N Bronchitis N Heart Disease N Hypertension N Pre-Eclampsia N Suicidal Ideation N Osteoporosis Y Gynecological History Statement/Question Response [...] virus, quadrivalent, PF 4 completed Not Available [facility] 04/11/2025 09:45:30 Influenza, split virus, quadrivalent, preservative 9 completed Madhuri Andrade null, [facility] 09/12/2022 10:20:11 Influenza, split virus, quadrivalent, preservative 7 [facility] 10:20:11 COVID-19 vaccine, vector-nr, rS-Ad26, PF, 0.5 mL 2 completed Madhuri Andrade null, [facility] 09/12/2022 10:20:11 COVID-19 vaccine, vector-nr, rS-Ad26, PF, 0.5 mL 1 [facility] 10:20:11 Influenza, split virus, trivalent, preservative 7 completed Madhuri Andrade null, [facility] 09/12/2022 10:20:11 Influenza, split virus, trivalent, preservative 1 completed Madhuri Andrade null, [facility] 09/12/2022 10:20:11 Influenza, split virus, trivalent, preservative 9 completed [facility] 10:20:11 Influenza, split virus, trivalent, preservative 4 completed [facility] 10:20:11 Influenza, split virus, trivalent, preservative 8 completed Mad[facility]uri Lu[place] [facility] 09/12/[facility]22 10:20:11 Influenza, split virus, trivalent, preservative 7 completed Madh[place] Lu[place] [facility] 09/12/2022 10:20:11 Influenza, split virus, trivalent, PF 8 completed Madhuri Lupe null, [facility] 09/12/2022 10:20:11 Hep B, adult 7 completed Madh[place] [facility] 09/12/2022 10:20:11 Influenza, split virus, quadrivalent, PF 8 completed [place] [facility] 09/12/2022 10:20:11 Influenza, split virus, quadrivalent, PF 3 completed [place] [facility] 09/12/2022 10:20:11 Influenza, split virus, quadrivalent, PF 1 completed Madhuri Lupe null, [facility] 09/12/2022 10:20:11 Influenza, split virus, quadrivalent, PF 0 completed Madhuri Lupe null, [facility] 09/12/2022 10:20:11 Past Encounters Encounter ID Performer Location Encounter Start Date Encounter Closed Date Diagnosis/Indication Diagnosis SNOMED-CT Code Diagnosis ICD10 Code Diagnosis IMO Codes Diagnosis Note [id number] [facility] [address] [place] [address] 10/02/2006 00:00:00 [id number] [facility] [address] [place] [address] 11/23/2006 00:00:00 [id number] [facility] [address] [place] [address] 12/20/2006 00:00:00 [id number] [facility] [address] [place] [address] 05/03/2007 00:00:00 [id number] [facility] [address] [place] [address] 11/12/2007 00:00:00 [id number] [facility] [address] [place] [address] 12/11/2007 00:00:00 [id number] [facility] [address] [place] [address] 01/11/2008 00:00:00 [id number] [facility] [address] [place] [address] 02/11/2008 00:00:00 [id number] [facility] [address] [place] [address] 05/13/2008 00:00:00 [id number] [facility] [address] [place] [address] 10/02/2006 00:00:00 [id number] [facility] [address] [place] [address] 02/11/2008 00:00:00 [id number] [facility] [address] [place] [address] 03/13/2008 00:00:00 [id number] [facility] [address] [place] [address] 04/10/2008 00:00:00 [id number] [facility] [address] [place] [address] 06/03/2008 00:00:00 [id number] [facility] [address] [place] [address] 07/03/2008 00:00:00 [id number] [facility] [address] [place] [address] 08/05/2008 00:00:00 [id number] [facility] [address] [place] [address] 08/21/2008 00:00:00 [id number] [facility] [address] [place] [address] 10/09/2008 00:00:00 [id number] [facility] [address] [place] [address] 10/09/2008 00:00:00 [id number] [facility] [address] [place] [address] 10/20/2008 00:00:00 [id number] [facility] [address] [place] [address] 11/17/2008 00:00:00 [id number] [facility] [address] [place] [address] 11/24/2008 00:00:00 [id number] [facility] [address] [place] [address] 12/16/2008 00:00:00 [id number] [facility] [address] [place] [address] 01/06/2009 00:00:00 [id number] [facility] [address] [place] [address] 02/03/2009 00:00:00 [id number] [facility] [address] [place] [address] 02/03/2009 00:00:00 [id number] [facility] [address] [place] [address] 02/17/2009 00:00:00 [id number] [facility] [address] [place] [address] 07/02/2009 00:00:00 [id number] [facility] [address] [place] [address] 03/30/2010 00:00:00 [id number] [facility] [address] [place] [address] 05/04/2010 00:00:00 [id number] [facility] [address] [place] [address] 05/31/2010 00:00:00 [id number] [facility] [address] [place] [address] 04/05/2011 00:00:00 [id number] [facility] [address] [place] [address] [address] 04/08/2011 00:00:00 [id number] [facility] [address] [place] [address] [address] 04/12/2011 00:00:00 [id number] [facility] [address] [place] [address] [address] 04/27/2011 00:00:00 [id number] KAREN Leonardo [employer] [address] [place] [address] DARY[place] Farah [address] 04/17/2020 15:06:37 04/17/2020 15:57:50 Patient medical record not available [id number] Z76.89 Vaginal discharge 779850 006 N89.8 Reviewed the various causes of vaginal problems. Reviewed good vulvar/vag inal hygiene and ways to reduce symptoms. Advised to call if treatment is not helpful or if symptoms persist or recur. Candidiasis of vagina 72 782868 B37.3 Reviewed good vulvar/vag inal hygiene and ways to reduce symptoms. Advised to call if treatment is not helpful or if symptoms persist or recur.Pt instructed to take Diflucan 1 tablet every 72 hours x 2.Urged to have partner use OTC antifungal treatment. Sebaceous cyst of skin 272777604 L72.3 A sebaceous cyst usually does not need to be treated unless it is inflamed (red) or is causing a cosmetic problem. Inflamed cysts usually are treated by draining the fluid and removing the shell that make up the cyst wall. You also may be treated with antibiotic s if the skin around the cyst is also inflamed. A cyst may disappear on its own or remain indefinite ly. [id number] Katina Rodriguez APRN [address] [address] 02/11/2022 11:01:22 02/11/2022 12:15:40 Multiple nodules of lung 285404089 R91.8 sent to pulmonolog y Hyperlipidemia 25524906 E78.5 labs Sciatica 78413171 M54.30 on lyrica Body mass index 25-29 - overweight 669393045 Z68.[address] puckett at this time I will not refill adipex. Creatine k inase level above reference range 910923938 R74.8 labs Difficulty sleeping 3013 79366 Z72.820 melaton otc Generalize d anxiety disorder 98923121 F41.1 Patient identified triggers for anxiety and impact of anxious thinking on functionin g. Discussed strategies to regulate symptoms and need for compliance with treatment. if any thoughts she can not control or any concerns stop med and go to ed kristal [id number] Katina Rodriguez [place] [address] 03/22/2022 14:59:31 03/22/2022 15:56:08 Constipation 10536030 K59.00 labs in 2 weeks Difficulty sleeping 3013 97470 Z72.820 melaton otc Cough 12312801 R05.1 [id number] Katina Rodriguez [place] [address] 09/12/2022 10:13:42 09/12/2022 10:50:19 Acute maxillary sinusitis 05124040 J01.00 [id number] [facility] [place] [address] 1 12/19/2024 11:41:56 12/19/2024 12:34:03 Low back pain 027168922 M54.50 770974 Streptococ deuce sore throat 46108608 J02.0 07831 Tick bite 61178982 W57.X XXA 58057662 keep area clean and drymonitor for s/s of infection Lyme disea se suspected 891479687 R68.89 [id number] Katina Rodriguez [place] [address] 01/06/2025 10:34:15 01/06/2025 11:11:25 Body mass index 25-29 - overweight 067545035 E66.3 07879226 25.3 Diarrhea 82290227 R19.7 24677384 Depressive disorder 3548 9007 F32.A Hyperlipidemia 48723227 E78.5 labs Tick bite 41403589 S30.8 60D W57.XXXD 96140416 labs Allergy to beef 26900965 0 T78.1XXA 5726332709 Chronic diarrhea 4209784 09 K52.9 60957 increase fluids Acute maxi llary sinusitis 39149537 J01.00 28791429 if worsen or no improvemen t returnincr ease fluid intaketyle nol or motrin for pain Acute bronchitis 7867800 2 J20.9 01516349 if worsen or no improvemen t return [id number] Katina Rodriguez APRN [address] [address] 01/10/2025 16:19:17 01/10/2025 16:33:27 Hyperglycemia 54752697 R73.9 [id number] Katina Rodriguez APRN [address] [address] 04/11/2025 09:45:12 04/11/2025 10:36:27 Lower abdominal pain 31284067 R10.30 [id number] sent to ed for eval Screening for malignant neoplasm of colon 754252254 Z12.11 640132 Health Concerns Section Related Observation LastModified by Organization Detai ls LastModified Time None Recorded Concern Status LastModified by Organization Details LastModified Time None Recorded Advance Directives Directive N: Payers Insurance Date Sequence Insurance Name Policy Number Policy Reyes Covered Member ID Reyes Member ID Guarantor Name 06/04/2025 MEDICAID-[facility] WRAP BILLING (MEDICAID) Akilah Alston [id number] Akilah Alston 06/04/2025 1 [facility] (MEDICAID HMO) Akilah Alston [id number] Akilah Alston Notes Date Note Type Note Provider Name and Address Organization Details Recorded Time 09/12/2022 text/html 46 yr old female presents with sinus issues x 2 weeks. Green drainage from nose that is super thick. Katina Rodriguez APRN [address], [place], [address], [place] - [facility] 09/12/2022 10:49:52 12/19/2024 text/html 49 yr old female presents for sore throat, body aches, fever, headache, nausea and vomiting for a few days. She would like to have her cetirizine and diclofenac refilled as well.She pulled a tick off of her left side/ under breast recently as well, would like checked for lyme dz. Katina Rodriguez APRN [address], [place], [address], [facility] - [facility] 01/20/2025 16:01:30 01/06/2025 text/html 49 year old female who presents to the office today for a follow up on a tick bite- follow up labspatient states she started running a fever 6--25, it comes and goesalso has had diarrhea x 1 week after eatinga burger, pt states happens freq when she eats beefis having to use inhaler and nebulizer due to shortness of breath and having green sinus drainage,tenderne ss and coughing up green sputum Katina Rodriguez APRN [address], [place], [address], [place] - [facility] 01/06/2025 11:57:13 01/10/2025 text/html 49 yr old female presents for a hgbA1c. Madhuri Andrade [place], [place] - [facility] 01/10/2025 16:39:41 04/11/2025 text/html ROS as noted in the HPI 49 yr old female presents for left lower abdomen/pelvic pain that is similar to the pain she had in 2009 with severe colitis and ruptured colon, spent 4 days in hospital. Denies nausea and vomiting. Katina Rodriguez APRN [address], [place], [address], [place] - [facility] 04/11/2025 10:42:30 OBGyn Episode No OBEpisode recorded.
[2025-06-07 16:57] LABS: Troponin I < 0.01 ng/ml (0.00-0.034)
[2025-06-07] MEDS: KETOROLAC 15MG/ML VIAL 15 MG IV (17:17)
[2025-06-07 18:46] VITALS: BP 121/73; PULSE 90; RESP 20; TEMP 36.9; O2SAT 97
== END 2025-06-07 18:57 | disposition home or self-care (01) ==
PROVIDERS: Emergency Provider Student in an Organized Health Care Education/Training Program; PCP Nurse Practitioner Family
DX: J18.9 Pneumonia, unspecified organism (principal); R06.02 Shortness of breath; R07.81 Pleurodynia; F17.210 Nicotine dependence, cigarettes, uncomplicated
CPT/HCPCS: 71046; 80053; 84484; 85025; 87636; 93005; 96374; 99283; 99284; J1885

== ENCOUNTER 2025-06-23 16:53 | Outpatient (CLI) | payer MEDICAID, SELFPAY ==
--- OUTSIDE RECORDS SUMMARY | 2025-06-23 16:55 | XMS_ITS ---
Author Organization [facility] Address [address] [place] [address] Phone Care Team Providers Care Office Machines Teacher Name Role Phone Jeff ESTES, Patricio Ferris Unavailable [phone] Plan of Treatment No Plan of Treatment Recorded Assessments Includes: Assessments for all patient encounters No Assessments Recorded Medical Equipment - Implanted Devices Includes: Current and historical Devices No Medical Equipment Recorded Medications Administered Includes: Administered Medications in patient's chart No Administered Medications Recorded Results Includes: Results from 06/23/2024 through 06/23/2025 No Results Recorded For Specified Dates History [...] Member ID Group # Subscriber Relationship Effect nah Dates 1 - [facility] [id number] Akilah Alston Self Clinical Notes Includes: Signed Clinical Notes starting from 07/14/2022 No Clinical Notes Recorded
--- OUTSIDE RECORDS SUMMARY | 2025-06-23 16:55 | XMS_ITS ---
Care Plan - [facility], [facility] Created on: June 23, 2025 Akilah Alston : 1975 Sex: Female Author Organization [facility] Address [address] [place] [address] Phone Care Team Providers Care Rotor Assembler Name Role Phone Jeff ESTES, Patricio Ferris Unavailable [phone]
--- OUTSIDE RECORDS SUMMARY | 2025-06-23 16:55 | XMS_ITS | Continuity of Care Document ---
[facility] Organization [facility] Address [address] [place] [address] Care Team Providers Care Carpenter General Name Role Phone KATINA OROZCO Primary Care Provider Unavailabl e Assessment No assessment recorded. Plan of Treatment Reminders Order Date Submit Date Provider Last Modified By Organization Details Last Modified Time Details Appointments None recorded. Lab urinalysis, dipstick 2024 025 [facility], [address] [place] [address], [address], 11:08:10 Referral gastroenter ologist referral 2024 025 antwon Angulo MD, [address], [place], [address], 5 09:21:44 Procedures None recorded. Surgeries None recorded. Imaging None recorded. Medication Orders None recorded. Patient TargetsNo targets recorded. Patient InstructionsNo instructions recorded. Reason for Referral Biomedical Manager Referral for Screening for malignant neoplasm of colon Referring Physician: Katina Orozco, Family Medicine, Encounter Date: 04/11/2025 Results Created Date Observation Date Name Description Value Unit Range Abnormal Flag Note LastModifiedBy Organization Detail LastModifiedTime 04/11/2004/11/2025 urina lysis , dipst ick Leukocytes Negati ve Not Available [address], [address], 04/11/2025 10:41:30 04/11/20 25 04/11/2025 urina lysis , dipst ick Nitrite negati ve Not Available [address], [address], 04/11/2025 10:41:30 04/11/20 25 04/11/2025 urina lysis , dipst ick Urobilinogen 1 Not Available [facility] [address], [address], 04/11/2025 10:41:30 04/11/20 25 04/11/2025 urina lysis , dipst ick Protein Negati ve Not Available [address], [address], 04/11/2025 10:41:30 04/11/20 25 04/11/2025 urina lysis , dipst ick pH 7.0 Not Available [address], [address], 04/11/2025 10:41:30 04/11/2004/11/2025 urina lysis , dipst ick Blood Negati ve Not Available [address], [address], 04/11/2025 10:41:30 04/11/20 25 04/11/2025 urina lysis , dipst ick Specific Jennings 1.015 Not Available [address], [address], 04/11/2025 10:41:30 04/11/20 25 04/11/2025 urina lysis , dipst ick Ketone Negati ve Not Available [address], [address], 04/11/2025 10:41:30 04/11/20 25 04/11/2025 urina lysis , dipst ick Bilirubin Negati ve Not Available [address], [address], 04/11/2025 10:41:30 04/11/20 25 04/11/2025 urina lysis , dipst ick Glucose Negati ve Not Available [address], [address], 04/11/2025 10:41:30 04/11/20 25 04/11/2025 urina lysis , dipst ick Appearance Clear Not Available [address], [address], 04/11/2025 10:41:30 04/11/20 25 04/11/2025 urina lysis , dipst ick Color Yellow Not Available [address], [address], 04/11/2025 10:41:30 03/17/20 25 03/17/2025 XR, lumbo sacra l spine , 2 or 3 view No observ ation record ed. [facility] [address], [place], [address], 03/17/2025 16:55:47 04/11/2004/11/2025 CT, abdom en + pelvi s, w/ contr ast No observ ation record ed. [facility] [address], [place], [address], 04/16/2025 10:07:25 06/07/20 25 06/07/2025 XR, chest , 2 view No observ ation record ed. [facility] [address], [place], [address], 06/09/2025 08:42:59 06/07/20 25 06/07/2025 elect linda maldonado am No observ ation record ed. [facility] [address], [place], [address], 06/09/2025 08:39:05 Result Notes None recorded. Problems Name Problem SNOMED Code Status Onset Date Resolution Date Notes Provider Name and Address Organization Details Recorded Time Hyperlipidemi a 95735218 Active 2019 Katina Orozco, MACHINE OPERATOR HELPER [address], [place], [address] , [place] - [facility] 2 13:05:27 Menopause Active 2019 Charu Watts null, [place] - [facility] 0 15:22:09 Fasciitis 43646795 Active 2019 Charu Stefanie null, [place] [facility] 0 15:22:19 Sciatica 51877186 Active 2019 Charu [place] null, [place] [facility] 0 15:22:40 History of substance abuse 685349254 Active 2021 pain pills for years Katina Orozco, MACHINE OPERATOR HELPER [address], [place], [address] , [place] - [facility] 2 13:05:25 Multiple nodules of lung 280266583 Active 2021 Katina Orozco, MACHINE OPERATOR HELPER [address], [place], [address] , [place] - [facility] 2 11:49:30 Depressive disorder 24449679 Active 2021 Katina Orozco, MACHINE OPERATOR HELPER [address], [place], [address] , [place] - [facility] 2 13:05:42 Problem Notes None recorded. Procedures Surgical History Date Name Laterality Status Provider Name and Address Organization Details Recorded Time 10/16/19 22 Orthopedic Surgery completed Gloria Gleason [place] - [facility] 02/11/2022 11:23:59 07/31/19 20 Cardiac Cath completed Gloria Gleason [place] [facility] 02/11/2022 11:23:59 12/31/19 15 Hysterectomy, Total laparoscopic completed Kathy Roque APRN [address], [place], [address], [place] [facility] 04/23/2020 13:05:52 12/31/19 15 excision of bilateral fallopian tubes and ovaries completed Kathymegan Roque APRN [address], [place], [address], [place] [facility] 04/23/2020 13:04:58 07/31/19 15 Hysterectomy completed Gloria Leonards [place] - [facility] 02/11/2022 11:23:59 04/30/20 08 ligation of bilateral fallopian tubes completed Kathy Roque APRN [address], [place], [address], [place] [facility] 04/17/2020 15:15:55 07/31/19 08 Tubal Ligation completed Gloria Leonards [place] [facility] 02/11/2022 11:23:59 05/03/20 07 removal of intrauterine device completed Kathy Roque APRN [address], [place], [address], [place] [facility] 04/17/2020 15:14:40 11/24/19 07 insertion of intrauterine contraceptive device completed Kathy Roque APRN [address], [place], [address], [place] [facility] 04/17/2020 15:14:18 07/31/19 05 IUD Insertion completed Gloria Leonards [place] [facility] 02/11/2022 11:23:59 01/28/19 96 cryosurgery of lesion of cervix completed Kathy Roque APRN [address], [place], [address], [place] [facility] 04/17/2020 15:15:23 07/31/18 96 Cyrosurgery of Cervix completed Gloria Stears [place] - [facility] 02/11/2022 11:23:59 procedure on shoulder completed Charu Watts [place] - [facility] 04/17/2020 15:29:26 Imaging Results None recorded. Procedure Notes None recorded. Medical Equipment None Reported. Allergies Allergen ID Allergen Name Allergen Category Reaction Reaction Severity Criticality Documentation Date Start Date Code Code System Note Provider Name and Address Organization Details Recorded Time 505453 codeine medicatio n Not available Not available Not available 04/17/2020 5733 RxNorm Gloria Stears null, [place] - [facility] 2 11:24:18 19980 codeine phosphate medicatio n Not available Not available Not available 05/06/20162008 2672 RxNorm Not Available [facility] 6 08:49:04 17749 Zantac medicatio n Not available Not available Not available 05/06/20162008 14833 3 RxNorm Not Available [facility] 6 08:49:04 00110 latex environme nt,medica tion Not available Not available Not available 05/06/20162008 44092 91 RxNorm Not Available [facility] 6 08:49:05 Medications Name Sig Start Date [...] on: 10/09/19 12;Indic ation: Depressi on - (7270 00);Prin lucy: 04/12/20 11 Not Available Not Available Not Available cetirizin e 10 mg tablet TAKE ONE TABLET BY MOUTH EVERY DAY 2024 active Not Available Not Available Not Avai lable atorvasta tin 10 mg tablet TAKE ONE TABLET BY MOUTH EVERY DAY 2024 active Not Available Not Available Not Avai lable Topamax 25 mg tablet 1 hs for migraine 11/24 completed Topamax Oral Tablet 25 mg;Recor ded Status: Recorded on: 10/10/19 09 5:35PM;D iscontin ued Status: Disconti nued on: 11/25/19 09 11:13AM; User: chapin ;Est. Completi on: 12/09/19 09;Print ed: 10/10/19 09 Not Available Not Available Not Available azithromy [...] nued on: 07/02/20 09 4:17PM;U ser: [email or web address] ;Indicat ion: Pain - (167268 ) Not Available Not Available Not Available valacyclo [...] Disconti nued on: 03/30/20 10 5:47PM;U ser: [email or web address] ;Est. Completi on: 01/10/20 10;Indic ation: Pediculo sis Capitis - (01.1320 00);Prin lucy: 01/08/20 10 Not Available Not Available Not Available Seroquel 25 mg tablet take 1 tablet (25 mg) by oral route [facility] 11/27 completed Seroquel Oral Tablet 25 mg;Recor ded Status: Recorded on: 05/31/20 10 11:49AM; User: [email or web address] ;Est. Completi on: 11/28/19 11;Print ed: 05/31/20 10 [...] Completi on: 01/13/20 09;Indic ation: Migraine - (0279 ) Not Available Not Available Not Available Ultram 50 mg tablet take 1 tablet (50 mg) by oral route every 6 hours as needed 04/17 completed Ultram Oral Tablet 50 mg;Recor ded Status: Recorded on: 04/05/20 11 1:55PM;U ser: [email or web address];I ndicatio n: Pain - (162919 00);Prin lucy: 04/05/20 11 Not Available Not [...] Disconti nued on: 01/07/20 09 2:28PM;U ser: [email or web address] Not Available Not Available Not Available oxycodone [...] on: 05/29/20 10;Indic ation: Depressi on - (3110 );Prin lucy: 03/30/20 10 Not Available Not Available Not Available Metrogel Vaginal 0.75 % (37.5 mg/5 gram) insert 1 applicat orful (37.5 mg) by vaginal route once daily at bedtime for 5 days 04/08 completed Metrogel Vaginal Gel 0.75 %;Record ed Status: Recorded on: 04/08/20 11 1:06PM;D iscontin ued Status: Disconti nued on: 04/08/20 11 1:15PM;U ser: [email or web address]; Est. Completi on: 04/13/20 11;Indic ation: Bacteria l Vaginosi s - (6169 );Prin lucy: 04/08/20 11 Not Available Not Available Not Available Denavir 1 % topical cream apply to the affected area(s) by topical route every 2 hours during waking hours for 30 days 04/05 completed Denavir Topical Cream 1 %;Record ed Status: Recorded on: 04/20/20 10 6:20PM;D iscontin ued Status: Disconti nued on: 04/05/20 11 12:57PM; User: [email or web address] ;Est. Completi on: 07/19/20 10;Indic ation: Herpes [...] ation: Acute Gonococc al Cervicit is - (01.0981 50);Prin lucy: 04/08/20 11 Not Available Not [...] Not Available Not Available Not Avai lable gabapenti n 300 mg capsule bid 02/11 completed Not Available Not Available Not Available omeprazol e 20 mg capsule,d elayed release TAKE 1 CAPSULE BY MOUTH EVERY DAY FOR ACID REFLUX 12/19 completed Not Available Not Available Not Available estradiol 2 mg tablet TAKE ONE TABLET BY MOUTH EVERY DAY 2024 active Not Available Not Available Not Avai lable nadolol 40 mg tablet take 1 tablet (40 mg) by oral route once daily 07/02 completed Nadolol Oral Tablet 40 mg;Recor ded Status: Recorded on: 01/07/20 09 2:28PM;D iscontin ued Status: Disconti nued on: 07/02/20 09 4:17PM;U ser: [email or web address] ;Est. Completi on: 01/07/20 Not Available Not Available Not Available Provera 10 mg tablet take 1 tablet (10 mg) by oral route once daily for 10 days 02/17 completed Provera Oral Tablet 10 mg;Recor ded Status: Recorded on: 11/18/19 09 3:54PM;D iscontin ued Status: Disconti nued on: 02/18/20 09 3:59PM;U ser: meeses;E st. Completi on: 11/28/19 09;Indic ation: Secondar y Amenorrh ea - (.6260 );Prin lucy: 11/18/19 09 Not Available Not Available Not Available etodolac 400 mg tablet take 1 tablet (400 mg) by oral route every 8 hours as needed with food 11/24 completed Etodolac Oral Tablet 400 mg;Recor ded Status: Recorded on: 08/05/19 09 5:15PM;D iscontin ued Status: Disconti nued on: 11/25/19 09 11:38AM; User: angelito MilesEst. Completi on: 12/04/19 09;Indic ation: Pain - (16.3559 00) Not Available Not Available Not Available hydroxyzi ne HCl 25 mg tablet take 1-2 tablets by oral route QID PRN and prn sleep 05/29 completed Hydroxyz ine HCl Oral Tablet 25 mg;Recor ded Status: Recorded on: 03/30/20 10 6:26PM;U ser: [email or web address] ;Est. Completi on: 05/29/20 10;Indic ation: Anxiety - (05.3000 00);Prin lucy: 08/31/20 10 Not Available Not Available Not Available [...] Completi on: 10/09/19 12;Indic ation: Migraine - (06.3469 00);Prin lucy: 04/12/20 11 Not Available Not [...] 20 mg;Recor ded Status: Recorded on: 11/25/19 11:38AM; Disconti nued Status: Disconti nued on: 07/02/20 4:17PM;U ser: guttmann Not Available Not Available Not Available fluticaso ne propionat e 50 mcg/actua tion nasal spray,karolina pension [place] 1 spray every day by intranas al [...] 2 %;Record ed Status: Recorded on: 08/21/19 4:08PM;D iscontin ued Status: Disconti nued on: 10/10/19 09 4:51PM;U ser: meeses;E st. Completi on: 08/22/19 09;Indic ation: Vulvovag inal Candidia sis - (1121 );Prin lucy: 08/21/19 Not Available Not Available Not Available naproxen [...] [place] Not Available Not Available Not Available azithromy [...] Recorded on: 04/12/20 11 3:31PM;U ser: angelito MilesEstArabella Completi on: 10/09/19 12;Print ed: 04/12/20 11 [...] Status: Recorded on: 04/05/20 11 1:55PM;U ser: Justin [email or web address] n: Pregnanc y Contrace ption - (18.V259 [...] nued on: 04/05/20 11 12:57PM; User: saniya ayalaEst. Completi on: 07/27/20 10;Indic ation: - (-5) Not Available Not Available Not Available aspirin 81 mg qd 02/11 completed Not Available Not Available Not Available Tylenol PM prn 04/05 completed Tylenol PM OTC;Scooby rded Status: Recorded on: 03/30/20 10 5:47PM;D iscontin ued Status: Disconti nued on: 04/05/20 11 12:57PM; User: estepl;I ndicatio n: - (-5) Not Available Not Available [...] weight Heart rate Body temperature Oxygen saturation Respiratory rate Pain severity - 0-10 verbal numeric rating [Score] - Reported Systolic And Diastolic Provider Name and Address Organization Details Last Updated DateTime 5 154.94 cm 26.1 kg/m2 01482.7 5 g 59 /min 97.6 [degF] 97 % 18 /min 8 104/58 mm[Hg] Madhuri Andrade [place] - [facility] 5 10:09:36 Social History Question Answer Notes LastModified by Organizat ion Details LastModified Time Tobacco Smoking Status Current Every Day Smoker Charu [place], [place] - [facility] 04/17/2020 15:26:46 Do You Have An Advance Directive? No Information not available 04/17/2020 Are You Blind Or Do You Have Difficulty Seeing? No Information not available 02/11/2022 Is Blood Transfusion Acceptable In An Emergency? Yes [email or web address] Information not available 04/17/2020 What Is Your Level Of Caffeine Consumption? Moderate [email or web address] Information not available 04/17/2020 How Much Tobacco Do You Chew? None [email or web address] Information not available 04/17/2020 Are You Deaf Or Do You Have Serious Difficulty Hearing? No [email or web address] Information not available 04/17/2020 What Type Of Diet Are You Following? REGULAR [email or web address] Information not available 04/17/2020 Which Illicit Or Recreational Drugs Have You Used? None [email or web address] Information not available 04/17/2020 What Is The Highest Grade Or Level Of School You Have Completed Or The Highest Degree You Have Received? [id number] Information not available 02/11/2022 How Many Days [...] Do You Have A Medical Power Of Nurse Healthcare Manager? No Information not available 02/11/2022 What Was [...] available 02/11/2022 What Is Your Relationship Status? [email or web address] Information not available 04/17/2020 Do You Use Your Seat Belt Or Car Seat Routinely? Yes Information not available 02/11/2022 Seat Belts Used Routinely Yes Information not available 02/11/2022 Are You Sexually Active? Yes [email or web address] Information not available 04/17/2020 Do You Have [...] 02/11/2022 Do You Use Sunscreen Routinely? Yes [email or web address] Information not available 04/17/2020 Has Tobacco Cessation [...] is your level of alcohol consumption? None Information not available 04/17/2020 Do you or have you ever used smokeless tobacco? Never used smokeless tobacco [email or web address] Information not available 04/17/2020 Are you currently [...] e-cigarettes or vape? Never used electronic cigarettes [email or web address] Information not available 04/17/2020 What is your exercise level? None [email or web address] Information not available 04/17/2020 Mental Status Question Answer Note LastModified by Organizat ion Details LastModified Time Do you feel stressed (tense, restless, nervous, or anxious, or unable to sleep at night)? [id number] Information not available 02/11/2022 Do you have difficulty concentrating, remembering or making decisions? No Information no t available 02/11/2022 Family History Relationship Description Onset Age of this Age Resolved Age Notes LastModified by Organization Details LastModified Time Maternal Grandmother Arthritis Not available 15:16:48 Maternal Grandmother Hypertensive disorder Not available 2019 15:17:19 Maternal Grandmother Hypothyroidi [...] 11:23:55 Paternal Aunt Malignant neoplasm of breast [email or web address] Not available 04/17 15:26:21 Paternal Aunt Malignant neoplasm of uterus [email or web address] Not available 04/17 15:26:32 Paternal Aunt Hypercholest [...] colitis N Cerebrovascular Disease N Depression N Guillain-[place] N Sleep Apnea N Aneurysm N Bronchitis [...] virus, quadrivalent, PF 4 completed Not Available [facility] 04/11/2025 09:45:30 Influenza, split virus, quadrivalent, preservative 9 completed Madhuri [place], [place] - [facility] 09/12/2022 10:20:11 Influenza, split virus, quadrivalent, preservative 7 completed Madhuri [place], [place] [facility] 09/12/2022 10:20:11 COVID-19 vaccine, vector-nr, rS-Ad26, PF, 0.5 mL 2 completed Madhuriphilly Andrade null, [facility] 09/12/2022 10:20:11 COVID-19 vaccine, vector-nr, rS-Ad26, PF, 0.5 mL 1 completed Madhuri Lupe null, [facility] 09/12/2022 10:20:11 Influenza, split virus, trivalent, preservative 7 completed Madhuri Lupe null, [facility] 09/12/2022 10:20:11 Influenza, split virus, trivalent, preservative 1 completed Madhuri Lupe null, [facility] 09/12/2022 10:20:11 Influenza, split virus, trivalent, preservative 9 completed Madhuri Lupe null, [facility] 09/12/2022 10:20:11 Influenza, split virus, trivalent, preservative 4 completed Madhuri Lupe null, [facility] 09/12/2022 10:20:11 Influenza, split virus, trivalent, preservative 8 completed Madhuri Lupe null, [facility] 09/12/2022 10:20:11 Influenza, split virus, trivalent, preservative 7 completed Madhuri Lupe null, [facility] 09/12/2022 10:20:11 Influenza, split virus, trivalent, PF 8 completed Madhuriphilly Andrade null, [facility] 09/12/2022 10:20:11 Hep B, adult 7 completed Madhuri Lupe null, [facility] 09/12/2022 10:20:11 Influenza, split virus, quadrivalent, PF 8 completed Madhuri Lupe null, [facility] 09/12/2022 10:20:11 Influenza, split virus, quadrivalent, PF 3 completed Madhuri Lupe null, [facility] 09/12/2022 10:20:11 Influenza, split virus, quadrivalent, PF 1 completed Madhuri Lupe null, [facility] 09/12/2022 10:20:11 Influenza, split virus, quadrivalent, PF 0 completed Madhuri Andrade null, [place] - [facility] 09/12/2022 10:20:11 Past Encounters Encounter ID Performer Location Encounter Start Date Encounter Closed Date Diagnosis/Indication Diagnosis SNOMED-CT Code Diagnosis ICD10 Code Diagnosis IMO Codes Diagnosis Note [id number] Katina Orozco APRN [facility] [address] [place] [address] 04/11/2025 09:45:12 04/11/2025 10:36:27 Lower abdominal pain 91436870 R10.30 [id number] sent to ed for eval Screening for malignant neoplasm of colon 376951927 Z12.11 105746 Health Concerns Section Related Observation LastModified by Organization Detai ls LastModified Time None Recorded Concern Status LastModified by Organization Details LastModified Time None Recorded Payers Encounter Date Sequence Insurance Name Policy Number Policy Reyes Covered Member ID Reyes Member ID Guarantor Name 04/11/2025 1 [employer] (MEDICAID HMO) Akilah Alston [id number] Akilah Alston Notes Date Note Type Note Provider Name and Address Organization Details Recorded Time 04/11/2025 text/html ROS as noted in the HPI 49 yr old female presents for left lower abdomen/pelvic pain that is similar to the pain she had in 2008 with severe colitis and ruptured colon, spent 4 days in hospital. Denies nausea and vomiting. Katina Orozco APRN [address], [place], [address], [place] - [facility] 04/11/2025 10:42:30 OBGyn Episode No OBEpisode recorded.
--- OUTSIDE RECORDS SUMMARY | 2025-06-23 16:55 | XMS_ITS | Data Portability ---
Author Organization formerly [facility] Address [address] [place] [address] Care Team Providers Care Tool Procurement Coordinator Name Role Phone KATINA RODRIGUEZ Primary Care Provider Unavailabl e Assessment No assessment recorded. Plan of Treatment Reminders Order Date Submit Date Provider Last Modified By Organization Details Last Modified Time Details Appointments None recorded. Lab urinalysis, dipstick 2024 025 [facility], [address] [place] [address], [id number], 5 11:08:10 HbA1c (hemoglobin A1c), blood 2024 025 [facility], [address] [place] [address], [id number], 5 16:50:28 amylase + lipase, serum 2024 025 [facility], [address], [place], [address], 5 06:08:39 food allergen panel, serum 2024 025 [facility], [address], [address], [place], [address], 5 06:08:40 borrelia burgdorferi IgG + IgM + total panel, IA, serum 2024 025 [facility], [address], [address], [place], [address], 5 06:08:40 galactose-a lpha-1,3-ga lactose panel, serum or plasma 2024 025 [facility], [address], [address], [place], [address], 5 06:08:39 CBC w/ auto diff 2024 025 [facility], [address], [address], [place], [address], 5 06:08:38 CMP, serum or plasma 2024 025 [facility], [address], [address], [place], [address], 5 06:08:38 rapid flu (A+B) 2024 025 [facility], [address] [place] [address], [id number], 5 12:16:29 rapid strep group A, throat 2024 025 [facility], [address] [place] [address], [id number], 5 12:16:38 rapid SARS CoV + SARS CoV 2 Ag, QL IA, respiratory specimen 2024 025 [facility], [address] [place] [address], [id number], 5 12:16:46 borrelia burgdorferi IgG + IgM + total panel, IA, serum 2024 025 [facility], [address], [address], [place], [address], 5 09:07:11 galactose-a lpha-1,3-ga lactose panel, serum or plasma 2024 025 [facility], [address], [address], [place], [address], 5 09:07:11 CBC w/ auto diff 2024 025 [facility], [address], [address], [place], [address], 5 09:07:10 Referral gastroenter ologist referral 2024 025 [email or web address] Angulo MD, [address] [place] [address] [address], [place], [address], 5 09:21:44 Procedures None recorded. Surgeries None recorded. Imaging None recorded. Medication Orders prednisone 20 mg tablet 2024 025 [facility], [address] [place] [address] [address], [place], [place], [id number], 5 10:17:48 Zithromax Z-Sharath 250 mg tablet 2024 025 [facility], [address] [place] [address] [address], [place], [place], [id number], 5 10:02:40 cetirizine 10 mg tablet 2024 025 [facility], [address] [place] [address], [address], 5 12:14:10 amoxicillin 500 mg tablet [address], [address], 5 05:01:24 lidocaine 5 % topical patch [address], [place], [address], 5 12:14:01 diclofenac 1 % topical gel 2024 025 [facility], [address] [place] [address], [place], [address], 5 12:14:02 fluticasone propionate 50 mcg/actuati on nasal spray,suspe nsion 2022 023 [facility], [address] [place] [address], [place], [address], 3 10:49:16 Keflex 500 mg capsule 2022 023 [facility], [address] [place] [address], [place], [address], 5 11:44:38 Patient TargetsNo targets recorded. Patient InstructionsNo instructions recorded. Reason for Referral Service Team Leader Referral for Screening for malignant neoplasm of colon Referring Physician: Katina Rodriguez, Family Medicine, Encounter Date: 04/11/2025 Results Created Date Observation Date Name Description Value Unit Range Abnormal Flag Note LastModifiedBy Organization Detail LastModifiedTime 12/20/1912/20/2024 CBC WITH DIFFE RENTI AL/PL ATELE T WBC 10.7 x10e3 /uL 3.4-10 .8 normal Not Available [facility] ([facility]) [address] [place], [address], 12/24/2024 09:07:10 12/20/19 25 12/20/2024 CBC WITH DIFFE RENTI AL/PL ATELE T RBC 5.30 x10e6 /uL 3.77-5 .28 above high normal Not Available [facility] ([facility]) [address] [place], [address], 12/24/2024 09:07:10 05/2212/20/2024 CBC WITH DIFFE RENTI AL/PL ATELE T hemoglobin 15.2 g/dL 11.1-1 5.9 normal Not Available [facility] ([facility]) [address] [facility], [place], [address], 12/24/2024 09:07:10 12/20/19 25 12/20/2024 CBC WITH DIFFE RENTI AL/PL ATELE T hematocrit 46.7 % 34.0-4 6.6 above high normal Not Available [facility] ([facility]) [address] [place], [address], 12/24/2024 09:07:10 12/20/1912/20/2024 CBC WITH DIFFE RENTI AL/PL ATELE T MCV 88 fL 79-97 normal Not Available [facility] ([facility]) [address] [place], [address], 12/24/2024 09:07:10 12/20/1912/20/2024 CBC WITH DIFFE RENTI AL/PL ATELE T MCH 28.7 pg 26.6-3 3.0 normal Not Available [facility] ([facility]) [address] [place], [address], 12/24/2024 09:07:10 12/20/1912/20/2024 CBC WITH DIFFE RENTI AL/PL ATELE T MCHC 32.5 g/dL 31.5-3 5.7 normal Not Available [facility] ([facility]) [address] [place], [address], 12/24/2024 09:07:10 12/20/1912/20/2024 CBC WITH DIFFE RENTI AL/PL ATELE T RDW 13.3 % 11.7-1 5.4 Not Available [facility] ([facility]) [address] [place], [address], 12/24/2024 09:07:10 12/20/1912/2012/20/2024 CBC WITH DIFFE RENTI AL/PL ATELE T platelets 280 x10e3 /uL 150-45 0 normal Not Available [facility] ([facility]) [address] [facility], [place], [address], 12/24/2024 09:07:10 12/20/19 25 12/20/2024 CBC WITH DIFFE RENTI AL/PL ATELE T neutrophils 63 % not estab. normal Not Available [facility] ([facility]) [address] [facility], [place], [address], 12/24/2024 09:07:10 12/20/19 25 12/20/2024 CBC WITH DIFFE RENTI AL/PL ATELE T lymphs 25 % not estab. normal Not Available [facility] ([facility]) [address] [facility], [place], [address], 12/24/2024 09:07:10 12/20/19 25 12/20/2024 CBC WITH DIFFE RENTI AL/PL ATELE T monocytes 5 % not estab. normal Not Available [facility] ([facility]) [address] [facility], [place], [address], 12/24/2024 09:07:10 12/20/19 25 12/20/2024 CBC WITH DIFFE RENTI AL/PL ATELE T eos 5 % not estab. normal Not Available [facility] ([facility]) [address] [facility], [place], [address], 12/24/2024 09:07:10 12/20/19 25 12/20/2024 CBC WITH DIFFE RENTI AL/PL ATELE T basos 1 % not estab. normal Not Available [facility] ([facility]) [address] [facility], [place], [address], 12/24/2024 09:07:10 12/20/19 25 12/20/2024 CBC WITH DIFFE RENTI AL/PL ATELE T immature cells TRACK SURFACING MACHINE OPERATOR Not Available [facility] ([facility]) [address] [facility], [place], [address], 12/24/2024 09:07:10 12/20/1912/20/2024 CBC WITH DIFFE RENTI AL/PL ATELE T neutrophils (absolute) 6.9 x10e3 /uL 1.4-7. 0 normal Not Available [facility] ([facility]) [address] [place], [address], 12/24/2024 09:07:10 12/20/19 25 12/20/2024 CBC WITH DIFFE RENTI AL/PL ATELE T lymphs (absolute) 2.6 x10e3 /uL 0.7-3. 1 normal Not Available [facility] ([facility]) [address] [facility], [place], [address], 12/24/2024 09:07:10 12/20/19 25 12/20/2024 CBC WITH DIFFE RENTI AL/PL ATELE T monocytes(ab solute) 0.5 x10e3 /uL 0.1-0. 9 normal Not Available [facility] ([facility]) [address] [place], [address], 12/24/2024 09:07:10 12/20/19 25 12/20/2024 CBC WITH DIFFE RENTI AL/PL ATELE T eos (absolute) 0.5 x10e3 /uL 0.0-0. 4 above high normal Not Available [facility] ([facility]) [address] [place], [address], 12/24/2024 09:07:10 12/20/19 25 12/20/2024 CBC WITH DIFFE RENTI AL/PL ATELE T baso (absolute) 0.1 x10e3 /uL 0.0-0. 2 normal Not Available [facility] ([facility]) [address] [place], [address], 12/24/2024 09:07:10 0512/20/2024 CBC WITH DIFFE RENTI AL/PL ATELE T immature granulocytes 1 % not estab. Not Available [facility] ([facility]) [address] [facility], [place], [address], 12/24/2024 09:07:10 12/20/19 25 12/20/2024 CBC WITH DIFFE RENTI AL/PL ATELE T immature grans (abs) 0.1 x10e3 /uL 0.0-0. 1 Not Available [facility] ([facility]) [address] [facility], [place], [address], 12/24/2024 09:07:10 12/20/1912/20/2024 CBC WITH DIFFE RENTI AL/PL ATELE T NRBC TRACK SURFACING MACHINE OPERATOR Not Available [facility] ([facility]) [address] [facility], [place], [address], 12/24/2024 09:07:10 12/20/1912/20/2024 CBC WITH DIFFE RENTI AL/PL ATELE T hematology comments: TRACK SURFACING MACHINE OPERATOR Not Available [facility] ([facility]) [address] [facility], [place], [address], 12/24/2024 09:07:10 12/20/1912/20/2024 ALPHA -GAL IGE PANEL [...] >100. 00 Very High Not Available [facility] ([facility]) [address] [facility], [place], [address], 12/24/2024 09:07:11 12/20/1912/24/2024 ALPHA -GAL IGE PANEL immunoglobul in E, total 3 IU/mL 6-495 below low normal Not Available [facility] ([facility]) [address] [facility], [place], [address], 12/24/2024 09:07:11 12/20/1912/24/2024 ALPHA -GAL IGE PANEL T811-GeE pork <0.10 kU/L class 0 Not Available [facility] ([facility]) [address] [facility], [place], [address], 12/24/2024 09:07:11 12/20/1912/24/2024 ALPHA -GAL IGE PANEL L763-UnO beef <0.10 kU/L class 0 Not Available [facility] ([facility]) [address] [facility], [place], [address], 12/24/2024 09:07:11 12/20/1912/24/2024 ALPHA -GAL IGE PANEL F568-ClJ perdue <0.10 kU/L class 0 Not Available [facility] ([facility]) [address] [facility], [place], [address], 12/24/2024 09:07:11 12/20/1912/24/2024 ALPHA -GAL IGE PANEL T651-QkM alpha-gal 0.14 kU/L class 0/I abnormal Not Available [facility] ([facility]) [address] [place], [address], 12/24/2024 09:07:11 12/20/1912/20/2024 LYME DISEA SE SEROL [...] is recom see ibarra Not Available [facility] ([facility]) [address], [place], [address], 12/24/2024 09:07:11 12/20/19 25 12/19/2024 rapid SARS CoV + SARS CoV 2 Ag, QL IA, respi rator y speci men SARS CoV antigen Negati ve Not Available [address], [address], 12/19/2024 11:55:36 12/20/19 25 12/19/2024 rapid strep group A, throa t Strep positi ve Not Available [address], [address], 12/19/2024 11:55:24 12/20/19 25 12/19/2024 rapid strep group A, throa t Culture No Not Available [address], [address], 12/19/2024 11:55:24 12/20/19 25 12/19/2024 rapid flu (A+B) Flu negati ve Not Available [address], [address], 12/19/2024 11:55:14 12/20/19 25 12/19/2024 rapid flu (A+B) Type Both A & B Not Available [address], [address], 12/19/2024 11:55:14 01/07/20 25 01/07/2025 CBC WITH DIFFE RENTI AL/PL ATELE T WBC 6.4 x10e3 /uL 3.4-10 .8 normal Not Available [facility] ([facility]) [address] [place], [address], 01/10/2025 06:08:38 01/07/20 25 01/07/2025 CBC WITH DIFFE RENTI AL/PL ATELE T RBC 5.23 x10e6 /uL 3.77-5 .28 normal Not Available [facility] ([facility]) [address] [place], [address], 01/10/2025 06:08:38 01/07/2001/07/2025 CBC WITH DIFFE RENTI AL/PL ATELE T hemoglobin 14.9 g/dL 11.1-1 5.9 normal Not Available [facility] ([facility]) [address] [place], [address], 01/10/2025 06:08:38 01/07/20 25 01/07/2025 CBC WITH DIFFE RENTI AL/PL ATELE T hematocrit 46.2 % 34.0-4 6.6 normal Not Available [facility] ([facility]) [address] [place], [address], 01/10/2025 06:08:38 01/07/2001/07/2025 CBC WITH DIFFE RENTI AL/PL ATELE T MCV 88 fL 79-97 normal Not Available [facility] ([facility]) [address] [place], [address], 01/10/2025 06:08:38 01/07/20 25 01/07/2025 CBC WITH DIFFE RENTI AL/PL ATELE T MCH 28.5 pg 26.6-3 3.0 normal Not Available [facility] ([facility]) [address] [place], [address], 01/10/2025 06:08:38 06/09/01/07/2025 CBC WITH DIFFE RENTI AL/PL ATELE T MCHC 32.3 g/dL 31.5-3 5.7 normal Not Available [facility] ([facility]) [address] [place], [address], 01/10/2025 06:08:38 01/07/20 25 01/07/2025 CBC WITH DIFFE RENTI AL/PL ATELE T RDW 13.1 % 11.7-1 5.4 Not Available [facility] ([facility]) [address] [facility], [place], [address], 01/10/2025 06:08:38 01/07/2001/07/2025 CBC WITH DIFFE RENTI AL/PL ATELE T platelets 350 x10e3 /uL 150-45 0 normal Not Available [facility] ([facility]) [address] [place], [address], 01/10/2025 06:08:38 01/07/20 25 01/07/2025 CBC WITH DIFFE RENTI AL/PL ATELE T neutrophils 53 % not estab. normal Not Available [facility] ([facility]) [address] [place], [address], 01/10/2025 06:08:38 01/07/20 25 01/07/2025 CBC WITH DIFFE RENTI AL/PL ATELE T lymphs 34 % not estab. normal Not Available [facility] ([facility]) [address] [place], [address], 01/10/2025 06:08:38 01/07/20 25 01/07/2025 CBC WITH DIFFE RENTI AL/PL ATELE T monocytes 7 % not estab. normal Not Available [facility] ([facility]) [address] [place], [address], 01/10/2025 06:08:38 01/07/20 25 01/07/2025 CBC WITH DIFFE RENTI AL/PL ATELE T eos 3 % not estab. normal Not Available [facility] ([facility]) [address] [place], [address], 01/10/2025 06:08:38 01/07/20 25 01/07/2025 CBC WITH DIFFE RENTI AL/PL ATELE T basos 2 % not estab. normal Not Available [facility] ([facility]) [address] [facility], [place], [address], 01/10/2025 06:08:38 01/07/20 25 01/07/2025 CBC WITH DIFFE RENTI AL/PL ATELE T immature cells TRACK SURFACING MACHINE OPERATOR Not Available [facility] ([facility]) [address] [place], [address], 01/10/2025 06:08:38 01/07/20 25 01/07/2025 CBC WITH DIFFE RENTI AL/PL ATELE T neutrophils (absolute) 3.4 x10e3 /uL 1.4-7. 0 normal Not Available [facility] ([facility]) [address] [place], [address], 01/10/2025 06:08:38 01/07/20 25 01/07/2025 CBC WITH DIFFE RENTI AL/PL ATELE T lymphs (absolute) 2.2 x10e3 /uL 0.7-3. 1 normal Not Available [facility] ([facility]) [address] [place], [address], 01/10/2025 06:08:38 01/07/20 25 01/07/2025 CBC WITH DIFFE RENTI AL/PL ATELE T monocytes(ab solute) 0.4 x10e3 /uL 0.1-0. 9 normal Not Available [facility] ([facility]) [address] [place], [address], 01/10/2025 06:08:38 01/07/20 25 01/07/2025 CBC WITH DIFFE RENTI AL/PL ATELE T eos (absolute) 0.2 x10e3 /uL 0.0-0. 4 normal Not Available [facility] ([facility]) [address] [place], [address], 01/10/2025 06:08:38 01/07/20 25 01/07/2025 CBC WITH DIFFE RENTI AL/PL ATELE T baso (absolute) 0.1 x10e3 /uL 0.0-0. 2 normal Not Available [facility] ([facility]) [address] [facility], [place], [address], 01/10/2025 06:08:38 01/07/20 25 01/07/2025 CBC WITH DIFFE RENTI AL/PL ATELE T immature granulocytes 1 % not estab. Not Available [facility] ([facility]) [address] [place], [address], 01/10/2025 06:08:38 01/07/20 25 01/07/2025 CBC WITH DIFFE RENTI AL/PL ATELE T immature grans (abs) 0.1 x10e3 /uL 0.0-0. 1 Not Available [facility] ([facility]) [address] [place], [address], 01/10/2025 06:08:38 01/07/20 25 01/07/2025 CBC WITH DIFFE RENTI AL/PL ATELE T NRBC TRACK SURFACING MACHINE OPERATOR Not Available [facility] ([facility]) [address] [place], [address], 01/10/2025 06:08:38 01/07/20 25 01/07/2025 CBC WITH DIFFE RENTI AL/PL ATELE T hematology comments: TRACK SURFACING MACHINE OPERATOR Not Available [facility] ([facility]) [address] [place], [address], 01/10/2025 06:08:38 01/07/20 25 01/07/2025 COMP. METAB OLIC PANEL (14) glucose 107 mg/dL 70-99 above high normal Not Available [facility] ([facility]) [address] [place], [address], 01/10/2025 06:08:38 01/07/20 25 01/07/2025 COMP. METAB OLIC PANEL (14) BUN 8 mg/dL 6-24 normal Not Available [facility] ([facility]) [address] [place], [address], 01/10/2025 06:08:38 01/07/20 25 01/07/2025 COMP. METAB OLIC PANEL (14) creatinine 0.73 mg/dL 0.57-1 .00 normal Not Available [facility] ([facility]) [address] [place], [address], 01/10/2025 06:08:38 01/07/20 25 01/07/2025 COMP. METAB OLIC PANEL (14) eGFR 100 mL/mi n/1.7 3 >59 normal Not Available [facility] ([facility]) [address] [place], [address], 01/10/2025 06:08:38 01/07/20 25 01/07/2025 COMP. METAB OLIC PANEL (14) BUN/creatini ne ratio 11 9-23 normal Not Available [facility] ([facility]) [address] [place], [address], 01/10/2025 06:08:38 01/07/20 25 01/07/2025 COMP. METAB OLIC PANEL (14) sodium 140 mmol/ L 134-14 4 normal Not Available [facility] ([facility]) [address] [place], [address], 01/10/2025 06:08:38 01/07/20 25 01/07/2025 COMP. METAB OLIC PANEL (14) potassium 4.1 mmol/ L 3.5-5. 2 normal Not Available [facility] ([facility]) [address] [place], [address], 01/10/2025 06:08:38 01/07/20 25 01/07/2025 COMP. METAB OLIC PANEL (14) chloride 102 mmol/ L 96-106 normal Not Available [facility] ([facility]) [address] [place], [address], 01/10/2025 06:08:38 01/07/20 25 01/07/2025 COMP. METAB OLIC PANEL (14) carbon dioxide, total 22 mmol/ L 20-29 normal Not Available [facility] ([facility]) [address] [place], [address], 01/10/2025 06:08:38 01/07/20 25 01/07/2025 COMP. METAB OLIC PANEL (14) calcium 9.3 mg/dL 8.7-10 .2 normal Not Available [facility] ([facility]) [address] [place], [address], 01/10/2025 06:08:38 01/07/20 25 01/07/2025 COMP. METAB OLIC PANEL (14) protein, total 6.7 g/dL 6.0-8. 5 normal Not Available [facility] ([facility]) [address] [place], [address], 01/10/2025 06:08:38 01/07/20 25 01/07/2025 COMP. METAB OLIC PANEL (14) albumin 4.2 g/dL 3.9-4. 9 normal Not Available [facility] ([facility]) [address] [place], [address], 01/10/2025 06:08:38 01/07/20 25 01/07/2025 COMP. METAB OLIC PANEL (14) globulin, total 2.5 g/dL 1.5-4. 5 Not Available [facility] ([facility]) [address] [place], [address], 01/10/2025 06:08:38 01/07/20 25 01/07/2025 COMP. METAB OLIC PANEL (14) bilirubin, total 0.3 mg/dL 0.0-1. 2 normal Not Available [facility] ([facility]) [address] [place], [address], 01/10/2025 06:08:38 01/07/20 25 01/07/2025 COMP. METAB OLIC PANEL (14) alkaline phosphatase 105 IU/L 44-121 normal Not Available [facility]) [address] [place], [address], 01/10/2025 06:08:38 01/07/20 25 01/07/2025 COMP. METAB OLIC PANEL (14) AST (SGOT) 20 IU/L 0-40 normal Not Available [facility] ([facility]) [address] [place], [address], 01/10/2025 06:08:38 01/07/20 25 01/07/2025 COMP. METAB OLIC PANEL (14) ALT (SGPT) 18 IU/L 0-32 normal Not Available [facility] ([facility]) [address] [place], [address], 01/10/2025 06:08:38 01/07/20 25 01/07/2025 ALPHA -GAL [...] >100. 00 Very High Not Available [facility] ([facility]) [address] [place], [address], 01/10/2025 06:08:39 01/07/20 25 01/10/2025 ALPHA -GAL IGE PANEL immunoglobul in E, total 4 IU/mL 6-495 below low normal Not Available [facility] ([facility]) [address] [place], [address], 01/10/2025 06:08:39 01/07/20 25 01/10/2025 ALPHA -GAL IGE PANEL Y547-ZhC pork <0.10 kU/L class 0 Not Available [facility] ([facility]) [address] [place], [address], 01/10/2025 06:08:39 01/07/20 25 01/10/2025 ALPHA -GAL IGE PANEL O735-BaA beef <0.10 kU/L class 0 Not Available [facility] ([facility]) [address] [place], [address], 01/10/2025 06:08:39 01/07/20 25 01/10/2025 ALPHA -GAL IGE PANEL B111-GrM perdue <0.10 kU/L class 0 Not Available [facility] ([facility]) [address] [place], [address], 01/10/2025 06:08:39 01/07/20 25 01/10/2025 ALPHA -GAL IGE PANEL W569-JpI alpha-gal 0.22 kU/L class 0/I abnormal Not Available [facility] ([facility]) [address] [place], [address], 01/10/2025 06:08:39 01/07/20 25 01/07/2025 SU+L IPASE amylase 36 U/L 31-110 normal Not Available [facility] ([facility]) [address] [place], [address], 01/10/2025 06:08:39 01/07/20 25 01/07/2025 SU+L IPASE lipase 30 U/L 14-72 normal Not Available [facility] ([facility]) [address] [place], [address], 01/10/2025 06:08:39 01/07/20 25 01/07/2025 LYME DISEA [...] is recom see d. Not Available [facility] ([facility]) [address] [place], [address], 01/10/2025 06:08:40 01/07/20 25 01/10/2025 ALLER GENS( 21) FOOD U122-GjW egg white <0.10 kU/L class 0 Not Available [facility] ([facility]) [address] [place], [address], 01/10/2025 06:08:40 01/07/20 25 01/10/2025 ALLER GENS( 21) FOOD F996-AgU milk <0.10 kU/L class 0 Not Available [facility] ([facility]) [address] [place], [address], 01/10/2025 06:08:40 01/07/20 25 01/10/2025 ALLER GENS( 21) FOOD X727-CmI codfish <0.10 kU/L class 0 Not Available [facility] ([facility]) [address] [place], [address], 01/10/2025 06:08:40 01/07/20 25 01/10/2025 ALLER GENS( 21) FOOD R212-HjO wheat <0.10 kU/L class 0 Not Available [facility] ([facility]) [address] [place], [address], 01/10/2025 06:08:40 01/07/20 25 01/10/2025 ALLER GENS( 21) FOOD I372-BfW rye <0.10 kU/L class 0 Not Available [facility] ([facility]) [address] [place], [address], 01/10/2025 06:08:40 01/07/20 25 01/10/2025 ALLER GENS( 21) FOOD T650-YiN barley <0.10 kU/L class 0 Not Available [facility] ([facility]) [address] [facility], [address], 01/10/2025 06:08:40 01/07/20 25 01/10/2025 ALLER GENS( 21) FOOD A749-YqE oat <0.10 kU/L class 0 Not Available [facility] ([facility]) [address] [facility], [address], 01/10/2025 06:08:40 01/07/20 25 01/10/2025 ALLER GENS( 21) FOOD G118-AwY corn <0.10 kU/L class 0 Not Available [facility] ([facility]) [address] [facility], [address], 01/10/2025 06:08:40 01/07/20 25 01/10/2025 ALLER GENS( 21) FOOD E654-AzW rice <0.10 kU/L class 0 Not Available [facility] ([facility]) [address] [place], [address], 01/10/2025 06:08:40 01/07/20 25 01/10/2025 ALLER GENS( 21) FOOD O310-XqL peanut <0.10 kU/L class 0 Not Available [facility] ([facility]) [address] [place], [address], 01/10/2025 06:08:40 01/07/20 25 01/10/2025 ALLER GENS( 20) FOOD I684-AeB soybean <0.10 kU/L class 0 Not Available [facility] ([facility]) [address] [place], [address], 01/10/2025 06:08:40 01/07/20 25 01/10/2025 ALLER GENS( 20) FOOD D532-VzF crab <0.10 kU/L class 0 Not Available [facility] ([facility]) [address] [place], [address], 01/10/2025 06:08:40 01/07/20 25 01/10/2025 ALLER GENS( 20) FOOD X493-FjI shrimp <0.10 kU/L class 0 Not Available [facility] ([facility]) [address] [place], [address], 01/10/2025 06:08:40 01/07/20 25 01/10/2025 ALLER GENS( 20) FOOD I402-KdK tomato <0.10 kU/L class 0 Not Available [facility] ([facility]) [address] [place], [address], 01/10/2025 06:08:40 01/07/20 25 01/10/2025 ALLER GENS( 20) FOOD Q275-YtU orange <0.10 kU/L class 0 Not Available [facility] ([facility]) [address] [place], [place], [address], 01/10/2025 06:08:40 01/07/20 25 01/10/2025 ALLER GENS( 21) FOOD [id number] potato, white <0.10 kU/L class 0 Not Available [facility] ([facility]) [address] [place], [address], 01/10/2025 06:08:40 01/07/20 25 01/10/2025 ALLER GENS( 21) FOOD K936-TtO yeast <0.10 kU/L class 0 Not Available [facility] ([facility]) [address] [facility], [place], [address], 01/10/2025 06:08:40 01/07/20 25 01/10/2025 ALLER GENS( 21) FOOD [id number] garlic <0.10 kU/L class 0 Not Available [facility] ([facility]) [address] [facility], [place], [address], 01/10/2025 06:08:40 01/07/20 25 01/10/2025 ALLER GENS( 21) FOOD H417-KfR chicken <0.10 kU/L class 0 Not Available [facility] ([facility]) [address] [facility], [place], [address], 01/10/2025 06:08:40 01/11/20 25 01/10/2025 HbA1c (hemo globi n A1c), blood HbA1C 6.2 % Not Available [address], [address], 01/10/2025 08:45:37 01/11/20 25 01/10/2025 HbA1c (hemo globi n A1c), blood HbA1C 6.2 % Not Available [address], [address], 01/10/2025 16:38:06 04/11/20 25 04/11/2025 urina lysis , dipst ick Leukocytes Negati ve Not Available [address], [address], 04/11/2025 10:41:30 04/11/20 25 04/11/2025 urina lysis , dipst ick Nitrite negati ve Not Available [address], [address], 04/11/2025 10:41:30 04/11/20 25 04/11/2025 urina lysis , dipst ick Urobilinogen 1 Not Available [facility] [address], [address], 04/11/2025 10:41:30 04/11/2004/11/2025 urina lysis , dipst ick Protein Negati ve Not Available [address], [address], 04/11/2025 10:41:30 04/11/20 25 04/11/2025 urina lysis , dipst ick pH 7.0 Not Available [address], [address], 04/11/2025 10:41:30 04/11/20 25 04/11/2025 urina lysis , dipst ick Blood Negati ve Not Available [address], [address], 04/11/2025 10:41:30 04/11/2004/11/2025 urina lysis , dipst ick Specific [place] 1.015 Not Available [address], [address], 04/11/2025 10:41:30 04/11/20 25 04/11/2025 urina lysis , dipst ick Ketone Negati ve Not Available [address], [address], 04/11/2025 10:41:30 04/11/20 25 04/11/2025 urina lysis , dipst ick Bilirubin Negati ve Not Available [address], [address], 04/11/2025 10:41:30 04/11/20 25 04/11/2025 urina lysis , dipst ick Glucose Negati ve Not Available [address], [address], 04/11/2025 10:41:30 04/11/20 25 04/11/2025 urina lysis , dipst ick Appearance Clear Not Available [address], [address], 04/11/2025 10:41:30 04/11/20 25 04/11/2025 urina lysis , dipst ick Color Yellow Not Available [address], [address], 04/11/2025 10:41:30 03/17/20 25 03/17/2025 XR, lumbo sacra l spine , 2 or 3 view No observ ation [facility] [address], [place], [address], 03/17/2025 16:55:47 04/11/2004/11/2025 CT, abdom en + pelvi s, w/ contr ast No observ ation record ed. [facility] [address], [place], [address], 04/16/2025 10:07:25 06/07/20 25 06/07/2025 XR, chest , 2 view No observ ation record ed. [email or web address] [address], [place], [address], 06/09/2025 08:42:59 06/07/20 25 06/07/2025 elect linda maldonado am No observ ation record ed. [facility] [address], [place], [address], 06/09/2025 08:39:05 Result Notes None recorded. Problems Name Problem SNOMED Code Status Onset Date Resolution Date Notes Provider Name and Address Organization Details Recorded Time Hyperlipidemi a 79959603 Active 2019 Katina Rodriguez, [employer] MANAGEMENT CONSULTANT [address], [place], [address] , [place] - [facility] 2 13:05:27 Menopause Active 2019 Charu Stefanie null, [place] - [facility] 0 15:22:09 Fasciitis 23166746 Active 2019 Charu [place] [facility] 0 15:22:19 Sciatica 31876958 Active 2019 Charustepan Watts null[place] - [facility] 0 15:22:40 History of substance abuse 161971825 Active 2021 pain pills for years Katina Rodriguez, [employer] MANAGEMENT CONSULTANT [address], [place], [address] , [place] - [facility] 2 13:05:25 Multiple nodules of lung 665525271 Active 2021 Katina RodriguezKAREN [address], [place], [address] , [place] - [facility] 2 11:49:30 Depressive disorder 45338731 Active 2021 Katina Rodriguez, [employer] MANAGEMENT CONSULTANT [address], [place], [address] , [place] - [facility] 2 13:05:42 Problem Notes None recorded. Procedures Surgical History Date Name Laterality Status Provider Name and Address Organization Details Recorded Time 10/16/19 Orthopedic Surgery completed Gloria Stears [place] - [facility] 02/11/2022 11:23:59 07/31/19 Cardiac Cath completed Gloria Stears [place] - [facility] 02/11/2022 11:23:59 12/31/19 15 Hysterectomy, Total laparoscopic completed Kathy Roque APRN [address], [place], [address], [place] [facility] 04/23/2020 13:05:52 12/31/19 15 excision of bilateral fallopian tubes and ovaries completed Kathy Roque APRN [address], [place], [address], [place] [facility] 04/23/2020 13:04:58 07/31/19 15 Hysterectomy completed Gloria Valles [place] - [facility] 02/11/2022 11:23:59 04/30/20 08 ligation of bilateral fallopian tubes completed Kathy Roque APRN [address], [place], [address], [place] [facility] 04/17/2020 15:15:55 07/31/19 08 Tubal Ligation completed Gloria Valles [place] [facility] 02/11/2022 11:23:59 05/03/20 07 removal of intrauterine device completed Kathy Roque APRN [address], [place], [address], [place] [facility] 04/17/2020 15:14:40 11/24/19 07 insertion of intrauterine contraceptive device completed Kathy Roque APRN [address], [place], [address], [place] [facility] 04/17/2020 15:14:18 07/31/19 05 IUD Insertion completed Gloria Valles [place] [facility] 02/11/2022 11:23:59 01/28/19 96 cryosurgery of lesion of cervix completed Kathy Roque APRN [address], [place], [address], [place] [facility] 04/17/2020 15:15:23 07/31/18 96 Cyrosurgery of Cervix completed Gloriafavio Valles [place] - [facility] 02/11/2022 11:23:59 procedure on shoulder completed Charu Watts [place] - [facility] 04/17/2020 15:29:26 Imaging Results None recorded. Procedure Notes None recorded. Medical Equipment None Reported. Allergies Allergen ID Allergen Name Allergen Category Reaction Reaction Severity Criticality Documentation Date Start Date Code Code System Note Provider Name and Address Organization Details Recorded Time 985141 codeine medicatio n Not available Not available Not available 04/17/2020 2670 RxNorm Gloria Stears null, [place] - [facility] 2 11:24:18 34555 codeine phosphate medicatio n Not available Not available Not available 05/06/20162008 2672 RxNorm Not Available [facility] 6 08:49:04 30724 Zantac medicatio n Not available Not available Not available 05/06/20162008 90765 3 RxNorm Not Available [facility] 6 08:49:04 35768 latex environme nt,medica tion Not available Not available Not available 05/06/20162008 41766 91 RxNorm Not Available [facility] 6 08:49:05 Medications Name Sig Start [...] Disconti nued on: 10/10/19 09 4:51PM;U ser: [email or web address] Not Available Not Available Not Available citalopra m 40 mg tablet take 1 tablet by oral route QD 10/08 completed citalopr am Oral Tablet 40 mg;Recor ded Status: Recorded on: 04/12/20 11 3:26PM;U ser: [email or web address] ;Est. Completi on: 10/09/19 12;Indic ation: Depressi on - ();Prin lucy: 04/12/20 11 Not Available Not Available [...] nued on: 11/25/19 09 11:13AM; User: chapin Clark. Completi on: 12/09/19 09;Print ed: 10/10/19 09 [...] 4:17PM;U ser: [email or web address] ;Indicat ion: Pain - (16.7809 00) Not Available Not Available Not Available [...] 1 tablet (25 mg) by oral route [facility] 11/27 completed Seroquel Oral Tablet 25 [...] Completi on: 01/13/20 09;Indic ation: Migraine - (5909 00) Not Available Not Available Not Available Ultram 50 mg tablet take 1 tablet (50 mg) by oral route every 6 hours as needed 04/17 completed Ultram Oral Tablet 50 mg;Recor ded Status: Recorded on: 04/05/20 11 1:55PM;U ser: [email or web address];I ndicatio n: Pain - (6729 00);Prin lucy: 04/05/20 11 Not Available Not [...] on: 05/29/20 10;Indic ation: Depressi on - ();Prin lucy: 03/30/20 10 Not Available Not Available Not Available Metrogel Vaginal 0.75 % (37.5 mg/5 gram) insert 1 applicat orful (37.5 mg) by vaginal route once daily at bedtime for 5 days 04/08 completed Metrogel Vaginal Gel 0.75 %;Record ed Status: Recorded on: 04/08/20 11 1:06PM;D iscontin ued Status: Disconti nued on: 04/08/20 11 1:15PM;U ser: [email or web address]; Est. Completi on: 04/13/20 11;Indic ation: Bacteria l Vaginosi s - (6169 00);Prin lucy: 04/08/20 11 Not Available Not [...] Amenorrh ea - (10.6260 02);Prin lucy: 11/18/19 Not Available Not Available Not Available etodolac 400 mg tablet take 1 tablet (400 mg) by oral route every 8 hours as needed with food 11/24 completed Etodolac Oral Tablet 400 mg;Recor ded Status: Recorded on: 08/05/19 09 5:15PM;D iscontin ued Status: Disconti nued on: 11/25/19 09 11:38AM; User: angelito MilesEst. Completi on: 12/04/19 09;Indic ation: Pain - (166904 00) Not Available Not Available Not Available hydroxyzi ne HCl 25 mg tablet take 1-2 tablets by oral route QID PRN and prn sleep 05/29 completed Hydroxyz ine HCl Oral Tablet 25 mg;Recor ded Status: Recorded on: 03/30/20 10 6:26PM;U ser: angelito ;Est. Completi on: 05/29/20 10;Indic ation: Anxiety - (053000 00);Prin lucy: 03/30/20 10 Not Available Not [...] e 50 mcg/actua tion nasal spray,karolina [employer] [place] 1 spray every day by intranas al [...] inal Candidia sis - ();Prin lucy: 08/21/19 Not Available Not Available Not [...] Status: Recorded on: 04/05/20 11 1:55PM;U ser: [email or web address];I ndicatio n: Pregnanc y Contrace ption - [...] weight Body temperature Heart rate Oxygen saturation Respiratory rate Pain severity - 0-10 verbal numeric rating [Score] - Reported Systolic And Diastolic Provider Name and Address Organization Details Last Updated DateTime 3 154.94 cm 26.8 kg/m2 72537.1 2 g 97.3 [degF] 93 /min 97 % 18 /min 0 120/78 mm[Hg] Madhuri Lupe [place] - [facility] 3 10:19:52 Date Recorded Body weight Body temperature Heart rate Oxygen saturation Respiratory rate Pain severity - 0-10 verbal numeric rating [Score] - Reported Systolic And Diastolic Provider Name and Address Organization Details Last Updated DateTime 5 27264.3 4 g 97.2 [degF] 87 /min 96 % 18 /min 0 98/60 mm[Hg] Madhuri Lupe [place] - [facility] 5 11:58:20 Date Recorded Body height Body mass index (BMI) Body weight Body temperature Heart rate Oxygen saturation Respiratory rate Systolic And Diastolic Provider Name and Address Organization Details Last Updated DateTime 5 154.94 cm 25.3 kg/m2 34069.3 8 g 97.8 [degF] 88 /min 97 % 18 /min 104/62 mm[Hg] Gloria Gleason [place] - [facility] 5 10:43:15 Date Recorded Body height Provider Name an d Address Organization Details Last Updated DateTime 01/10/2025 154.94 cm Madhuri Lupe [place] - [facility] 0 01/10/2025 16:20:49 Date Recorded Body height Body mass index (BMI) Body weight Heart rate Body temperature Oxygen saturation Respiratory rate Pain severity - 0-10 verbal numeric rating [Score] - Reported Systolic And Diastolic Provider Name and Address Organization Details Last Updated DateTime 5 154.94 cm 26.1 kg/m2 60817.7 5 g 59 /min 97.6 [degF] 97 % 18 /min 8 104/58 mm[Hg] Madhuri Andrade [place] - [facility] 5 10:09:36 Social History Question Answer Notes LastModified by Organizat ion Details LastModified Time Tobacco Smoking Status Current Every Day Smoker Charu tomlinson [place] - [facility] 04/17/2020 15:26:46 Do You Have An Advance Directive? No [email or web address] Information not available 04/17/2020 Are You Blind Or Do You Have Difficulty Seeing? No Information not available 02/11/2022 Is Blood Transfusion Acceptable In An Emergency? Yes [email or web address] Information not available 04/17/2020 What Is Your Level Of Caffeine Consumption? Moderate Information not available 04/17/2020 How Much Tobacco Do You Chew? None [email or web address] Information not available 04/17/2020 Are You Deaf Or Do You Have Serious Difficulty Hearing? No [email or web address] Information not available 04/17/2020 What Type Of Diet Are You Following? REGULAR [email or web address] Information not available 04/17/2020 Which Illicit Or Recreational Drugs Have You Used? None [email or web address] Information not available 04/17/2020 What Is The Highest Grade Or Level Of School You Have Completed Or The Highest Degree You Have Received? [id number] Information not available 02/11/2022 How Many Days [...] Do You Have A Medical Power Of Lithograph Printer? No Information not available 02/11/2022 What Was [...] available 02/11/2022 What Is Your Relationship Status? [email or web address] Information not available 04/17/2020 Do You Use Your Seat Belt Or Car Seat Routinely? Yes Information not available 02/11/2022 Seat Belts Used Routinely Yes Information not available 02/11/2022 Are You Sexually Active? Yes [email or web address] Information not available 04/17/2020 Do You Have [...] 02/11/2022 Do You Use Sunscreen Routinely? Yes [email or web address] Information not available 04/17/2020 Has Tobacco Cessation [...] is your level of alcohol consumption? None [email or web address] Information not available 04/17/2020 Do you or have you ever used smokeless tobacco? Never used smokeless tobacco [email or web address] Information not available 04/17/2020 Are you currently [...] e-cigarettes or vape? Never used electronic cigarettes [email or web address] Information not available 04/17/2020 What is your exercise level? None [email or web address] Information not available 04/17/2020 Mental Status Question Answer Note LastModified by Organizat ion Details LastModified Time Do you feel stressed (tense, restless, nervous, or anxious, or unable to sleep at night)? [id number] Information not available 02/11/2022 Do you have difficulty concentrating, remembering or making decisions? No Information no t available 02/11/2022 Family History Relationship Description Onset Age of this Age Resolved Age Notes LastModified by Organization Details LastModified Time Maternal Grandmother Arthritis [email or web address] Not available 15:16:48 Maternal Grandmother Hypertensive disorder [email or web address] Not available 2019 15:17:19 Maternal Grandmother Hypothyroidi [...] 11:23:55 Paternal Aunt Malignant neoplasm of breast [email or web address] Not available 04/17 15:26:21 Paternal Aunt Malignant neoplasm of uterus [email or web address] Not available 04/17 15:26:32 Paternal Aunt Hypercholest [...] colitis N Cerebrovascular Disease N Depression N Guillain-Baldwin N Sleep Apnea N Aneurysm N Bronchitis [...] virus, quadrivalent, PF 4 completed Not Available [facility] 04/11/2025 09:45:30 Influenza, split virus, quadrivalent, preservative 9 completed Madhuri Andrade null, [facility] 09/12/2022 10:20:11 Influenza, split virus, quadrivalent, preservative 7 completed Madhuri Andrade null, [facility] 09/12/2022 10:20:11 COVID-19 vaccine, vector-nr, rS-Ad26, PF, 0.5 mL 2 completed Madhuri [place] [facility] 09/12/2022 10:20:11 COVID-19 vaccine, vector-nr, rS-Ad26, PF, 0.5 mL 1 completed Madhuri Andrade null, [facility] 09/12/2022 10:20:11 Influenza, split virus, trivalent, preservative 7 completed Madhuri [place]mlinson[place] [facility] 09/12/2022 10:20:11 Influenza, split virus, trivalent, preservative 1 completed Madh[place] [facility] 09/12/2022 10:20:11 Influenza, split virus, trivalent, preservative 9 completed Mad[place] [facility] 09/12/2022 10:20:11 Influenza, split virus, trivalent, preservative 4 completed Madhuri Lupe null, [facility] 09/12/2022 10:20:11 Influenza, split virus, trivalent, preservative 8 completed Madh[place] [facility] 09/12/2022 10:20:11 Influenza, split virus, trivalent, preservative 7 completed Madhuri Lupe null, [facility] 09/12/2022 10:20:11 Influenza, split virus, trivalent, PF 8 completed Madhuri Lupe null, [facility] 09/12/2022 10:20:11 Hep B, adult 7 completed Madhuri [place] [facility] 09/12/2022 10:20:11 Influenza, split virus, quadrivalent, PF 8 completed Madhuri Lupe null, [facility] 09/12/2022 10:20:11 Influenza, split virus, quadrivalent, PF 3 completed Madhuri [place] [facility] 09/12/2022 10:20:11 Influenza, split virus, quadrivalent, PF 1 completed Madhuri Lupe null, [facility] 09/12/2022 10:20:11 Influenza, split virus, quadrivalent, PF 0 completed Madhuri Lupe null, [facility] 09/12/2022 10:20:11 Past Encounters Encounter ID Performer Location Encounter Start Date Encounter Closed Date Diagnosis/Indication Diagnosis SNOMED-CT Code Diagnosis ICD10 Code Diagnosis IMO Codes Diagnosis Note [id number] [facility] [address] [place] [address] 10/02/2006 00:00:00 [id number] [facility] [address] [place] [address] 11/23/2006 00:00:00 [id number] [facility] [address] [place] [address] 12/20/2006 00:00:00 [id number] [facility] [address] [place] [address] 05/03/2007 00:00:00 [id number] [facility] [address] [place] [address] 11/12/2007 00:00:00 [id number] [facility] [address] [place] [address] 12/11/2007 00:00:00 [id number] [facility] [address] [place] [address] 01/11/2008 00:00:00 [id number] [facility] [address] [place] [address] 02/11/2008 00:00:00 [id number] [facility] [address] [place] [address] 05/13/2008 00:00:00 [id number] [facility] [address] [place] [address] 10/02/2006 00:00:00 [id number] [facility] [address] [place] [address] 02/11/2008 00:00:00 [id number] [facility] [address] [place] [address] 03/13/2008 00:00:00 [id number] [facility] [address] [place] [address] 04/10/2008 00:00:00 [id number] [facility] [address] [place] [address] 06/03/2008 00:00:00 [id number] [facility] [address] [place] [address] 07/03/2008 00:00:00 [id number] [facility] [address] [place] [address] 08/05/2008 00:00:00 [id number] [facility] [address] [place] [address] 08/21/2008 00:00:00 [id number] [facility] [address] [place] [address] 10/09/2008 00:00:00 [id number] [facility] [address] [place] [address] 10/09/2008 00:00:00 [id number] [facility] [address] [place] [address] 10/20/2008 00:00:00 [id number] [facility] [address] [place] [address] 11/17/2008 00:00:00 [id number] [facility] [address] [place] [address] 11/24/2008 00:00:00 [id number] [facility] [address] [place] [address] 12/16/2008 00:00:00 [id number] [facility] [address] [place] [address] 01/06/2009 00:00:00 [id number] [facility] [address] [place] [address] 02/03/2009 00:00:00 [id number] [facility] [address] [place] [address] 02/03/2009 00:00:00 [id number] [facility] [address] [place] [address] 02/17/2009 00:00:00 [id number] [facility] [address] [place] [address] 07/02/2009 00:00:00 [id number] [facility] [address] [place] [address] 03/30/2010 00:00:00 [id number] [facility] [address] [place] [address] 05/04/2010 00:00:00 [id number] [facility] [address] [place] [address] [address] 05/31/2010 00:00:00 [id number] [facility] [address] [place] [address] [address] 04/05/2011 00:00:00 [id number] [facility] [address] [place] [address] 04/08/2011 00:00:00 [id number] [facility] [address] [place] [address] 04/12/2011 00:00:00 [id number] [facility] [address] [place] [address] [address] 04/27/2011 00:00:00 [id number] KAREN Leonardo ROLL UP MACHINE OPERATOR [address] [place] [address] [place] [address] 04/17/2020 15:06:37 04/17/2020 15:57:50 Patient medical record not available [id number] Z76.89 Vaginal discharge 084043 006 N89.8 Reviewed the various causes of vaginal problems. Reviewed good vulvar/vag inal hygiene and ways to reduce symptoms. Advised to call if treatment is not helpful or if symptoms persist or recur. Candidiasis of vagina 72 786829 B37.3 Reviewed good vulvar/vag inal hygiene and ways to reduce symptoms. Advised to call if treatment is not helpful or if symptoms persist or recur.Pt instructed to take Diflucan 1 tablet every 72 hours x 2.Urged to have partner use OTC antifungal treatment. Sebaceous cyst of skin 416433736 L72.3 A sebaceous cyst usually does not [...] on its own or remain indefinite ly. [id number] Katina Rodriguez [address] [address] 02/11/2022 11:01:22 02/11/2022 12:15:40 Multiple nodules of lung 290105082 R91.8 sent to pulmonolog y Hyperlipidemia 40196628 E78.5 labs Sciatica 91225748 M54.30 on lyrica Body mass index 25-29 - overweight 128527772 Z68.[address] puckett at this time I will not refill adipex. Creatine k inase level above reference range 097195523 R74.8 labs Difficulty sleeping 3013 50925 Z72.820 melaton otc Generalize d anxiety disorder 26466406 F41.1 Patient identified triggers for anxiety and impact of anxious thinking on functionin g. Discussed strategies to regulate symptoms and need for compliance with treatment. if any thoughts she can not control or any concerns stop med and go to ed kristal [id number] Katina Rodriguez [address] [address] 03/22/2022 14:59:31 03/22/2022 15:56:08 Constipation 67358500 K59.00 labs in 2 weeks Difficulty sleeping 3013 20916 Z72.820 melaton otc Cough 04317708 R05.1 [id number] Katina Rodriguez [address] [address] 09/12/2022 10:13:42 09/12/2022 10:50:19 Acute maxillary sinusitis 70363603 J01.00 [id number] Katina Rodriguez [address] [address] 12/19/2024 11:41:56 12/19/2024 12:34:03 Low back pain 157161179 M54.50 [id number] Streptococ deuce sore throat 25871942 J02.0 07716 Tick bite 77563731 W57.X XXA 05789658 keep area clean and drymonitor for s/s of infection Lyme disea se suspected 615991036 R68.89 [id number] Katina Rodriguez [address] [address] 01/06/2025 10:34:15 01/06/2025 11:11:25 Body mass index 25-29 - overweight 228194939 E66.3 69736441 25.3 Diarrhea 42541956 R19.7 29534059 Depressive disorder 3548 9007 F32.A Hyperlipidemia 33140177 E78.5 labs Tick bite 78468099 S30.8 60D W57.XXXD 80173010 labs Allergy to beef 46140004 0 T78.1XXA 4248665182 Chronic diarrhea 0808110 09 K52.9 [address] increase fluids Acute maxi llary sinusitis [id number] J01.00 [id number] if worsen or no improvemen t returnincr ease fluid intaketyle nol or motrin for pain Acute bronchitis [id number] 2 J20.9 [id number] if worsen or no improvemen t return [id number] Katina Rodriguez [address] [phone] 01/10/2025 16:19:17 01/10/2025 16:33:27 Hyperglycemia [id number] R73.9 [id number] Katina Rodriguez [address] [address] 04/11/2025 09:45:12 04/11/2025 10:36:27 Lower abdominal pain [id number] R10.30 [id number] sent to ed for eval Screening for malignant neoplasm of colon [id number] Z12.11 [id number] Health Concerns Section Related Observation LastModified by Organization Detai ls LastModified Time None Recorded Concern Status LastModified by Organization Details LastModified Time None Recorded Advance Directives Directive N: Payers Insurance Date Sequence Insurance Name Policy Number Policy Reyes Covered Member ID Reyes Member ID Guarantor Name 06/04/2025 [id number]MEDICAID[place] Akilah Alston [id number] Akilah Alston 06/04/2025 1 [employer] (MEDICAID HMO) Akilah Alston [id number] Akilah Alston Notes Date Note Type Note Provider Name and Address Organization Details Recorded Time 09/12/2022 text/html 46 yr old female presents with sinus issues x 2 weeks. Green drainage from nose that is super thick. Katina Rodriguez APRN [address], [place], [address], [place] [facility] 09/12/2022 10:49:52 12/19/2024 text/html 49 yr old female presents for sore throat, body aches, fever, headache, nausea and vomiting for a few days. She would like to have her cetirizine and diclofenac refilled as well.She pulled a tick off of her left side/ under breast recently as well, would like checked for lyme dz. Katina Rodriguez APRN [address], [place], [address], [place] [facility] 01/20/2025 16:01:30 01/06/2025 text/html 49 year old female who presents to the office today for a follow up on a tick bite- follow up labspatient states she started running a fever 6-1-25, it comes and goesalso has had diarrhea x 1 week after eatinga burger, pt states happens freq when she eats beefis having to use inhaler and nebulizer due to shortness of breath and having green sinus drainage,tenderne ss and coughing up green sputum Katina Rodriguez APRN [address], [place], [address], [place] [facility] 01/06/2025 11:57:13 01/10/2025 text/html 49 yr old female presents for a hgbA1c. Madhuri tomlinson, [place] - [facility] 01/10/2025 16:39:41 04/11/2025 text/html ROS as noted in the HPI 49 yr old female presents for left lower abdomen/pelvic pain that is similar to the pain she had in 2009 with severe colitis and ruptured colon, spent 4 days in hospital. Denies nausea and vomiting. Katina Rodriguez, [employer] [address], [place], [address], [place] [facility] 04/11/2025 10:42:30 OBGyn Episode No OBEpisode recorded.
--- NOTE | 2025-06-23 17:00 | MR_ITS ---
PROCEDURE INFORMATION: Exam: MR Lumbar Spine Without Contrast Exam date and time: 06/23/2025 4:57 PM Age: 49 years old Clinical indication: Low back pain TECHNIQUE: Imaging protocol: Magnetic resonance imaging of the lumbar spine without contrast. COMPARISON: MR LUMBAR SPINE WO CON 09/01/2023 1:03 PM FINDINGS: Bones/joints: There is a 23 degree dextroconvex curvature of the upper lumbar spine centered at L1 and a 21 degree levoconvex curvature centered at L5. Lower thoracic endplate changes are noted. Marrow signal is otherwise within normal limits. Spondylosis is noted with disc bulging, facet arthropathy and ligamentous thickening. Spinal cord: Visualized cord, conus medullaris and cauda equina are unremarkable without compression. L1-L2: At L1-L2 there is disc bulging, superimposed left paracentral protrusion and facet arthropathy but no significant canal or neural foraminal narrowing. L2-L3: At L2-L3 there is no significant canal or foraminal narrowing. L3-L4: At L3-L4 there is disc bulging with facet arthropathy and ligamentous thickening causing mild to moderate canal narrowing, moderate to severe neural foraminal stenosis, worse on the left. L4-L5: At L4-L5 there is disc bulging with facet arthropathy causing mild canal narrowing and mild neural foraminal stenosis. L5-S1: At L5-S1 there is mild disc bulging facet arthropathy but no impingement upon the tapering thecal sac and minor neural foraminal stenosis. Soft tissues: Unremarkable. IMPRESSION: Lumbar spondylosis, biconvex scoliosis.
== END 2025-06-23 23:59 | disposition home or self-care (01) ==
LOC: RAD 16:53
PROVIDERS: PCP Nurse Practitioner Family; Visit Provider Nurse Practitioner Family
DX: M47.26 Other spondylosis with radiculopathy, lumbar region (principal); M41.86 Other forms of scoliosis, lumbar region
CPT/HCPCS: 72148

== ENCOUNTER 2025-07-03 10:31 | Day surgery (SDC) | payer MEDICAID, SELFPAY ==
--- NOTE | 2025-06-29 11:14 | EXP.HP ---
History of Present Illness *Admission Date: 07/03/25 *History of present illness: Mrs. Alston is a 49-year-old female who is here for initial screening colonoscopy. The patient did have a negative Cologuard test in June 2023. She has had some lower abdominal pain and discomfort. The examination is deemed medically necessary for initial screening colonoscopy. The patient has been seen, interviewed and examined prior to the procedure by both myself and the anesthesia provider. [facility] Disclaimer: The information contained in this section may have been updated after the patient was seen, as this information can be updated by other users. Medical History Alpha-gal syndrome Dyspareunia in female Postmenopause atrophic vaginitis Urge incontinence of urine Menopausal vasomotor syndrome Smoking greater than 30 pack years Multiple lung nodules on CT Asthma Perforated nasal septum Sinusitis Anxiety Exposure to COVID-19 virus Stress incontinence Snoring Restless sleeper Daytime somnolence Palpitations Fatigue Chest pain Tobacco use Lumbar disc herniation with radiculopathy Lumbar strain Vitamin D deficiency Hyperlipidemia Surgical History Hx of cardiac cath History of tubal ligation Hx of shoulder surgery right X2 History of hysterectomy Family History Other Family history of cancer Family history of heart disease Hx of glxub-8-[id number] deficiency Social History Smoking Status: Current every day smoker tobacco type: cigarettes packs per day: 1 pack-years: 33 smoking status stop date: 03/31/22 second hand exposure: Yes alcohol intake: former substance use type: former substance user and opiates current occupational status: unemployed Travel in the last 8 weeks?: None household members: other housing: house 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 status: 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 caffeine: Yes special ina needs: No agree to transfusion: No do you feel safe at home: Yes victim of physical abuse: No victim of emotional abuse: No victim of sexual abuse: No would you like helpful sources: No Have you lived/traveled outside US in past 30 days?: No Contact w/someone who lives/traveled outside US past 30 days?: No Exposure to someone with infectious disease in past 14 days?: No Do you have a fever (greater than 100.4 F or 38 C)?: No Have you tested positive for COVID-19?: No Exposed to someone with COVID-19 in past 14 days?: No Do you have a sore throat?: No Do you have a cough?: No Do you have any weakness?: No Do you have any diarrhea?: No Are you experiencing any unusual bleeding?: No Do you have any muscle aches/pain?: No Do you have any abdominal pain?: No Are you experiencing loss of taste or smell?: No Other Medical History Have you received the Flu Vaccine for this season: Yes Have you received the Pneumonia Vaccine: Yes Review of Systems Review of Systems Review of systems (narrative): Negative *Cardiovascular Comments: Negative *Gastrointestinal Comments: Negative *Genitourinary Comments: Negative *Musculoskeletal Comments: Negative *Neurologic Comments: Negative Meds Home Medications and Allergies Home Medications ?Medication ?Instructions ?Recorded ?Confirmed ?Type diclofenac sodium 1 % topical gel See Rx Instructions .Route 04/20/23 07/03/25 Rx .COMPLEX #100 grams atorvastatin 10 mg tablet See Rx Instructions .Route 01/08/24 07/03/25 Rx .COMPLEX #90 ea cetirizine 10 mg tablet See Rx Instructions .Route 01/08/24 07/03/25 Rx .COMPLEX #90 tabs omeprazole 40 mg capsule,delayed See Rx Instructions .Route 01/08/24 07/03/25 Rx release .COMPLEX #90 caps buprenorphine 8 mg-naloxone 2 mg 2 tab sublingual DAILY ADDICTION 02/20/24 07/03/25 History sublingual tablet RECOVERY estradiol 0.01% (0.1 mg/gram) See Rx Instructions .Route 05/24/24 07/03/25 Rx vaginal cream .COMPLEX #42.5 grams budesonide-formoterol HFA 160 1 puff inhalation QID PRN 06/19/24 07/03/25 Rx mcg-4.5 mcg/actuation aerosol shortness of breath or wheezing 90 inhaler (Symbicort) days #10.2 grams bupropion HCl 150 mg 24 hr tablet, 150 mg PO DAILY #30 tabs 04/10/25 07/03/25 Rx extended release escitalopram oxalate 20 mg tablet 20 mg PO DAILY MOOD #90 tabs 04/10/25 07/03/25 Rx (Lexapro) lidocaine 5 % topical patch See Rx Instructions .Route 05/12/25 07/03/25 Rx (Lidoderm) .COMPLEX #30 ea oxybutynin chloride 5 mg 5 mg PO DAILY #30 tabs 05/12/25 07/03/25 Rx tablet,extended release 24 hr fluticasone propionate 50 2 spray intranasal BID #16 grams 05/28/25 07/03/25 Rx mcg/actuation nasal spray,suspension (Flonase Allergy Relief) mupirocin 2 % topical ointment 1 applic topical BID septal 05/28/25 07/03/25 Rx (Centany) perforation #22 grams diazepam 5 mg tablet 5 mg PO TID PRN anxiety #90 tabs 06/10/25 07/03/25 Rx sodium,potassium,mag sulfates 17.5 See Rx Instructions PO .COMPLEX 06/16/25 06/23/25 Rx gram-3.13 gram-1.6 gram oral soln #354 mL (Suprep Bowel Prep Kit) estradiol 2 mg tablet 2 mg PO DAILY #30 tabs 06/23/25 07/03/25 Rx ibuprofen 800 mg tablet 800 mg PO TID 06/23/25 07/03/25 History naloxone 4 mg/actuation nasal spray intranasal 06/23/25 06/23/25 History triamcinolone acetonide 0.025 % 1 applic topical BID 06/23/25 07/03/25 History topical cream peg 3350-electrolytes 236 240 ml PO Q10M colonscopy #4,000 mL 07/01/25 Rx gram-22.74 gram-6.74 gram-5.86 gram solution (Golytely) New Prescriptions to Start Prescriptions: Allergies Allergy/AdvReac Type Severity Reaction Status Date / Time Alpha-Gal Allergy Severe Anaphylaxis Verified 07/03/25 11:17 (Wmkkdlwhh-Knqtf-3,3-Gala Beef Containing Products Allergy Unknown Unknown Verified 07/03/25 11:17 allergy reaction latex (LATEX) Allergy Unknown ITCHING Verified 07/03/25 11:17 ranitidine (RANITIDINE) Allergy Unknown ANXIETY Verified 07/03/25 11:17 Exam *Routine HEENT Exam Head: Present normocephalic Eye: Present EOMI and PERRL ENT: Present mucous membranes moist *Routine Neck Exam Neck: Present supple *Routine Respiratory Exam Respiratory: Present CTA bilaterally *Routine Cardiovascular Exam Cardiovascular: Present RRR *Routine Abdominal Exam Abdominal: Present soft and normoactive bowel sounds; Absent tenderness *Routine Rectal Exam Rectal:: deferred *Routine Genitalia Exam Genitalia:: deferred *Routine Extremities Exam Extremities: Absent cyanosis, clubbing or edema *Routine Skin Exam Skin: Present warm; Absent rash *Routine Neurological Exam Neurological: Present alert and oriented X3 Assessment and Plan *Assessment and plan (1) Screening for colon cancer: Status: Acute Category: Medical Code(s): Z12.11 - Encounter for screening for malignant neoplasm of colon Plan A/P: 1. Screening for colon cancer is the preprocedural diagnosis. The patient will be anesthetized/sedated using MAC sedation. The patient has been seen and examined. Cardiac and lung assessment prior to the examination is stable. Proceed with planned screening colonoscopy.
[2025-07-01 10:57] VITALS: BMI 26.2
--- NOTE | 2025-07-03 06:50 | P.PCN_ITS ---
[facility] Procedure Note Date: 07/03/25 Time: 12:50 Procedure Note:: Colonoscopy Procedure Report: Colonoscopy with cold snare polypectomy Endoscopist: Robert Angulo II, MD Referring physician: GLORIA Lux Date of Procedure: July 03, 2025 Equipment: Olympus [id number] adult colonoscope Sedation: MAC sedation Indication: Mrs. Alston is a 49-year-old female who is here for diagnostic colonoscopy. This is her first colonoscopy. The patient does report lower abdominal pain and discomfort. The patient does have chronic constipation and may have a bowel movement only twice weekly. She reports moderate gassiness and bloating. She does state that her maternal grandfather had colon cancer in his 70s. The patient reports no rectal bleeding or weight loss. The patient did have more severe symptoms and states that she was close to a ruptured bowel in 2007 and had rectal bleeding at that time. The patient did have a negative Cologuard test in June 2023. The examination is deemed medically necessary for diagnostic colonoscopy. Procedure: Prior to the procedure, a history and physical exam was performed, and patient's medications and allergies were reviewed. The risks, benefits and alternatives of the sedation and procedure were discussed with the patient. All questions were answered and informed consent was obtained. The patient was brought to the procedure room. Patient identification and proposed procedure were verified by the physician and the nurse. The patient was placed in a left lateral decubitus position and the scope was passed under direct vision. Throughout the procedure, the patient's blood pressure, pulse, and oxygen saturations were monitored continuously. The colonoscopy was accomplished without difficulty. The patient tolerated the procedure well. Findings: On digital rectal examination there was normal rectal tone. There were no external hemorrhoids. The colonoscope was introduced through the anal canal to the rectum and advanced to the cecum. The ileocecal valve and appendiceal orifice were identified. The scope was advanced a short distance into the ileum which appeared grossly normal. The scope was then withdrawn into the colon. There was a single 3 to 4 mm polyp in the ascending colon removed via cold snare polypectomy. The remaining cecum, ascending, transverse, descending, sigmoid and rectum were grossly normal. There were no other mucosal abnormalities identified. Upon retroflexion within the rectum there were grade 1-2 internal hemorrhoids. The preparation was fair throughout with [place] Preparation Score of 6-7 out of 9. The cecal time was 12 minutes. Impression: 1. Diminutive ascending colon polyp (3 to 4 mm) Plan: I will follow-up the polyp histology and recommend repeat screening/surveillance colonoscopy again in 7 to 10 years based upon the pathology. I would recommend that she begin Linzess for bowel habit training.
[2025-07-03 11:19] VITALS: BP 160/77; PULSE 58; RESP 16; TEMP 36.1; O2SAT 97
[2025-07-03] MEDS: LACTATED RINGERS 1000ML 1,000 ML 50 ML IV (11:25)
--- NOTE | 2025-07-03 11:46 | EXP.ANES.CKL ---
[facility] Disclaimer: The information contained in this section may have been updated after the patient was seen, as this information can be updated by other users. Medical History Alpha-gal syndrome Dyspareunia in female Postmenopause atrophic vaginitis Urge incontinence of urine Menopausal vasomotor syndrome Smoking greater than 30 pack years Multiple lung nodules on CT Asthma Perforated nasal septum Sinusitis Anxiety Exposure to COVID-19 virus Stress incontinence Snoring Restless sleeper Daytime somnolence Palpitations Fatigue Chest pain Tobacco use Lumbar disc herniation with radiculopathy Lumbar strain Vitamin D deficiency Hyperlipidemia Surgical History Hx of cardiac cath History of tubal ligation Hx of shoulder surgery right X2 History of hysterectomy Family History Other Family history of cancer Family history of heart disease Hx of afqtv-2-cbgytjndzhm deficiency Social History Smoking Status: Current every day smoker tobacco type: cigarettes packs per day: 1 pack-years: 33 smoking status stop date: 03/31/22 second hand exposure: Yes alcohol intake: former substance use type: former substance user and opiates current occupational status: unemployed Travel in the last 8 weeks?: None household members: other housing: house marital status: 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: Yes special ina needs: No agree to transfusion: No do you feel safe at home: Yes victim of physical abuse: No victim of emotional abuse: No victim of sexual abuse: No would you like helpful sources: No Have you lived/traveled outside US in past 30 days?: No Contact w/someone who lives/traveled outside US past 30 days?: No Exposure to someone with infectious disease in past 14 days?: No Do you have a fever (greater than 100.4 F or 38 C)?: No Have you tested positive for COVID-19?: No Exposed to someone with COVID-19 in past 14 days?: No Do you have a sore throat?: No Do you have a cough?: No Do you have any weakness?: No Do you have any diarrhea?: No Are you experiencing any unusual bleeding?: No Do you have any muscle aches/pain?: No Do you have any abdominal pain?: No Are you experiencing loss of taste or smell?: No [facility] Anesthesia Checklist Patient Identification Patient Identification: Arm Band and Verbal (Name & ) Structural Data Admitted From: Home Planned Operative Procedure/s: Colonscopy Consent for Planned Operative Procedure(s) Verified: Yes Verified Documents: Surgical Consent NPO Status Verified Time NPO: 00:00 Additional verifications Anesthesia Reactions: No Hx Blood Transfusions: No Blood Transfusion Reaction: No Airway Assessment Mallampati Score:: Class II C-Spine Mobility Assessed: Yes TMJ Mobility Assessed: Yes Dentition: Edentulous Neurological Assessment Level of Consciousness: Awake, Alert and Appropriate Hx Seizures: No Numbness or tingling in extremities: No Anesthesia Plan Anesthesia Risk discussed: Yes Anesthesia Plan: Verified ASA Class: II Anesthesia Type: MAC
[2025-07-03 13:10] VITALS: BP 106/62; PULSE 64; RESP 18; TEMP 36.2; O2SAT 94
[2025-07-03 13:20] VITALS: BP 114/66; PULSE 61; RESP 18; O2SAT 95
[2025-07-03 13:30] VITALS: BP 108/65; PULSE 65; RESP 18; O2SAT 96
[2025-07-03 13:40] VITALS: BP 111/46; PULSE 57; RESP 18; O2SAT 97
== END 2025-07-03 13:40 | disposition home or self-care (01) ==
PROVIDERS: PCP Nurse Practitioner Family; Visit Provider Internal Medicine Gastroenterology
PROC: 0DJD8ZZ Inspection of Lower Intestinal Tract, Via Natural or Artificial Opening Endoscopic (ICD-10-PCS; CPT 45378; principal; 2025-07-03 12:00)
DX: Z12.11 Encounter for screening for malignant neoplasm of colon (principal); K63.5 Polyp of colon; K59.09 Other constipation; Z80.0 Family history of malignant neoplasm of digestive organs; K64.1 Second degree hemorrhoids; F17.210 Nicotine dependence, cigarettes, uncomplicated; J45.909 Unspecified asthma, uncomplicated; F41.9 Anxiety disorder, unspecified; E55.9 Vitamin D deficiency, unspecified; E87.5 Hyperkalemia; Z79.02 Long term (current) use of antithrombotics/antiplatelets; Z79.51 Long term (current) use of inhaled steroids; Z79.899 Other long term (current) drug therapy; Z79.890 Hormone replacement therapy; Z88.8 Allergy status to other drugs, medicaments and biological substances; Z91.040 Latex allergy status
CPT/HCPCS: 45385; J2003; J2704; J7120